=== PATIENT | female | born 1960 | race Caucasian/White ===

== ENCOUNTER → 2018-01-20 07:44 | Outpatient (CLI) | payer OTHER, SELFPAY ==
--- NOTE | 2018-01-20 07:46 | BI_ITS ---
MAMMOGRAPHY - BILATERAL SCREENING REASON FOR EXAM: Female, 57 years old. Routine annual screening examination. PERTINENT HISTORY: Non-contributory. TECHNIQUE: Digital bilateral breast susana (3D mammographic acquisition) in the CC and MLO projections. 2-D mediolateral oblique (MLO) and craniocaudad (CC) views of both breasts were obtained. CAD: Full Field Digital Mammography with Computer Added Detection was performed. COMPARISON: Comparison is made with prior study dated January 02, 2017 and November 10, 2015. FINDINGS: Breast Composition: There are scattered areas of fibroglandular density. There are no dominant masses or suspicious calcifications. No other significant abnormalities are identified. There has been no significant change since the prior study. BI/SCREENING MAMM (CAD), BILAT IMPRESSION: Stable bilateral screening mammogram. Yearly follow-up mammogram recommended. (A) ASSESSMENT CATEGORY: BIRADS Category 1: Negative. A letter regarding these results will be sent to the patient by the facility within 30 days. Approximately 10% of breast cancers are not detected by mammography. A normal mammogram should not delay biopsy of a clinically suspicious abnormality. [id number] Electronically Signed: Fermin Monroy MD at 9:17 EDT Tel [phone], Service support ,
== END ==
PROVIDERS: Visit Provider Obstetrics & Gynecology
DX: Z12.31 Encounter for screening mammogram for malignant neoplasm of breast (principal)
CPT/HCPCS: 77063; 77067

== ENCOUNTER → 2019-04-01 15:36 | Outpatient (CLI) | payer OTHER, SELFPAY ==
[2019-04-06 14:59] LABS: HPV Reflexed? NOT INDICATED
== END ==
PROVIDERS: Visit Provider Obstetrics & Gynecology
DX: Z12.4 Encounter for screening for malignant neoplasm of cervix (principal)
CPT/HCPCS: 87624; 88175; G0145

== ENCOUNTER → 2019-05-06 08:08 | Outpatient (CLI) | payer OTHER, SELFPAY ==
--- NOTE | 2019-05-06 08:11 | BI_ITS ---
MAMMOGRAPHY - BILATERAL SCREENING REASON FOR EXAM: Female, 58 years old. Routine annual screening examination. PERTINENT HISTORY: Non-contributory. TECHNIQUE: Digital bilateral breast duncan (3D mammographic acquisition) in the CC and MLO projections. 2-D mediolateral oblique (MLO) and craniocaudad (CC) views of both breasts were obtained. CAD: Full Field Digital Mammography with Computer Added Detection was performed. COMPARISON: Comparison is made with prior study dated January 20, 2018 and January 02, 2017. FINDINGS: Breast Composition: There are scattered areas of fibroglandular density. Focal area of architectural distortion is seen in the MLO view of the left breast superiorly. The patient will be recalled for additional views including a 90 degree lateral view and compression spot views. Stable appearance of the bilateral axillary lymph nodes. No other significant abnormalities are identified. BI/SCREEN MAMM (CAD) W/DUNCAN BILAT IMPRESSION: Focal area of architectural distortion seen on the tomographic views of the left breast on the MLO view as described. The patient will be recalled for additional views. Recall Side: Left Breast ASSESSMENT CATEGORY: BIRADS Category 0: Incomplete. Need additional imaging evaluation. A letter regarding these results will be sent to the patient by the facility within 30 days. Approximately 10% of breast cancers are not detected by mammography. A normal mammogram should not delay biopsy of a clinically suspicious abnormality. [id number] Electronically Signed: Fermin Monroy, at 9:44 EDT , Service support ,
== END ==
PROVIDERS: Family Provider Family Medicine; PCP Family Medicine; Referring Provider Obstetrics & Gynecology; Visit Provider Obstetrics & Gynecology
DX: Z12.31 Encounter for screening mammogram for malignant neoplasm of breast (principal)
CPT/HCPCS: 77063; 77067

== ENCOUNTER → 2019-05-07 09:13 | Outpatient (CLI) | payer OTHER, SELFPAY ==
--- NOTE | 2019-05-07 09:17 | BI_ITS ---
MAMMOGRAPHY - UNILATERAL DIAGNOSTIC: LEFT BREAST REASON FOR EXAM: Female, 58 years old. Abnormal screening mammogram. PERTINENT HISTORY: Non-contributory. TECHNIQUE: Compression spot view and 90 degree view of the left breast were obtained. CAD: Full Field Digital Mammography with Computer Added Detection was performed. COMPARISON: Comparison is made with prior examination dated May 06, 2019. FINDINGS: Breast Composition: There are scattered areas of fibroglandular density. There are no dominant masses or suspicious calcifications. The previously seen focal area of architectural distortion in the superior aspect of the left breast is not seen at this time. No other significant abnormalities are identified. BI/DIAG MAMM W/CAD, UNILAT IMPRESSION: Stable unilateral diagnostic mammogram. One year follow-up mammogram recommended. (A) ASSESSMENT CATEGORY: BIRADS Category 2: Benign. A letter regarding these results will be sent to the patient by the facility within 30 days. Approximately 10% of breast cancers are not detected by mammography. A normal mammogram should not delay biopsy of a clinically suspicious abnormality. Electronically Signed: Fermin Monroy, at 10:09 EDT , Service support ,
--- NOTE | 2019-05-07 09:17 | US_ITS ---
STUDY: ULTRASOUND BREAST - LEFT REASON FOR EXAM: Female, 58 years old. Abnormal screening mammogram. TECHNIQUE: Axial and longitudinal images of the LEFT breast were performed with a high resolution ultrasound transducer. COMPARISON: Comparison is made with prior mammogram dated May 06, 2019 and May 07, 2019. FINDINGS: LEFT Breast: The superior half of the left breast was examined by ultrasound. There is homogeneous fibroglandular tissue. No solid or cystic mass lesion is seen. US/Breast Limited Unilateral IMPRESSION: Unremarkable sonographic examination of the upper half of the left breast. ASSESSMENT CATEGORY: BIRADS Category 1: Negative. A letter regarding these results will be sent to the patient by the facility within 30 days. Electronically Signed: Fermin Monroy, at 13:50 EDT , Service support ,
== END ==
PROVIDERS: Family Provider Family Medicine; PCP Family Medicine; Referring Provider Obstetrics & Gynecology; Visit Provider Obstetrics & Gynecology
DX: R92.8 Other abnormal and inconclusive findings on diagnostic imaging of breast (principal)
CPT/HCPCS: 76641; 76642; 77065

== ENCOUNTER → 2019-11-15 10:38 | Outpatient (CLI) | payer OTHER, SELFPAY ==
--- NOTE | 2019-11-15 16:50 | LES_PTH ---
PATIENT: CHAD BRAND LOC: [facility] U#:[id number] AGE/SX: 64/F ROOM: RE11/15/[address]: Dr. Camden Salazar MD : 1960 BED: DIS: SPEC #: [id number] RECD: 11/16/19 09:57 STATUS: ULYSSES MARC #: [id number] YANELIS: 11/15/19 16:[address]: Camden Salazar DEPT: SURGICAL PATHOLOGY RECD BY: Raymond Sepulveda ENTERED: 11/16/19 11:42 SP TYPE: Lesion OTHR DR: Dr. Poonam Espinoza MD Tissues: Skin of eyelid, NOS Procedures: Surgery Specimen Level IV HEADER OPERATION: Left lower lid lesion excision PRE-OP DIAGNOSIS: Left lower lid lesion, possible inclusion cyst TISSUE SUBMITTED: Left lower eyelid lesion MICROSCOPIC DIAGNOSIS Left lower eyelid lesion, excision: Benign ductal cyst (cyst of Moll's gland). Dermal and follicular chronic inflammation. ANGELICA:jeannette 11/17/19 COMMENT Case has been reviewed in consultation with Dr. Crawford who concurs with the above diagnosis. IDC:AM MICROSCOPIC DESCRIPTION Slides are reviewed. GROSS DESCRIPTION Received in fixative is one container labeled with the patient's name and designated left lower lid. The specimen consists of an irregular fragment of light wang soft tissue measuring 0.5 x 0.2 x 0.1 cm. The specimen is totally submitted in one cassette. / AM:jeannette 11/16/19 TC:3 CPT: 33624
== END ==
PROVIDERS: PCP Family Medicine; Referring Provider Ophthalmology; Visit Provider Ophthalmology
DX: H02.9 Unspecified disorder of eyelid (principal)
CPT/HCPCS: 88305

== ENCOUNTER → 2020-05-27 07:00 | Outpatient (CLI) | payer OTHER, SELFPAY ==
--- NOTE | 2020-05-27 07:16 | BI_ITS ---
MAMMOGRAPHY - BILATERAL SCREENING REASON FOR EXAM: Female, 59 years old. Routine annual screening examination. PERTINENT HISTORY: Non-contributory. TECHNIQUE: Digital bilateral breast duncan (3D mammographic acquisition) in the CC and MLO projections. 2-D mediolateral oblique (MLO) and craniocaudad (CC) views of both breasts were obtained. CAD: Full Field Digital Mammography with Computer Added Detection was performed. COMPARISON: Comparison is made with prior study dated 05/06/2019 and 01/20/2018. FINDINGS: Breast Composition: There are scattered areas of fibroglandular density. There are no dominant masses or suspicious calcifications. Stable small benign appearing bilateral axillary lymph nodes. No other significant abnormalities are identified. There has been no significant change since the prior study. BI/SCREEN MAMM (CAD) W/DUNCAN BILAT IMPRESSION: Stable bilateral screening mammogram. Yearly follow-up mammogram recommended. (A) ASSESSMENT CATEGORY: BIRADS Category 2: Benign. A letter regarding these results will be sent to the patient by the facility within 30 days. Approximately 10% of breast cancers are not detected by mammography. A normal mammogram should not delay biopsy of a clinically suspicious abnormality. [id number] Electronically Signed: Fermin Monroy, at 8:31 EDT , Service support ,
== END ==
PROVIDERS: PCP Family Medicine; Referring Provider Obstetrics & Gynecology; Visit Provider Obstetrics & Gynecology
DX: Z12.31 Encounter for screening mammogram for malignant neoplasm of breast (principal)
CPT/HCPCS: 77063; 77067

== ENCOUNTER 2021-10-24 13:22 | Outpatient (CLI) | payer OTHER, SELFPAY ==
--- NOTE | 2021-10-24 11:15 | POL_PTH ---
PATIENT: CHAD BRAND LOC: [facility] U#:[id number] AGE/SX: 60/F ROOM: RE10/24/[address]: Dr. Gorge Joyce MD : 1960 BED: DIS: 10/24/2021 SPEC #: [id number] RECD: 10/24/21 14:32 STATUS: ULYSSES REColleen #: [id number] YANELIS: 10/24/21 11:[address]: Gorge Joyce DEPT: SURGICAL PATHOLOGY RECD BY: Micaela Erickson ENTERED: 10/25/21 07:28 SP TYPE: Polyp OTHR DR: Dr. Poonam Espinoza MD Tissues: Vagina, NOS Procedures: Surgery Specimen Level IV HEADER OPERATION: Vaginal polyp removal PRE-OP DIAGNOSIS: Vaginal polyp TISSUE SUBMITTED: Vaginal polyp MICROSCOPIC DIAGNOSIS Vaginal polyp, biopsy: Benign mucosal polyp. See comment. ANGELICA:jeannette 10/26/2021 COMMENT Polyp is lined by squamous epithelium. MICROSCOPIC DESCRIPTION Slides are reviewed. GROSS DESCRIPTION Received in fixative is one container labeled with the patient's name and designated vaginal polyp. The specimen consists of a piece of wang-pink polyp measuring 1.2 x 0.5 x 0.5 cm. The specimen is bisected and submitted entirely in one cassette. / SJ:rg 10/25/2021 TC:5 [facility]: [id number]
[2021-10-29 18:03] LABS: HPV Reflexed? NOT INDICATED
== END 2021-10-24 23:59 | disposition home or self-care (01) ==
LOC: LABSPEC 13:30
PROVIDERS: PCP Family Medicine; Visit Provider Obstetrics & Gynecology
DX: Z12.4 Encounter for screening for malignant neoplasm of cervix (principal)
CPT/HCPCS: 88175; 88305; G0145

== ENCOUNTER 2021-11-22 13:40 | Outpatient (CLI) | payer OTHER, SELFPAY ==
--- NOTE | 2021-11-22 13:43 | BI_ITS ---
MAMMOGRAPHY - BILATERAL SCREENING 3-D TOMOSYNTHESIS REASON FOR EXAM: Female, 60 years old. SCREENING PERTINENT HISTORY: No significant family history. TECHNIQUE: 2-D mammograms and 3-D Tomosynthesis of the breast (s) were performed. CAD was performed. COMPARISON: 05/27/2020 FINDINGS: The breast composition is heterogeneously dense that can obscure small breast masses. Scattered benign calcifications are seen. No dense spiculated masses or suspicious microcalcifications are identified. No architectural distortion is identified. There is no skin thickening or retraction. There has been no significant change since the prior study. BI/SCRN MAMM (CAD)W/DUNCAN BILAT IMPRESSION: No mammographic signs of malignancy. Routine yearly mammograms recommended. ASSESSMENT CATEGORY: BIRADS Category 1: Negative. A letter regarding these results will be sent to the patient by the facility within 30 days. FOLLOW UP RECOMMENDATION: Yearly follow up mammogram recommended. (A) Approximately 10% of breast cancers are not detected by mammography. A normal mammogram should not delay biopsy of a clinically suspicious abnormality. Electronically Signed: Donald Reagan MD at 17:17 EDT ,
== END 2021-11-22 23:59 | disposition home or self-care (01) ==
LOC: OPBI 13:41
PROVIDERS: PCP Family Medicine; Referring Provider Obstetrics & Gynecology; Visit Provider Obstetrics & Gynecology
DX: Z12.31 Encounter for screening mammogram for malignant neoplasm of breast (principal)
CPT/HCPCS: 77063; 77067

== ENCOUNTER 2021-12-07 09:34 | Outpatient (CLI) | payer OTHER, SELFPAY ==
[2021-12-07 10:11] LABS: Erythrocyte Sedimentation Rate 37 mm/hr (0-30)
[2021-12-07 10:14] LABS: Absolute Lymphocyte Count 2.14 X10^3/uL (0.83-4.51); Absolute Neutrophil Count 3.9 X10^3/uL (2.0-7.7); Basophil# 0.04 X10^3/uL; Basophil% 0.6 % (0-1); Eosinophil# 0.25 X10^3/uL; Eosinophils% 3.6 % (0-5); Hematocrit 39.9 % (37-47); Hemoglobin 13.4 g/dL (12.0-15.0); Lymphocyte # 2.14 X10^3/ul (0.83-4.51); Lymphocyte % 30.4 % (19-41); Mean Corp Hgb Conc 33.6 g/dL (32-36); Mean Corpuscular Volume 95.2 fL (81-99); Mean Platelet Vol. 10.4 fl (6.2-12.0); NRBC Flagged by Analyzer 0 % (0-5); Neutrophil # 3.89 X10^3/uL (2.7-7.7); Neutrophil % 55.3 % (47-70); Platelet Count 303 K/mm3 (150-450); RBC Distribution Width CV 12.4 % (11.6-14.6); RBC Distribution Width SD 42.7 fl (35.1-43.9); Red Blood Count 4.19 M/mm3 (4.2-5.4)
[2021-12-07 10:16] LABS: Prothrombin Time (Protime)PT. 12.7 SECONDS (11.7-14.9)
[2021-12-07 11:13] LABS: ALB/GLOB Ratio 0.8 RATIO (0.9-2.4); AST(SGOT) 52 U/L (15-37); Alanine Aminotransfer ALT/SGPT 79 U/L (13-56); Albumin, Serum 3.5 g/dL (3.2-5.0); Alkaline Phosphatase 77 U/L (45-117); Anion Gap 3 (5-15); BUN 12 mg/dL (7-18); BUN/Creat Ratio 17.7 RATIO (10-20); Bilirubin, Direct 0.13 mg/dL (0.00-0.30); CRP 8.82 mg/L (0.0-3.0); Calcium,Total 8.7 mg/dL (8.5-10.1); Chloride 109 mmol/L (98-107); Creatinine, Serum 0.68 mg/dL (0.55-1.02); EST Glomerular Filtration Rate 94 mL/min (>60); Est Glom Filt Rate - Afr Amer 114 mL/min (>60); Ferritin 392 ng/mL (8-252); Globulin 4.3 g/dL (2.2-4.2); Glucose 132 mg/dL (74-106); LDH 181 U/L (84-246); Potassium 4.1 mmol/L (3.5-5.1); Protein, Total 7.8 g/dL (6.4-8.2); Sodium Level 139 mmol/L (136-145)
[2021-12-07 11:14] LABS: Hemoglobin A1c 5.8 % (3.8-5.6)
[2021-12-08 16:09] LABS: Anti-Centromere B Ab <0.2 AI (0.0-0.9); Anti-Chromatin <0.2 AI (0.0-0.9); Anti-Jo <0.2 AI (0.0-0.9); Anti-Scleroderma-70 AB <0.2 AI (0.0-0.9); RNP Ab 0.2 AI (0.0-0.9); SJOGREN'S Anti-SS-A test < 0.2 AI (0.0-0.9); SJOGREN'S Anti-SS-B test < 0.2 AI (0.0-0.9); Smith Ab <0.2 AI (0.0-0.9)
[2021-12-08 22:22] LABS: Anti-Mitochondrial AB <20.0 Units (0.0-20.0); Anti-dsDNA Ab <1 IU/mL (0-9)
[2021-12-11 05:07] LABS: Angiotensin Convert Enzyme 26 U/L (14-82); Ceruloplasmin 25.6 mg/dL (19.0-39.0); Cytoplasmic Ab (C-ANCA) <1:20 titer (Neg:<1:20); HEPATITIS B SURFACE AG Negative (Negative); Hepatitis A IgM Antibody Negative (Negative); Hepatitis B Core AB IgM Negative (Negative)
[2021-12-11 11:36] LABS: AFP, Tumor Marker 3.2 ng/mL (0.0-9.2); Anti-Smooth Muscle ABS 12 Units (0-19); Copper, Serum or Plasma 131 ug/dL (80-158); Haptoglobin 194 mg/dL (33-346); Hep C Antibodies 0.2 s/co ratio (0.0-0.9); Perinuclear Ab (P-ANCA) <1:20 titer (Neg:<1:20)
== END 2021-12-07 23:59 | disposition home or self-care (01) ==
PROVIDERS: PCP Family Medicine; Referring Provider Nurse Practitioner Adult Health; Visit Provider Nurse Practitioner Adult Health
DX: R74.8 Abnormal levels of other serum enzymes (principal); K76.0 Fatty (change of) liver, not elsewhere classified; Z83.79 Family history of other diseases of the digestive system
CPT/HCPCS: 36415; 80053; 80074; 82105; 82140; 82164; 82248; 82390; 82525; 82728; 83010; 83036; 83516; 83615; 85025; 85610; 85652; 86140; 86225; 86235; 86256

== ENCOUNTER → 2021-12-25 | Outpatient (CLI) | payer OTHER, SELFPAY ==
--- NOTE | 2021-12-25 07:46 | US_ITS ---
STUDY: ABDOMINAL ULTRASOUND - ELASTOGRAPHY REASON FOR VISIT: Female, 61 years old. Fatty infiltration of the liver. TECHNIQUE: Liver stiffness measurements were obtained on a [employer] RS 85 ultrasound machine using a CA 1-7 probe following the SRU guidelines. 3 measurements were obtained using a 2-D-SWE method. The IQR/M was 13% suggesting a quality data set. TECHNICAL QUALITY: Adequate. COMPARISON: Comparison is made with prior study done earlier in the day. FINDINGS: Liver: There is evidence of fatty infiltration of the liver. Median liver stiffness measured 5.5 kPa. US/Elastography Parenchyma/Organ IMPRESSION: Liver stiffness measures 5. kPa compatible with F0-F1 (Normal to mild liver fibrosis) Metavir score. Electronically Signed: Fermin Monroy MD at 9:34 EDT ,
--- NOTE | 2021-12-25 07:46 | US_ITS ---
STUDY: ABDOMINAL ULTRASOUND - RIGHT UPPER QUADRANT REASON FOR VISIT: Female, 61 years old K76.0 - Fatty (change of) liver, not elsewhere classified TECHNIQUE: Ultrasound evaluation of the right upper quadrant was performed with real-time and static allen-scale imaging. TECHNICAL QUALITY: Adequate. COMPARISON: None. FINDINGS: Liver: The liver is mildly enlarged and measures 17.7 cm. There is increased echogenicity consistent with fatty infiltration. The bile ducts are within normal limits. There is hepatic color flow. The direction of portal flow is hepatopetal. There is a 6.5 cm x 7.2cm x 4.8 cm cyst in the medial aspect of the right lobe of the liver. Gallbladder: Normal distended gallbladder. The gallbladder wall measures 1.8 mm. There is a negative sonographic Carey''s sign. There is no pericholecystic fluid. There are no gallstones. Common Bile Duct (C.B.D.): The common bile duct measures 1.9 mm. Pancreas: Normal size of the head, body and tail of the pancreas. There is normal echogenicity of the pancreas. There is no demonstrated pancreatic mass or cyst. Right Kidney: Normal size of the right kidney. The right kidney measures 11.9 cm x 6.1 cm x 4.8 cm. Normal renal cortex. The right cortex measures 1.3 cm. There is a 2.3 cm x 2.2 cm x 1.4 cm right renal cyst. There is no right hydronephrosis. US/Abdomen Limited IMPRESSION: Fatty infiltration of the liver. Cyst is seen in the medial aspect of the right lobe of the liver. Right renal cyst. Electronically Signed: Fermin Monroy MD at 9:14 EDT ,
== END | disposition home or self-care (01) ==
LOC: US 07:45
PROVIDERS: PCP Family Medicine; Referring Provider Nurse Practitioner Adult Health; Visit Provider Nurse Practitioner Adult Health
DX: K76.0 Fatty (change of) liver, not elsewhere classified (principal)
CPT/HCPCS: 76705; 76981

== ENCOUNTER → 2022-11-28 | Outpatient (CLI) | payer OTHER, SELFPAY ==
--- NOTE | 2022-11-28 10:28 | BI_ITS ---
MAMMOGRAPHY - BILATERAL SCREENING REASON FOR EXAM: Female, 61 years old. Routine annual screening examination. PERTINENT HISTORY: Non-contributory. TECHNIQUE: Digital bilateral breast duncan (3D mammographic acquisition) in the CC and MLO projections. 2-D mediolateral oblique (MLO) and craniocaudad (CC) views of both breasts were obtained. CAD: Full Field Digital Mammography with Computer Added Detection was performed. COMPARISON: Comparison is made with prior examination dated November 22, 2021 and May 27, 2020. FINDINGS: Breast Composition: There are scattered areas of fibroglandular density. There are no dominant masses or suspicious calcifications. Stable benign-appearing bilateral axillary lymph nodes. No other significant abnormalities are identified. There has been no significant change since the prior study. BI/SCRN MAMM (CAD)W/DUNCAN BILAT IMPRESSION: Stable bilateral screening mammogram. Yearly follow-up mammogram recommended. (A) ASSESSMENT CATEGORY: BIRADS Category 2: Benign. A letter regarding these results will be sent to the patient by the facility within 30 days. Approximately 10% of breast cancers are not detected by mammography. A normal mammogram should not delay biopsy of a clinically suspicious abnormality. [id number] Electronically Signed: Fermin Monroy MD at 11:16 EDT ,
== END | disposition home or self-care (01) ==
LOC: OPBI 10:26
PROVIDERS: PCP Family Medicine; Referring Provider Obstetrics & Gynecology; Visit Provider Obstetrics & Gynecology
DX: Z12.31 Encounter for screening mammogram for malignant neoplasm of breast (principal)
CPT/HCPCS: 77063; 77067

== ENCOUNTER → 2023-01-21 | Outpatient (CLI) | payer OTHER, SELFPAY ==
[2023-01-21 11:26] LABS: Absolute Lymphocyte Count 2.61 X10^3/uL (0.83-4.51); Absolute Neutrophil Count 3.9 X10^3/uL (2.0-7.7); Basophil# 0.06 X10^3/uL; Basophil% 0.8 % (0-1); Eosinophil# 0.31 X10^3/uL; Eosinophils% 4.1 % (0-5); Hematocrit 42.5 % (37-47); Hemoglobin 13.6 g/dL (12.0-15.0); Lymphocyte # 2.61 X10^3/ul (0.83-4.51); Lymphocyte % 34.5 % (19-41); Mean Corpuscular Hgb 31.6 pg (27.0-32.0); Mean Corpuscular Volume 98.8 fL (81-99); Mean Platelet Vol. 10.7 fl (6.2-12.0); Monocyte# 0.64 X10^3/uL; Monocyte% 8.5 % (0-10); NRBC Flagged by Analyzer 0 % (0-5); Neutrophil # 3.92 X10^3/uL (2.7-7.7); Neutrophil % 51.7 % (47-70); Platelet Count 298 K/mm3 (150-450); RBC Distribution Width CV 12.5 % (11.6-14.6); RBC Distribution Width SD 45.1 fl (35.1-43.9); White Blood Count 7.6 K/mm3 (4.4-11.0)
[2023-01-21 11:37] LABS: Erythrocyte Sedimentation Rate 38 mm/hr (0-30)
[2023-01-21 11:40] LABS: Hemoglobin A1c 5.9 % (3.8-5.6)
[2023-01-21 12:03] LABS: BUN 14 mg/dL (7-18); EST Glomerular Filtration Rate 91 mL/min (>60); Glucose 103 mg/dL (74-106)
[2023-01-21 12:04] LABS: ALB/GLOB Ratio 0.8 RATIO (0.9-2.4); AST(SGOT) 50 U/L (15-37); Alanine Aminotransfer ALT/SGPT 76 U/L (13-56); Albumin, Serum 3.6 g/dL (3.2-5.0); Alkaline Phosphatase 80 U/L (45-117); Anion Gap 7 (5-15); BUN/Creat Ratio 20.1 RATIO (10-20); CRP 8.31 mg/L (0.0-3.0); Calcium,Total 9.3 mg/dL (8.5-10.1); Chloride 107 mmol/L (98-107); Est Glom Filt Rate - Afr Amer 110 mL/min (>60); Globulin 4.5 g/dL (2.2-4.2); Potassium 4.4 mmol/L (3.5-5.1); Protein, Total 8.1 g/dL (6.4-8.2); Sodium Level 141 mmol/L (136-145)
== END | disposition home or self-care (01) ==
PROVIDERS: PCP Family Medicine; Referring Provider Nurse Practitioner Adult Health; Visit Provider Nurse Practitioner Adult Health
DX: K76.0 Fatty (change of) liver, not elsewhere classified (principal)
CPT/HCPCS: 36415; 80053; 83036; 85025; 85652; 86140

== ENCOUNTER → 2023-02-18 | Outpatient (CLI) | payer OTHER, SELFPAY ==
--- NOTE | 2023-02-18 09:22 | US_ITS ---
STUDY: ABDOMINAL ULTRASOUND - RIGHT UPPER QUADRANT REASON FOR VISIT: Female, 62 years old fatty liver, elastography -- RUQ TECHNIQUE: Ultrasound evaluation of the right upper quadrant was performed with real-time and static allen-scale imaging. TECHNICAL QUALITY: Adequate. COMPARISON: Comparison is made with prior study dated December 25, 2021. FINDINGS: Liver: The liver measures 17.9 cm. There is increased echogenicity consistent with fatty infiltration. The bile ducts are within normal limits. There is hepatic color flow. The direction of portal flow is hepatopetal. Stable 6.5 cm x 7.2 cm cyst in the medial aspect of the right lobe of the liver. Gallbladder: Normal distended gallbladder. The gallbladder wall measures 2.0 mm. There is a negative sonographic Carey''s sign. There is no pericholecystic fluid. There are no gallstones. Common Bile Duct (C.B.D.): The common bile duct measures 4.0 mm. Pancreas: Normal size of the head, body and tail of the pancreas. There is normal echogenicity of the pancreas. There is no demonstrated pancreatic mass or cyst. Right Kidney: Normal size of the right kidney. The right kidney measures 11.6 cm x 5.9 cm x 5.1 cm. Normal renal cortex. The right cortex measures 1.2 cm. 1.8 cm x 1.8 cm x 1.2 cm cyst in the lower pole of the right kidney. There is no right hydronephrosis. IMPRESSION: Borderline hepatomegaly and fatty infiltration of the liver. Stable small cyst in the right lobe of the liver as well as in the inferior pole of the right kidney. Electronically Signed: Fermin Monroy MD at 9:17 EDT , STUDY: ABDOMINAL ULTRASOUND - ELASTOGRAPHY REASON FOR VISIT: Female, 62 years old. Fatty infiltration of the liver. TECHNIQUE: Liver stiffness measurements were obtained on a [employer] RS 85 ultrasound machine using a CA 1-7 probe following the SRU guidelines. 3 measurements were obtained using a 2-D-SWE method. TheIQR/M was 14% suggesting a quality data set. TECHNICAL QUALITY: Adequate. COMPARISON: Comparison is made with prior study dated December 25, 2021. FINDINGS: Liver: There is no demonstrated mass lesion. Median liver stiffness measured 6.4 kPa. Abdomen: There is no demonstrated mass lesion. US/ABD Limited w/ Elastography IMPRESSION: Liver stiffness measures 6.4 kPa compatible with F2-F3 (Mild to moderate liver fibrosis) Metavir score. Electronically Signed: Fermin Monroy MD at 9:19 EDT ,
== END | disposition home or self-care (01) ==
PROVIDERS: PCP Family Medicine; Referring Provider Nurse Practitioner Adult Health; Visit Provider Nurse Practitioner Adult Health
DX: K76.0 Fatty (change of) liver, not elsewhere classified (principal)
CPT/HCPCS: 76705; 76981

== ENCOUNTER → 2024-01-01 | Outpatient (CLI) | payer OTHER, SELFPAY ==
--- NOTE | 2024-01-01 10:28 | BI_ITS ---
MAMMOGRAPHY - BILATERAL SCREENING REASON FOR EXAM: Female, 63 years old. Routine annual screening examination. PERTINENT HISTORY: Non-contributory. TECHNIQUE: Digital bilateral breast duncan (3D mammographic acquisition) in the CC and MLO projections. 2-D mediolateral oblique (MLO) and craniocaudad (CC) views of both breasts were obtained. CAD: Full Field Digital Mammography with Computer Added Detection was performed. COMPARISON: Comparison is made with prior study dated November 28, 2022 and November 22, 2021. FINDINGS: Breast Composition: There are scattered areas of fibroglandular density. There are no dominant masses or suspicious calcifications. Stable benign-appearing right axillary lymph nodes. No other significant abnormalities are identified. There has been no significant change since the prior study. BI/SCRN MAMM (CAD)W/UDNCAN BILAT IMPRESSION: Stable bilateral screening mammogram. Yearly follow-up mammogram recommended. (A) ASSESSMENT CATEGORY: BIRADS Category 2: Benign. A letter regarding these results will be sent to the patient by the facility within 30 days. Approximately 10% of breast cancers are not detected by mammography. A normal mammogram should not delay biopsy of a clinically suspicious abnormality. [id number] Electronically Signed: Fermin Monroy MD at 12:26 EDT ,
== END | disposition home or self-care (01) ==
LOC: OPBI 10:26
PROVIDERS: PCP Family Medicine; Referring Provider Family Medicine; Visit Provider Family Medicine
DX: Z12.31 Encounter for screening mammogram for malignant neoplasm of breast (principal)
CPT/HCPCS: 77063; 77067

== ENCOUNTER → 2024-04-12 | Outpatient (CLI) | payer OTHER, SELFPAY ==
[2024-04-17 10:42] LABS: HPV APTIMA, High Risk Negative (Negative)
== END | disposition home or self-care (01) ==
PROVIDERS: PCP Family Medicine; Referring Provider Nurse Practitioner Women's Health; Visit Provider Nurse Practitioner Women's Health
DX: Z12.4 Encounter for screening for malignant neoplasm of cervix (principal)
CPT/HCPCS: 87624; 88175; G0145

== ENCOUNTER → 2025-01-06 | Outpatient (CLI) | payer OTHER, SELFPAY ==
--- NOTE | 2025-01-06 11:02 | BI_ITS ---
EXAM: SCRN MAMM (CAD)W/DUNCAN BILAT DATE: 01/06/2025 CLINICAL HISTORY: F, Age 64 y/o , SCREENING FOR BREAST CANCER BREAST CANCER RISK ASSESSMENT: Has not been calculated. TECHNIQUE: Bilateral screening digital breast tomosynthesis with 2D and 3D images. Computer aided detection. COMPARISON: Prior exam(s) dated 01/01/2024 and 11/28/2022. FINDINGS: TISSUE DENSITY: The breast tissue is composed of scattered area of fibroglandular density. Bilateral Breast Mammographic Findings: There are no suspicious masses, suspicious clustered microcalcifications, architectural distortion or secondary signs of malignancy identified in either breast. Benign round calcifications are seen in both breasts. A benign-appearing macrocalcification is seen in the right breast. A stable 6 mm nodular masslike density is seen in the superior outer, far anterior aspect of the left breast. A stable 6 mm nodular masslike density is seen in the superior outer, junction of the middle and posterior 3rd aspect of the right breast. BI/SCRN MAMM (CAD)W/DUNCAN BILAT IMPRESSION: OVERALL FINAL ASSESSMENT: BIRADS 2 BENIGN FINDING RECOMMENDATION: Routine annual follow-up in 1 Year A letter with findings and recommendations will be mailed to the patient. Reading Location: [id number]
== END | disposition home or self-care (01) ==
LOC: OPBI 11:00
PROVIDERS: PCP Family Medicine; Referring Provider Nurse Practitioner Women's Health; Visit Provider Nurse Practitioner Women's Health
DX: Z12.31 Encounter for screening mammogram for malignant neoplasm of breast (principal)
CPT/HCPCS: 77063; 77067

== ENCOUNTER → 2025-01-18 | Outpatient (CLI) | payer OTHER, SELFPAY ==
[2025-01-18 12:36] LABS: Absolute Lymphocyte Count 2.17 X10^3/uL (0.83-4.51); Absolute Neutrophil Count 4.6 X10^3/uL (2.0-7.7); Basophil# 0.07 X10^3/uL; Basophil% 0.9 % (0-1); Eosinophil# 0.19 X10^3/uL; Eosinophils% 2.4 % (0-5); Hematocrit 41.6 % (37-47); Hemoglobin 13.6 g/dL (12.0-15.0); Lymphocyte # 2.17 X10^3/ul (0.83-4.51); Lymphocyte % 27.7 % (19-41); Mean Corp Hgb Conc 32.7 g/dL (32-36); Mean Corpuscular Hgb 31.9 pg (27.0-32.0); Mean Corpuscular Volume 97.7 fL (81-99); Mean Platelet Vol. 10.3 fl (6.2-12.0); Monocyte# 0.77 X10^3/uL; Monocyte% 9.8 % (0-10); NRBC Flagged by Analyzer 0 % (0-5); Neutrophil # 4.59 X10^3/uL (2.7-7.7); Neutrophil % 58.8 % (47-70); Platelet Count 340 K/mm3 (150-450); RBC Distribution Width CV 12.6 % (11.6-14.6); RBC Distribution Width SD 44.6 fl (35.1-43.9); Red Blood Count 4.26 M/mm3 (4.2-5.4); White Blood Count 7.8 K/mm3 (4.4-11.0)
[2025-01-18 12:43] LABS: International Normalized Ratio 0.9; Prothrombin Time (Protime)PT. 12.6 SECONDS (11.7-14.9)
[2025-01-18 13:19] LABS: Hepatitis B Surface Antibody REAC
[2025-01-18 13:27] LABS: ALB/GLOB Ratio 1.2 RATIO (0.9-2.4); AST(SGOT) 43 U/L (<=31); Alanine Aminotransfer ALT/SGPT 47 U/L (<=34); Albumin, Serum 4.4 g/dL (3.4-4.8); Alkaline Phosphatase 66 U/L (35-104); Anion Gap 11 (5-15); BUN 16 mg/dL (4-19); BUN/Creat Ratio 23.1 RATIO (10-20); CRP 5.89 mg/L (0.0-3.0); Calcium,Total 9.6 mg/dL (7.6-11.0); Carbon Dioxide 22.4 mmol/L (21.0-32.0); Chloride 105 mmol/L (98-108); Creatinine, Serum 0.69 mg/dL (0.70-1.20); EST Glomerular Filtration Rate 97 (>60); Globulin 3.5 g/dL (2.2-4.2); Glucose 114 mg/dL (70-99); Potassium 3.9 mmol/L (3.3-5.1); Protein, Total 7.9 g/dL (5.9-8.4); Sodium Level 139 mmol/L (133-145); Total Bilirubin 0.47 mg/dL (0.00-1.30); Vitamin D,25 Hydroxy 24.2 ng/mL (30-100)
[2025-01-20 05:07] LABS: Hepatitis A AB, Total Negative (Negative)
== END | disposition home or self-care (01) ==
LOC: LAB 11:48
PROVIDERS: PCP Family Medicine; Referring Provider Nurse Practitioner Acute Care; Visit Provider Nurse Practitioner Acute Care
DX: K76.89 Other specified diseases of liver (principal); K76.0 Fatty (change of) liver, not elsewhere classified
CPT/HCPCS: 36415; 80053; 82306; 84443; 85025; 85610; 86140; 86706; 86708

== ENCOUNTER → 2025-01-27 | Outpatient (CLI) | payer OTHER, SELFPAY ==
--- NOTE | 2025-01-27 08:17 | US_ITS ---
PROCEDURE: ABD LIMITED W/ ELASTOGRAPHY REASON FOR EXAM: LIVER STEATOSIS, LIVER CYST COMPARISON: None. TECHNIQUE: Right upper quadrant abdominal ultrasound. Liya ElastQ Imaging shear wave elastography for non-invasive assessment of liver tissue stiffness. Liya EPIQ Elite. FINDINGS: LIVER: Size: Enlarged (hepatomegaly) Length: 19.7 cm Echotexture: Diffusely echogenic suggesting fatty infiltration Contour: Normal Lesions: 6.7 cm 6.3 cm 4.4 cm cyst in the right lobe of the liver. Elastography: EQI Med: 7.5 kPa EQI Med Ok: 1.6 m/s IQR/Med: 9.5 %* GALLBLADDER: Normal COMMON BILE DUCT: Normal 5.4 mm. PANCREAS: Visualized portions are unremarkable. The distal body and tail are obscured by bowel gas. Visualized portions of the right kidney are unremarkable. There is a 1.5 cm x 1.3 cm x 1.3 cm cyst in the lower pole of the kidney. No right upper quadrant ascites. US/ABD Limited w/ Elastography IMPRESSION: Onuf-[id number] hepatic fibrosis. Hepatomegaly. Cyst in the right lobe of the liver. Reference Values: SRU <1.37 m/s (5.7kPa): No to mild fibrosis 1.37 m/s - 2.2 m/s: Moderate to severe fibrosis >2.2 m/s (15kPa): Significant fibrosis / cirrhosis METAVIR Score F2 or higher: 1.34 m/s (5.7kPa) F3 or higher: 1.55 m/s (7.3kPa) F4: 1.80 m/s (10kPa) * If the IQR/Med is >30%, the variance in the measurements is a large and the a ccuracy of the measurement may be in question. Reading Location: [place] [id number]
== END | disposition home or self-care (01) ==
PROVIDERS: PCP Family Medicine; Referring Provider Nurse Practitioner Acute Care; Visit Provider Nurse Practitioner Acute Care
DX: K76.0 Fatty (change of) liver, not elsewhere classified (principal); K76.89 Other specified diseases of liver
CPT/HCPCS: 76705; 76981

== ENCOUNTER 2025-03-30 09:24 | Outpatient (RCR) | payer OTHER, SELFPAY | END 2025-04-07 23:59 | LOC: NS 09:24 | PROVIDERS: PCP Family Medicine; Referring Provider Nurse Practitioner Acute Care; Visit Provider Nurse Practitioner Acute Care | DX: Z71.3 Dietary counseling and surveillance (principal); K75.81 Nonalcoholic steatohepatitis (NASH); K76.0 Fatty (change of) liver, not elsewhere classified | CPT/HCPCS: 97802 ==

== ENCOUNTER 2025-05-03 10:27 | Outpatient (RCR) | payer OTHER, SELFPAY | END 2025-05-08 23:59 | LOC: NS 10:27 | PROVIDERS: PCP Family Medicine; Referring Provider Nurse Practitioner Acute Care; Visit Provider Nurse Practitioner Acute Care | DX: Z71.3 Dietary counseling and surveillance (principal); K75.81 Nonalcoholic steatohepatitis (NASH); K76.0 Fatty (change of) liver, not elsewhere classified | CPT/HCPCS: 97803 ==

== ENCOUNTER 2025-06-02 11:30 | Outpatient (RCR) | payer OTHER, SELFPAY | END 2025-06-07 23:59 | LOC: NS 11:30 | PROVIDERS: PCP Family Medicine; Referring Provider Nurse Practitioner Acute Care; Visit Provider Nurse Practitioner Acute Care | DX: Z71.3 Dietary counseling and surveillance (principal); K75.81 Nonalcoholic steatohepatitis (NASH); K76.0 Fatty (change of) liver, not elsewhere classified | CPT/HCPCS: 97803 ==

== ENCOUNTER 2025-07-13 10:54 | Outpatient (RCR) | payer OTHER, SELFPAY | END 2025-08-07 23:59 | LOC: NS 10:54 | PROVIDERS: PCP Family Medicine; Referring Provider Nurse Practitioner Acute Care; Visit Provider Nurse Practitioner Acute Care | DX: Z71.3 Dietary counseling and surveillance (principal); K75.81 Nonalcoholic steatohepatitis (NASH); K76.0 Fatty (change of) liver, not elsewhere classified | CPT/HCPCS: 97803 ==

== ENCOUNTER → 2025-08-13 | Outpatient (CLI) | payer OTHER, SELFPAY ==
--- OUTSIDE RECORDS SUMMARY | 2025-08-13 08:02 | XMS RPT_ITS | CCD ---
Author Organization [facility] Care Team Providers Care Director Of Retail Merchandising Name Role Phone Poonam Neal Primary Care Provider Poonam Neal Unavailable Poonam Neal MD Primary Care Provider Dr. Poonam Neal Primary Care Provider Dr. Poonam Neal Referring Provider Tom DREDGE OPERATOR SUPERVISOR, DREDGE OPERATOR SUPERVISOR-C Connie Ferrari Attending Provider Poonam Neal MD Primary Care Provider POONAM NEAL Primary Care Unavailable Lishnevski, Poonam Referring Unavailable LISHNEVSKI, POONAM Attending Unavailable WANDASKJames, POONAM Primary Care Unavailable Lishnevski, Poonam Referring Unavailable LISHNEVSKI, POONAM Attending Unavailable WANDASKJames, POONAM Attending Unavailable WANDASKJames, POONAM Primary Care Unavailable Olga, Poonam Referring Unavailable Dr. Poonam Neal Primary Care Provider Dr. Poonam Neal Referring Provider Tom DREDGE OPERATOR SUPERVISOR, DREDGE OPERATOR SUPERVISOR-C Connie Ferrari Attending Provider Poonam Neal MD Primary Care Provider Poonam Neal MD Primary Care Provider POONAM NEAL MD Primary Care Physician POONAM NEAL MD Attending Unavailable MYCHAL NEAL MDNA Primary Care Unavailable Olga CHAMBERLAIN, Poonam Primary Care Provider Olga CHAMBERLAIN, Poonam Primary Care Provider Olga CHAMBERLAIN, Dr. Levin Primary Care Provider [place] DREDGE OPERATOR SUPERVISOR-C, Bharati Attending Provider [place] DREDGE OPERATOR SUPERVISOR-C, Bharati Referring Provider Olga CHAMBERLAIN, Dr. Levin Referring Provider Arnaldo DREDGE OPERATOR SUPERVISOR-C, Telma Attending Provider Arnaldo DREDGE OPERATOR SUPERVISOR-C, Telma Referring Provider Rad CHAMBERLAIN, Dr. Dominguez Attending Provider Olga CHAMBERLAIN, Dr. Levin Primary Care Provider [place] DREDGE OPERATOR SUPERVISOR-C, Bharati Attending Provider LISHNEVSKI, POONAM Attending Unavailable LISHNEVSKI, POONAM Primary Care Unavailable LISHNEVSKI, POONAM Attending Unavailable LISHNEVSKI, POONAM Primary Care Unavailable LISHNEVSKI, POONAM Attending Unavailable LISHNEVSKI, POONAM Referring Unavailable LISHNEVSKI, POONAM Primary Care Unavailable LISHNEVSKI, POONAM Attending Unavailable LISHNEVSKI, POONAM Referring Unavailable LISHNEVSKI, POONAM Primary Care Unavailable LISHNEVSKI, POONAM Attending Unavailable LISHNEVSKI, POONAM Primary Care Unavailable LISHNEVSKI, POONAM Attending Unavailable LISHNEVSKI, POONAM Primary Care Unavailable Olga CHAMBERLAIN, Dr. Levin Primary Care Physician Olga CHAMBERLAIN, Dr. Levin Referring Provider Arnaldo DREDGE OPERATOR SUPERVISOR-C, Telma Attending Physician Rad CHAMBERLAIN, Dr. Dominguez Attending Physician Arnaldo DREDGE OPERATOR SUPERVISOR-C, Telma Referring Provider Jessica DREDGE OPERATOR SUPERVISOR-C, Bharati Attending Physician Lishnevski, Poonam Primary Care Unavailable Arnaldo, Telma Referring Unavailable Arnaldo, Telma Attending Unavailable Arnaldo, Telma Referring Unavailable Arnaldo, Telma Attending Unavailable Lishnevski, Poonam Primary Care Unavailable Arnaldo, Telma Referring Unavailable Arnaldo, Telma Attending Unavailable Lishnevski, Poonam Primary Care Unavailable Lishnevski, Poonam Primary Care Unavailable Arnaldo, Telma Referring Unavailable Arnaldo, Telma Attending Unavailable Arnaldo, Telma Referring Unavailable Arnaldo, Telma Attending Unavailable Lishnevski, Poonam Primary Care Unavailable Jessica DREDGE OPERATOR SUPERVISOR, Bharati Attending Unavailable Jessica DREDGE OPERATOR SUPERVISOR, Bharati Referring Unavailable Lishnevski, Poonam Primary Care Unavailable Arnaldo, Telma Attending Unavailable Arnaldo, Telma Referring Unavailable Lishnevski, Poonam Primary Care Unavailable Arnaldo, Telma Attending Unavailable Lishnevski, Poonam Primary Care Unavailable Lishnevski, Poonam Referring Unavailable Lishnevski, Poonam Primary Care Unavailable Arnaldo, Telma Attending Unavailable Lishnevski, Poonam Referring Unavailable Rad, Alberto Attending Unavailable Lishnevski, Poonam Referring Unavailable Lishnevski, Poonam Primary Care Unavailable [place] DREDGE OPERATOR SUPERVISOR, Bharati Attending Unavailable Lishnevski, Poonam Referring Unavailable Lishnevski, Poonam Primary Care Unavailable Allergies Allergy Classification Reported Allergen(s) Allergy Type Date of Onset Reaction(s) Facility Macrolides (antibiotic) (2 sources) Azithromycin Drug Allergy 2 [facility] Penicillins (antibiotic) (2 sources) Penicillins Drug Allergy 5 [facility] Sulfonamides (antibiotic) (2 sources) Sulfonamides (Antibiotic) Drug Allergy 5 [facility] (20 sources) Amoxicillin Drug Allergy 5 [facility] Work Phone: (5 sources) Sulfonamides (Antibiotic) Propensity to adverse reactions to drug 5 [facility] Work Phone: (1 source) Penicillins; Translations: [Penicillins] Allergy to drug (finding) [facility] Work Phone: (1 source) Sulfonamides (Antibiotic); Translations: [Sulfa Drugs] Allergy to drug (finding) [facility] Work Phone: (16 sources) Sulfonamides (Antibiotic); Translations: [Sulfa (Sulfonamide Antibiotics)] Allergy to substance [address] [facility] (18 sources) Azithromycin Drug Allergy 2 [facility] (17 sources) Penicillins Drug Intolerance 5 [facility], [facility] (17 sources) Sulfonamides (Antibiotic) Drug Intolerance 5 [facility], [facility] (1 source) Amoxicillin Drug Allergy [address] [facility] Repository Medications Current Medications Medication Drug Class(es) Dates Sig (Normalized) Sig (Original) cholecalciferol 1.25 mg oral tablet (20 sources) Vitamin D Start: 03-18-2025 take 1 tablet by mouth every week Start: 03-18-2025 take 1 tablet by laura th every week Cholecalciferol (Vitamin D3) 1,250 mcg (50,000 unit) tablet Active 1250 ug PO EVERY WEEK 4 2 March 18, 2025 12:00am Start: 03-14-2025 cholecalcifero l (Vitamin D-3) 1.25 MG (87498 UT) capsule 03/14/2025 Active Start: 11-29-2021 take 1 capsule by mo uth once daily Start: 07-07-2020 take 1 tablet by laura th once daily Vitamin D3 50 MCG (2000 UT) Oral Tablet Take 1 tablet daily Quantity: 0 Refills: 0 Ordered: 07-Jul-2020 DO Start : 07-Jul-2020 Active Cholecalciferol, Vitamin D3, 2,000 unit cap Take by mouth. Active Cholecalciferol (VITAMIN D) 2000 units CAPS capsule Take by mouth 0 Active lisinopril 5 mg oral tablet (20 sources) Angiotensin Converting Enzyme Inhibitor Start: 11-29-2021 End: 03-29-2025 take 1 tablet by mouth once daily Start: 10-27-2020 take 1 tablet by laura th once daily lisinopril (PRINIVIL;ZESTRIL) 5 MG tablet Indications: HTN (hypertension), benign , Screening for HIV (human immunodeficiency virus) , Encounter for hepatitis C screening test for low risk patient Take 1 tablet by mouth daily 90 tablet 1 10/27/2020 Active Start: 09-11-2018 End: 02-04-2025 take 1 tablet by mouth once daily Multiple Vitamin (MULTIVITAM IN ADULT PO) (19 sources) Multiple Vitamin (MULTIVITAMIN ADULT PO) Take by mouth. Active Multiple Vitamin (MULTIVITAMIN ADULT PO) Take by mouth. 0 Active Multiple Vitamins-Minerals (MULTIVITAMIN ADULTS PO) (5 sources) Multiple Vitamin s-Minerals (MULTIVITAMIN ADULTS PO) Take by mouth 0 Active Multivitamin (Daily Multi-Vitamin) tablet (14 sources) Start: 11-29-2021 take 1 tablet by mouth once daily Multivitamin (Daily Multi-Vitamin) tablet Active 1 TABLET PO DAILY November 29, 2021 10:11am Start: 11-29-2021 Start: 11-29-2021 Multivitamin ( Daily Multi-Vitamin) tablet Active 1 {tbl} PO DAILY November 29, 2021 12:00am Start: 11-29-2021 take 1 tablet by laura th once daily Multivitamin (Daily Multi-Vitamin) tablet Active 1 TABLET PO DAILY November 29, 2021 12:00am MULTIVITAMIN ORAL (1 source) MULTIVITAMIN ORA L Take by mouth. Active [place] 7-Ywo-Cvf-Fish Oil (Fi sh Oil) 60-90-500 mg capsule (3 sources) Start: 04-27-2025 Start: 04-27-2025 [place] 3-Dha-Ep a-Fish Oil (Fish Oil) 60-90-500 mg capsule Active 1 NMA PO daily April 27, 2025 12:00am omeprazole 10 mg delayed release oral capsule (6 sources) Proton Pump Inhibitor take 1 capsule by mouth once daily before breakfast omeprazole (PriLOSEC) [address] capsule Take 10 mg by mouth every morning (before breakfast). Do not crush or chew. 0 Active Opzelura 1.5 % cream (14 sources) Start: Opzelura 1.5 % cream 05/05/2023 Active Start: 05-05-2023 Opzelura 1.5 % cream OPZELURA 1.5 % cream (1 source) Start: 04-29-2024 OPZELURA 1.5 % cream Apply to affected area. 04/29/2024 Active Ruxolitinib (9 sources) Start: 04-12-2024 Start: 04-12-2024 Ruxolitinib (O pzelura) 1.5 % cream Active 1 NMA TOPICAL TWICE A DAY April 12, 2024 12:00am vitamin e 400 unt/ml oral so lution (20 sources) Start: 02-16-2025 Vitamin E 400 un its tablet Take by mouth. Active Completed/Discontinued Medications Medication Drug Class(es) Dates Sig (Normalized) Sig (Original) gabapentin 300 mg oral capsule (1 source) Anti-epileptic Agent Start: 04-12-2015 End: 08-12-2024 gabapentin (NEURONTIN) 300 mg capsule Take one(1) tablet daily at bedtime. 30 capsule 0 04/12/2015 08/12/2024 Discontinued halobetasol propionate 0.0005 mg/mg topical ointment (20 sources) Corticosteroid Start: 11-29-2021 End: 01-18-2025 Halobetasol Propionate 0.05 % ointment Discontinued 1 NMA TOPICAL DAILY November 29, 2021 12:00am January 18, 2025 10:56am Start: 05-01-2021 End: 05-28-2023 halobetasol (UltraVATE) 0.05 % ointment Apply topically 2 times daily. 0 05/01/2021 05/28/2023 Discontinued (Therapy completed) Start: 07-07-2020 Halobetasol Pr opionate 0.05 % External Cream APPLY SPARINGLY TO AFFECTED AREA(S) ONCE DAILY Quantity: 0 Refills: 0 Ordered: 07-Jul-2020 DO Start : 07-Jul-2020 Active Start: 06-26-2020 halobetasol (U LTRAVATE) 0.05 % ointment Indications: Eczema, unspecified type Apply topically 2 times daily. 1 Tube 3 06/26/2020 Active Start: 04-01-2019 halobetasol (U LTRAVATE) 0.05 % ointment Indications: Eczema, unspecified type Apply topically 2 times daily. 1 Tube 0 04/01/2019 Active Multi-Vitamin/Minerals Oral Tablet (1 source) Start: 07-07-2020 take 1 tablet by mouth once daily Multi-Vitamin/Minerals Oral Tablet TAKE 1 TABLET DAILY. Quantity: 0 Refills: 0 Ordered: 07-Jul-2020 DO Start : 07-Jul-2020 Active predniSONE 10 mg oral tablet (1 source) Start: 04-12-2015 End: 08-12-2024 predniSONE (DELTASONE) 10 mg tablet Take 4 tabs daily x 3 days, then 3 tabs x 3 days, 2 tabs x 3 days, then 1 tab x3 days with food. 30 tablet 0 04/12/2015 08/12/2024 Discontinued Problems Active Problems Problem Classification Problem Date Documented Date Episodic/Chronic Administrative/social admission (2 sources) Dietary counseling and surveillance; Translations: [Dietary counseling and surveillance] Onset: 06-08-2025 Episodic Allergic reactions (1 source) Eczema; Translations: [Contact dermatitis and other eczema, unspecified cause] Episodic Essential hypertension (20 sources) Benign essential hypertension; Translations: [Benign hypertension] Onset: 04-21-2015 04-21-2015 Chronic Hepatitis (18 sources) Nonalcoholic steatohepatitis; Translations: [Nonalcoholic steatohepatitis (THAO)] Onset: 02-16-2025 02-16-2025 Chronic Nutritional deficiencies (8 sources) Vitamin D deficiency; Translations: [Vitamin D deficiency, unspecified] 01-18-2025 Chronic Other and unspecified benign neoplasm (1 source) History of polyp of colon; Translations: [Personal history of colonic polyps] Episodic Other liver diseases (20 sources) Chronic nonalcoholic liver disease; Translations: [Other specified diseases of liver] Onset: 04-21-2015 04-21-2015 Chronic Other liver diseases (20 sources) Steatosis of liver; Translations: [Fatty (change of) liver, not elsewhere classified] Onset: 04-21-2015 04-21-2015 Chronic Other liver diseases (20 sources) Liver cyst; Translations: [Other specified disorders of liver] 01-18-2022 Chronic Other liver diseases (20 sources) Fatty (change of) liver, not elsewhere classified; Translations: [Other chronic nonalcoholic liver disease] Onset: 05-23-2022 Chronic Other liver diseases (2 sources) Other specified diseases of liver; Translations: [Other specified disorders of liver] Onset: 01-21-2025 01-21-2023 Chronic Other liver diseases (14 sources) Elevated liver enzymes level; Translations: [Abnormal levels of other serum enzymes] 12-07-2021 Episodic Other non-traumatic joint disorders (1 source) Acute ankle pain; Translations: [Pain in left ankle and joints of left foot] 08-12-2024 Episodic Residual codes; unclassified (13 sources) FH: Liver disease; Translations: [Family history of other diseases of the digestive system] 12-07-2021 Episodic Residual codes; unclassified (3 sources) Family history of other diseases of the digestive system; Translations: [Family history of other digestive disorders] Episodic Residual codes; unclassified (1 source) Family history of cirrhosis of liver; Translations: [Family history of other diseases of the digestive system] 01-21-2023 Episodic Unclassified (6 sources) K75.81 - Nonalcoholic steatohepatitis (THAO),K76.0 - Fatty (change of) liver, not elsewhere classified Unclassified (4 sources) Nonalcoholic steatohepatitis (THAO) Past or Other Problems Problem Classification Problem Date Documented Date Episodic/Chronic Genitourinary symptoms and ill-defined conditions (6 sources) Abnormal urine; Translations: [Unspecified abnormal findings in urine] Onset: 02-04-2025 02-26-2023 Episodic Immunizations and screening for infectious disease (6 sources) Patient encounter status; Translations: [Encounter for screening for human immunodeficiency virus [HIV]] Onset: 05-24-2016 Resolved: 06-04-2018 Episodic Other screening for suspected conditions (not mental disorders or infectious disease) (15 sources) Other specified abnormal findings of blood chemistry; Translations: [Other abnormal blood chemistry] Onset: 08-04-2021 Episodic Spondylosis; intervertebral disc disorders; other back problems (6 sources) Thoracic back pain; Translations: [Pain in thoracic spine] Onset: 11-03-2024 07-08-2024 Episodic Sprains and strains (5 sources) Sprain of left ankle; Translations: [Sprain of unspecified ligament of left ankle, initial encounter] Onset: 11-05-2024 08-12-2024 Episodic Unclassified (6 sources) Patient encounter status; Translations: [Screening for colon cancer] Onset: 05-24-2016 Resolved: 06-04-2018 06-03-2018 Results Test Name Value Interpretation Reference Range Facility CBC W Auto Differential pane l (Bld)on 05-26-2025 Basophils (Bld) [#/Vol] 0 10*3/uL 0.0 - 0.2 10*3/uL [facility] Basophils/100 WBC (Bld) 0.4 % 0.0 - 2.0 % [facility] Eosinophils (Bld) [#/Vol] 0.3 10*3/uL 0.0 - 0.5 10*3/uL [facility] Eosinophils/100 WBC (Bld) 4.5 % 0.0 - 6.0 % [facility] Erythrocyte distribution width (RBC) [Ratio] 12.4 % 11.5 - 15.0 % [facility] Hematocrit (Bld) [Volume fraction] 40.2 % 35.0 - 47.0 % [facility] Hemoglobin (Bld) [Mass/Vol] 13.3 g/dL 11.7 - 16.0 g/dL [facility] Immature granulocytes (Bld) [#/Vol] 0 10*3/uL NINF - 0.1 10*3/uL [facility] Immature granulocytes/100 WBC (Bld) 0.1 % 0.0 - 2.0 % [facility] Interpretation and review of laboratory results Normal [facility] Lymphocytes (Bld) [#/Vol] 2.4 10*3/uL 1.0 - 4.3 10*3/uL [facility] Lymphocytes/100 WBC (Bld) 34.6 % 15.0 - 45.0 % [facility] MCH (RBC) [Entitic mass] 31.9 pg 26.0 - 34.0 pg [facility] MCHC (RBC) [Mass/Vol] 33.1 % 30.5 - 36.0 % [facility] MCV (RBC) [Entitic vol] 96.4 fL 77.0 - 99.0 fL [facility] Monocytes (Bld) [#/Vol] 0.6 10*3/uL 0.0 - 0.9 10*3/uL [facility] Monocytes/100 WBC (Bld) 8.9 % 5.0 - 13.0 % [facility] Neutrophils (Bld) [#/Vol] 3.6 10*3/uL 1.8 - 7.5 10*3/uL [facility] Neutrophils/100 WBC (Bld) 51.5 % 38.0 - 82.0 % [facility] Nucleated RBC/100 WBC (Bld) [Ratio] 0 % [facility] Platelet mean volume (Bld) [Entitic vol] 10.5 fL 9.0 - 12.7 fL [facility] Comment on above: MPV is a calculated measurement using platelet volume ratio Platelets (Bld) [#/Vol] 259 10*3/uL 140 - 440 10*3/uL [facility] RBC (Bld) [#/Vol] 4.17 10*6/uL 3.80 - 5.20 10*6/uL [facility] WBC (Bld) [#/Vol] 6.9 10*3/uL 3.6 - 10.7 10*3/uL [facility] CBC WITH AUTO DIFFERENTIALon 05-26-2025 Basophils (Bld) [#/Vol] 0.0 10*3/uL Normal 0.0-0.2 [facility] Comment on above: Performed By: #### L [id number] ####Hat Lacer: FELECIA FRASER ([id number])[facility] [place] (SWRLAB)[address] [place] [address] [place] Basophils/100 WBC (Bld) 0.4 % Normal 0.0-2.0 [facility] Comment on above: Performed By: #### L [id number] ####Hat Lacer: FELECIA FRASER ([id number])[facility] [place]STO [place] (SWRLAB)[address] [place] [address] [place] Eosinophils (Bld) [#/Vol] 0.3 10*3/uL Normal 0.0-0.5 [facility] Comment on above: Performed By: #### L [id number] ####Hat Lacer: FELECIA FRASER ([id number])[facility] (SWRLAB)[address] [place] [address] [place] Eosinophils/100 WBC (Bld) 4.5 % Normal 0.0-6.0 [facility] Comment on above: Performed By: #### L [id number] ####Hat Lacer: FELECIA FRASER ([id number])[facility] (SWRLAB)[address] [place] [address] Erythrocyte distribution width (RBC) [Ratio] 12.4 % Normal 11.5-15.0 [facility] Comment on above: Performed By: #### L [id number] ####Hat Lacer: FELECIA FRASER ([id number])JUVENAL [place] (SWRLAB)[address] [place] [address] Hematocrit (Bld) [Volume fraction] 40.2 % Normal 35.0-47.0 [facility] Comment on above: Performed By: #### L [id number] ####Hat Lacer: FELECIA FRASER ([id number])[facility] [place] (SWRLAB)[address] [place] [address] Hemoglobin (Bld) [Mass/Vol] 13.3 g/dL Normal 11.7-16.0 [facility] Comment on above: Performed By: #### L [id number] ####Hat Lacer: FELECIA FRASER ([id number])[facility] [place] (SWRL[place])[address] [place] [address] IMMATURE GRANS % 0.1 % Normal 0.0-2.0 [facility] Comment on above: Performed By: #### L [id number] ####Hat Lacer: FELECIA FRASER ([id number])[facility] [place] (SWRLAB)[address] [place] [address] IMMATURE GRANS ABSOLUTE 0.0 10*3/uL Normal <0.1 [facility] Comment on above: Performed By: #### L [id number] ####Hat Lacer: FELECIA FRASER ([id number])[facility] [place] (SWRL[place])[address] [place] [address] [place] Lymphocytes (Bld) [#/Vol] 2.4 10*3/uL Normal 1.0-4.3 [facility] Comment on above: Performed By: #### L [id number] ####Hat Lacer: FELECIA FRASER ([id number])[facility] [place] (SWRL[place])[address] [place] [address] [place] Lymphocytes/100 WBC (Bld) 34.6 % Normal 15.0-45.0 [facility] Comment on above: Performed By: #### L [id number] ####Hat Lacer: FELECIA FRASER ([id number])JU[facility] [place] (SWRL[place])[address] [place] [address] MCH (RBC) [Entitic mass] 31.9 pg Normal 26.0-34.0 [facility] Comment on above: Performed By: #### L [id number] ####Hat Lacer: FELECIA FRASER ([id number])[facility] (SWRL[place])[address] [place] [address] MCHC 33.1 % Normal 30.5-36.0 [facility] Comment on above: Performed By: #### L [id number] ####Hat Lacer: FELECIA FRASER ([id number])[facility] [place] (SWRL[place])[address] [place] [address] MCV (RBC) [Entitic vol] 96.4 fL Normal 77.0-99.0 [facility] Comment on above: Performed By: #### L [id number] ####Hat Lacer: FELECIA FRASER ([id number])[facility] [place] (SWRL[place])[address] [place] [address] Monocytes (Bld) [#/Vol] 0.6 10*3/uL Normal 0.0-0.9 [facility] Comment on above: Performed By: #### L [id number] ####Hat Lacer: FELECIA FRASER ([id number])[facility] (SWRLAB)[address] [place] [address] [place] Monocytes/100 WBC (Bld) 8.9 % Normal 5.0-13.0 [facility] Comment on above: Performed By: #### L [id number] ####Hat Lacer: FELECIA FRASER ([id number])[facility] (SWRL[place])[address] NEUTROPHILS ABSOLUTE 3.6 10*3/uL Normal 1.8-7.5 [facility] Comment on above: Performed By: #### L [id number] ####Hat Lacer: FELECIA FRASER ([id number])[facility] (SWRLAB)[address] [place] [address] Neutrophils/100 WBC (Bld) 51.5 % Normal 38.0-82.0 [facility] Comment on above: Performed By: #### L [id number] ####Hat Lacer: FELECIA FRASER ([id number])[facility] [place] (SWRL[place])[address] [place] [address] NRBC 0.0 /100 WBCs Normal 0.0-2.0 [facility] Comment on above: Performed By: #### L [id number] ####Hat Lacer: FELECIA FRASER ([id number])[facility] [place] (SWRL[place])[address] [place] [address] Platelet mean volume (Bld) [Entitic vol] 10.5 fL Normal 9.0-12.7 [facility] Comment on above: Result Comment: MPV is a calculated measurement using platelet volume ratio Performed By: #### L [id number] ####Hat Lacer: FELECIA FRASER ([id number])[facility] [place] (SWRLAB)[address] [place] [address] [place] Platelets (Bld) [#/Vol] 259 10*3/uL Normal 140-440 [facility] Comment on above: Performed By: #### L [id number] ####Hat Lacer: FELECIA FRASER ([id number])[facility] [place] (SWRLAB)[address] [place] [address] RBC (Bld) [#/Vol] 4.17 10*6/uL Normal 3.80-5.20 [facility] Comment on above: Performed By: #### L [id number] ####Hat Lacer: FELECIA FRAESR ([id number])[facility] [place]AY[place] (SWRLAB)[address] WBC (Bld) [#/Vol] 6.9 10*3/uL Normal 3.6-10.7 [facility] Comment on above: Performed By: #### L [id number] ####Hat Lacer: FELECIA FRASER ([id number])[facility] [place] (SWRLAB)[address] COMPREHENSIVE METABOLIC PANE Juan Carlos 05-26-2025 Albumin [Mass/Vol] 3.6 g/dL Normal 3.4-4.8 [facility] Comment on above: Performed By: #### L [id number], [id number] ####Hat Lacer: FELECIA FRASER ([id number])[facility] [place] (SWRLAB)[address] ALP [Catalytic activity/Vol] 59 U/L Normal 40-150 [facility] Comment on above: Performed By: #### L [id number], [id number] ####Hat Lacer: FELECIA FRASER ([id number])[facility] [facility] [place] (SWRLAB)[address] [place] [address] ALT [Catalytic activity/Vol] 25 U/L Normal <30 [facility] Comment on above: Performed By: #### L AB18, LAB17 ####Hat Lacer: FELECIA FRASER ([phone])[facility] [place] (SWRL[place])[address] Anion gap [Moles/Vol] 6 mmol/L Normal 3-13 [facility] Comment on above: Performed By: #### L AB18, LAB17 ####Hat Lacer: FELECIA FRASER ([id number])[facility] [place] (SWRLAB)[address] [place] [address] AST [Catalytic activity/Vol] 22 U/L Normal <34 [facility] Comment on above: Performed By: #### L AB18, LAB17 ####Hat Lacer: FELECIA FRASER ([phone])[facility] [place] (SWRLAB)[address] [place] [address] [place] Bilirubin [Mass/Vol] 0.4 mg/dL Normal <1.2 [facility] Comment on above: Performed By: #### L AB18, LAB17 ####Hat Lacer: FELECIA FRASER ([phone])[facility] [place] (SWRLAB)[address] [place] [address] [place] Calcium [Mass/Vol] 9.2 mg/dL Normal 8.8-10.0 [facility] Comment on above: Performed By: #### L AB18, LAB17 ####Hat Lacer: FELECIA FRASER ([phone])[facility] [place] (SWRLAB)[address] [place] [address] [place] Chloride [Moles/Vol] 108 mmol/L High 98-107 [facility] Comment on above: Performed By: #### L AB18, LAB17 ####Hat Lacer: FELECIA FRASER ([phone])[facility] [place] (SWRL[place])[address] [place] [address] [place] CO2 [Moles/Vol] 26 mmol/L Normal 23-31 [facility] Comment on above: Performed By: #### L AB18, LAB17 ####Hat Lacer: FELECIA FRASER ([phone])[facility] [place] (SWRL[place])[address] [place] [address] [place] Creatinine [Mass/Vol] 0.70 mg/dL Normal 0.57-1.11 [facility] Comment on above: Performed By: #### L AB18, LAB17 ####Hat Lacer: FELECIA FRASER ([phone])[facility] [place] (SWRLAB)[address] [place] [address] GLOMERULAR FILTRATION RATE ML/MIN/1.73 SQ M.PREDICTED >90.0 Normal >60.0 [facility] Comment on above: Result Comment: Calc ulation based on the Chronic Kidney Disease Epidemiology Collaboration (CKD-EPI) equation refit without adjustment for race Performed By: #### L AB18, LAB17 ####Hat Lacer: FELECIA FRASER ([phone])[facility] [place] ([place])[address] Glucose [Mass/Vol] 97 mg/dL Normal 82-115 [facility] Comment on above: Performed By: #### L AB18, LAB17 ####Hat Lacer: FELECIA FRASER ([phone])[facility] [place] ([place])[address] [place] [address] [place] Potassium [Moles/Vol] 4.4 mmol/L Normal 3.5-5.1 [facility] Comment on above: Result Comment: [facility] potassium values may be up to 0.5 mmol/L lower than serum values. Performed By: #### L AB18, LAB17 ####Hat Lacer: FELECIA FRASER ([phone])[facility] [place] (SW[place])[address] [place] [address] [place] Protein [Mass/Vol] 7.2 g/dL Normal 6.4-8.3 [facility] Comment on above: Performed By: #### L AB18, LAB17 ####Hat Lacer: FELECIA FRASER ([phone])[facility] [place] (SW[place])[address] [place] [address] [place] Sodium [Moles/Vol] 140 mmol/L Normal 136-145 [facility] Comment on above: Performed By: #### L AB18, LAB17 ####Hat Lacer: FELECIA FRASER ([phone])[facility] ARREGUINCRISTO [place] (SWRLAB)[address] [place] [address] [place] Urea nitrogen [Mass/Vol] 16 mg/dL Normal 9-23 [facility] Comment on above: Performed By: #### L AB18, LAB17 ####Hat Lacer: FELECIA FRASER ([id number])[facility] (SWRLAB)[address] Comprehensive metabolic 1998 panelon 05-26-2025 Albumin [Mass/Vol] 3.6 g/dL 3.4 - 4.8 g/dL [facility] ALP [Catalytic activity/Vol] 59 U/L 40 - 150 U/L [facility] ALT [Catalytic activity/Vol] 25 U/L NINF - 30 U/L [facility] Anion gap [Moles/Vol] 6 mmol/L 3 - 13 mmol/L [facility] AST [Catalytic activity/Vol] 22 U/L NINF - 34 U/L [facility] Bilirubin [Mass/Vol] 0.4 mg/dL NINF - 1.2 mg/dL [facility] Calcium [Mass/Vol] 9.2 mg/dL 8.8 - 10. 0 mg/dL [facility] Chloride [Moles/Vol] 108 mmol/L High 98 - 10 7 mmol/L [facility] CO2 [Moles/Vol] 26 mmol/L 23 - 31 mmol/L [facility] Creatinine [Mass/Vol] 0.7 mg/dL 0.57 - 1.11 mg/dL [facility] GFR/1.73 sq M.predicted (S/P/Bld) [Vol rate/Area] - PINF [facility] Comment on above: Calculation based on the Chronic Kidney Disease Epidemiology Collaboration (CKD-EPI) equation refit without adjustment for race Glucose [Mass/Vol] 97 mg/dL 82 - 115 mg/dL [facility] Potassium [Moles/Vol] 4.4 mmol/L 3.5 - 5.1 mmol/L [facility] Comment on above: Plasma potassium nandini ues may be up to 0.5 mmol/L lower than serum values. Protein [Mass/Vol] 7.2 g/dL 6.4 - 8.3 g/dL [facility] Sodium [Moles/Vol] 140 mmol/L 136 - 145 mmol/L [facility] Urea nitrogen [Mass/Vol] 16 mg/dL 9 - 23 mg/dL [facility] LIPID PANELon 05-26-2025 Cholesterol [Mass/Vol] 174 mg/dL Normal <200 [facility] Comment on above: Performed By: #### L AB18, LAB17 ####Hat Lacer: FELECIA FRASER ([id number])JUVENAL [place] (SWRL[place])[address] [place] [address] [place] Cholesterol in HDL [Mass/Vol] 38 mg/dL Low >=60 [facility] Comment on above: Performed By: #### L AB18, LAB17 ####Hat Lacer: FELECIA FRASER ([id number])[facility] [place] ([place])[address] [place] [address] [place] Cholesterol.total/Chol esterol in HDL [Mass ratio] 5 {ratio} Normal [facility] Comment on above: Result Comment: Ref Range: < 3 Low Risk for CHD 3-6 Mod Risk for CHD > 6 High Risk for CHD Performed By: #### L AB18, LAB17 ####Hat Lacer: FELECIA FRASER ([id number])JU[facility]NAL [place] ([place])[address] [place] [address] [place] LOW DENSITY LIPOPROTEIN 117 mg/dL High 0-<100 [facility] Comment on above: Performed By: #### L AB18, LAB17 ####Hat Lacer: FELECIA FRASER ([id number])[facility] [place] ([place])[address] [place] [address] [place] NON-HDL CHOLESTEROL, CALCULATED 136 High <130 [facility] Comment on above: Performed By: #### L AB18, LAB17 ####Hat Lacer: FELECIA FRASER ([phone])JUVENAL [place] (SW[place])[address] [place] [address] [place] Triglyceride [Mass/Vol] 94 mg/dL Normal <150 [facility] Comment on above: Performed By: #### L AB18, LAB17 ####Hat Lacer: FELECIA FRASER ([id number])[facility] [place]REGUINCR[place]O [place] (SWRLAB)[address] [place] [address] [place] VERY LOW DENSITY LIPOPROTEIN, CALCULATED 19 mg/dL Normal <=30 [facility] Comment on above: Performed By: #### L AB18, LAB17 ####Hat Lacer: FELECIA FRASER ([phone])[facility] C[place]STO RAYMUNDOANITA (SWRLAB)[address] [place] [address] Lipid 1996 panelon 5 Cholesterol [Mass/Vol] 174 mg/dL NINF - 200 mg/dL [facility] Cholesterol in HDL [Mass/Vol] 38 mg/dL Low 60 - PINF mg/dL [facility] Cholesterol in LDL [Mass/Vol] 117 mg/dL High 0 - <100 [facility] Cholesterol.total/Chol esterol in HDL [Mass ratio] 5 {ratio} [facility] Comment on above: Ref Range: < 3 Low Risk for CHD 3-6 Mod Risk for CHD > 6 High Risk for CHD NON-HDL CHOLESTEROL, CALCULATED 136 High NINF - 130 [facility] Triglyceride [Mass/Vol] 94 mg/dL NINF - 150 mg/dL [facility] VERY LOW DENSITY LIPOPROTEIN, CALCULATED 19 mg/dL NINF - 30 mg/dL [facility] No Panel Informationon 05-26 Interpretation and review of laboratory results Abnormal [facility] Office Visiton 05-10-2025 Follow-up visit [id number] Chad Chavez 1960 F Date Provider Department Center 05/10/2025 [id number] GRIER [facility] Family History Problem Relation Age of Onset Liver disease Mother Heart disease Father Vision loss Father Asthma Daughter Family Status - Relation Status Age at Mother Father Daughter Level of Service:13033 CO OFFICE/OUTPATIENT ESTABLISHED MOD MDM 30 MIN Reason for Visit and Comments: Follow-up [371758] - 3 month, and discuss Mobile Application Development Lead Care Insurance Normal [facility] Progress Noteon 05-10-2025 Progress Note Is a chronic stable issue patient seeing gastroenterology and was started CMP has been ordered by them she is lost to have significant amount of weight encouraged continued low-fat diet and exercise Normal [facility] Progress Note [facility] - [address] [facility] [address] Dept: [phone] Dept Loc: [phone] Reason for Visit: Follow-up (3 month, and discuss Mobile Application Development Lead Care Insurance ) Assessment and Plan Assessment & Plan Essential hypertension Chronic stable issue actually patient's blood pressure is on the lower end. At this time we will hold the lisinopril 5 mg and she will continue the lisinopril 10 she will let me know what her blood pressure is. If she continues to have normal blood pressures we will eliminate the 5 mg lisinopril but at this time we put it on hold. I also gave her an order for CBC and lipid panel to be completed Fatty liver Is a chronic stable issue patient seeing gastroenterology and was started CMP has been ordered by them she is lost to have significant amount of weight encouraged continued low-fat diet and exercise current treatment plan is effective, no change in therapy, orders and follow up as documented in EMR, lab results reviewed with patient, repeat labs ordered prior to next appointment, reviewed compliance with lifestyle measures, reviewed diet, exercise and weight control, reviewed medications and side effects in detail Return visit in 3 months. Subjective HPI this is a 64-year-old female with a history of chronic liver fatty. She has been followed closely by gastroenterology she has an upcoming appointment with them she has not experienced any abdominal pain nausea vomiting her blood pressure has been stable. Is on the lower end today she has not had any acute dizziness but we discussed eliminating the 5 mg dose and discontinuing the 10 mg as she has lost a significant amount of weight with diet and exercise. Patient is also up-to-date on seeing healthcare facility administrator Review of Systems Constitutional: Negative. Negative for activity change, appetite change and fever. HENT: Negative. Negative for congestion. Eyes: Negative. Negative for discharge. Respiratory: Negative. Negative for chest tightness. Cardiovascular: Negative. Gastrointestinal: Negative. Endocrine: Negative. Negative for cold intolerance. Genitourinary: Negative for difficulty urinating. Musculoskeletal: Negative. Neurological: Negative. Negative for dizziness, facial asymmetry and headaches. Hematological: Negative. Allergies[1] Current Medications[2] Problem List[3] Medical History[4] Social History Tobacco Use Smoking status: Never Smokeless tobacco: Never Substance Use Topics Alcohol use: No Surgical History[5] Family History[6] Health Maintenance Topic Date Due MMR Vaccines (1 of 1 - Standard series) Never done Hepatitis A Vaccines (1 of 2 - Risk 2-dose series) Never done Pneumococcal Vaccine: 50+ Years (1 of 2 - PCV) Never done Zoster Vaccines (1 of 2) Never done RSV Immunization for Adults (1 - Risk 60-74 years 1-dose series) Never done Hepatitis B Vaccines (1 of 3 - Risk 3-dose series) Never done Cervical Cancer Screening 12/13/2024 COVID-19 Vaccine (6 - season) 2025 Influenza Vaccine (1) 05/09/2025 Mammogram 01/06/2026 Depression Screening 02/04/2026 Diabetes Screening 09/22/2026 Lipid Panel 11/03/2029 Colorectal Cancer Screening 08/07/2030 DTaP/Tdap/Td Vaccines (2 - Td or Tdap) 12/08/2032 HIV Screening Completed Hepatitis C Screening Completed RSV Immunization under 20 Months Aged Out HIB Vaccines Aged Out IPV Vaccines Aged Out Meningococcal Vaccine Aged Out Rotavirus Vaccines Aged Out HPV Vaccines Aged Out Meningococcal B Vaccine Aged Out Objective BP 106/73 Pulse 70 Temp 36.7 ?C (98.1 ?F) Ht 5' 7 (1.702 m) Wt 182 lb (82.6 kg) BMI 28.51 kg/m? Physical Exam Vitals and nursing note reviewed. Constitutional: Appearance: Normal appearance. HENT: Head: Normocephalic and atraumatic. Nose: No congestion or rhinorrhea. Mouth/Throat: Mouth: Mucous membranes are moist. Pharynx: Oropharynx is clear. No posterior oropharyngeal erythema. Eyes: Extraocular Movements: Extraocular movements intact. Conjunctiva/sclera: Conjunctivae normal. Pupils: Pupils are equal, round, and reactive to light. Cardiovascular: Pulses: Normal pulses. Heart sounds: Normal heart sounds. No murmur heard. Pulmonary: Effort: Pulmonary effort is normal. No respiratory distress. Breath sounds: Normal breath sounds. No wheezing. Abdominal: General: Abdomen is flat. Bowel sounds are normal. Palpations: Abdomen is soft. Tenderness: There is no abdominal tenderness. Musculoskeletal: General: No swelling. Cervical back: Normal range of motion. Skin: General: Skin is warm and dry. Neurological: General: No focal deficit present. Mental Status: She is alert and oriented to person, place, and time. Mental status is at baseline. Psychiatric: Mood and Affect: Mood normal. Data Reviewed and Summarized Labs: (more content not included)... Normal [facility] Scale Assembly Set Up Worker Office Visit Reporton 04-27-2025 Scale Assembly Set Up Worker Office Visit Report [facility]'s [address], [address] [place] [address] OFFICE VISIT Date of Service: 04/27/25 MR#: [id number] Acct: [id number] Name: CHAD CHAVEZ Rep #: [id number] : 1960 Provider: SINAN paniagua Age/Sex: 64/F Location: [facility] Status: Signed Intake Vital Signs 04/12/24 14:43 01/18/25 10:57 03/30/25 09:38 04/27/25 11:20 04/27/25 11:24 Height 5 ft 7 in 5 ft 7 in 5 ft 7 in 5 ft 7 in 5 ft 7 in Weight: 180 lb 7 oz BMI 28.2 BP 118/72 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 Instructions: Duplicate Order lisinopril 10 mg tablet 10 mg PO DAILY 11/29/21 04/27/25 H istory lisinopril 5 mg tablet 5 mg PO DAILY 11/29/21 04/27/25 Hi story multivitamin (Daily Multi-Vitamin 1 tab PO DAILY 11/29/21 04/27/25 History tablet) ruxolitinib 1.5 % topical cream 1 applic topical BID 04/12/2404/09 History (Opzelura) vitamin E 100 unit/0.25 mL oral unit PO 02/16/25 04/27/25 History drops cholecalciferol (vitamin D3) 1,250 1,250 mcg PO QWEEK 4 weeks #4 ta bs 03/18/25 04/27/25 Rx mcg (50,000 unit) tablet omega 6-lgi-rri-fish oil 60 mg-90 1 cap PO QDAY 04/27/25 04/27/25 H istory mg-500 mg capsule (Fish Oil) Is last menstrual period known: No Post menopausal: Yes Patient : No : No PFSH Medical History Liver cyst FH: hepatic cirrhosis Elevated liver enzymes Hypertension Fatty liver Surgical History Previous section Family History Mother Liver cirrhosis Social History household members: spouse current occupational status: retired current occupation: [employer] Smoking Status: Never smoker alcohol intake: never substance use type: does not use seatbelt use: always do you feel safe at home: Yes 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 Date Name GA/Weeks Outcome Route Bth Weight Gen Labor Lgth Anesthesia Del Locatn Provider FOB Unknown [facility] Encounter for routine gynecological examination Details: CHAD OSBORN is a 64 year old who presents for annual exam. Denies concerns Last PAP: 2023 History of abnormal PAP: no Last mammogram: 01/2025 History of abnormal mammogram: no Colon cancer screenin Other preventative health care screenings: Juven[facility] Female Reproductive History Questions: metrorrhagia: No, sexually active: Yes, dyspareunia: Yes and PCB: No ROS Const Constitutional: Denies fatigue, weight gain or weight loss Cardio Card: Denies chest pain Resp Resp: Denies cough or dyspnea on exertion GI GI: Denies abdominal pain, bloating, change in stool character, constipation or vomiting : Reports as per HPI; Denies difficulty voiding, pelvic pain, urinary frequency, urinary incontinence, urinary urgency, vaginal discharge or vaginal pruritus Exam Const General: cooperative, healthy appearing, no acute distress and well developed Orientation: alert, oriented to person and oriented to place HENMT Head: normal to inspection Neck Neck: normal visual inspection Thyroid: thyroid normal Lymphatic: no lymphadenopathy noted Chest Breast inspection: normal inspection of the breasts and normal inspection of the axillae Breast palpation: normal palpation of the breasts, normal palpation of the axillae and no axillary lymphadenopathy Resp Effort Inspection: normal respiratory effort GI Palpation: soft, no masses and nontender Rectal Exam: deferred External Female Exam: normal external appearance and normal appearance of the urethra Urethra: normal appearance of the urethra and normal palpation Speculum Exam - Vagina: normal appearance of the vagina and normal vaginal discharge Speculum Exam - Cervix: normal appearance of the cervix Bimanual Exam- Vagina Uterus: normal bimanual exam, uterine size normal, uterine shape normal a (more content not included)... Normal [facility] Gastroenterology Visit Repor ton 03-18-2025 Gastroenterology Visit Report [facility] Gastroenterology [address] [place] [address] OFFICE VISIT Date of Service: 03/18/25 MR#: [id number] Acct: [id number] Name: CHAD CHAVEZ MAURICE Rep #: [id number] : 1960 Provider: Dr. Alberto street MD Age/Sex: 64/F Location: [facility] Status: Signed Intake Vital Signs 02/16/25 10:49 03/18/25 10:35 Height 5 ft 7 in 5 ft 7 in Weight: 197 lb 4 oz 187 lb BMI 30.9 29.2 BP 113/72 124/89 H Blood Pressure Location Lt brachial Position Sitting Respiration 18 Pulse 78 75 Pulse Oximetry (%) 98 94 Oxygen Delivery Method room air room air Intake Visit Reasons: FU Allergies amoxicillin Allergy (Intermediate, Verified 03/18/25 10:34) Hives Sulfa (Sulfonamide Antibiotics) Allergy (Intermediate, Verified 03/18/25 10:34) Hives Medications ???Medication ???Instructions ???Recorded ???Confirmed ???Type cholecalciferol (vitamin D3) 50 50 mcg PO DAILY 11/29/21 03/18/25 History mcg (2,000 unit) capsule Held on 03/18/25. Instructions: Duplicate Order lisinopril 10 mg tablet 10 mg PO DAILY 11/29/21 03/18/25 H istory lisinopril 5 mg tablet 5 mg PO DAILY 11/29/21 03/18/25 Hi story multivitamin (Daily Multi-Vitamin 1 tab PO DAILY 11/29/21 03/18/25 History tablet) ruxolitinib 1.5 % topical cream 1 applic topical BID 04/12/2403/08 History (Opzelura) vitamin E 100 unit/0.25 mL oral unit PO 02/16/25 03/18/25 History drops cholecalciferol (vitamin D3) 1,250 1,250 mcg PO QWEEK 4 weeks #4 ta bs 03/18/25 03/18/25 Rx mcg (50,000 unit) tablet PFSH Medical History Liver cyst FH: hepatic cirrhosis Elevated liver enzymes Hypertension Fatty liver Surgical History Previous section Family History Mother Liver cirrhosis Social History household members: spouse current occupational status: retired current occupation: [employer] Smoking Status: Never smoker alcohol intake: never substance use type: does not use seatbelt use: always do you feel safe at home: Yes 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 ROS Const Constitutional: Positive for weight change; No fatigue or fever(s) ENT ENT: No difficulty swallowing Resp Respiratory: No shortness of breath or wheezing Cardio Cardiology: No chest pain at rest or dyspnea on exertion Gastro GI: Positive for change in bowel habits; No abdominal pain, belching, bloating, change in stool character, coffee ground emesis, constipation, cramping, diarrhea, heartburn, difficulty swallowing, feeling full early, excessive flatus, incontinent of stools, Vomiting blood/hematemesis, Blood in stool, loose stools, Black,tarry stools, nausea/dyspepsia, pain with swallowing, vomiting or other Genitourinary-Female: No difficulty urinating or burning urination Musc Musculoskeletal: Positive for back pain, numbness and tingling; No joint pain Skin Skin: No yellowing of the eye or itchy eyes Neuro Neurology: Positive for numbness and tingling Psych Psychiatric: No anxiety and No depression Endo Endocrine: Positive for weight change; No fatigue Aller/Imm Allergy/Immunologic: No itchy eyes or wheezing Bar/Lymp Hematologic/Lymphatic: No easy bleeding or easy bruising Exam Const General: cooperative, no acute distress and well developed Nutritional Appearance: overweight Orientation: alert, awake and oriented x3 Other: BMI 29.2 kg/m???. 187 pounds, 84 kg [facility] Head: normocephalic and atraumatic Nose: external nose normal Face and sinus: normal facial exam Mouth: moist mucous membranes Eyes Pupils: PERRL EOM: EOM intact bilaterally Neck Neck: normal visual inspection, no meningeal signs and trachea midline Carotids: no bruits Chest Chest palpation inspection: normal inspection of the chest Resp Effort Inspection: normal respiratory effort and symmetric chest movement Auscultation: Bilateral: Clear to Auscultation Cardio Palpation: normal PMI Rate: regular rate Rhythm: regular rhythm Heart Sounds: S1 normal and S2 normal GI Auscultation: normal bowel sounds Percussion: normal to percussion Palpation: soft, no hepatosplenomegaly and no guarding General: bimanual renal exam normal bilaterally, bladder normal to inspection and bladder normal to palpation Bimanual Exam- Vagina Uterus: bladder normal to palpation [facility] Musculoskeletal: No joint tenderness, joint redness, joint warmth o (more content not included)... Normal [facility] Gastroenterology Visit Repor ton 02-16-2025 Gastroenterology Visit Report [facility] Gastroenterology [address] [place] [address] OFFICE VISIT Date of Service: 02/16/25 MR#: [id number] Acct: [id number] Name: LB OSBORNCHAD Rep #: [id number] : 1960 Provider: SINAN lozada Age/Sex: 64/F Location: [facility] [place] Status: Signed Intake Vital Signs 01/18/25 10:57 02/16/25 10:49 Height 5 ft 7 in 5 ft 7 in Weight: 198 lb 6 oz 197 lb 4 oz BMI 31.0 30.9 BP 129/82 H 113/72 Respiration 16 18 Pulse 87 78 Pulse Oximetry (%) 97 98 Oxygen Delivery Method room air room air Intake Visit Reasons: 1 M FU Chief Complaint: Annual Allergies amoxicillin Allergy (Intermediate, Verified 01/18/25 10:56) Hives Sulfa (Sulfonamide Antibiotics) Allergy (Intermediate, Verified 01/18/25 10:56) Hives Medications ???Medication ???Instructions ???Recorded ???Confirmed ???Type cholecalciferol (vitamin D3) 50 50 mcg PO DAILY 11/29/21 02/16/25 History mcg (2,000 unit) capsule lisinopril 10 mg tablet 10 mg PO DAILY 11/29/21 02/16/25 H istory lisinopril 5 mg tablet 5 mg PO DAILY 11/29/21 02/16/25 Hi story multivitamin (Daily Multi-Vitamin 1 tab PO DAILY 11/29/21 02/16/25 History tablet) ruxolitinib 1.5 % topical cream 1 applic topical BID 04/12/2402/06 History (Opzelura) vitamin E 100 unit/0.25 mL oral unit PO 02/16/25 02/16/25 History drops PFSH Medical History Liver cyst FH: hepatic cirrhosis Elevated liver enzymes Hypertension Fatty liver Surgical History Previous section Family History Mother Liver cirrhosis Social History household members: spouse current occupational status: retired current occupation: [employer] Smoking Status: Never smoker alcohol intake: never substance use type: does not use seatbelt use: always do you feel safe at home: Yes 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 She was last seen January 2023 at which time labs revealed AST 50, ALT 76, CRP 8.31, albumin 3.6 with unremarkable CBC. Prior autoimmune workup (CODY, KANE, ceruloplasmin, AMA, ASMA) was unremarkable. Partial hepatitis panel was also unremarkable. Abdominal ultrasound was last performed February 2023 and revealed borderline hepatomegaly, liver steatosis, and stable liver cyst. I have ordered routine labs and imaging. She will follow-up in 1 month to review results and recommendations. Note: [employer] speech recognition paper bag machine operator software was used to create portions of this document. Sound-alike and misspelled words, as well as other paper bag machine operator errors may be contained in the documentation. Patient Instructions: Complete labs today Complete abdominal ultrasound and elastography Follow-up in 1 month to review results and recommendations Abdominal ultrasound/Elastography performed 01/27/2025 revealed mild to moderate hepatic fibrosis with a kPa of 7.5 (F3), enlarged liver and a cyst in the right lobe of the liver (6.7 cm 6.3 cm 4.4 cm cyst ). This is an increase in liver fibrosis (scaring) from previously (kPa 5 in 2021) and liver cyst is stable. These findings combined with elevated ELF 01/18/2025 of 10.21. We will discuss further at your follow-up visit. ELF> 9.8 = high probability of advanced fibrosis/cirrhosis 01/18/2025 CBC: HGB 13.6, PLT 340 INR normal CMP: Creat 0.69, AST 43, ALT 47, ALP 66, Albumin 4.4, T Bili 0.47 CRP: 5.89 Vitamin D: 24.2 TSH: 2.120 HAV: 01/18/2025 negative HBVsAb: REACTIVE - seen in office today with her - never ever had alcohol - Mom with FLD / Cirrhosis - Naproxen on occasion - denies Coffee consumption - has reduced diet coke intake - she is not consistent with exercising - reports her cholesterol is borderline - not on any medication ROS Const Constitutional: No fatigue, fever(s) or weight change ENT ENT: No difficulty swallowing Gastro GI: No abdominal pain, belching, bloating, change in bowel habits, change in stool character, coffee ground emesis, constipation, cramping, diarrhea, heartburn, difficulty swallowing, feeling full early, excessive flatus, incontinent of stools, Vomiting blood/hematemesis, Blood in stool, loose stools, Black,tarry stools, nausea/dyspepsia, pain with swallowing, vomiting or other Musc Musculoskeletal: No joint pain Skin Skin: No yellowing of the eye or itchy eyes Psych Psychiatric: No anxiety (more content not included)... Normal [facility] POC URINALYSIS DIP STICK AUTO W/O MICROon 02-04-2025 Bilirubin, UA Negative [facility] Blood, UA Negative [facility] Glucose, UA Negative [facility] Ketones, UA (mg/dL) Negative Negative mg/dL [facility] Leukocytes, UA Small [facility] Nitrite, UA Negative [facility] pH, UA 6.0 [facility] Protein, UA Negative [facility] Spec Grav, UA 1.015 [facility] Urobilinogen, UA 0.2 [facility] Office Visiton 02-04-2025 Follow-up visit [id number] Chad Chavez 1960 F Date Provider Department Center 02/04/2025 [id number] GRIER [facility] Family History Problem Relation Age of Onset Liver disease Mother Heart disease Father Vision loss Father Asthma Daughter Family Status - Relation Status Age at Mother Father Daughter Level of Service:68701 CO OFFICE/OUTPATIENT ESTABLISHED MOD MDM 30 MIN Reason for Visit and Comments: Follow-up [702708] - Dark urine no other symptoms/ patient says she did home test on urine and had high leuk but nothing else Normal [facility] Progress Noteon 02-04-2025 Progress Note [facility] - [address] [facility] [address] Dept: [phone] Dept Loc: [phone] Reason for Visit: Follow-up (Dark urine no other symptoms/ patient says she did home test on urine and had high leuk but nothing else ) Assessment and Plan 1. Dark urine - Urine culture (clean catch) - AMB POC URINALYSIS DIP STICK AUTO W/O MICRO dip showed leukocytes as discussed with the patient drink more fluids urine culture to make sure absolutely there is no infection. 2. Essential hypertension chronic stable continue lisinopril 15 mg continue low-salt diet gastroenterology is following patient 3. Elevated LFTs as her trying to lose weight diet and exercise stay away from alcohol stay away from Tylenol. She is going to see her healthcare facility administrator as well for her well woman exam current treatment plan is effective, no change in therapy, orders and follow up as documented in EMR, lab results reviewed with patient, repeat labs ordered prior to next appointment, reviewed compliance with lifestyle measures, reviewed diet, exercise and weight control, reviewed medications and side effects in detail Return visit in 3 months. Subjective 64-year-old female patient who has a history of fatty liver and elevated liver enzyme. Currently she is seeing gastroenterology [facility] in [place]. She has an upcoming appointment with them they recently did an ultrasound and they have done a FibroScan. She is complaining of some dark urine no dysuria no CVA tenderness no fevers or chills. She took an at home test which showed some leukocytes otherwise normal normal and she feels once she drink more fluids that improved she has a history of high blood pressure is well-controlled on her lisinopril she also sees gynecology in [place]. Bharati Lopez she is up-to-date on her mammograms as well as her Paps. Review of Systems Constitutional: Negative. Negative for activity change, appetite change and fever. HENT: Negative. Negative for congestion. Eyes: Negative. Negative for discharge. Respiratory: Negative. Negative for chest tightness. Cardiovascular: Negative. Gastrointestinal: Negative. Endocrine: Negative. Negative for cold intolerance. Genitourinary: Negative for difficulty urinating. Musculoskeletal: Negative. Neurological: Negative. Negative for dizziness, facial asymmetry and headaches. Hematological: Negative. Allergies[1] Current Medications[2] Problem List[3] Medical History[4] Social History Tobacco Use Smoking status: Never Smokeless tobacco: Never Substance Use Topics Alcohol use: No Surgical History[5] Family History[6] Health Maintenance Topic Date Due MMR Vaccines (1 of 1 - Standard series) Never done Hepatitis A Vaccines (1 of 2 - Risk 2-dose series) Never done Pneumococcal Vaccine: 50+ Years (1 of 2 - PCV) Never done Zoster Vaccines (1 of 2) Never done RSV Immunization for Adults (1 - Risk 60-74 years 1-dose series) Never done Hepatitis B Vaccines (1 of 3 - Risk 3-dose series) Never done COVID-19 Vaccine (6 - 2024-25 season) 2024 Cervical Cancer Screening 12/13/2024 Depression Screening 11/02/2025 Mammogram 01/06/2026 Diabetes Screening 09/22/2026 Lipid Panel 11/03/2029 Colorectal Cancer Screening 08/07/2030 DTaP/Tdap/Td Vaccines (2 - Td or Tdap) 12/08/2032 Influenza Vaccine Completed HIV Screening Completed Hepatitis C Screening Completed RSV Immunization under 20 Months Aged Out HIB Vaccines Aged Out IPV Vaccines Aged Out Meningococcal Vaccine Aged Out Rotavirus Vaccines Aged Out HPV Vaccines Aged Out Meningococcal B Vaccine Aged Out Objective BP 128/78 Pulse 89 Temp 36.8 ?C (98.3 ?F) (Temporal) Ht 5' 7 (1.702 m) Wt 197 lb 9.6 oz (89.6 kg) SpO2 98% BMI 30.95 kg/m? Physical Exam Vitals and nursing note reviewed. Constitutional: Appearance: Normal appearance. HENT: Head: Normocephalic and atraumatic. Nose: No congestion or rhinorrhea. Mouth/Throat: Mouth: Mucous membranes are moist. Pharynx: Oropharynx is clear. No posterior oropharyngeal erythema. Eyes: Extraocular Movements: Extraocular movements intact. Conjunctiva/sclera: Conjunctivae normal. Pupils: Pupils are equal, round, and reactive to light. Cardiovascular: Pulses: Normal pulses. Heart sounds: Normal heart sounds. No murmur heard. Pulmonary: Effort: Pulmonary effort is normal. No respiratory distress. Breath sounds: Normal breath sounds. No wheezing. Abdominal: General: Abdomen is flat. Bowel sounds are normal. Palpations: Abdomen is soft. Tenderness: There is no abdominal tenderness. Musculoskeletal: General: No swelling. Cervical back: Normal range of motion. Skin: General: Skin is warm and dry. Neurological: General: No focal deficit present. Mental Status: She is alert and oriented to person, place, and t (more content not included)... Normal [facility] ABD Limited w/ Elastographyo n 01-27-2025 ABD Limited w/ Elastography [facility] Services [address] [place], [place] [address] ABD Limited w/ Elastography MR#: [id number] Acct: [id number] Name: ASHER CHAD OSBORN MAURICE Rep #: [id number] : 1960 F 64 From: Fermin manjarrez MD PCP: Dr. 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 TECHNIQUE: Right upper quadrant abdominal ultrasound. Liya ElastQ Imaging shear wave elastography for non- invasive assessment of liver tissue stiffness. [employer] EPIQ Elite. FINDINGS: LIVER: Size: Enlarged (hepatomegaly) Length: 19.7 cm Echotexture: Diffusely echogenic suggesting fatty infiltration Contour: Normal Lesions: 6.7 cm 6.3 cm 4.4 cm cyst in the right lobe of the liver. Elastography: EQI Med: 7.5 kPa EQI Med Ok: 1.6 m/s IQR/Med: 9.5 %* GALLBLADDER: Normal COMMON BILE DUCT: Normal 5.4 mm. PANCREAS: Visualized portions are unremarkable. The distal body and tail are obscured by bowel gas. Visualized portions of the right kidney are unremarkable. There is a 1.5 cm x 1.3 cm x 1.3 cm cyst in the lower pole of the kidney. No right upper quadrant ascites. US/ABD Limited w/ Elastography IMPRESSION: [id number] hepatic fibrosis. Hepatomegaly. Cyst in the right lobe of the liver. Reference Values: SRU <1.37 m/s (5.7kPa): No to mild fibrosis 1.37 m/s - 2.2 m/s: Moderate to severe fibrosis >2.2 m/s (15kPa): Significant fibrosis / cirrhosis METAVIR Score F2 or higher: 1.34 m/s (5.7kPa) F3 or higher: 1.55 m/s (7.3kPa) F4: 1.80 m/s (10kPa) * If the IQR/Med is >30%, the variance in the measurements is a large and the accuracy of the measurement may be in question. Reading Location: [place] [address] CC: SINAN Mcintosh; Dr. Poonam Neal MD Manager Java: Signed Normal [facility] [id number] 01-24-2025 [facility]. COMMENT Normal . [facility] Comment on above: Order Comment: [id number] [id number] SERUM RF Result Comment: Test Ordered: [id number] Enhanced Liver Fibrosis (ELF) ELF(TM) Score 10.21 [H ] Reference Range: <9.80 ELF(TM) Score Interpretation: Risk cut-offs to assess the likelihood of progression to cirrhosis and liver-related clinical events within 3.9 years following baseline ELF score (IQR: 14.0-22.4 months)*: Lower risk < 9.80 Mid risk 9.80 - 11.29 Higher risk >11.29 Note: The ELF(TM) Score is a unitless numerical value. *Isreal SA, Ivan VW, Cristy T, et al. Selonsertib for patients with bridging fibrosis or compensated cirrhosis due to THAO: Results from randomized phase III STELLAR trials. J Hepatol. 2020 Mar;73(1):26-39. Performed at: [facility] [address] [id number] Retail Sales Clerk: Koko No MD, Phone: [phone] Performed at: [facility] [address] [id number] Retail Sales Clerk: Robert Dumont PhD, Phone: [phone] Performed By: #### L 501.9520, L506.1001, L3100.0300, L501.6710, L500.4050, L300.3900, L3410.9992, L100.0100, L3890.6202 ####[facility] [id number] [place], [place], [id number] Hepatitis A AB, Totalon 05- HEPATITIS A,TOT Negative Normal Negative [facility] Comment on above: Result Comment: Comm ent: The HAV total antibody assay detects both IgG and IgM but does not differentiate between them. A negative result suggests susceptibility to infection. A positive result could be due to vaccination, previously resolved infection or active infection. Testing for HAV IgM should be performed if active HAV infection is suspected. [facility] offers profiles that will automatically reflex positive HAV total antibody results to IgM (e.g., panel #[id number] HAV Antibody w/ Rfx). Performed at: [address] [id number] Retail Sales Clerk: Robert Dumont PhD, Phone: [phone] Performed By: #### L 501.9520, L506.1001, L3100.0300, L501.6710, L500.4050, L300.3900, L3410.9992, L100.0100, L3890.6202 ####[facility] [id number] [place], [place], [id number] Absolute lymphocyte countOrd ered By: Telma Mcintosh on 01-18-2025 Lymphocytes Auto (Unsp spec) [#/Vol] 2.17 10*3/uL 0.83-4.[address] [facility] Absolute neutrophil countOrd ered By: Telma Mcintosh on 01-18-2025 Neutrophils (Bld) [#/Vol] 4.6 10*3/uL 2.0-7.[address] [facility] Anion gap in Serum or Plasma Ordered By: Telma Mcintosh on 01-18-2025 Anion gap [Moles/Vol] 11 mmol/L 5-15 [facility] Automated lymphocyte count a s percentage of total leukocytesOrdered By: Telma Mcintosh on 01-18-2025 Lymphocytes/100 WBC Auto (Unsp spec) 27.7 % -[address] [facility] BUN/creatinine ratioOrdered By: Telma Mcintosh on 01-18-2025 Urea nitrogen/Creatinine [Mass ratio] 23.1 mg/mg High 10-[address] [facility] Basophil percentageOrdered B y: Telma Mcintosh on 01-18-2025 Basophils/100 WBC (Bld) 0.9 % 0-[address] [facility] Bilirubin, totalOrdered By: Tlema Mcintosh on 01-18-2025 Bilirubin [Mass/Vol] 0.47 mg/dL 0.00-1.30 [facility] CBC W/Diff, Automatedon 01-06 3-2024 Absolute Lymph 2.17 X10 3/uL Normal 0.83-4.[address] [facility] Comment on above: Performed By: #### L 501.9520, L506.1001, L3100.0300, L501.6710, L500.4050, L300.3900, L3410.9992, L100.0100, L3890.6202 #### [facility] Laboratory [address] [place], [address] Absolute Neut 4.6 X10 3/uL Normal 2.0-7.[address] [facility] Comment on above: Performed By: #### L 501.9520, L506.1001, L3100.0300, L501.6710, L500.4050, L300.3900, L3410.9992, L100.0100, L3890.6202 #### [facility] [address] [place], [address] Basophils/100 WBC (Bld) 0.9 % Normal 0-[address] [facility] Comment on above: Performed By: #### L 501.9520, L506.1001, L3100.0300, L501.6710, L500.4050, L300.3900, L3410.9992, L100.0100, L3890.6202 #### [facility] [address] [place], [address] Eosinophils/100 WBC (Bld) 2.4 % Normal 0-[address] [facility] Comment on above: Performed By: #### L 501.9520, L506.1001, L3100.0300, L501.6710, L500.4050, L300.3900, L3410.9992, L100.0100, L3890.6202 #### [facility] [address] [place], [address] Erythrocyte distribution width (RBC) [Ratio] 12.6 % Normal 11.6-14.[address] [facility] Comment on above: Performed By: #### L 501.9520, L506.1001, L3100.0300, L501.6710, L500.4050, L300.3900, L3410.9992, L100.0100, L3890.6202 #### [facility] [address] [place], [address] Hematocrit (Bld) [Volume fraction] 41.6 % Normal 37-[address] [facility] Comment on above: Performed By: #### L 501.9520, L506.1001, L3100.0300, L501.6710, L500.4050, L300.3900, L3410.9992, L100.0100, L3890.6202 #### [facility] [address] [place], [address] Hemoglobin (Bld) [Mass/Vol] 13.6 g/dL Normal 12.0-15.[address] [facility] Comment on above: Performed By: #### L 501.9520, L506.1001, L3100.0300, L501.6710, L500.4050, L300.3900, L3410.9992, L100.0100, L3890.6202 #### [facility] [address] [place], [address] IG% 0.400 Normal 0.0-0.[address] [facility] Comment on above: Result Comment: IG% - Immature Granulocytes (promyelocytes, myelocytes and metamyelocytes) > 1% indicates that a LEFT SHIFT is Present. Performed By: #### L 501.9520, L506.1001, L3100.0300, L501.6710, L500.4050, L300.3900, L3410.9992, L100.0100, L3890.6202 #### [facility] [address] [place], [address] Lymphocytes/100 WBC (Bld) 27.7 % Normal 19-[address] [facility] Comment on above: Performed By: #### L 501.9520, L506.1001, L3100.0300, L501.6710, L500.4050, L300.3900, L3410.9992, L100.0100, L3890.6202 #### [facility] [address] [place], [address] MCH (RBC) [Entitic mass] 31.9 pg Normal 27.0-32.[address] [facility] Comment on above: Performed By: #### L 501.9520, L506.1001, L3100.0300, L501.6710, L500.4050, L300.3900, L3410.9992, L100.0100, L3890.6202 #### [facility] [address] [place], [address] MCHC (RBC) [Mass/Vol] 32.7 g/dL Normal 32-36 [facility] Comment on above: Performed By: #### L 501.9520, L506.1001, L3100.0300, L501.6710, L500.4050, L300.3900, L3410.9992, L100.0100, L3890.6202 #### [facility] [address] [place], [address] MCV (RBC) [Entitic vol] 97.7 fL Normal 81-[address] [facility] Comment on above: Performed By: #### L 501.9520, L506.1001, L3100.0300, L501.6710, L500.4050, L300.3900, L3410.9992, L100.0100, L3890.6202 #### [facility] [address] [place], [address] Monocytes/100 WBC (Bld) 9.8 % Normal 0-[address] [facility] Comment on above: Performed By: #### L 501.9520, L506.1001, L3100.0300, L501.6710, L500.4050, L300.3900, L3410.9992, L100.0100, L3890.6202 #### [facility] [address] [facility] [place], [address] Neutrophils/100 WBC (Bld) 58.8 % Normal 47-[address] [facility] Comment on above: Performed By: #### L 501.9520, L506.1001, L3100.0300, L501.6710, L500.4050, L300.3900, L3410.9992, L100.0100, L3890.6202 #### [facility] [address] [facility] [place], [address] Nucleated RBC (Bld) [#/Vol] 0 10*3/uL Normal 0-[address] [facility] Comment on above: Performed By: #### L 501.9520, L506.1001, L3100.0300, L501.6710, L500.4050, L300.3900, L3410.9992, L100.0100, L3890.6202 #### [facility] [address] [facility] [place], [address] Platelet mean volume (Bld) [Entitic vol] 10.3 fL Normal 6.2-12.[address] [facility] Comment on above: Performed By: #### L 501.9520, L506.1001, L3100.0300, L501.6710, L500.4050, L300.3900, L3410.9992, L100.0100, L3890.6202 #### [facility] [address] [place] [place], [address] Platelets (Bld) [#/Vol] 340 10*3/uL Normal 150-[address] [facility] Comment on above: Performed By: #### L 501.9520, L506.1001, L3100.0300, L501.6710, L500.4050, L300.3900, L3410.9992, L100.0100, L3890.6202 #### [facility] [address] [place], [address] RBC (Bld) [#/Vol] 4.26 10*6/uL Normal 4.2-5.4 [facility] Comment on above: Performed By: #### L 501.9520, L506.1001, L3100.0300, L501.6710, L500.4050, L300.3900, L3410.9992, L100.0100, L3890.6202 #### [facility] [address] [place], [address] ( RDW SD 44.6 fl High 35.1-43.[address] [facility] Comment on above: Performed By: #### L 501.9520, L506.1001, L3100.0300, L501.6710, L500.4050, L300.3900, L3410.9992, L100.0100, L3890.6202 #### [facility] [address] [place], [address] WBC (Bld) [#/Vol] 7.8 10*3/uL Normal 4.4-11.0 [facility] Comment on above: Performed By: #### L 501.9520, L506.1001, L3100.0300, L501.6710, L500.4050, L300.3900, L3410.9992, L100.0100, L3890.6202 #### [facility] [address] [place], [address] CRPon 01-18-2025 C-REACTIVE PROT 5.89 mg/L High 0.0-3.[address] [facility] Comment on above: Performed By: #### L 501.9520, L506.1001, L3100.0300, L501.6710, L500.4050, L300.3900, L3410.9992, L100.0100, L3890.6202 #### [facility] [address] [place], [address] Carbon dioxide, total [Moles /volume] in Central venous bloodOrdered By: Telma Mcintosh on 01-18-2025 CO2 [Moles/Vol] 22.4 mmol/L 21.0-32.[address] [facility] Chloride assayOrdered By: Cristian Mcintosh on 01-18-2025 Chloride [Moles/Vol] 105 mmol/L 98-108 [facility] Comprehensive Metabolic Prof ilon 01-18-2025 Albumin [Mass/Vol] 4.4 g/dL Normal 3.4-4.8 [facility] Comment on above: Performed By: #### L 501.9520, L506.1001, L3100.0300, L501.6710, L500.4050, L300.3900, L3410.9992, L100.0100, L3890.6202 #### [facility] [address] [place], [address] Albumin/Globulin [Mass ratio] 1.2 {ratio} Normal 0.9-2.[address] [facility] Comment on above: Performed By: #### L 501.9520, L506.1001, L3100.0300, L501.6710, L500.4050, L300.3900, L3410.9992, L100.0100, L3890.6202 #### [facility] [address] [place], [address] ALK PHOS 66 U/L Normal 35-[address] [facility] Comment on above: Performed By: #### L 501.9520, L506.1001, L3100.0300, L501.6710, L500.4050, L300.3900, L3410.9992, L100.0100, L3890.6202 #### [facility] [address] [place], [address] ALT [Catalytic activity/Vol] 47 U/L High <=[address] [facility] Comment on above: Performed By: #### L 501.9520, L506.1001, L3100.0300, L501.6710, L500.4050, L300.3900, L3410.9992, L100.0100, L3890.6202 #### [facility] [address] [place], [address] AST [Catalytic activity/Vol] 43 U/L High <=[address] [facility] Comment on above: Performed By: #### L 501.9520, L506.1001, L3100.0300, L501.6710, L500.4050, L300.3900, L3410.9992, L100.0100, L3890.6202 #### [facility] [address] [place], [address] Bilirubin [Mass/Vol] 0.47 mg/dL Normal 0.00-1.30 [facility] Comment on above: Performed By: #### L 501.9520, L506.1001, L3100.0300, L501.6710, L500.4050, L300.3900, L3410.9992, L100.0100, L3890.6202 #### [facility] [address] [place], [address] BUN/CRE 23.1 RATIO High 10-[address] [facility] Comment on above: Performed By: #### L 501.9520, L506.1001, L3100.0300, L501.6710, L500.4050, L300.3900, L3410.9992, L100.0100, L3890.6202 #### [facility] [address] [place], [address] Calcium [Mass/Vol] 9.6 mg/dL Normal 7.6-11.0 [facility] Comment on above: Performed By: #### L 501.9520, L506.1001, L3100.0300, L501.6710, L500.4050, L300.3900, L3410.9992, L100.0100, L3890.6202 #### [facility] [address] [place], [address] Chloride [Moles/Vol] 105 mmol/L Normal 98-108 [facility] Comment on above: Performed By: #### L 501.9520, L506.1001, L3100.0300, L501.6710, L500.4050, L300.3900, L3410.9992, L100.0100, L3890.6202 #### [facility] [address] [place], [place], [phone] (111) CO2 [Moles/Vol] 22.4 mmol/L Normal 21.0-32.[address] [facility] Comment on above: Performed By: #### L 501.9520, L506.1001, L3100.0300, L501.6710, L500.4050, L300.3900, L3410.9992, L100.0100, L3890.6202 #### [facility] [address] [place], [place], [phone] (370) Creatinine [Mass/Vol] 0.69 mg/dL Low 0.70-1.20 [facility] Comment on above: Performed By: #### L 501.9520, L506.1001, L3100.0300, L501.6710, L500.4050, L300.3900, L3410.9992, L100.0100, L3890.6202 #### [facility] [address] [place], [address] GAP 11 Normal 5-[address] [facility] Comment on above: Performed By: #### L 501.9520, L506.1001, L3100.0300, L501.6710, L500.4050, L300.3900, L3410.9992, L100.0100, L3890.6202 #### [facility] [address] [place], [address] GFR/1.73 sq M.predicted among non-blacks MDRD (S/P/Bld) [Vol rate/Area] 97 mL/min/{1.73_m2} Normal >[address] [facility] Comment on above: Result Comment: mL/m in/1.73m2 CKD-EPI Creatinine Equation (2020) Performed By: #### L 501.9520, L506.1001, L3100.0300, L501.6710, L500.4050, L300.3900, L3410.9992, L100.0100, L3890.6202 #### [facility] [address] [place], [address] Globulin (S) [Mass/Vol] 3.5 g/dL Normal 2.2-4.[address] [facility] Comment on above: Performed By: #### L 501.9520, L506.1001, L3100.0300, L501.6710, L500.4050, L300.3900, L3410.9992, L100.0100, L3890.6202 #### [facility] [address] [place], [address] Glucose [Mass/Vol] 114 mg/dL High 70-99 [facility] Comment on above: Performed By: #### L 501.9520, L506.1001, L3100.0300, L501.6710, L500.4050, L300.3900, L3410.9992, L100.0100, L3890.6202 #### [facility] [address] [place], [place], [phone] (564) Potassium [Moles/Vol] 3.9 mmol/L Normal 3.3-5.1 [facility] Comment on above: Performed By: #### L 501.9520, L506.1001, L3100.0300, L501.6710, L500.4050, L300.3900, L3410.9992, L100.0100, L3890.6202 #### [facility] [address] [place], [place], [id number] (466) Sodium [Moles/Vol] 139 mmol/L Normal 133-145 [facility] Comment on above: Performed By: #### L 501.9520, L506.1001, L3100.0300, L501.6710, L500.4050, L300.3900, L3410.9992, L100.0100, L3890.6202 #### [facility] [address] [place], [place], [phone] T PROT 7.9 g/dL Normal 5.9-8.[address] [facility] Comment on above: Performed By: #### L 501.9520, L506.1001, L3100.0300, L501.6710, L500.4050, L300.3900, L3410.9992, L100.0100, L3890.6202 #### [facility] [address] [place], [place], [phone] Urea nitrogen [Mass/Vol] 16 mg/dL Normal 4-[address] [facility] Comment on above: Performed By: #### L 501.9520, L506.1001, L3100.0300, L501.6710, L500.4050, L300.3900, L3410.9992, L100.0100, L3890.6202 #### [facility] [address] [place], [place], [phone] ([phone]) Eosinophil percentageOrdered By: Telma Mcintosh on 01-18-2025 Eosinophils/100 WBC (Bld) 2.4 % 0-[address] [facility] Erythrocyte distribution wid th ratioOrdered By: Telmarod Mcintosh on 01-18-2025 Erythrocyte distribution width (RBC) [Ratio] 12.6 % 11.6-14.[address] [facility] Erythrocyte distribution wid th standard deviationOrdered By: Telma Mcintosh on 01-18-2025 Erythrocyte distribution width (RBC) [Ratio] 44.6 fl High 35.1-43.[address] [facility] Gastroenterology Visit Repor ton 01-18-2025 Gastroenterology Visit Report [facility]astroenterology [address] [place] [address] OFFICE VISIT Date of Service: 01/18/25 MR#: [id number] Acct: [id number] Name: CHAD CHAVEZ MAURICE Rep #: [id number] : 1960 Provider: SINAN lozada Age/Sex: 64/F Location: [facility] Status: Signed Intake Vital Signs 04/12/24 14:43 01/18/25 10:57 Height 5 ft 7 in 5 ft 7 in Weight: 198 lb 6 oz BMI 31.0 BP 129/82 H Respiration 16 Pulse 87 Pulse Oximetry (%) 97 Oxygen Delivery Method room air Intake Visit Reasons: FU LIVER ENZYMES Chief Complaint: Annual Product Steward Required: No Accompanied by: Self Is patient in pain?: No Allergies amoxicillin Allergy (Intermediate, Verified 01/18/25 10:56) Hives Sulfa (Sulfonamide Antibiotics) Allergy (Intermediate, Verified 01/18/25 10:56) Hives Medications ???Medication ???Instructions ???Recorded ???Confirmed ???Type cholecalciferol (vitamin D3) 50 50 mcg PO DAILY 11/29/21 01/18/25 History mcg (2,000 unit) capsule lisinopril 10 mg tablet 10 mg PO DAILY 11/29/21 01/18/25 H istory lisinopril 5 mg tablet 5 mg PO DAILY 11/29/21 01/18/25 Hi story multivitamin (Daily Multi-Vitamin 1 tab PO DAILY 11/29/21 01/18/25 History tablet) ruxolitinib 1.5 % topical cream 1 applic topical BID 04/12/2401/06 History (Johnson) Nurse's Note: Occasionally has blood in her stool but that is only when she strains and is related to a hemorrhoid. 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 Goal is to prevent progression to liver fibrosis; to that end she needs to lose weight, reverse the rising hgb A1C. No hx elevated lipids. 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 Is walking in pool one day a week. Hasn't lost weight, but hasn't gained. She established with our office on 12/07/21 for elevated liver enzymes, fatty liver, liver cyst. We did biochemical w/u which revealed Hgb A1C 5.8, ferritin 392, AST 52, ALT 79, CRP 8.8, sed rate 37. No significant fibrosis on liver elastography. No significant change in the size of her hepatic cyst. Fatty liver--Liver elastography 12/25/21 F0-F1, 5 kPa. US: liver 17.7 cm, fatty infiltration; 6.5 cm x 7.2cm x 4.8 cm cyst in the medial aspect of the right lobe of the liver. Liver cyst--US 12/25/21: 6.5 cm x 7.2cm x 4.8 cm cyst in the medial aspect of the right lobe of the liver. Mother of cirrhosis, likely HTAO-related. Possible that maternal grandmother also had cirrhosis. Colonoscopy in 08/2021 at , normal except hemorrhoid per pt EtOH: denies NSAIDS: very occasional Naproxen DM: denies HTN: lisinopril HLD: borderline Weight: loss of 10lbs, intentional with reducing sugar - denies any family h/o colon CA - rare BRBPR with BM when straining - denies any rectal pain or change in bowel habits - denies any ABD pain - c/o right flank pain, intermittent, ongoing for a few years, this is a mild pain - denies any burning with urination or hematuria - reports her urine is cloudy - has appt with PCP end of the month - denies any HB - denies any N/V - denies any dysphagia ROS Const Constitutional: No fatigue, fever(s) or weight change ENT ENT: No difficulty swallowing Gastro GI: Positive for Blood in stool; No abdominal pain, belching, bloating, change in bowel habits, change in stool character, coffee ground emesis, constipation, cramping, diarrhea, heartburn, difficulty swallowing, feeling full early, excessive flatus, incontinent of stools, Vomiting blood/hematemesis, loose stools, Black,tarry stools, nausea/dyspepsia, pain with swallowing, vomiting or other Musc Musculoskeletal: Positive for back pain; No joint pain Ski (more content not included)... Normal [facility] Glomerular filtration rate ( GFR) estimation/1.73 sq m using serum, plasma, or whole bOrdered By: Telma Mcintosh on 01-18-2025 GFR/1.73 sq M.predicted among non-blacks MDRD (S/P/Bld) [Vol rate/Area] 97 mL/min/{1.73_m2} >[address] [facility] Comment on above: mL/min/1.73m2 CKD-EP I Creatinine Equation (2020) Hematocrit Auto (Bld) [Volum e fraction]Ordered By: Telma Mcintosh on 01-18-2025 Hematocrit (Bld) [Volume fraction] 41.6 % 37-[address] [facility] Hemoglobin measurementOrdere d By: Telma Mcintosh on 01-18-2025 Hemoglobin (Bld) [Mass/Vol] 13.6 g/dL 12.0-15.[address] [facility] Hepatitis B Surface Antibody on 01-18-2025 HEP B Surf Ab REAC Normal [facility] Comment on above: Result Comment: <8.5 mIU/mL: Non-Reactive 8.5<= x <11.5 mIU/mL: Indeterminate >=11.5 mIU/mL: Reactive Non Reactive: Inconsistent with immunity less than <10 mIU/mL Reactive: Consistent with immunity greater than or equal to 10 mIU/mL Performed By: #### L 501.9520, L506.1001, L3100.0300, L501.6710, L500.4050, L300.3900, L3410.9992, L100.0100, L3890.6202 #### [facility] [address] [place], [address] Immature granulocytes/100 WB C Auto (Bld)Ordered By: Telma Mcintosh on 01-18-2025 Immature granulocytes/100 WBC (Bld) 0.400 % 0.0-0.[address] [facility] Comment on above: IG% - Immature Granu locytes (promyelocytes, myelocytes and metamyelocytes) > 1% indicates that a LEFT SHIFT is Present. International normalized rat io (INR) calculationOrdered By: Telma Mcintosh on 01-18-2025 INR Coag (Bld) [Relative time] 0.9 {INR} [facility] - Chemistry and C hemistry - challengeOrdered By: Telma Mcintosh on 01-18-2025 AST [Catalytic activity/Vol] 43 U/L High <[address] [facility] MCV (mean corpuscular volume ) determinationOrdered By: Telma Mcintosh on 01-18-2025 MCV (RBC) [Entitic vol] 97.7 fL 81-[address] [facility] Mean corpuscular hemoglobin (MCH) determinationOrdered By: Telma Mcintosh on 01-18-2025 MCH (RBC) [Entitic mass] 31.9 pg 27.0-32.[address] [facility] Mean corpuscular hemoglobin concentration (MCHC) determinationOrdered By: Telma Mcintosh on 01-18-2025 MCHC (RBC) [Mass/Vol] 32.7 g/dL 32-36 [facility] Mean platelet volume determi nationOrdered By: Telma Mcintosh on 01-18-2025 Platelet mean volume (Bld) [Entitic vol] 10.3 fL 6.2-12.[address] [facility] Monocyte percentageOrdered B y: Telma Mcintosh on 01-18-2025 Monocytes/100 WBC (Bld) 9.8 % 0-[address] [facility] Neutrophil percentageOrdered By: Telma Mcintosh on 01-18-2025 Neutrophils/100 WBC (Bld) 58.8 % 47-[address] [facility] Nucleated red blood cell per centageOrdered By: Telma Mcintosh on 01-18-2025 Nucleated RBC/100 WBC (Bld) [Ratio] 0 % 0-[address] [facility] Platelet countOrdered By: Cristian Mcintosh on 01-18-2025 Platelets (Bld) [#/Vol] 340 10*3/uL 150-[address] [facility] Potassium measurement (mass/ volume)Ordered By: Telma Mcintosh on 01-18-2025 Potassium (Unsp spec) [Mass/Vol] 3.9 mmol/L 3.3-5.[address] [facility] Prothrombin Time w/INRon INR Coag (PPP) [Relative time] 0.9 {INR} Normal [facility] Comment on above: Performed By: #### L 501.9520, L506.1001, L3100.0300, L501.6710, L500.4050, L300.3900, L3410.9992, L100.0100, L3890.6202 #### [facility] [address] [place], [place] [address]all [facility] [place], [address] PT Coag (PPP) [Time] 12.6 s Normal 11.7-14.9 [facility] Comment on above: Performed By: #### L 501.9520, L506.1001, L3100.0300, L501.6710, L500.4050, L300.3900, L3410.9992, L100.0100, L3890.6202 #### [facility] [place], [address] Prothrombin timeOrdered By: Telma Mcintosh on 01-18-2025 PT Coag (PPP) [Time] 12.6 s 11.7-14.9 [facility] RBC Auto (Bld) [#/Vol]Ordere d By: Telma Mcintosh on 01-18-2025 RBC (Bld) [#/Vol] 4.26 10*6/uL 4.2-5.4 [facility] Serum creatinine measurement (mass/volume)Ordered By: Telma Mcintosh on 01-18-2025 Creatinine [Mass/Vol] 0.69 mg/dL Low 0.70-1.20 [facility] Serum globulin measurementOr dered By: Telma Mcintosh on 01-18-2025 Globulin (S) [Mass/Vol] 3.5 g/dL 2.2-4.[address] [facility] Serum glucose measurement (m ass/volume)Ordered By: Telma Mcintosh on 01-18-2025 Glucose [Mass/Vol] 114 mg/dL High 70-99 [facility] Serum hepatitis B virus surf kane antibody detectionOrdered By: Telma Mcintosh on 01-18-2025 HBV surface Ab Ql (S) REAC [facility] Comment on above: <8.5 mIU/mL: Non-[place] ctive8.5<= x <11.5 mIU/mL: Indeterminate>=11.5 mIU/mL: Reactive Non Reactive: Inconsistent with immunity less than <10 mIU/mL Reactive: Consistent with immunity greater than or equal to 10 mIU/mL Serum or plasma C reactive p rotein measurement (mass/volume)Ordered By: Telma Mcintosh on 01-18-2025 CRP [Mass/Vol] 5.89 mg/L High 0.0-3.[address] [facility] Serum or plasma alanine zambrano otransferase (ALT) measurementOrdered By: Telma Mcintosh on 01-18-2025 ALT [Catalytic activity/Vol] 47 U/L High <[address] [facility] Serum or plasma albumin quita urement (mass/volume)Ordered By: Telma Mcintosh on 01-18-2025 Albumin [Mass/Vol] 4.4 g/dL 3.4-4.8 [facility] Serum or plasma albumin/glob ulin mass ratioOrdered By: Telma Mcintosh on 01-18-2025 Albumin/Globulin [Mass ratio] 1.2 {ratio} 0.9-2.[address] [facility] Serum or plasma alkaline vanessa sphatase measurementOrdered By: Telma Mcintosh on 01-18-2025 ALP [Catalytic activity/Vol] 66 U/L 35-[address] [facility] Serum or plasma calcium quita urement (mass/volume)Ordered By: Telma Mcintosh on 01-18-2025 Calcium [Mass/Vol] 9.6 mg/dL 7.6-11.0 [facility] Serum or plasma urea nitroge n measurement (mass/volume)Ordered By: Telma Mcintosh on 01-18-2025 Urea nitrogen [Mass/Vol] 16 mg/dL 4-[address] [facility] Sodium levelOrdered By: Amber Mcintosh on 01-18-2025 Sodium [Moles/Vol] 139 mmol/L 133-145 [facility] TSH DL <= 0.005 mIU/L QnOrde red By: Telma Mcintosh on 01-18-2025 TSH Qn 2.120 uIU/mL 0.300-4.[address] [facility] Thyroid Stim Hormone (TSH)on 01-18-2025 TSH 2.120 uIU/mL Normal 0.300-4.[address] [facility] Comment on above: Performed By: #### L 501.9520, L506.1001, L3100.0300, L501.6710, L500.4050, L300.3900, L3410.9992, L100.0100, L3890.6202 ####[facility] [id number] [place], [address] Total proteinOrdered By: Radha Mcintosh on 01-18-2025 Protein [Mass/Vol] 7.9 g/dL 5.9-8.4 [facility] Vitamin D,25 Hydroxyon 01-18 Vitamin D 25-OH 24.2 ng/mL Low 30-[address] [facility] Comment on above: Result Comment: Jami min D Status Deficiency: <20 ng/mL (50nmol/L) Insufficiency: 20-30 ng/mL (50-75 nmol/L) Sufficiency: 30-100 ng/mL (75-250 nmol/L) Toxicity: >100 ng/mL (>250 nmol/L) Performed By: #### L 501.9520, L506.1001, L3100.0300, L501.6710, L500.4050, L300.3900, L3410.9992, L100.0100, L3890.6202 ####[facility] [id number] [place], [place], [id number] White blood cell (WBC) count Ordered By: Telma Mcintosh on 01-18-2025 WBC (Bld) [#/Vol] 7.8 10*3/uL 4.4-11.0 [facility] SCRN MAMM (CAD)W/DUNCAN BILATo n 01-06-2025 SCRN MAMM (CAD)W/DUNCAN BILAT [facility] Imaging Services [address] [place] [address] SCRN MAMM (CAD)W/DUNCAN BILAT MR#: [id number] Acct: [id number] Name: CHAD CHAVEZ MAURICE Rep #: [id number] : 1960 F 64 From: Mady Mckeon PCP: Dr. 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 TECHNIQUE: Bilateral screening digital breast tomosynthesis with 2D and 3D images. Computer aided detection. COMPARISON: Prior exam(s) dated 01/01/2024 and 11/28/2022. FINDINGS: TISSUE DENSITY: The breast tissue is composed of scattered area of fibroglandular density. Bilateral Breast Mammographic Findings: There are no suspicious masses, suspicious clustered microcalcifications, architectural distortion or secondary signs of malignancy identified in either breast. Benign round calcifications are seen in both breasts. A benign-appearing macrocalcification is seen in the right breast. A stable 6 mm nodular masslike density is seen in the superior outer, far anterior aspect of the left breast. A stable 6 mm nodular masslike density is seen in the superior outer, junction of the middle and posterior 3rd aspect of the right breast. BI/SCRN MAMM (CAD)W/DUNCAN BILAT IMPRESSION: OVERALL FINAL ASSESSMENT: BIRADS 2 BENIGN FINDING RECOMMENDATION: Routine annual follow-up in 1 Year A letter with findings and recommendations will be mailed to the patient. Reading Location: [id number] CC: SINAN Lopez; Dr. Poonam Neal MD Manager Java: Signed Normal [facility] 29on 11-05-2024 29 Addended by: DIDI BREEN on: 05/26/2025 09:37 AM Modules accepted: Orders Normal [facility] Office Visiton 11-05-2024 Follow-up visit [id number] Chad Chavez 1960 F Date Provider Department Center 11/05/2024 [id number] NEAL [facility] Family History Problem Relation Age of Onset Liver disease Mother Heart disease Father Vision loss Father Asthma Daughter Family Status - Relation Status Age at Mother Father Daughter Level of Service:43983 CO OFFICE/OUTPATIENT ESTABLISHED LOW MDM 20 MIN Reason for Visit and Comments: Follow-up [692733] Ankle Injury [358646] - LEFT ankle, Back in August, but still bothering her Normal [facility] Progress Noteon 11-05-2024 Progress Note [facility] [place] [address] [facility] [address] Dept: [phone] Dept Loc: [phone] Reason for Visit: Follow-up and Ankle Injury (LEFT ankle, Back in August, but still bothering her ) Assessment and Plan 1. Essential hypertension stable continue lisinopril 5 mg - Comprehensive metabolic panel - Lipid panel - CBC auto differential 2. Mild sprain of left ankle, sequela rest ice compression elevation - Comprehensive metabolic panel - Lipid panel - CBC auto differential 3. Elevated LFTs stay away from fatty foods follow-up with Dr. Yeung continue to monitor liver enzymes current treatment plan is effective, no change in therapy, orders and follow up as documented in EMR, lab results reviewed with patient, repeat labs ordered prior to next appointment, reviewed compliance with lifestyle measures, reviewed diet, exercise and weight control, reviewed medications and side effects in detail Return visit in 3 months. Subjective Ankle Injury is a 63-year-old female patient who had an injury couple weeks ago with sprain of her left ankle she is feeling a lot better. She is not having a lot of problems ambulating. Is less swollen history of high blood pressure well-controlled on medication history of elevated liver enzymes. With fatty liver. Review of Systems Constitutional: Negative. Negative for activity change, appetite change and fever. HENT: Negative. Negative for congestion. Eyes: Negative. Negative for discharge. Respiratory: Negative. Negative for chest tightness. Cardiovascular: Negative. Gastrointestinal: Negative. Endocrine: Negative. Negative for cold intolerance. Genitourinary: Negative for difficulty urinating. Musculoskeletal: Negative. Neurological: Negative. Negative for dizziness, facial asymmetry and headaches. Hematological: Negative. Allergies Allergen Reactions Azithromycin Rash Penicillins Hives and Rash Sulfa Antibiotics Hives and Rash Current Outpatient Medications Medication Sig Dispense Refill cholecalciferol (Vitamin D-3) 50 MCG (1999 UT) capsule Take by mouth. lisinopril 10 MG tablet Take 1 tablet (10 mg) by mouth daily. Patient takes with 5 mg tablet also to equal 15 mg 90 tablet 1 lisinopril 5 MG tablet Take 1 tablet (5 mg) by mouth daily. 90 tablet 1 Multiple Vitamin (MULTIVITAMIN ADULT PO) Take by mouth. Opzelura 1.5 % cream Vitamin E 400 units tablet Take by mouth. lisinopril 5 MG tablet Take 1 tablet (5 mg) by mouth daily. 90 tablet 1 No current facility-administered medications for this visit. Patient Active Problem List Diagnosis Essential hypertension, benign Fatty liver Other chronic nonalcoholic liver disease Past Medical History: Diagnosis Date Allergic grass tress dust mites Fatty liver Hypertension Social History Tobacco Use Smoking status: Never Smokeless tobacco: Never Substance Use Topics Alcohol use: No Past Surgical History: Procedure Laterality Date SECTION (HISTORICAL) SECTION, LOW TRANSVERSE 04/30/2002 Family History Problem Relation Name Age of Onset Liver disease Mother Janene Asher Heart disease Father Luis Asher Vision loss Father Luis Asher Asthma Daughter rey Health Maintenance Topic Date Due MMR Vaccines (1 of 1 - Standard series) Never done Hepatitis A Vaccines (1 of 2 - Risk 2-dose series) Never done Pneumococcal Vaccine: 50+ Years (1 of 2 - PCV) Never done Zoster Vaccines (1 of 2) Never done RSV Immunization for Adults (1 - Risk 60-74 years 1-dose series) Never done Hepatitis B Vaccines (1 of 3 - Risk 3-dose series) Never done COVID-19 Vaccine () 05/09/2024 Cervical Cancer Screening 12/13/2024 Mammogram 12/31/2024 Depression Screening 11/02/2025 Diabetes Screening 09/22/2026 Lipid Panel 11/03/2029 Colorectal Cancer Screening 08/07/2030 DTaP/Tdap/Td Vaccines (2 - Td or Tdap) 12/08/2032 Influenza Vaccine Completed HIV Screening Completed Hepatitis C Screening Completed RSV Immunization under 20 Months Aged Out HIB Vaccines Aged Out IPV Vaccines Aged Out Meningococcal Vaccine Aged Out Rotavirus Vaccines Aged Out HPV Vaccines Aged Out Objective BP 126/82 Pulse 85 Temp 36.7 ?C (98.1 ?F) Ht 5' 7 (1.702 m) Wt 196 lb (88.9 kg) SpO2 96% BMI 30.70 kg/m? Physical Exam Data Reviewed and Summarized Labs: Lab Results Component Value Date WBC 6.9 11/03/2024 HGB 13.6 11/03/2024 HCT 40.8 11/03/2024 PLT 305 11/03/2024 Lab Results Component Value Date NA 140 11/03/2024 K 4.4 11/03/2024 CL 109 (H) 11/03/2024 CO2 24 11/03/2024 BUN 15 11/03/2024 CREATININE 0.80 11/03/2024 GLUCOSE 96 11/03/2024 CALCIUM 9.5 11/03/2024 PROT 7.6 11/03/2024 BILITOT 0.5 11/03/2024 ALKPHOS 61 11/03/2024 AST 34 (H) 11/03/2024 ALT 52 (H) 11/03/2024 @GLUCOSELAB@ L (more content not included)... Normal [facility] CBC W Auto Differential pane l (Bld)on 11-03-2024 Basophils (Bld) [#/Vol] 0 10*3/uL 0.0 - 0.2 10*3/uL [facility] Basophils/100 WBC (Bld) 0.6 % 0.0 - 2.0 % [facility] Eosinophils (Bld) [#/Vol] 0.2 10*3/uL 0.0 - 0.5 10*3/uL [facility] Eosinophils/100 WBC (Bld) 3.4 % 0.0 - 6.0 % [facility] Erythrocyte distribution width (RBC) [Ratio] 12.6 % 11.5 - 15.0 % [facility] Hematocrit (Bld) [Volume fraction] 40.8 % 35.0 - 47.0 % [facility] Hemoglobin (Bld) [Mass/Vol] 13.6 g/dL 11.7 - 16.0 g/dL [facility] Immature granulocytes (Bld) [#/Vol] 0 10*3/uL NINF - 0.1 10*3/uL [facility] Immature granulocytes/100 WBC (Bld) 0.1 % 0.0 - 2.0 % [facility] Interpretation and review of laboratory results Normal [facility] Lymphocytes (Bld) [#/Vol] 2.5 10*3/uL 1.0 - 4.3 10*3/uL [facility] Lymphocytes/100 WBC (Bld) 36.6 % 15.0 - 45.0 % [facility] MCH (RBC) [Entitic mass] 31.6 pg 26.0 - 34.0 pg [facility] MCHC (RBC) [Mass/Vol] 33.3 % 30.5 - 36.0 % [facility] MCV (RBC) [Entitic vol] 94.9 fL 77.0 - 99.0 fL [facility] Monocytes (Bld) [#/Vol] 0.6 10*3/uL 0.0 - 0.9 10*3/uL [facility] Monocytes/100 WBC (Bld) 9 % 5.0 - 13.0 % [facility] Neutrophils (Bld) [#/Vol] 3.5 10*3/uL 1.8 - 7.5 10*3/uL [facility] Neutrophils/100 WBC (Bld) 50.3 % 38.0 - 82.0 % [facility] Nucleated RBC/100 WBC (Bld) [Ratio] 0 % [facility] Platelet mean volume (Bld) [Entitic vol] 10.2 fL 9.0 - 12.7 fL [facility] Comment on above: MPV is a calculated measurement using platelet volume ratio Platelets (Bld) [#/Vol] 305 10*3/uL 140 - 440 10*3/uL [facility] RBC (Bld) [#/Vol] 4.3 10*6/uL 3.80 - 5.20 10*6/uL [facility] WBC (Bld) [#/Vol] 6.9 10*3/uL 3.6 - 10.7 10*3/uL [facility] CBC WITH AUTO DIFFERENTIALon 11-03-2024 Basophils (Bld) [#/Vol] 0.0 10*3/uL Normal 0.0-0.2 [facility] Comment on above: Performed By: #### L [id number] ####Hat Lacer: FELECIA FRASER ([phone])[facility] [employer] (RLAB)[address] [place] [address] Basophils/100 WBC (Bld) 0.6 % Normal 0.0-2.0 [facility] Comment on above: Performed By: #### L [id number] ####Hat Lacer: FELECIA FRASER ([phone])[facility] [employer] (RLAB)[address] [place] [address] Eosinophils (Bld) [#/Vol] 0.2 10*3/uL Normal 0.0-0.5 [facility] Comment on above: Performed By: #### L [id number] ####Hat Lacer: FELECIA FRASER ([phone])[facility] [employer] (SWRLAB)[address] [place] [address] [place] Eosinophils/100 WBC (Bld) 3.4 % Normal 0.0-6.0 [facility] Comment on above: Performed By: #### L [id number] ####Hat Lacer: FELECIA FRASER ([phone])[facility] [employer] (SWRLAB)[address] [place] [address] Erythrocyte distribution width (RBC) [Ratio] 12.6 % Normal 11.5-15.0 [facility] Comment on above: Performed By: #### L [id number] ####Hat Lacer: FELECIA FRASER ([phone])[facility] [employer] (SWRLAB)[address] [place] [address] Hematocrit (Bld) [Volume fraction] 40.8 % Normal 35.0-47.0 [facility] Comment on above: Performed By: #### L [id number] ####Hat Lacer: FELECIA FRASER ([phone])[facility] [place] [employer] (SWRLAB)[address] [place] [address] Hemoglobin (Bld) [Mass/Vol] 13.6 g/dL Normal 11.7-16.0 [facility] Comment on above: Performed By: #### L [id number] ####Hat Lacer: FELECIA FRASER ([phone])[facility] [place] [employer] (SWRLAB)[address] [place] [address] IMMATURE GRANS % 0.1 % Normal 0.0-2.0 [facility] Comment on above: Performed By: #### L [id number] ####Hat Lacer: FELECIA FRASER ([phone])[facility] [place] [employer] (SWRLAB)[address] [place] [address] IMMATURE GRANS ABSOLUTE 0.0 10*3/uL Normal <0.1 [facility] Comment on above: Performed By: #### L [id number] ####Hat Lacer: FELECIA FRASER ([phone])[facility] [place] [employer] (SWRLAB)[address] [place] [address] Lymphocytes (Bld) [#/Vol] 2.5 10*3/uL Normal 1.0-4.3 [facility] Comment on above: Performed By: #### L [id number] ####Hat Lacer: FELECIA FRASER ([phone])[facility] [place] [employer] (SWRLAB)[address] [place] [address] Lymphocytes/100 WBC (Bld) 36.6 % Normal 15.0-45.0 [facility] Comment on above: Performed By: #### L [id number] ####Hat Lacer: FELECIA FRASER ([phone])[facility] [place] [employer] (SWRLAB)[address] [place] [address] MCH (RBC) [Entitic mass] 31.6 pg Normal 26.0-34.0 [facility] Comment on above: Performed By: #### L [id number] ####Hat Lacer: FELECIA FRASER ([phone])[facility] [place] [employer] (SWRLAB)[address] [place] [address] MCHC 33.3 % Normal 30.5-36.0 [facility] Comment on above: Performed By: #### L [id number] ####Hat Lacer: FELECIA FRASER ([phone])[facility] [place] [employer] (SWRLAB)[address] [place] [address] MCV (RBC) [Entitic vol] 94.9 fL Normal 77.0-99.0 [facility] Comment on above: Performed By: #### L [id number] ####Hat Lacer: FELECIA FRASER ([phone])[facility] [place] [employer] (SWRLAB)[address] [place] [address] Monocytes (Bld) [#/Vol] 0.6 10*3/uL Normal 0.0-0.9 [facility] Comment on above: Performed By: #### L [id number] ####Hat Lacer: FELECIA FRASER ([phone])[facility] [place] [employer] (SWRLAB)[address] [place] [address] [place] Monocytes/100 WBC (Bld) 9.0 % Normal 5.0-13.0 [facility] Comment on above: Performed By: #### L [id number] ####Hat Lacer: FELECIA FRASER ([phone])[facility] [place] [employer] (SWRLAB)[address] [place] [address] [place] NEUTROPHILS ABSOLUTE 3.5 10*3/uL Normal 1.8-7.5 [facility] Comment on above: Performed By: #### L [id number] ####Hat Lacer: FELECIA FRASER ([phone])[facility] [place] [employer] (SWRLAB)[address] [place] [address] [place] Neutrophils/100 WBC (Bld) 50.3 % Normal 38.0-82.0 [facility] Comment on above: Performed By: #### L [id number] ####Hat Lacer: FELECIA FRASER ([phone])[facility] [employer] [employer] (SWRLAB)[address] [place] [address] NRBC 0.0 /100 WBCs Normal 0.0-2.0 [facility] Comment on above: Performed By: #### L [id number] ####Hat Lacer: FELECIA FRASER ([phone])[facility] [place] [employer] (SWRLAB)[address] [place] [address] Platelet mean volume (Bld) [Entitic vol] 10.2 fL Normal 9.0-12.7 [facility] Comment on above: Result Comment: MPV is a calculated measurement using platelet volume ratio Performed By: #### L [id number] ####Hat Lacer: FELECIA FRASER ([phone])[facility] [place] [employer] (SWRLAB)[address] [place] [address] Platelets (Bld) [#/Vol] 305 10*3/uL Normal 140-440 [facility] Comment on above: Performed By: #### L [id number] ####Hat Lacer: FELECIA FRASER ([id number])[facility] [place] [employer] (SWRLAB)[address] RBC (Bld) [#/Vol] 4.30 10*6/uL Normal 3.80-5.20 [facility] Comment on above: Performed By: #### L [id number] ####Hat Lacer: FELECIA FRASER ([phone])[facility] [place] [employer] (SWRLAB)[address] WBC (Bld) [#/Vol] 6.9 10*3/uL Normal 3.6-10.7 [facility] Comment on above: Performed By: #### Renate [id number] ####Hat Lacer: FELECIA FRASER ([phone])[facility] [place] [employer] (SWRLAB)[address] [place] [address] [address]PREHENSIVE METABOLIC PANE Juan Carlos 11-03-2024 Albumin [Mass/Vol] 3.9 g/dL Normal 3.4-4.8 [facility] Comment on above: Performed By: #### L AB18, LAB17 ####Hat Lacer: FELECIA FRASER ([phone])[facility] [place] [employer] (SWRLAB)[address] ALP [Catalytic activity/Vol] 61 U/L Normal 40-150 [facility] Comment on above: Performed By: #### L AB18, LAB17 ####Hat Lacer: FELECIA FRASER ([phone])[facility] [place] [employer] (SWRLAB)[address] ALT [Catalytic activity/Vol] 52 U/L High <30 [facility] Comment on above: Performed By: #### L AB18, LAB17 ####Hat Lacer: FELECIA FRASER ([phone])[facility] [place] [employer] (SWRLAB)[address] [place] [address] [place] Anion gap [Moles/Vol] 7 mmol/L Normal 3-13 [facility] Comment on above: Performed By: #### L AB18, LAB17 ####Hat Lacer: FELECIA FRASER ([phone])[facility]UINCRISTO R[employer]AN (SWRLAB)[address] [place] [address] [place] AST [Catalytic activity/Vol] 34 U/L High <34 [facility] Comment on above: Performed By: #### L AB18, LAB17 ####Hat Lacer: FELECIA FRASER ([phone])[facility] [place] [employer] (SWRLAB)[address] [place] [address] [place] Bilirubin [Mass/Vol] 0.5 mg/dL Normal <1.2 [facility] Comment on above: Performed By: #### L AB18, LAB17 ####Hat Lacer: FELECIA FRASER ([phone])[facility] [place] [employer] (SWRLAB)[address] [place] [address] [place] Calcium [Mass/Vol] 9.5 mg/dL Normal 8.8-10.0 [facility] Comment on above: Performed By: #### L AB18, LAB17 ####Hat Lacer: FELECIA FRASER ([phone])[facility]U[place]CR[place] R[employer]AN (SWRLAB)[address] [place] [address] [place] Chloride [Moles/Vol] 109 mmol/L High 98-107 [facility] Comment on above: Performed By: #### L AB18, LAB17 ####Hat Lacer: FELECIA FRASER ([phone])[facility] [place] [employer]AN (SWRLAB)[address] [place] [address] [place] CO2 [Moles/Vol] 24 mmol/L Normal 23-31 [facility] Comment on above: Performed By: #### L AB18, LAB17 ####Hat Lacer: FELECIA FRASRE ([phone])[facility] [place] RITTMAN (SWRLAB)[address] [place] [address] [place] Creatinine [Mass/Vol] 0.80 mg/dL Normal 0.57-1.11 [facility] Comment on above: Performed By: #### L AB18, LAB17 ####Hat Lacer: FELECIA FRASER ([phone])[facility] [place] [employer] (SWRLAB)[address] [place] [address] [place] GLOMERULAR FILTRATION RATE ML/MIN/1.73 SQ M.PREDICTED 83.4 mL/min/1.73m*2 Normal >60.0 [facility] Comment on above: Result Comment: Calc ulation based on the Chronic Kidney Disease Epidemiology Collaboration (CKD-EPI) equation refit without adjustment for race Performed By: #### L AB18, LAB17 ####Hat Lacer: FELECIA FRASER ([phone])[facility] [place] [employer] (SWRLAB)[address] [place] [address] [place] Glucose [Mass/Vol] 96 mg/dL Normal 82-115 [facility] Comment on above: Performed By: #### L AB18, LAB17 ####Hat Lacer: FELECIA FRASER ([phone])[facility]CR[facility] R[employer] (SWRLAB)[address] [place] [address] [place] Potassium [Moles/Vol] 4.4 mmol/L Normal 3.5-5.1 [facility] Comment on above: Result Comment: [facility] potassium values may be up to 0.5 mmol/L lower than serum values. Performed By: #### L AB18, LAB17 ####Hat Lacer: FELECIA FRASER ([phone])[facility]U[place]CR[place]O R[employer]AN (SWRLAB)[address] [place] [address] [place] Protein [Mass/Vol] 7.6 g/dL Normal 6.4-8.3 [facility] Comment on above: Performed By: #### L AB18, LAB17 ####Hat Lacer: FELECIA FRASER ([phone])[facility] [place] [employer] (SWRLAB)[address] Sodium [Moles/Vol] 140 mmol/L Normal 136-145 [facility] Comment on above: Performed By: #### L AB18, LAB17 ####Hat Lacer: FELECIA FRASER ([phone])[facility] RAYMUNDOTMAN (SWRLAB)[address] Urea nitrogen [Mass/Vol] 15 mg/dL Normal 9-23 [facility] Comment on above: Performed By: #### L AB18, LAB17 ####Hat Lacer: FELECIA FRASER ([phone])[facility] RAYMUNDOTMAN (SWRLAB)[address] Comprehensive metabolic 1998 panelon 11-03-2024 Albumin [Mass/Vol] 3.9 g/dL 3.4 - 4.8 g/dL [facility] ALP [Catalytic activity/Vol] 61 U/L 40 - 150 U/L [facility] ALT [Catalytic activity/Vol] 52 U/[facility]L [facility] Anion gap [Moles/Vol] 7 mmol/L 3 - 13 mmol/L [facility] AST [Catalytic activity/Vol] 34 U/L High [facility] - 34 U/L [facility] Bilirubin [Mass/Vol] 0.5 mg/dL [facility] mg/dL [facility] Calcium [Mass/Vol] 9.5 mg/dL 8.8 - 10. 0 mg/dL [facility] Chloride [Moles/Vol] 109 mmol/L High 98 - 10 7 mmol/L [facility] CO2 [Moles/Vol] 24 mmol/L 23 - 31 mmol/L [facility] Creatinine [Mass/Vol] 0.8 mg/dL 0.57 - 1.11 mg/dL [facility] GFR/1.73 sq M.predicted (S/P/Bld) [Vol rate/Area] 83.4 mL/min - PINF [facility] Comment on above: Calculation based on the Chronic Kidney Disease Epidemiology Collaboration (CKD-EPI) equation refit without adjustment for race Glucose [Mass/Vol] 96 mg/dL 82 - 115 mg/dL [facility] Potassium [Moles/Vol] 4.4 mmol/L 3.5 - 5.1 mmol/L [facility] Comment on above: Plasma potassium nandini ues may be up to 0.5 mmol/L lower than serum values. Protein [Mass/Vol] 7.6 g/dL 6.4 - 8.3 g/dL [facility] Sodium [Moles/Vol] 140 mmol/L 136 - 145 mmol/L [facility] Urea nitrogen [Mass/Vol] 15 mg/dL 9 - 23 mg/dL [facility] LIPID PANELon 11-03-2024 Cholesterol [Mass/Vol] 193 mg/dL Normal <200 [facility] Comment on above: Performed By: #### L AB18, LAB17 ####Hat Lacer: FELECIA FRASER ([phone])[facility] [place] [employer] (SWRLAB)[address] [place] [address] [place] Cholesterol in HDL [Mass/Vol] 47 mg/dL Low >=60 [facility] Comment on above: Performed By: #### L AB18, LAB17 ####Hat Lacer: FELECIA FRASER ([phone])[facility] [place] [employer] (SWRLAB)[address] [place] [address] [place] Cholesterol.total/Chol esterol in HDL [Mass ratio] 4 {ratio} Normal [facility] Comment on above: Result Comment: Ref Range: < 3 Low Risk for CHD 3-6 Mod Risk for CHD > 6 High Risk for CHD Performed By: #### L AB18, LAB17 ####Hat Lacer: FELECIA FRASER ([phone])[facility] [place] [employer] (SWRLAB)[address] [place] [address] [place] LOW DENSITY LIPOPROTEIN 128 mg/dL High 0-<100 [facility] Comment on above: Performed By: #### L AB18, LAB17 ####Hat Lacer: FELECIA FRASER ([phone])[facility] [place] [employer] (SWRLAB)[address] [place] [address] [place] NON-HDL CHOLESTEROL, CALCULATED 146 High <130 [facility] Comment on above: Performed By: #### L AB18, LAB17 ####Hat Lacer: FELECIA FRASER ([phone])[facility] [place] [employer] (SWRLAB)[address] Triglyceride [Mass/Vol] 88 mg/dL Normal <150 [facility] Comment on above: Performed By: #### L AB18, LAB17 ####Hat Lacer: FELECIA FRASER ([phone])[facility] [place] [employer] (SWRLAB)[address] VERY LOW DENSITY LIPOPROTEIN, CALCULATED 18 mg/dL Normal <=30 [facility] Comment on above: Performed By: #### L AB18, LAB17 ####Hat Lacer: FELECIA FRASER ([phone])[facility] [place] R[employer] (SWRLAB)[address] [place] [address] Lipid 1996 panelon 5 Cholesterol [Mass/Vol] 193 mg/dL NINF - 200 mg/dL [facility] Cholesterol in HDL [Mass/Vol] 47 mg/dL Low 60 - PINF mg/dL [facility] Cholesterol in LDL [Mass/Vol] 128 mg/dL High 0 - <100 [facility] Cholesterol.total/Chol esterol in HDL [Mass ratio] 4 {ratio} [facility] Comment on above: Ref Range: < 3 Low Risk for CHD 3-6 Mod Risk for CHD > 6 High Risk for CHD NON-HDL CHOLESTEROL, CALCULATED 146 High NINF - 130 [facility] Triglyceride [Mass/Vol] 88 mg/dL NINF - 150 mg/dL [facility] VERY LOW DENSITY LIPOPROTEIN, CALCULATED 18 mg/dL [facility] mg/dL [facility] No Panel Informationon 11-03 Interpretation and review of laboratory results Abnormal [facility]on 09-30-2024 36 Recent Visits Date Type Provider Dept 07/08/24 Office Visit Poonam Neal MD [facility] 02/12/24 Office Visit Poonam Neal MD [facility] Showing recent visits within past 365 days and meeting all other requirements Future Appointments Date Type Provider Dept 11/05/24 Appointment Poonam Neal MD [facility] Showing future appointments within next 90 days and meeting all other requirements Requested Prescriptions Pending Prescriptions Disp Refills lisinopril 10 MG tablet [Pharmacy Med Name: LISINOPRIL TAB 10MG] 90 tablet 1 Sig: Take 1 tablet (10 mg) by mouth daily. Patient takes with 5 mg tablet also to equal 15 mg lisinopril 5 MG tablet 90 tablet 1 Sig: Take 1 tablet (5 mg) by mouth daily. Provider: Poonam Neal MD Verified pharmacy: yes Verified day(s) supplied: yes Verified refill(s) needed (previous prescription showing no refills in chart): Yes Have you received any controlled medications from any other provider? N/A Overdue for visit: No If yes - patient scheduled? Yes Most recent labs completed in chart? Yes Hypertension: Lab Results Component Value Date NA 139 09/22/2023 K 4.1 09/22/2023 EGFR >90.0 09/22/2023 BUN 16 09/22/2023 CREATININE 0.65 09/22/2023 Normal [facility] XR Ankle - left AP and Later al and obliqueon 08-12-2024 IMPRESSION: Bimalleo lar soft tissue swelling. No definite acute fracture seen. Manager Java[facility] Transcribe Date/Time: Aug 12 2024 1:07P Dictated by : LASHAY SANCHEZ MD This examination was interpreted and the report reviewed and electronically signed by: LASHAY SANCHEZ MD on Aug 12 2024 1:09PM [facility] DIVISION OF RADIOLOGY * * *Final Report* * * DATE OF EXAM: Aug 12 2024 12:48PM WOX [id number] - XR ANKLE 3V AP/LAT/OBL LT / PROCEDURE REASON: Acute left ankle pain * * * * Physician Interpretation * * * * EXAM TITLE: XR ANKLE 3V AP/LAT/OBL LT EXAM DATE/TIME: 08/12/2024 12:48 PM COMPARISON: None. CLINICAL INDICATION/HISTORY: Fall TECHNIQUE: AP, mortise and lateral views of the left ankle are presented. FINDINGS: No definite acute fractures or subluxations are noted. The mortise joint spaces are well preserved. Calcaneal enthesophyte is present. There is no ankle joint effusion. The mineralization of the bones is normal. There is bimalleolar soft tissue swelling. Soft tissue calcifications also noted along the bilateral malleoli. DIVISION OF RADIOLOGY Provider, Clarissa Tawanda [facility] - 08/12/2024 * * *Final Report* * * DATE OF EXAM: Aug 12 2024 12:48PM WOX [id number] - XR ANKLE 3V AP/LAT/OBL LT / PROCEDURE REASON: Acute left ankle pain * * * * Physician Interpretation * * * * EXAM TITLE: XR ANKLE 3V AP/LAT/OBL LT EXAM DATE/TIME: 08/12/2024 12:48 PM COMPARISON: None. CLINICAL INDICATION/HISTORY: Fall TECHNIQUE: AP, mortise and lateral views of the left ankle are presented. FINDINGS: No definite acute fractures or subluxations are noted. The mortise joint spaces are well preserved. Calcaneal enthesophyte is present. There is no ankle joint effusion. The mineralization of the bones is normal. There is bimalleolar soft tissue swelling. Soft tissue calcifications also noted along the bilateral malleoli. IMPRESSION IMPRESSION: Bimalleolar soft tissue swelling. No definite acute fracture seen. Manager Java: [email or web address] Transcribe Date/Time: Aug 12 2024 1:07P Dictated by : LASHAY SANCHEZ MD This examination was interpreted and the report reviewed and electronically signed by: LASHAY SANCHEZ MD on Aug 12 2024 1:09PM EST [facility] Radiology Study observation (narrative) [facility] XR Ankle - left AP and Later al and obliqueOrdered By: Cc Provider on 08-12-2024 [facility] 29on 07-08-2024 29 Addended by: DIDI BREEN on: 11/03/2024 10:21 AM Modules accepted: Orders Normal [facility] Office Visiton 07-08-2024 Follow-up visit [id number] Chad Chavez 1960 F Date Provider Department Center 07/08/2024 [id number] GRIER [facility] Family History Problem Relation Age of Onset Liver disease Mother Heart disease Father Vision loss Father Asthma Daughter Family Status - Relation Status Age at Mother Father Daughter Level of Service:21135 CO OFFICE/OUTPATIENT ESTABLISHED MOD MDM 30 MIN Reason for Visit and Comments: Follow-up [251869] - 3-4 month, pt declined flu vaccine today. Back Pain [12] - To right back side, high up Normal [facility] [facility] Progress Noteon 07-08-2024 Progress Note [facility] - [address] [facility] [address] Dept: [phone] Dept Loc: [phone] Reason for Visit: Follow-up (3-4 month, pt declined flu vaccine today. ) and Back Pain (To right back side, high up ) Assessment and Plan 1. Thoracic back pain, unspecified back pain laterality, unspecified chronicity - External referral to Physical Therapy - Comprehensive metabolic panel - Lipid panel - CBC auto differential 2. Essential hypertension - Comprehensive metabolic panel - Lipid panel - CBC auto differential 3. Elevated LFTs - Comprehensive metabolic panel - Lipid panel - CBC auto differential current treatment plan is effective, no change in therapy, orders and follow up as documented in EMR, lab results reviewed with patient, repeat labs ordered prior to next appointment, reviewed compliance with lifestyle measures, reviewed diet, exercise and weight control, reviewed medications and side effects in detail Return visit in 3 months. Subjective Back Pain Pertinent negatives include no fever or headaches. XT 3-year-old female patient who has a history of high blood pressure but it is well-controlled on her lisinopril she also has noticed some mid back pain. Extending up to her rib area. She had no recent trauma no numbness or tingling no blood in her urine I will loss of bladder bowel control. We have also been following her liver enzymes which have been stable. She GI has also been following these. Review of Systems Constitutional: Negative. Negative for activity change, appetite change and fever. HENT: Negative. Negative for congestion. Eyes: Negative. Negative for discharge. Respiratory: Negative. Negative for chest tightness. Cardiovascular: Negative. Gastrointestinal: Negative. Endocrine: Negative. Negative for cold intolerance. Genitourinary: Negative for difficulty urinating. Musculoskeletal: Positive for back pain. Neurological: Negative. Negative for dizziness, facial asymmetry and headaches. Hematological: Negative. Allergies Allergen Reactions Azithromycin Rash Penicillins Hives and Rash Sulfa Antibiotics Hives and Rash Outpatient Medications Prior to Visit Medication Sig Dispense Refill cholecalciferol (Vitamin D-3) 50 MCG (1999 UT) capsule Take by mouth. lisinopril 10 MG tablet Take 1 tablet (10 mg) by mouth daily. Patient takes with 5 mg tablet also to equal 15 mg 90 tablet 1 lisinopril 5 MG tablet Take 1 tablet (5 mg) by mouth daily. 90 tablet 1 Multiple Vitamin (MULTIVITAMIN ADULT PO) Take by mouth. Opzelura 1.5 % cream Vitamin E 400 units tablet Take by mouth. No facility-administered medications prior to visit. Patient Active Problem List Diagnosis Essential hypertension, benign Fatty liver Other chronic nonalcoholic liver disease Past Medical History: Diagnosis Date Allergic grass tress dust mites Fatty liver Hypertension Social History Tobacco Use Smoking status: Never Smokeless tobacco: Never Substance Use Topics Alcohol use: No Past Surgical History: Procedure Laterality Date SECTION (HISTORICAL) SECTION, LOW TRANSVERSE 04/30/2002 Family History Problem Relation Name Age of Onset Liver disease Mother Janene Asher Heart disease Father Luis Asher Vision loss Father Luis Asher Asthma Daughter bieber Health Maintenance Topic Date Due MMR Vaccines (1 of 1 - Standard series) Never done Hepatitis A Vaccines (1 of 2 - Risk 2-dose series) Never done Zoster Vaccines (1 of 2) Never done RSV Immunization for Adults (1 - Risk 60-74 years 1-dose series) Never done Hepatitis B Vaccines (1 of 3 - Risk 3-dose series) Never done Influenza Vaccine (1) 05/09/2024 COVID-19 Vaccine (2023- season) 2024 Cervical Cancer Screening 12/13/2024 Mammogram 12/31/2024 Depression Screening 07/07/2025 Diabetes Screening 09/22/2026 Lipid Panel 09/22/2028 Colorectal Cancer Screening 08/07/2030 DTaP/Tdap/Td Vaccines (2 - Td or Tdap) 12/08/2032 HIV Screening Completed Hepatitis C Screening Completed RSV Immunization under 20 Months Aged Out HIB Vaccines Aged Out IPV Vaccines Aged Out Meningococcal Vaccine Aged Out Rotavirus Vaccines Aged Out HPV Vaccines Aged Out Pneumococcal Vaccine: Pediatrics (0 to 5 Years) and At-Risk Patients (6 to 64 Years) Aged Out Objective BP 118/78 Pulse 62 Temp 36.9 ?C (98.4 ?F) Ht 5' 7 (1.702 m) Wt 190 lb (86.2 kg) SpO2 95% BMI 29.76 kg/m? Physical Exam Pulmonary: Effort: Pulmonary effort is normal. Abdominal: General: Abdomen is flat. Musculoskeletal: General: No swelling. Thoracic back: Tenderness and bony tenderness present. Lumbar back: No tenderness or bony tenderness. Negative right straight leg raise test and negative left straight leg raise test. Skin: General: Skin is warm and (more content not included)... Normal [facility] 36on 06-24-2024 36 It does look like th ere are results in pt's media. Normal [facility] .Auto Diffon 04-16-2024 Basophil, Absolute 0.1 10 3/mcL Normal 0.0-0.2 [facility] ([place]) Comment on above: Performed By: #### A JUDE, LIPID, GFR, ADIFF, CBC, CMP #### [address] [address] Basophils/100 WBC (Bld) 0.6 % Normal 0.0-2.5 [facility] ([place]) Comment on above: Performed By: #### A JUDE, LIPID, GFR, ADIFF, CBC, CMP #### [address] [address] Eosinophil, Absolute 0.5 10 3/mcL High 0.0-0.4 [facility] ([place]) Comment on above: Performed By: #### A JUDE, LIPID, GFR, ADIFF, CBC, CMP #### [address] [address] Eosinophils/100 WBC (Bld) 5.9 % Normal 0.0-7.0 [facility] ([place]) Comment on above: Performed By: #### A JUDE, LIPID, GFR, ADIFF, CBC, CMP #### [address] [address] Lymphocyte, Absolute 2.8 10 3/mcL Normal 0.8-3.9 [facility] ([place]) Comment on above: Performed By: #### A JUDE, LIPID, GFR, ADIFF, CBC, CMP #### [address] [address] Lymphocytes/100 WBC (Bld) 34.9 % Normal 10.0-50.0 [facility] ([place]) Comment on above: Performed By: #### A JUDE, LIPID, GFR, ADIFF, CBC, CMP #### [address] [address] Monocyte, Absolute 0.7 10 3/mcL Normal 0.2-1.0 [facility] ([place]) Comment on above: Performed By: #### A JUDE, LIPID, GFR, ADIFF, CBC, CMP #### [address] [address] Monocytes/100 WBC (Bld) 8.3 % Normal 1.7-13.0 [facility] ([place]) Comment on above: Performed By: #### A JUDE, LIPID, GFR, ADIFF, CBC, CMP #### [address] [address] Neutrophils/100 WBC (Bld) 50.3 % Normal 37.0-80.0 [facility] ([place]) Comment on above: Performed By: #### A JUDE, LIPID, GFR, ADIFF, CBC, CMP #### [address] [address] .GFRon 04-16-2024 GFR 95 ml/min/1.73sqm Normal [facility] ([place]) Comment on above: Result Comment: GFR Population mean for , Non- Americans Ages 20-29 = 116 mL/min/1.73 sq.m. Ages 30-39 = 107 mL/min/1.73 sq.m. Ages 40-49 = 99 mL/min/1.73 sq.m. Ages 50-59 = 93 mL/min/1.73 sq.m. Ages 60-69 = 85 mL/min/1.73 sq.m. Ages 70+ = 75 mL/min/1.73 sq.m. Chronic Kidney Disease: Less than 60 mL/min/1.73 square meters End Stage Renal Disease: Less than 15 mL/min/1.73 square meters Performed By: #### A JUDE, LIPID, GFR, ADIFF, CBC, CMP #### [address] [address] GFR Non- 78 ml/min/1.73sqm Normal [facility] ([place]) Comment on above: Result Comment: GFR Population mean for , Non- Americans Ages 20-29 = 116 mL/min/1.73 sq.m. Ages 30-39 = 107 mL/min/1.73 sq.m. Ages 40-49 = 99 mL/min/1.73 sq.m. Ages 50-59 = 93 mL/min/1.73 sq.m. Ages 60-69 = 85 mL/min/1.73 sq.m. Ages 70+ = 75 mL/min/1.73 sq.m. Chronic Kidney Disease: Less than 60 mL/min/1.73 square meters End Stage Renal Disease: Less than 15 mL/min/1.73 square meters Performed By: #### A JUDE, LIPID, GFR, ADIFF, CBC, CMP #### [address] [address] .NEUABSon 04-16-2024 Neutrophil, Absolute 4.0 10 3/mcL Normal 2.9-6.2 [facility] ([place]) Comment on above: Performed By: #### A JUDE, LIPID, GFR, ADIFF, CBC, CMP #### [place] [address] CBCon 04-16-2024 Erythrocyte distribution width (RBC) [Ratio] 13.2 % Normal 11.5-14.5 [facility] ([place]) Comment on above: Performed By: #### A JUDE, LIPID, GFR, ADIFF, CBC, CMP #### [place] [address] Hematocrit (Bld) [Volume fraction] 40.3 % Normal 37.0-47.0 [facility] ([place]) Comment on above: Performed By: #### A JUDE, LIPID, GFR, ADIFF, CBC, CMP #### [place] [id number] Hgb 13.5 G/dL Normal 12.0-16.0 [facility] ([place]) Comment on above: Performed By: #### A JUDE, LIPID, GFR, ADIFF, CBC, CMP #### [address] [address] MCH (RBC) [Entitic mass] 32.1 pg High 27.0-31.2 [facility] ([place]) Comment on above: Performed By: #### A JUDE, LIPID, GFR, ADIFF, CBC, CMP #### [address] [address] MCHC 33.4 G/dL Normal 33.0-37.0 [facility] ([place]) Comment on above: Performed By: #### A JUDE, LIPID, GFR, ADIFF, CBC, CMP #### [address] [address] MCV (RBC) [Entitic vol] 96.1 fL High 80.0-94.0 [facility] ([place]) Comment on above: Performed By: #### A JUDE, LIPID, GFR, ADIFF, CBC, CMP #### [address] [address] Platelet 278 10 3/mcL Normal 130-400 [facility] ([place]) Comment on above: Performed By: #### A JUDE, LIPID, GFR, ADIFF, CBC, CMP #### [address] [address] Platelet mean volume (Bld) [Entitic vol] 8.6 fL Normal 7.4-10.4 [facility] ([place]) Comment on above: Performed By: #### A JUDE, LIPID, GFR, ADIFF, CBC, CMP #### [address] [address] RBC 4.19 10 6/mcL Low 4.20-5.40 [facility] ([place]) Comment on above: Performed By: #### A JUDE, LIPID, GFR, ADIFF, CBC, CMP #### [address] [address] WBC 7.9 10 3/mcL Normal 4.6-10.8 [facility] ([place]) Comment on above: Performed By: #### A JUED, LIPID, GFR, ADIFF, CBC, CMP #### [address] [address] CMPon 04-16-2024 Albumin Level 3.8 G/dL Normal 3.4-4.8 [facility] ([place]) Comment on above: Performed By: #### A JUDE, LIPID, GFR, ADIFF, CBC, CMP #### [address] [address] Albumin/Globulin [Mass ratio] 1.1 {ratio} Normal 1.1-2.5 [facility] ([place]) Comment on above: Performed By: #### A JUDE, LIPID, GFR, ADIFF, CBC, CMP #### [address] [address] ALP [Catalytic activity/Vol] 74 U/L Normal 40-135 [facility] ([place]) Comment on above: Performed By: #### A JUDE, LIPID, GFR, ADIFF, CBC, CMP #### [address] [address] ALT [Catalytic activity/Vol] 36 U/L Normal 14-59 [facility] ([place]) Comment on above: Performed By: #### A JUDE, LIPID, GFR, ADIFF, CBC, CMP #### [address] [address] AST [Catalytic activity/Vol] 21 U/L Normal 10-40 [facility] ([place]) Comment on above: Performed By: #### A JUDE, LIPID, GFR, ADIFF, CBC, CMP #### [address] [address] Bili Total 0.6 mg/dL Normal 0.2-1.0 [facility] ([place]) Comment on above: Result Comment: Use of this assay is not recommended for patients undergoing treatment with eltrombopag due to the potential for falsely elevated results. Performed By: #### A JUDE, LIPID, GFR, ADIFF, CBC, CMP #### [address] [address] BUN/Creatinine Ratio 17 ratio Normal 7-27 [facility] ([place]) Comment on above: Performed By: #### A JUDE, LIPID, GFR, ADIFF, CBC, CMP #### [address] [address] Calcium [Mass/Vol] 9.4 mg/dL Normal 8.4-10.2 [facility] ([place]) Comment on above: Performed By: #### A JUDE, LIPID, GFR, ADIFF, CBC, CMP #### [place] [address] Chloride [Moles/Vol] 104 mmol/L Normal 98-107 [facility] ([place]) Comment on above: Performed By: #### A JUDE, LIPID, GFR, ADIFF, CBC, CMP #### [place] [address] CO2 [Moles/Vol] 30 mmol/L Normal 23-31 [facility] ([place]) Comment on above: Performed By: #### A JUDE, LIPID, GFR, ADIFF, CBC, CMP #### [place] [address] Creatinine [Mass/Vol] 0.75 mg/dL Normal 0.55-1.02 [facility] ([place]) Comment on above: Performed By: #### A JUDE, LIPID, GFR, ADIFF, CBC, CMP #### [address] [address] Electrolyte Balance 8.0 mEq/L Normal 4.0-15.0 [facility] ([place]) Comment on above: Performed By: #### A JUDE, LIPID, GFR, ADIFF, CBC, CMP #### [address] [address] Globulin 3.5 G/dL Normal [facility] ([place]) Comment on above: Performed By: #### A JUDE, LIPID, GFR, ADIFF, CBC, CMP #### [place] [address] Glucose [Mass/Vol] 94 mg/dL Normal 80-115 [facility] ([place]) Comment on above: Performed By: #### A JUDE, LIPID, GFR, ADIFF, CBC, CMP #### [address] [address] Potassium [Moles/Vol] 4.4 mmol/L Normal 3.5-5.1 [facility] ([place]) Comment on above: Performed By: #### A JUDE, LIPID, GFR, ADIFF, CBC, CMP #### [place] [address] [place], [place] [address] Sodium [Moles/Vol] 142 mmol/L Normal 136-145 [facility] ([place]) Comment on above: Performed By: #### A JUDE, LIPID, GFR, ADIFF, CBC, CMP #### [place] [id number] [place], [place] [address] Total Protein 7.3 G/dL Normal 6.4-8.2 [facility] ([place]) Comment on above: Performed By: #### A JUDE, LIPID, GFR, ADIFF, CBC, CMP #### [address] [address] Urea nitrogen [Mass/Vol] 13 mg/dL Normal 7-18 [facility] ([place]) Comment on above: Performed By: #### A JUDE, LIPID, GFR, ADIFF, CBC, CMP #### [address] [address] LABORATORYOrdered By: SYSTEM SYSTEM on 04-16-2024 Albumin BCP dye [Mass/Vol] 3.8 G/dL Normal 3.4 - 4.8 G/dL AO ADM SS Albumin/Globulin [Mass ratio] 1.1 {ratio} Normal 1.1 - 2.5 ratio AO ADM SS ALP [Catalytic activity/Vol] 74 U/L Normal 40 - 135 U/L AO ADM SS ALT With P-5'-P [Catalytic activity/Vol] 36 U/L Normal 14 - 59 U/L AO ADM SS AST With P-5'-P [Catalytic activity/Vol] 21 U/L Normal 10 - 40 U/L AO ADM SS Basophil, Absolute 0.1 103/mcL Normal 0.0 - 0.2 10^3/mcL AO Workflow SS Basophils/100 WBC (Bld) 0.6 % Normal 0.0 - 2.5 % AO Workflow SS Bilirubin [Mass/Vol] 0.6 mg/dL Normal 0.2 - 1 .0 mg/dL AO ADM SS Comment on above: Interpretive Data: U se of this assay is not recommended for patients undergoing treatment with eltrombopag due to the potential for falsely elevated results. Calcium [Mass/Vol] 9.4 mg/dL Normal 8.4 - 10. 2 mg/dL AO ADM SS Chloride [Moles/Vol] 104 mmol/L Normal 98 - 10 7 mmol/L AO ADM SS CO2 [Moles/Vol] 30 mmol/L Normal 23 - 31 mmol/L AO ADM SS Creatinine [Mass/Vol] 0.75 mg/dL Normal 0.55 - 1.02 mg/dL AO ADM SS Electrolyte Balance 8.0 mEq/L Normal 4.0 - 15 .0 mEq/L AO ADM SS Eosinophil, Absolute 0.5 103/mcL High 0.0 - 0 .4 10^3/mcL AO Workflow SS Eosinophils/100 WBC (Bld) 5.9 % Normal 0.0 - 7.0 % AO Workflow SS Erythrocyte distribution width (RBC) [Ratio] 13.2 % Normal 11.5 - 14.5 % AO Workflow SS GFR/1.73 sq M.predicted among blacks MDRD (S/P/Bld) [Vol rate/Area] 95 ml/min/1.73sqm Invalid Interpretation Code AO Chemistry S Comment on above: Interpretive Data: GFR Population mean for , Non- Americans Ages 20-29 = 116 mL/min/1.73 sq.m. Ages 30-39 = 107 mL/min/1.73 sq.m. Ages 40-49 = 99 mL/min/1.73 sq.m. Ages 50-59 = 93 mL/min/1.73 sq.m. Ages 60-69 = 85 mL/min/1.73 sq.m. Ages 70+ = 75 mL/min/1.73 sq.m. Chronic Kidney Disease: Less than 60 mL/min/1.73 square meters End Stage Renal Disease: Less than 15 mL/min/1.73 square meters GFR/1.73 sq M.predicted among non-blacks MDRD (S/P/Bld) [Vol rate/Area] 78 ml/min/1.73sqm Invalid Interpretation Code AO Chemistry S Comment on above: Interpretive Data: GFR Population mean for , Non- Americans Ages 20-29 = 116 mL/min/1.73 sq.m. Ages 30-39 = 107 mL/min/1.73 sq.m. Ages 40-49 = 99 mL/min/1.73 sq.m. Ages 50-59 = 93 mL/min/1.73 sq.m. Ages 60-69 = 85 mL/min/1.73 sq.m. Ages 70+ = 75 mL/min/1.73 sq.m. Chronic Kidney Disease: Less than 60 mL/min/1.73 square meters End Stage Renal Disease: Less than 15 mL/min/1.73 square meters Globulin 3.5 G/dL Invalid Interpretation Code AO ADM SS Glucose [Mass/Vol] 94 mg/dL Normal 80 - 115 mg/dL AO ADM SS Hematocrit (Bld) [Volume fraction] 40.3 % Normal 37.0 - 47.0 % AO Workflow SS Hemoglobin (Bld) [Mass/Vol] 13.5 G/dL Normal 12.0 - 16.0 G/dL AO Workflow SS Lymphocyte, Absolute 2.8 103/mcL Normal 0.8 - 3 .9 10^3/mcL AO Workflow SS Lymphocytes/100 WBC (Bld) 34.9 % Normal 10.0 - 50.0 % AO Workflow SS MCH (RBC) [Entitic mass] 32.1 pg High 27.0 - 31.2 pg AO Workflow SS MCHC 33.4 G/dL Normal 33.0 - 37.0 G/dL AO Workflow SS MCV (RBC) [Entitic vol] 96.1 fL High 80.0 - 94.0 fL AO Workflow SS Monocyte, Absolute 0.7 103/mcL Normal 0.2 - 1.0 10^3/mcL AO Workflow SS Monocytes/100 WBC (Bld) 8.3 % Normal 1.7 - 13.0 % AO Workflow SS Neutrophil, Absolute 4.0 103/mcL Normal 2.9 - 6 .2 10^3/mcL AO Workflow SS Neutrophils/100 WBC (Bld) 50.3 % Normal 37.0 - 80.0 % AO Workflow SS Platelet mean volume (Bld) [Entitic vol] 8.6 fL Normal 7.4 - 10.4 fL AO Workflow SS Platelets (Bld) [#/Vol] 278 103/mcL Normal 130 - 400 10^3/mcL AO Workflow SS Potassium [Moles/Vol] 4.4 mmol/L Normal 3.5 - 5.1 mmol/L AO ADM SS Protein [Mass/Vol] 7.3 G/dL Normal 6.4 - 8.2 G/dL AO ADM SS RBC (Bld) [#/Vol] 4.19 106/mcL Low 4.20 - 5.40 10^6/mcL AO Workflow SS Sodium [Moles/Vol] 142 mmol/L Normal 136 - 145 mmol/L AO ADM SS Urea nitrogen [Mass/Vol] 13 mg/dL Normal 7 - 18 mg/dL AO ADM SS Urea nitrogen/Creatinine [Mass ratio] 17 ratio Normal 7 - 27 ratio AO ADM SS WBC (Bld) [#/Vol] 7.9 103/mcL Normal 4.6 - 10.8 10^3/mcL AO Workflow SS LABORATORYOrdered By: Miguel Cleaning on 04-16-2024 Cholesterol [Mass/Vol] 192 mg/dL Normal 0 - 2 00 mg/dL AO ADM SS Comment on above: Interpretive Data: C holesterol Reference Interval: Less than 200 Desirable 200-239 Borderline high risk 240 and above High risk Cholesterol in HDL [Mass/Vol] 53 mg/dL Normal 40 - 60 mg/dL AO ADM SS Cholesterol in LDL [Mass/Vol] 118 mg/dL Normal 0 - 130 mg/dL AO ADM SS Triglyceride [Mass/Vol] 103 mg/dL Normal 0 - 150 mg/dL AO ADM SS Comment on above: Interpretive Data: T riglyceride Reference Interval: Less than 150 Normal 150-199 Borderline high risk 200-499 High risk 500 or higher Very high risk LIPIDon 04-16-2024 Cholesterol [Mass/Vol] 192 mg/dL Normal 0-200 [facility] ([place]) Comment on above: Result Comment: Chol esterol Reference Interval: Less than 200 Desirable 200-239 Borderline high risk 240 and above High risk Performed By: #### A JUDE, LIPID, GFR, ADIFF, CBC, CMP #### [place] [address] [place], [place] [address] Cholesterol in HDL [Mass/Vol] 53 mg/dL Normal 40-60 [facility] ([place]) Comment on above: Performed By: #### A JUDE, LIPID, GFR, ADIFF, CBC, CMP #### [address] [address] Cholesterol in LDL [Mass/Vol] 118 mg/dL Normal 0-130 [facility] ([place]) Comment on above: Performed By: #### A JUDE, LIPID, GFR, ADIFF, CBC, CMP #### [place] [address] [place], [place] [address] Triglyceride [Mass/Vol] 103 mg/dL Normal 0-150 [facility] ([place]) Comment on above: Result Comment: Trig lyceride Reference Interval: Less than 150 Normal 150-199 Borderline high risk 200-499 High risk 500 or higher Very high risk Performed By: #### A JUDE, LIPID, GFR, ADIFF, CBC, CMP #### [place] [address] [place], [place] [address] CBC W Auto Differential pane l (Bld)Ordered By: Bhavana Salamanca on 09-22-2023 Basophils (Bld) [#/Vol] 0.1 10*3/uL 0.0 - 0.2 10*3/uL [facility] Basophils/100 WBC (Bld) 0.6 % 0.0 - 2.0 % [facility] Eosinophils (Bld) [#/Vol] 0.4 10*3/uL 0.0 - 0.5 10*3/uL [facility] Eosinophils/100 WBC (Bld) 4.8 % 1.0 - 6.0 % [facility] Erythrocyte distribution width (RBC) [Ratio] 12.3 % 11.5 - 14.5 % [facility] Hematocrit (Bld) [Volume fraction] 40.3 % 35.0 - 47.0 % [facility] Hemoglobin (Bld) [Mass/Vol] 13.3 g/dL 11.7 - 16.0 g/dL [facility] Immature granulocytes (Bld) [#/Vol] 0.0 10*3/uL NINF - 0.0 10*3/uL [facility] Immature granulocytes/100 WBC (Bld) 0.2 % High NINF - 0.0 % [facility] Interpretation and review of laboratory results Abnormal [facility] Lymphocytes (Bld) [#/Vol] 2.8 10*3/uL 1.0 - 4.3 10*3/uL [facility] Lymphocytes/100 WBC (Bld) 32.5 % 20.0 - 40.0 % [facility] MCH (RBC) [Entitic mass] 31.7 pg 26.0 - 34.0 pg [facility] MCHC (RBC) [Mass/Vol] 33.0 % 32.0 - 36.0 % [facility] MCV (RBC) [Entitic vol] 96.0 fL 80.0 - 98.0 fL [facility] Monocytes (Bld) [#/Vol] 0.8 10*3/uL 0.0 - 0.8 10*3/uL [facility] Monocytes/100 WBC (Bld) 9.1 % 2.0 - 10.0 % [facility] Neutrophils (Bld) [#/Vol] 4.6 10*3/uL 1.8 - 7.0 10*3/uL [facility] Neutrophils/100 WBC (Bld) 52.8 % 40.0 - 80.0 % [facility] Platelet mean volume (Bld) [Entitic vol] 10.2 fL 7.4 - 12.4 fL [facility] Comment on above: MPV is a calculated measurement using platelet volume ratio Platelets (Bld) [#/Vol] 298 10*3/uL 140 - 440 10*3/uL [facility] RBC (Bld) [#/Vol] 4.20 10*6/uL 3.8 - 5.20 10*6/uL [facility] WBC (Bld) [#/Vol] 8.7 10*3/uL 3.6 - 10.7 10*3/uL [facility] Comprehensive metabolic 1998 panelon 09-22-2023 Albumin [Mass/Vol] 4.3 g/dL 3.5 - 5.0 g/dL [facility] ALP [Catalytic activity/Vol] 59 U/L 38 - 126 U/L [facility] ALT [Catalytic activity/Vol] 23 U/L 0 - 34 U/L [facility] Anion gap [Moles/Vol] 7 mmol/L 3 - 13 mmol/L [facility] AST [Catalytic activity/Vol] 26 U/L 15 - 46 U/L [facility] Bilirubin [Mass/Vol] 0.7 mg/dL 0.2 - 1 .3 mg/dL [facility] Calcium [Mass/Vol] 9.2 mg/dL 8.4 - 10. 4 mg/dL [facility] Chloride [Moles/Vol] 105 mmol/L 98 - 10 7 mmol/L [facility] CO2 [Moles/Vol] 27 mmol/L 22 - 30 mmol/L [facility] Creatinine [Mass/Vol] 0.65 mg/dL 0.52 - 1.04 mg/dL [facility] GFR/1.73 sq M.predicted MDRD (S/P/Bld) [Vol rate/Area] - PINF [facility] Comment on above: Calculation based on the Chronic Kidney Disease Epidemiology Collaboration (CKD-EPI) equation refit without adjustment for race Glucose [Mass/Vol] 101 mg/dL High 70 - 100 mg/dL [facility] Potassium [Moles/Vol] 4.1 mmol/L 3.5 - 5.1 mmol/L [facility] Protein [Mass/Vol] 8.0 g/dL 6.3 - 8.2 g/dL [facility] Sodium [Moles/Vol] 139 mmol/L 135 - 145 mmol/L [facility] Urea nitrogen [Mass/Vol] 16 mg/dL 7 - 17 mg/dL [facility] Hemoglobin A1con 09-22-2023 Average glucose Estimated from glycated hemoglobin (Bld) [Mass/Vol] 108 mg/dL [facility] HbA1c (Bld) [Mass fraction] 5.4 % NINF - 5.7 % [facility] Comment on above: Normal less than 5.7 % Prediabetes 5.7% to 6.4% Diabetes 6.5% or higher --HgbA1C levels may not be accurate in patients who have renal disease, received recent blood transfusions, are anemic, or who have dyshemoglobinemia. [facility] Lipid 1996 panelon 4 Cholesterol [Mass/Vol] 200 mg/dL High NINF - 200 mg/dL [facility] Cholesterol in HDL [Mass/Vol] 44 mg/dL 40 - 60 mg/dL [facility] Cholesterol in LDL [Mass/Vol] 136 mg/dL High 0 - <100 [facility] Cholesterol.total/Chol esterol in HDL [Mass ratio] 5 {ratio} [facility] Comment on above: Ref Range: < 3 Low Risk for CHD 3-6 Mod Risk for CHD > 6 High Risk for CHD Triglyceride [Mass/Vol] 98 mg/dL NINF - 150 mg/dL [facility] No Panel Informationon 09-22 Interpretation and review of laboratory results Abnormal [facility] Bacteria identified Cx Nom ( U)Ordered By: Quinton Morales on 02-27-2023 Interpretation and review of laboratory results Normal [facility] Urine cultureOrdered By: Huseyin Morales on 02-27-2023 Bacteria identified Cx Nom (U) No growth (<1,000 CFU/mL) [facility] Basic metabolic 1998 panelon 02-26-2023 Anion gap [Moles/Vol] 7 mmol/L 3 - 13 mmol/L [facility] Calcium [Mass/Vol] 9.1 mg/dL 8.4 - 10. 4 mg/dL [facility] Chloride [Moles/Vol] 105 mmol/L 98 - 10 7 mmol/L [facility] CO2 [Moles/Vol] 29 mmol/L 22 - 30 mmol/L [facility] Creatinine [Mass/Vol] 0.70 mg/dL 0.52 - 1.04 mg/dL [facility] GFR/1.73 sq M.predicted MDRD (S/P/Bld) [Vol rate/Area] - PINF [facility] Comment on above: Calculation based on the Chronic Kidney Disease Epidemiology Collaboration (CKD-EPI) equation refit without adjustment for race Glucose [Mass/Vol] 99 mg/dL 70 - 100 mg/dL [facility] Interpretation and review of laboratory results Normal [facility] Potassium [Moles/Vol] 4.0 mmol/L 3.5 - 5.1 mmol/L [facility] Sodium [Moles/Vol] 140 mmol/L 135 - 145 mmol/L [facility] Urea nitrogen [Mass/Vol] 14 mg/dL 7 - 17 mg/dL [facility] Urinalysis complete panel (U )on 02-26-2023 Bilirubin Ql (U) Negative Negative mg/dL [facility] Clarity (U) Clear Clear [facility] Color (U) Light Yellow Lt. Yellow [facility] Glucose Ql (U) Normal Normal (<70) mg/dL [facility] Hemoglobin Ql (U) Negative Negative mg/dL [facility] Interpretation and review of laboratory results Normal [facility] Ketones (U) [Mass/Vol] Negative Negat eladio mg/dL [facility] Leukocyte esterase Test strip Ql (U) Negative Negative Dianna/uL [facility] Nitrite Ql (U) Negative Negative [facility] pH (U) 5.5 [pH] 5.0 - 8.0 pH [facility] Protein (U) [Mass/Vol] Negative Negat eladio mg/dL [facility] Specific gravity (U) [Rel density] 1.016 1.005 - 1.030 [facility] Urobilinogen (U) [Mass/Vol] Normal Normal (0-1) mg/dL [facility] Absolute lymphocyte countOrd ered By: Connie Santos on 01-21-2023 Lymphocytes Auto (Unsp spec) [#/Vol] 2.61 10*3/uL 0.83-4.[address] [facility] Basophil percentageOrdered B y: Connie Santos on 01-21-2023 Basophils/100 WBC (Bld) 0.8 % 0-[address] [facility] Bilirubin [Mass/Vol] 0.50 mg/dL 0.20-1.00 [facility] Comment on above: For patients on eltr ombopag therapy, use of Dimension [place] TBIL is not recommended. Chloride [Moles/Vol] 107 mmol/L 98-107 [facility] Eosinophils/100 WBC (Bld) 4.1 % 0-[address] [facility] Glucose [Mass/Vol] 103 mg/dL 74-106 [facility] Comment on above: Fasting Glucose resu lt from 100 to 125 mg/dL suggests IMPAIRED HOMEOSTASIS per A.D.A. criteria. Neutrophils (Bld) [#/Vol] 3.9 10*3/uL 2.0-7.[address] [facility] Neutrophils/100 WBC (Bld) 51.7 % 47-[address] [facility] Potassium [Moles/Vol] 4.4 mmol/L 3.5-5.1 [facility] Protein [Mass/Vol] 8.1 g/dL 6.4-8.2 [facility] Sodium [Moles/Vol] 141 mmol/L 136-145 [facility] WBC (Bld) [#/Vol] 7.6 10*3/uL 4.4-11.0 [facility] Blood erythrocytes count (nu mber/volume)Ordered By: Connie Santos on 01-21-2023 RBC (Bld) [#/Vol] 4.30 10*6/uL 4.2-5.4 [facility] Blood hemoglobin measurement (mass/volume)Ordered By: Connie Santos on 01-21-2023 Hemoglobin (Bld) [Mass/Vol] 13.6 g/dL 12.0-15.[address] [facility] Blood lymphocytes/100 leukoc ytesOrdered By: Connie Santos on 01-21-2023 Lymphocytes/100 WBC (Bld) 34.5 % 19-[address] [facility] Blood monocytes/100 leukocyt esOrdered By: Connie Santos on 01-21-2023 Monocytes/100 WBC (Bld) 8.5 % 0-[address] [facility] Blood platelet mean volumeOr dered By: Connie Santos on 01-21-2023 Platelet mean volume (Bld) [Entitic vol] 10.7 fL 6.2-12.[address] [facility] Determination of erythrocyte mean corpuscular volume (MCV)Ordered By: Connie Santos on 01-21-2023 MCV (RBC) [Entitic vol] 98.8 fL 81-[address] [facility] Erythrocyte sedimentation ra teOrdered By: Connie Santos on 01-21-2023 ESR (Bld) [Velocity] 38 mm/h 0-30 [facility] Hematocrit Auto (Bld) [Volum e fraction]Ordered By: Connie Santos on 01-21-2023 Hematocrit (Bld) [Volume fraction] 42.5 % 37-[address] [facility] Laboratory - Chemistry and C hemistry - challengeOrdered By: Connie Santos on 01-21-2023 ALP [Catalytic activity/Vol] 80 U/L 45-[address] [facility] ALT [Catalytic activity/Vol] 76 U/L 13-[address] [facility] CO2 [Moles/Vol] 27.0 mmol/L 21.0-32.[address] [facility] Globulin (S) [Mass/Vol] 4.5 g/dL 2.2-4.[address] [facility] Urea nitrogen/Creatinine [Mass ratio] 20.1 mg/mg 10-[address] [facility] Laboratory - Hematology and Cell countsOrdered By: Connie Santos on 01-21-2023 Erythrocyte distribution width (RBC) [Entitic vol] 45.1 fL 35.1-43.[address] [facility] Erythrocyte distribution width (RBC) [Ratio] 12.5 % 11.6-14.[address] [facility] Immature granulocytes/100 WBC (Bld) 0.400 % 0.0-0.[address] [facility] Comment on above: IG% - Immature Granu locytes (promyelocytes, myelocytes and metamyelocytes) > 1% indicates that a LEFT SHIFT is Present. MCH (RBC) [Entitic mass] 31.6 pg 27.0-32.[address] [facility] Nucleated RBC/100 WBC (Bld) [Ratio] 0 % 0-[address] [facility] MCHC Auto (RBC) [Mass/Vol]Or dered By: Connie Santos on 01-21-2023 MCHC (RBC) [Mass/Vol] 32.0 g/dL 32-36 [facility] No Panel InformationOrdered By: Connie Santos on 01-21-2023 Estimated GFR (MDRD) Amer 110 mL/min >[address] [facility] Comment on above: GFR Calc Estimated GFR (MDRD) Non-Af Amer 91 mL/min >[address] [facility] Comment on above: Non- GFR Calc Platelets bldOrdered By: Nohemi Santos on 01-21-2023 Platelets (Bld) [#/Vol] 298 10*3/uL 150-[address] [facility] Serum or plasma C reactive p rotein measurement (mass/volume)Ordered By: Connie Santos on 01-21-2023 CRP [Mass/Vol] 8.31 mg/L 0.0-3.[address] [facility] Comment on above: C-Reactive Protein ( CRP) provides useful information for thediagnosis, therapy and monitoring of inflammatory processesand associated diseases. For the evaluation of Relative Riskfor Cardiovascular Disease, a High Sensitivity CRP (HSCRP)should be ordered. Serum or plasma albumin quita urement (mass/volume)Ordered By: Connie Santos on 01-21-2023 Albumin [Mass/Vol] 3.6 g/dL 3.2-5.0 [facility] Serum or plasma albumin/glob ulin mass ratioOrdered By: Connie Santos on 01-21-2023 Albumin/Globulin [Mass ratio] 0.8 {ratio} 0.9-2.[address] [facility] Serum or plasma calcium quita urement (mass/volume)Ordered By: Connie Santos on 01-21-2023 Calcium [Mass/Vol] 9.3 mg/dL 8.5-10.1 [facility] Serum or plasma creatinine m easurement (mass/volume)Ordered By: Connie Santos on 01-21-2023 Creatinine [Mass/Vol] 0.70 mg/dL 0.55-1.02 [facility] Comment on above: The validity of the calculated GFR & GFRAA in patients over 70 years has not been determined. Clinical correlation is essential. Serum or plasma urea nitroge n measurement (mass/volume)Ordered By: Connie Santos on 01-21-2023 Urea nitrogen [Mass/Vol] 14 mg/dL 03-[address] [facility] Thin prep Papanicolaou smear with manual screeningOrdered By: Connie Santos on 01-21-2023 Thin prep Papanicolaou smear with manual screening 50 U/L [facility] Thin prep Papanicolaou smear with manual screening 7 01-[address] [facility] Whole blood hemoglobin A1c/t otal hemoglobin ratio (mass fraction)Ordered By: Connie Santos on 01-21-2023 HbA1c (Bld) [Mass fraction] 5.9 % 3.8-5.[address] [facility] Comment on above: Normal < 5.7 % Predi abetic 5.7 - 6.4 % Diabetic >or= 6.5 % Please note range changes. CBC with Auto Differentialon 05-23-2022 Absolute Baso # 0.0 10*3/uL 0 - 0.2 10*3/uL [facility] Absolute Neut # 3.1 10*3/uL 1.8 - 7 10*3/uL [facility] Basophils/100 WBC (Bld) 0.8 % 0 - 2 % [facility] Eosinophils (Bld) [#/Vol] 0.3 10*3/uL 0 - 0.5 10*3/uL [facility] Eosinophils/100 WBC (Bld) 5.0 % 1 - 6 % [facility] Granulocytes/100 WBC (Bld) 49.2 % 40 - 80 % [facility] Hematocrit (Bld) [Volume fraction] 44.0 % 35 - 47 % [facility] Hemoglobin (Bld) [Mass/Vol] 14.3 g/dL 11.7 - 16 g/dL [facility] Interpretation and review of laboratory results Abnormal [facility] Lymphocytes (Bld) [#/Vol] 2.0 10*3/uL 1 - 4.3 10*3/uL [facility] Lymphocytes/100 WBC (Bld) 31.8 % 20 - 40 % [facility] MCH (RBC) [Entitic mass] 31.6 pg 26 - 34 pg [facility] MCHC (RBC) [Mass/Vol] 32.5 % 32 - 36 % [facility] MCV (RBC) [Entitic vol] 97.3 fL 79 - 98 fL [facility] Monocytes (Bld) [#/Vol] 0.8 10*3/uL 0 - 0.8 10*3/uL [facility] Monocytes/100 WBC (Bld) 13.0 % High 2 - 10 % [facility] Platelet distribution width (Bld) [Ratio] 12.8 % 11.5 - 14.5 % [facility] Platelet mean volume (Bld) [Entitic vol] 10.5 fL 7.4 - 12.4 fL [facility] Comment on above: MPV is a calculated measurement using platelet volume ratio. Platelets (Bld) [#/Vol] 282 10*3/uL 140 - 440 10*3/uL [facility] RBC (Bld) [#/Vol] 4.52 10*6/uL 3.8 - 5.2 10*6/uL [facility] WBC (Bld) [#/Vol] 6.2 10*3/uL 3.6 - 10.7 10*3/uL [facility] Test Performed by [facility], [address] , [address] LAB [facility] Comp Metabolic Panelon 05-23 ALP [Catalytic activity/Vol] 76 U/L Normal 38-126 [facility] Comment on above: Performed By: #### L IPD2, HEMDF, CMP3 #### [facility] [address] [place] [address] ALT [Catalytic activity/Vol] 57 U/L High 0-34 [facility] Comment on above: Result Comment: The ALT test is performed by an updated assay method. Please note that the reference intervals have been changed and are now sex specific. Performed By: #### L IPD2, HEMDF, CMP3 #### [facility] [address] [place] [address] Anion gap [Moles/Vol] 5 mmol/L Normal 3-13 [facility] Comment on above: Performed By: #### L IPD2, HEMDF, CMP3 #### [facility] [address] [place] [address] AST [Catalytic activity/Vol] 48 U/L High 15-46 [facility] Comment on above: Performed By: #### L IPD2, HEMDF, CMP3 #### [facility] [address] [place] [address] Bilirubin [Mass/Vol] 0.5 mg/dL Normal 0.2-1.3 [facility] Comment on above: Performed By: #### L IPD2, HEMDF, CMP3 #### [facility] [address] [place] [address] Calcium [Mass/Vol] 8.8 mg/dL Normal 8.4-10.4 [facility] Comment on above: Performed By: #### L IPD2, HEMDF, CMP3 #### [facility] [address] [place] [address] CO2 [Moles/Vol] 27 mmol/L Normal 22-30 [facility] Comment on above: Performed By: #### L IPD2, HEMDF, CMP3 #### [facility] [address] [place] [address] Creatinine [Mass/Vol] 0.68 mg/dL Normal 0.52-1.25 [facility] Comment on above: Performed By: #### L IPD2, HEMDF, CMP3 #### [facility] [address] [place] [address] eGFR OTHER > 90.0 Normal >60 [facility] Comment on above: Result Comment: KDIG O guidelines provide the following GFR categories: Stage GFR(ml/min/1.73 m2) Terms G1 >=90 Normal or high G2 60-89 Mildly decreased* G3a 45-59 Mildly to moderately decreased G3b 30-44 Moderately to severely decreased G4 15-29 Severely decreased G5 <15 Kidney failure *Relative to young adult level. In the absence of evidence of kidney damage, neither GFR category G1 nor G2 fulfill the criteria for CKD. The CKD-EPI equation is validated in individuals 18 years of age and older. Currently the best equation for estimating glomerular filtration rate (GFR) from serum creatinine in children is the Bedside Bain equation. It is less accurate in patients with extremes of muscle mass, restriction of dietary protein, ingestion of creatine, extra-renal metabolism of creatinine, or treatment with medications that affect renal tubular creatinine secretion. Performed By: #### L IPD2, HEMDF, CMP3 #### [facility] [address] [place] [address] GFR/1.73 sq M.predicted among blacks MDRD (S/P/Bld) [Vol rate/Area] mL/min/{1.73_m2} Normal >60 [facility] Comment on above: Performed By: #### L IPD2, HEMDF, CMP3 #### [facility] [address] [place] [address] Glucose [Mass/Vol] 89 mg/dL Normal 70-100 [facility] Comment on above: Performed By: #### L IPD2, HEMDF, CMP3 #### [facility] [address] [place] [address] Protein [Mass/Vol] 7.9 g/dL Normal 6.3-8.2 [facility] Comment on above: Performed By: #### L IPD2, HEMDF, CMP3 #### [facility] [address] [place] [address] Urea nitrogen [Mass/Vol] 15 mg/dL Normal 9-20 [facility] Comment on above: Performed By: #### L IPD2, HEMDF, CMP3 #### [facility] [address] [place] [address] Potassium [Moles/Vol] 4.9 mmol/L Normal 3.5-5.1 [facility] Comment on above: Performed By: #### L IPD2, HEMDF, CMP3 #### [facility] [address] [place] [address] Albumin [Mass/Vol] 4.3 g/dL Normal 3.5-5.0 [facility] Comment on above: Performed By: #### L IPD2, HEMDF, CMP3 #### [facility] [address] [place] [address] Chloride [Moles/Vol] 107 mmol/L Normal 98-107 [facility] Comment on above: Performed By: #### L IPD2, HEMDF, CMP3 #### [facility] [address] [place] [address] Sodium [Moles/Vol] 139 mmol/L Normal 135-145 [facility] Comment on above: Performed By: #### L IPD2, HEMDF, CMP3 #### [facility] [address] [place] [address] Comprehensive Metabolic Pane juan carlos 05-23-2022 Albumin [Mass/Vol] 4.3 g/dL 3.5 - 5 g/dL [facility] ALP (Bld) [Catalytic activity/Vol] 76 U/L 38 - 126 U/L [facility] ALT [Catalytic activity/Vol] 57 U/L High 0 - 34 U/L [facility] Comment on above: The ALT test is perf ormed by an updated assay method. Please note that the reference intervals have been changed and are now sex specific. Anion gap [Moles/Vol] 5 mmol/L 3 - 13 mmol/L [facility] AST [Catalytic activity/Vol] 48 U/L High 15 - 46 U/L [facility] Bilirubin [Mass/Vol] 0.5 mg/dL 0.2 - 1 .3 mg/dL [facility] Calcium [Mass/Vol] 8.8 mg/dL 8.4 - 10. 4 mg/dL [facility] Chloride [Moles/Vol] 107 mmol/L 98 - 10 7 mmol/L [facility] CO2 [Moles/Vol] 27 mmol/L 22 - 30 mmol/L [facility] Creatinine [Mass/Vol] 0.68 mg/dL 0.52 - 1.25 mg/dL [facility] eGFR mL/min 60 - P INF mL/min [facility] EGFR IF NonAfrican [place]ian mL/min 60 - PINF mL/min [facility] Comment on above: KDIGO guidelines pro vide the following GFR categories: Stage GFR(ml/min/1.73 m2) Terms G1 >=90 Normal or high G2 60-89 Mildly decreased* G3a 45-59 Mildly to moderately decreased G3b 30-44 Moderately to severely decreased G4 15-29 Severely decreased G5 <15 Kidney failure *Relative to young adult level. In the absence of evidence of kidney damage, neither GFR category G1 nor G2 fulfill the criteria for CKD. The CKD-EPI equation is validated in individuals 18 years of age and older. Currently the best equation for estimating glomerular filtration rate (GFR) from serum creatinine in children is the Bedside Bain equation. It is less accurate in patients with extremes of muscle mass, restriction of dietary protein, ingestion of creatine, extra-renal metabolism of creatinine, or treatment with medications that affect renal tubular creatinine secretion. Free PSA/Total PSA [Mass fraction] 7.9 g/dL 6.3 - 8.2 g/dL [facility] Glucose [Mass/Vol] 89 mg/dL 70 - 100 mg/dL [facility] Potassium [Moles/Vol] 4.9 mmol/L 3.5 - 5.1 mmol/L [facility] Sodium [Moles/Vol] 139 mmol/L 135 - 145 mmol/L [facility] Urea nitrogen (BldV) [Mass/Vol] 15 mg/dL 9 - 20 mg/dL [facility] Hemogram w/ Autodiffon 05-23 Abs Baso Cnt 0.0 10*3/uL Normal 0.0-0.2 [facility] Comment on above: Performed By: #### L IPD2, HEMDF, CMP3 #### [facility] [address] [place] [address] Abs Neutrophile Cnt 3.1 10*3/uL Normal 1.8-7.0 [facility] Comment on above: Performed By: #### L IPD2, HEMDF, CMP3 #### [facility] [address] [place] [address] Basophils/100 WBC (Bld) 0.8 % Normal 0.0-2.0 [facility] Comment on above: Performed By: #### L IPD2, HEMDF, CMP3 #### [facility] [address] [place] [address] Eosinophils (Bld) [#/Vol] 0.3 10*3/uL Normal 0.0-0.5 [facility] Comment on above: Performed By: #### L IPD2, HEMDF, CMP3 #### [facility] [address] [place] [address] Eosinophils/100 WBC (Bld) 5.0 % Normal 1.0-6.0 [facility] Comment on above: Performed By: #### L IPD2, HEMDF, CMP3 #### [facility] [address] [place] [address] Erythrocyte distribution width (RBC) [Ratio] 12.8 % Normal 11.5-14.5 [facility] Comment on above: Performed By: #### L IPD2, HEMDF, CMP3 #### [facility] [address] [place] [address] Granulocytes/100 WBC (Bld) 49.2 % Normal 40.0-80.0 [facility] Comment on above: Performed By: #### L IPD2, HEMDF, CMP3 #### [facility] [address] [place] [address] Hematocrit (Bld) [Volume fraction] 44.0 % Normal 35.0-47.0 [facility] Comment on above: Performed By: #### L IPD2, HEMDF, CMP3 #### [facility] [address] [place] [address] Hemoglobin (Bld) [Mass/Vol] 14.3 g/dL Normal 11.7-16.0 [facility] Comment on above: Performed By: #### L IPD2, HEMDF, CMP3 #### [facility] [address] [place] [address] Lymphocytes (Bld) [#/Vol] 2.0 10*3/uL Normal 1.0-4.3 [facility] Comment on above: Performed By: #### L IPD2, HEMDF, CMP3 #### [facility] [address] [place] [address] Lymphocytes/100 WBC (Bld) 31.8 % Normal 20.0-40.0 [facility] Comment on above: Performed By: #### L IPD2, HEMDF, CMP3 #### [facility] [address] [place] [address] MCH (RBC) [Entitic mass] 31.6 pg Normal 26.0-34.0 [facility] Comment on above: Performed By: #### L IPD2, HEMDF, CMP3 #### [facility] [address] [place] [address] MCHC 32.5 % Normal 32.0-36.0 [facility] Comment on above: Performed By: #### L IPD2, HEMDF, CMP3 #### [facility] [address] [place] [address] MCV (RBC) [Entitic vol] 97.3 fL Normal 79.0-98.0 [facility] Comment on above: Performed By: #### L IPD2, HEMDF, CMP3 #### [facility] [address] [place] [address] Monocytes (Bld) [#/Vol] 0.8 10*3/uL Normal 0.0-0.8 [facility] Comment on above: Performed By: #### L IPD2, HEMDF, CMP3 #### [facility] [address] [place] [address] Monocytes/100 WBC (Bld) 13.0 % High 2.0-10.0 [facility] Comment on above: Performed By: #### L IPD2, HEMDF, CMP3 #### [facility] [address] [place] [address] Platelet mean volume (Bld) [Entitic vol] 10.5 fL Normal 7.4-12.4 [facility] Comment on above: Result Comment: MPV is a calculated measurement using platelet volume ratio. Performed By: #### L IPD2, HEMDF, CMP3 #### [facility] [address] [place] [address] Platelets (Bld) [#/Vol] 282 10*3/uL Normal 140-440 [facility] Comment on above: Performed By: #### L IPD2, HEMDF, CMP3 #### [facility] [address] [place] [address] RBC (Bld) [#/Vol] 4.52 10*6/uL Normal 3.80-5.20 [facility] Comment on above: Performed By: #### L IPD2, HEMDF, CMP3 #### [facility] [address] [place] [address] WBC (Bld) [#/Vol] 6.2 10*3/uL Normal 3.6-10.7 [facility] Comment on above: Performed By: #### L IPD2, HEMDF, CMP3 #### [facility] [address] [place] [address] Lipid Panelon 05-23-2022 Chol/HDL 4 Normal [facility] Comment on above: Result Comment: Ref Range: < 3 Low Risk for CHD 3-6 Mod Risk for CHD > 6 High Risk for CHD Performed By: #### L IPD2, HEMDF, CMP3 #### [facility] [address] [place] [address] Cholesterol in HDL [Mass/Vol] 46 mg/dL Normal 40-60 [facility] Comment on above: Performed By: #### L IPD2, HEMDF, CMP3 #### [facility] [address] [place] [address] Low Density Lipoprotein 136 mg/dL Abnormal <100 [facility] Comment on above: Performed By: #### L IPD2, HEMDF, CMP3 #### [facility] [address] [place] [address] Cholesterol [Mass/Vol] 199 mg/dL Normal < 200 [facility] Comment on above: Performed By: #### L IPD2, HEMDF, CMP3 #### [facility] [address] [place] [address] Triglyceride [Mass/Vol] 86 mg/dL Normal <150 [facility] Comment on above: Performed By: #### L IPD2, HEMDF, CMP3 #### [facility] [address] [place] [address] Cholesterol [Mass/Vol] 199 mg/dL NINF - 200 mg/dL [facility] Cholesterol in HDL [Mass/Vol] 46 mg/dL 40 - 60 mg/dL [facility] Cholesterol in LDL [Mass/Vol] 136 mg/dL Abnormal NINF - 100 mg/dL [facility] Cholesterol.total/Chol esterol in HDL [Mass ratio] 4 {ratio} [facility] Comment on above: Ref Range: < 3 Low Risk for CHD 3-6 Mod Risk for CHD > 6 High Risk for CHD Triglyceride [Mass/Vol] 86 mg/dL NINF - 150 mg/dL [facility] No Panel Informationon 05-23 Interpretation and review of laboratory results Abnormal [facility] Test Performed by [facility], [address] , [place], [place] [id number] [place] [address] LAB [facility] Absolute lymphocyte counton 12-07-2021 Lymphocytes Auto (Unsp spec) [#/Vol] 2.14 10*3/uL 0.83-4.[address] [facility] Work Phone: Atypical perinuclear antineu trophil cytoplasmic antibodies measurementon 12-07-2021 Neutrophil cytoplasmic Ab.perinuclear.atypica l IF (S) [Titer] <1:20 titer Neg:<1:[address] [facility] Work Phone: Comment on above: The atypical pANCA p attern has been observed in asignificant percentage of patients with ulcerative colitis,primary sclerosing cholangitis and autoimmune hepatitis. Basophil percentageon 2021 Ammonia (P) [Moles/Vol] 33.0 umol/L 11-[address] [facility] Work Phone: Basophil percentage < 0.2 [facility] Work Phone: Basophils/100 WBC (Bld) 0.6 % 0-1 [facility] [facility] Work Phone: [phone] Bilirubin [Mass/Vol] 0.40 mg/dL 0.20-1.00 [facility] Work Phone: Comment on above: For patients on eltr ombopag therapy, use of Dimension [place] TBIL is not recommended. Chloride [Moles/Vol] 109 mmol/L 98-107 [facility] Work Phone: Eosinophils/100 WBC (Bld) 3.6 % 0-[address] [facility] Work Phone: Glucose [Mass/Vol] 132 mg/dL 74-106 [facility] Work Phone: Comment on above: Fasting Glucose resu lt greater than or equal to 126 mg/dL suggests DIABETES MELLITUS per A.D.A. criteria. Neutrophils (Bld) [#/Vol] 3.9 10*3/uL 2.0-7.[address] [facility] Work Phone: [phone] Neutrophils/100 WBC (Bld) 55.3 % 47-[address] [facility] Work Phone: Potassium [Moles/Vol] 4.1 mmol/L 3.5-5.1 [facility] Work Phone: Protein [Mass/Vol] 7.8 g/dL 6.4-8.2 [facility] Work Phone: Sodium [Moles/Vol] 139 mmol/L 136-145 [facility] Work Phone: WBC (Bld) [#/Vol] 7.0 10*3/uL 4.4-11.0 [facility] Work Phone: Blood erythrocytes count (nu mber/volume)on 12-07-2021 RBC (Bld) [#/Vol] 4.19 10*6/uL 4.2-5.4 [facility] Work Phone: Blood hemoglobin measurement (mass/volume)on 12-07-2021 Hemoglobin (Bld) [Mass/Vol] 13.4 g/dL 12.0-15.[address] [facility] Work Phone: Blood lymphocytes/100 leukoc yteson 12-07-2021 Lymphocytes/100 WBC (Bld) 30.4 % 19-[address] [facility] Work Phone: [phone] Blood monocytes/100 leukocyt eson 12-07-2021 Monocytes/100 WBC (Bld) 10.0 % 0-[address] [facility] Work Phone: Blood platelet mean volumeon 12-07-2021 Platelet mean volume (Bld) [Entitic vol] 10.4 fL 6.2-12.[address] [facility] Work Phone: Determination of erythrocyte mean corpuscular volume (MCV)on 12-07-2021 MCV (RBC) [Entitic vol] 95.2 fL 81-[address] [facility] Work Phone: Direct bilirubinon 2 Bilirubin.direct [Mass/Vol] 0.13 mg/dL 0.00-0.[address] [facility] Work Phone: Erythrocyte sedimentation ra ashley 12-07-2021 ESR (Bld) [Velocity] 37 mm/h 0-30 [facility] Work Phone: Hematocrit Auto (Bld) [Volum e fraction]on 12-07-2021 Hematocrit (Bld) [Volume fraction] 39.9 % 37-[address] [facility] Work Phone: INR in Blood by Coagulation assayon 12-07-2021 INR Coag (Bld) [Relative time] 1.0 {INR} [facility] Work Phone: Laboratory - Chemistry and C hemistry - challengeon 12-07-2021 ALP [Catalytic activity/Vol] 77 U/L 45-[address] [facility] Work Phone: ALT [Catalytic activity/Vol] 79 U/L 13-[address] [facility] Work Phone: CO2 [Moles/Vol] 27.0 mmol/L 21.0-32.[address] [facility] Work Phone: Globulin (S) [Mass/Vol] 4.3 g/dL 2.2-4.[address] [facility] Work Phone: Urea nitrogen/Creatinine [Mass ratio] 17.7 mg/mg 10-[address] [facility] Work Phone: Laboratory - Coagulationon 0 12-07-2021 PT Coag (PPP) [Time] 12.7 s 11.7-14.9 [facility] Work Phone: Laboratory - Hematology and Cell countson 12-07-2021 Erythrocyte distribution width (RBC) [Entitic vol] 42.7 fL 35.1-43.[address] [facility] Work Phone: Erythrocyte distribution width (RBC) [Ratio] 12.4 % 11.6-14.[address] [facility] Work Phone: Immature granulocytes/100 WBC (Bld) 0.100 % 0.0-0.[address] [facility] Work Phone: Comment on above: IG% - Immature Granu locytes (promyelocytes, myelocytes and metamyelocytes) > 1% indicates that a LEFT SHIFT is Present. MCH (RBC) [Entitic mass] 32.0 pg 27.0-32.[address] [facility] Work Phone: Nucleated RBC/100 WBC (Bld) [Ratio] 0 % 0-[address] [facility] Work Phone: MCHC Auto (RBC) [Mass/Vol]on 12-07-2021 MCHC (RBC) [Mass/Vol] 33.6 g/dL 32-36 [facility] Work Phone: No Panel Informationon 12-07 Centromere B Antibody <0.2 AI [facility] Work Phone: Ceruloplasmin 25.6 mg/dL [facility] Work Phone: Estimated GFR (MDRD) Amer 114 mL/min >[address] [facility] Work Phone: Comment on above: GFR Calc Estimated GFR (MDRD) Non-Af Amer 94 mL/min >[address] [facility] Work Phone: Comment on above: Non- GFR Calc Haptoglobin 194 mg/dL [facility] Work Phone: Comment on above: Performed at: [address] [id number] Director: Robert Dumont PhD, Phone: [phone] at: [facility] [address] [id number] Director: Koko No MD, Phone: [phone] Hepatitis A IgM Antibody Negative Negative [facility] Work Phone: Hepatitis B Core IgM Antibody Negative Negative [facility] Work Phone: Hepatitis C Antibody (EIA) 0.2 s/co ratio [facility] Work Phone: Comment on above: Negative: < 0.8 Inde terminate: 0.8 - 0.9 Positive: > 0.9 The CDC recommends that a positive HCV antibody result be followed up with a HCV Nucleic Acid Amplification test (590773).Effective January 07, 2022 Hepatitis Panel (4) will be made non-orderable. [facility] offers order code [id number] Acute Hepatitis. PRACTICE ADVISOR Antibody 0.[address] [facility] Work Phone: Platelets bldon 12-07-2021 Platelets (Bld) [#/Vol] 303 10*3/uL 150-[address] [facility] Work Phone: Serum DNA double strand anti body assay (units/volume)on 12-07-2021 DNA double strand Ab Qn (S) [IU]/mL [facility] Work Phone: Comment on above: Negative <5 Equivoca l 5 - 9 Positive >9 Serum Jordyn-1 antibody assay (u nits/volume)on 12-07-2021 Jordyn-1 extractable nuclear Ab Qn (S) <0.[address] [facility] Work Phone: Serum Scl-70 extractable nuc lear antibody assay (units/volume)on 12-07-2021 SCL-70 extractable nuclear Ab Qn (S) <0.2 [facility] Work Phone: Serum Tan extractable nucl ear antibody detectionon 12-07-2021 Tan extractable nuclear Ab Ql (S) <0.2 [facility] Work Phone: Serum classic neutrophil cyt oplasmic antibody assay (units/volume)on 12-07-2021 Neutrophil cytoplasmic Ab.classic Qn (S) <1:20 titer Neg:<1:[address] [facility] Work Phone: Serum mitochondria antibody detectionon 12-07-2021 Mitochondria Ab Ql (S) <20.0 Units [facility] Work Phone: Comment on above: Negative 0.0 - 20.0 Equivocal 20.1 - 24.9 Positive >24.9Mitochondrial (M2) Antibodies are found in 90-96% ofpatients with primary biliary cirrhosis.Performed at: [address] [id number] Director: Robert Dumont PhD, Phone: [phone] Serum or plasma C reactive p rotein measurement (mass/volume)on 12-07-2021 CRP [Mass/Vol] 8.82 mg/L 0.0-3.[address] [facility] Work Phone: Comment on above: C-Reactive Protein ( CRP) provides useful information for thediagnosis, therapy and monitoring of inflammatory processesand associated diseases. For the evaluation of Relative Riskfor Cardiovascular Disease, a High Sensitivity CRP (HSCRP)should be ordered. Serum or plasma actin IgG an tibody assay (units/volume)on 12-07-2021 Actin IgG Qn [address] [facility] Work Phone: Comment on above: Negative 0 - 19 Weak positive 20 - 30 Moderate to strong positive >30 Actin Antibodies are found in 52-85% of patients with autoimmune hepatitis or chronic active hepatitis and in 22% of patients with primary biliary cirrhosis. Serum or plasma albumin quita urement (mass/volume)on 12-07-2021 Albumin [Mass/Vol] 3.5 g/dL 3.2-5.0 [facility] Work Phone: Serum or plasma albumin/glob ulin mass ratioon 12-07-2021 Albumin/Globulin [Mass ratio] 0.8 {ratio} 0.9-2.[address] [facility] Work Phone: Serum or plasma [id number] protein tumor marker measurement (units/volume)on 12-07-2021 AFP.tumor marker Qn 3.2 ng/mL [facility] Work Phone: Comment on above: [email or web address] El ectrochemiluminescence Immunoassay(ECLIA) Please note reference intervalchangeValues obtained with different assay methods or kits cannotbe used interchangeably. Results cannot be interpreted asabsolute evidence of the presence or absence of malignantdisease.This test is not interpretable in females. Serum or plasma angiotensin converting enzyme measurement (enzymatic activity/volume)on 12-07-2021 Angiotensin converting enzyme [Catalytic activity/Vol] 26 U/L [facility] Work Phone: Serum or plasma calcium quita urement (mass/volume)on 12-07-2021 Calcium [Mass/Vol] 8.7 mg/dL 8.5-10.1 [facility] Work Phone: Serum or plasma creatinine m easurement (mass/volume)on 12-07-2021 Creatinine [Mass/Vol] 0.68 mg/dL 0.55-1.02 [facility] Work Phone: Comment on above: The validity of the calculated GFR & GFRAA in patients over 70 years has not been determined. Clinical correlation is essential. Serum or plasma ferritin paramjit surement (mass/volume)on 12-07-2021 Ferritin [Mass/Vol] 392 ng/mL 8-252 [facility] Work Phone: Serum or plasma hepatitis B virus surface antigen detection by immunoassayon 12-07-2021 HBV surface Ag IA Ql Negative Negative [facility] Work Phone: Serum or plasma urea nitroge n measurement (mass/volume)on 12-07-2021 Urea nitrogen [Mass/Vol] 12 mg/dL 7-[address] [facility] Work Phone: Serum perinuclear neutrophil cytoplasmic antibody titer by immunofluorescenceon 12-07-2021 Neutrophil cytoplasmic Ab.perinuclear IF (S) [Titer] <1:20 titer Neg:<1:[address] [facility] Work Phone: Comment on above: The presence of posi tive fluorescence exhibiting P-ANCA orC-ANCA patterns alone is not specific for the diagnosis ofWegener's Granulomatosis (WG) or microscopic polyangiitis.Decisions about treatment should not be based solely onANCA IFA results. The [employer] ANCA [employer] Consensusrecommends follow up testing of positive sera with both CO-3 and MPO-ANCA enzyme immunoassays. As many as 5% serumsamples are positive only by EIA. Ref. AM J Clin [id number];111:507-513. Thin prep Papanicolaou smear with manual screeningon 12-07-2021 Thin prep Papanicolaou smear with manual screening 52 U/L 15-[address] [facility] Work Phone: Thin prep Papanicolaou smear with manual screening 3 5-[address] [facility] Work Phone: Thin prep Papanicolaou smear with manual screening 181 U/L 84-[address] [facility] Work Phone: Thin prep Papanicolaou smear with manual screening 131 ug/dL [facility] Work Phone: Comment on above: Detection Limit = 5 Whole blood hemoglobin A1c/t otal hemoglobin ratio (mass fraction)on 12-07-2021 HbA1c (Bld) [Mass fraction] 5.8 % 3.8-5.[address] [facility] Work Phone: Comment on above: Normal < 5.7 % Predi abetic 5.7 - 6.4 % Diabetic >or= 6.5 % Please note range changes. Cervical or vagninal specime n microscopic examination by cytology stain (reported ason 10-24-2021 Cytology report Cyto stain Doc (Cvx/Vag) Comment [facility] Work Phone: Comment on above: The Pap smear is a s creening test designed to aid in thedetection of premalignant and malignant conditions of theuterine cervix. It is not a diagnostic procedure andshould not be used as the sole means of detecting cervicalcancer. Both false-positive and false-negative reports dooccur. Laboratory - Cytologyon 10-09 Senior Counsel Commercial Cyto stain Nom (Cvx/Vag) [ID] Comment [facility] Work Phone: Comment on above: Bindu mccabe, Helicopter Officer (ASCP) Laboratory - Miscellaneous t estson 10-24-2021 Service comment (Unsp spec) [Interp] Comment [facility] Work Phone: Comment on above: This liquid based Th inPrep(R) pap test was screened withthe use of an image guided system. Service comment (Unsp spec) [Interp] . [facility] Work Phone: No Panel Informationon 10-24 Human Papillomavirus Screen Comment [facility] Work Phone: Comment on above: The HPV DNA reflex c ambareria were not met with this specimenresult therefore, no HPV testing was performed.Performed at: - [address] [place], [place] [id number] Director: Gaviota Martinez MD, Phone: [phone] Pathology report final diagnosis Narrative Comment [facility] Work Phone: Comment on above: NEGATIVE FOR INTRAEP ITHELIAL LESION OR MALIGNANCY. MRI Liver w/wo Contraston MR Liver WO and W contrast IV Normal -[facility]- [facility] Work Phone: Comp Metabolic Panelon 08-04 Calcium [Mass/Vol] 9.4 mg/dL Normal 8.4-10.4 [facility] Comment on above: Performed By: #### H A1C2, CMP3 #### [facility] [address] [place] [address] Glucose [Mass/Vol] 111 mg/dL High 70-100 [facility] Comment on above: Performed By: #### H A1C2, CMP3 #### [facility] [address] [place] [address] ALP [Catalytic activity/Vol] 72 U/L Normal 38-126 [facility] Comment on above: Performed By: #### H A1C2, CMP3 #### [facility] [address] [place] [address] ALT [Catalytic activity/Vol] 76 U/L High 0-34 [facility] Comment on above: Result Comment: The ALT test is performed by an updated assay method. Please note that the reference intervals have been changed and are now sex specific. Performed By: #### H A1C2, CMP3 #### [facility] [address] [place] [address] Anion gap [Moles/Vol] 4 mmol/L Normal 3-13 [facility] Comment on above: Performed By: #### H A1C2, CMP3 #### [facility] [address] [place] [address] AST [Catalytic activity/Vol] 52 U/L High 15-46 [facility] Comment on above: Performed By: #### H A1C2, CMP3 #### [facility] [address] [place] [address] Bilirubin [Mass/Vol] 0.5 mg/dL Normal 0.2-1.3 [facility] Comment on above: Performed By: #### H A1C2, CMP3 #### [facility] [address] [place] [address] CO2 [Moles/Vol] 27 mmol/L Normal 22-30 [facility] Comment on above: Performed By: #### H A1C2, CMP3 #### [facility] [address] [place] [address] Creatinine [Mass/Vol] 0.70 mg/dL Normal 0.52-1.25 [facility] Comment on above: Performed By: #### H A1C2, CMP3 #### [facility] [address] [place] [address] eGFR OTHER > 90.0 Normal >60 [facility] Comment on above: Result Comment: KDIG O guidelines provide the following GFR categories: Stage GFR(ml/min/1.73 m2) Terms G1 >=90 Normal or high G2 60-89 Mildly decreased* G3a 45-59 Mildly to moderately decreased G3b 30-44 Moderately to severely decreased G4 15-29 Severely decreased G5 <15 Kidney failure *Relative to young adult level. In the absence of evidence of kidney damage, neither GFR category G1 nor G2 fulfill the criteria for CKD. The CKD-EPI equation is validated in individuals 18 years of age and older. Currently the best equation for estimating glomerular filtration rate (GFR) from serum creatinine in children is the Bedside Bain equation. It is less accurate in patients with extremes of muscle mass, restriction of dietary protein, ingestion of creatine, extra-renal metabolism of creatinine, or treatment with medications that affect renal tubular creatinine secretion. Performed By: #### H A1C2, CMP3 #### [facility] [address] [place] [address] GFR/1.73 sq M.predicted among blacks MDRD (S/P/Bld) [Vol rate/Area] mL/min/{1.73_m2} Normal >60 [facility] Comment on above: Performed By: #### H A1C2, CMP3 #### [facility] [address] [place] [address] Protein [Mass/Vol] 7.8 g/dL Normal 6.3-8.2 [facility] Comment on above: Performed By: #### H A1C2, CMP3 #### [facility] [address] [place] [address] Urea nitrogen [Mass/Vol] 12 mg/dL Normal 9-20 [facility] Comment on above: Performed By: #### H A1C2, CMP3 #### [facility] [address] [place] [address] Potassium [Moles/Vol] 4.5 mmol/L Normal 3.5-5.1 [facility] Comment on above: Performed By: #### H A1C2, CMP3 #### [facility] [address] [place] [address] Albumin [Mass/Vol] 4.1 g/dL Normal 3.5-5.0 [facility] Comment on above: Performed By: #### H A1C2, CMP3 #### [facility] [address] [place] [address] Chloride [Moles/Vol] 110 mmol/L High 98-107 [facility] Comment on above: Performed By: #### H A1C2, CMP3 #### [facility] [address] [place] [address] Sodium [Moles/Vol] 141 mmol/L Normal 135-145 [facility] Comment on above: Performed By: #### H A1C2, CMP3 #### [facility] [address] [place] [address] Hemoglobin A1Con 08-04-2021 Glucose [Mass/Vol] 114 mg/dL Normal [facility] Comment on above: Performed By: #### H A1C2, CMP3 #### [facility] [address] [place] [address] HbA1c (Bld) [Mass fraction] 5.6 % Normal [facility] Comment on above: Result Comment: Norm al less than 5.7% Prediabetes 5.7% to 6.4% Diabetes 6.5% or higher --HgbA1C levels may not be accurate in patients who have renal disease, received recent blood transfusions, are anemic, or who have dyshemoglobinemia. Performed By: #### H A1C2, CMP3 #### [facility] [address] [place] [address] CBC Auto DifferentialOrdered By: Poonam Neal on 04-28-2021 Absolute Baso # 0.1 10*3/uL 0.0 - 0.2 10*3/uL [employer] Work Phone: ) [phone] Absolute Neut # 2.8 10*3/uL 1.8 - 7.0 10*3/uL [employer] Work Phone: [phone] Basophils/100 WBC (Bld) 1.0 % 0.0 - 2.0 % [employer] Work Phone: ) 222 Eosinophils (Bld) [#/Vol] 0.3 10*3/uL 0.0 - 0.5 10*3/uL [employer] Work Phone: [phone] Eosinophils/100 WBC (Bld) 4.1 % 1.0 - 6.0 % [employer] Work Phone: ) 222 Granulocytes/100 WBC (Bld) 43.3 % 40.0 - 80.0 % [employer] Work Phone: [phone] Hematocrit (Bld) [Volume fraction] 41.1 % 35.0 - 47.0 % [employer] Work Phone: [phone] Hemoglobin.gastrointes tinal spec 1 Ql (Stl) 14.0 g/dL 11.7 - 16.0 g/dL [employer] Work Phone: [phone] Interpretation and review of laboratory results Abnormal [employer] Work Phone: [phone] Lymphocytes (Bld) [#/Vol] 2.7 10*3/uL 1.0 - 4.3 10*3/uL [facility] Work Phone: [phone] 222 Lymphocytes/100 WBC (Bld) 41.4 % High 20.0 - 40.0 % [facility] Work Phone: [phone] 222 MCH (RBC) [Entitic mass] 32.3 pg 26.0 - 34.0 pg [facility] Work Phone: [phone] MCHC (RBC) [Mass/Vol] 34.1 % 32.0 - 36.0 % [facility] Work Phone: [phone] 222 MCV (RBC) [Entitic vol] 94.8 fL 79.0 - 98.0 fL [facility] Work Phone: 222 Monocytes (Bld) [#/Vol] 0.7 10*3/uL 0.0 - 0.8 10*3/uL [facility] Work Phone: ) 222 Monocytes/100 WBC (Bld) 10.2 % High 2.0 - 10.0 % [facility] Work Phone: [phone]) 222 Platelet distribution width (Bld) [Ratio] 12.8 % 11.5 - 14.5 % [facility] Work Phone: 222 Platelet mean volume (Bld) [Entitic vol] 7.9 fL 7.4 - 10.4 fL [facility] Work Phone: ) 222 Platelets (Bld) [#/Vol] 283 10*3/uL 140 - 440 10*3/uL [facility] Work Phone: [phone] 222 RBC (Bld) [#/Vol] 4.33 10*6/uL 3.80 - 5.20 10*6/uL [facility] Work Phone: 1() 222 WBC (Bld) [#/Vol] 6.5 10*3/uL 3.6 - 10.7 10*3/uL [facility] Work Phone: [phone] 222 Test Performed by [facility], [facility] [address] , [place], [place] [address] [facility] Work Phone: ) [phone] [facility] Work Phone: [phone] Comprehensive Metabolic Pane lOrdered By: Poonam Neal on 04-28-2021 Albumin [Mass/Vol] 4.6 g/dL 3.5 - 5.0 g/dL [facility] Work Phone: [phone] ALP (Bld) [Catalytic activity/Vol] 72 U/L 38 - 126 U/L [facility] Work Phone: [phone] ALT [Catalytic activity/Vol] 126 U/L High 0 - 34 U/L [facility] Work Phone: [phone] Comment on above: The ALT test is perf ormed by an updated assay method. Please note that the reference intervals have been changed and are now sex specific. Anion gap [Moles/Vol] 9 mmol/L 3 - 13 mmol/L [facility] Work Phone: [phone] AST [Catalytic activity/Vol] 95 U/L High 15 - 46 U/L [facility] Work Phone: [phone] Bilirubin [Mass/Vol] 0.6 mg/dL 0.2 - 1 .3 mg/dL [facility] Work Phone: [phone] Calcium [Mass/Vol] 9.6 mg/dL 8.4 - 10. 4 mg/dL [facility] Work Phone: Chloride [Moles/Vol] 107 mmol/L 98 - 10 7 mmol/L [facility] Work Phone: [phone] CO2 [Moles/Vol] 25 mmol/L 22 - 30 mmol/L [facility] Work Phone: [phone] Creatinine [Mass/Vol] 0.68 mg/dL 0.52 - 1.25 mg/dL [facility] Work Phone: EGFR IF NonAfrican Zambian >90.0 >60 mL/min [facility] Work Phone: Comment on above: KDIGO guidelines pro vide the following GFR categories: Stage GFR(ml/min/1.73 m2) Terms G1 >=90 Normal or high G2 60-89 Mildly decreased* G3a 45-59 Mildly to moderately decreased G3b 30-44 Moderately to severely decreased G4 15-29 Severely decreased G5 <15 Kidney failure *Relative to young adult level. In the absence of evidence of kidney damage, neither GFR category G1 nor G2 fulfill the criteria for CKD. The CKD-EPI equation is validated in individuals 18 years of age and older. Currently the best equation for estimating glomerular filtration rate (GFR) from serum creatinine in children is the Bedside Bain equation. It is less accurate in patients with extremes of muscle mass, restriction of dietary protein, ingestion of creatine, extra-renal metabolism of creatinine, or treatment with medications that affect renal tubular creatinine secretion. Free PSA/Total PSA [Mass fraction] 8.1 g/dL 6.3 - 8.2 g/dL [facility] Work Phone: GFR/1.73 sq M.predicted among blacks MDRD (S/P/Bld) [Vol rate/Area] mL/min/{1.73_m2} >60 mL/min [facility] Work Phone: Glucose [Mass/Vol] 102 mg/dL High 70 - 100 mg/dL [facility] Work Phone: Interpretation and review of laboratory results Abnormal [facility] Work Phone: Potassium [Moles/Vol] 4.4 mmol/L 3.5 - 5.1 mmol/L [facility] Work Phone: Sodium [Moles/Vol] 141 mmol/L 135 - 145 mmol/L [facility] Work Phone: Urea nitrogen (BldV) [Mass/Vol] 15 mg/dL 7 - 20 mg/dL [facility] Work Phone: Test Performed by [facility], [address] [place], [place] [address] Work Phone: [facility] Work Phone: Initial Visit (General Surge ry)on 07-12-2020 Initial Visit (General Surgery) Diagnoses/Problems Hepatic cyst (573.8) (K76.89) Patient Discussion/Summary 59-year-old woman with a liver cyst which has enlarged over the past 3 years. The appearance on imaging both ultrasound and CT is that of a simple liver cyst without any concerning features. She is not symptomatic. I would not recommend any invasive interventions at this time. I will order liver MRI in 1 year for additional follow-up. Dictation software was used in the creation of this note and not corrected for typographical or grammatical errors Chief Complaint Enlarging liver cyst History of Present [id number] woman referred to me for an enlarging liver cyst. She has had a known cyst for at least 3 years. Ultrasound more recently shows enlargement of the cyst from approximately 4.1cm to 6.[address] scan was performed which I have personally reviewed. This is a simple cyst without any internal complexity or masses associated. She is having no pain or discomfort Review of Systems Constitutional: no fever, no chills, no recent weight gain and no recent weight loss. Eyes: no loss of vision, no discharge from the eyes and no itching of the eyes. ENT: no hearing loss, no neck pain and no hoarseness. Cardiovascular: no chest pain, no palpitations and no lower extremity edema. Respiratory: no dyspnea, no dyspnea during exertion and no cough. Breast: no nipple discharge, no breast mass and no pain in breast. Gastrointestinal: no abdominal pain, no constipation, no heartburn, no vomiting, no blood in stools, bowel movement frequency normal. Genitourinary: no dysuria, no hematuria and no vaginal discharge. Musculoskeletal: no arthralgias, no myalgias and no hernia. Integumentary: no rashes and no skin lesions. Neurological: no headache, no dizziness, no numbness, no tingling and no limb weakness. Psychiatric: no anxiety, no depression and no emotional problems. Endocrine: no heat or cold intolerance and no increased thirst. Hematologic/Lymphatic: no swollen glands, no tendency for easy bleeding and no tendency for easy bruising. All other systems have been reviewed and are negative for complaint. Active Problems Benign essential hypertension (401.1) (I10) Eczema (692.9) (L30.9) Hepatic cyst (573.8) (K76.89) Past Medical History History of colonic polyps (V12.72) (Z86.010) History of Liver cyst (573.8) (K76.89) Surgical History History of section Family History Family history of Family history of Social History No alcohol use Non-smoker (V49.89) (Z78.9) Occupation [employer] Allergies Penicillins Recorded By: Betina Cai; 07/07/2020 3:46:58 PM Sulfa Drugs Recorded By: Betina Cai; 07/07/2020 3:46:58 PM Current Meds Medication NameInstruction Halobetasol Propionate 0.05 % External CreamAPPLY SPARINGLY TO AFFECTED AREA(S) ONCE DAILY Lisinopril 10 MG Oral TabletTAKE 1 TABLET DAILY DIRECTED. Multi-Vitamin/Minerals Oral TabletTAKE 1 TABLET DAILY. Vitamin D3 50 MCG (1999) Oral TabletTake 1 tablet daily Vitals Vital Signs Recorded: 12Jul2020 02:07PM Oidknjuhpbe61.9 C Heart Rate93 Dkkrdylf371 Hqpltnljp93 Jnbjcc29.25 in Logcmp443 lb 8 oz BMI Ufdhvpwspk66.67 BSA Calculated1.97 O2 Igsgppgkap26 Pain Scale0 Physical Exam General: Appears well and in no acute distress Psychiatric: Normal mood and affect, alert and oriented Head and neck: No scleral icterus Lungs: Normal work of breathing without respiratory distress Abdomen: Benign Back: No costovertebral angle tenderness Extremities: Warm and well-perfused, no edema Neurologic: No focal neurologic deficits Skin: Warm and dry without obvious rashes Signatures Electronically signed by : Gorge Hampton MD; Jul 12 2020 2:39PM EST (Author) Normal [facility] CT ABD/PEL W IVCONon 10-26-[address] ABD/PEL W IVCON Final Report DATE OF EXAM: Jul 03 2020 3:57PM [facility] 0530 - CT ABD/PEL W IVCON / PROCEDURE REASON: R93.5 Abnormal GI findings exam/xray hepatic cyst enlarging K62.5 Rectal bleedin Physician Interpretation EXAMINATION: CT ABDOMEN AND PELVIS WITH IV CONTRAST CLINICAL HISTORY: f/u ultrasound, cyst on liver grown in sieze; - surgery, cancer TECHNIQUE: CT of the abdomen and pelvis was performed using standard technique, scanning from just above the dome of the diaphragm to the symphysis pubis. MQ: CTAP_3 Contrast: IV: 150 ml of Omnipaque 300 Oral: 900 ml of READI-CAT 2 CT Radiation dose: Integrated Dose-length product (DLP) for this visit = [address] Dose Reduction Employed: Automated exposure control(AEC) and iterative recon COMPARISON: No priors at this institution. RESULT: Liver: 6.0 cm low-density fluid containing mass within the right lobe of the liver segments 5 and 6 most consistent with benign appearing simple cyst. Remainder of the liver is remarkable for several smaller hypodensities noted the largest of which measures 8 mm noted in the dome of segment 4 on 2:17. Biliary: No bile duct dilation. Question of stones in the neck of the gallbladder. Spleen: No mass. No splenomegaly. Pancreas: No mass or duct dilation. Adrenals: No mass. Kidneys: 3.3 cm fluid density possible cyst lower pole right kidney. GI tract: No dilation or wall thickening. The appendix is visualized and is normal. Lymph nodes: Slight prominence of lymph nodes noted posterior to the pancreas measuring up to 11 mm short axis diameter on 2:40. Mesentery/Peritoneum: No ascites or mass. Retroperitoneum: No significant additional findings. Vasculature: The celiac axis and SMA are patent. The portal vein and branches, splenic vein, SMV, and hepatic veins are patent. Pelvis: Retroflexed uterus. No pelvic mass or fluid collection. 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 Lower thorax: No significant additional findings. Risk Control Representative (topogram) images: No significant additional findings. IMPRESSION: Lesion in the liver is most consistent with benign appearing cyst. Smaller lesions in the liver most likely represent cysts but are too small to further characterize. Slight prominence of lymph nodes posterior to the head of the pancreas. Typically such lymph nodes are reactive in nature. Correlate clinically. Follow-up with repeat CT scan in 3-6 months may be helpful to ensure stability. This Manager Java: JOLLY Transcribe Date/Time: Jul 03 2020 4:00P Dictated by : HOWIE GOODE MD This examination was interpreted and the report reviewed and electronically signed by: HOWIE GOODE MD on Jul 03 2020 4:17PM EST Normal [facility] Comp Metab 2000 Pnl SerPlon 07-03-2020 Albumin [Mass/Vol] 3.9 g/dL Normal 3.4-5.0 [facility] Comment on above: Order Comment: Speci men Type: BLOOD SPECIMEN Performed By: #### 2 4323-8 #### [facility] CLIA [id number] [address] [place] [address] [place] ALP [Catalytic activity/Vol] 73 U/L Normal 46-116 [facility] Comment on above: Order Comment: Speci men Type: BLOOD SPECIMEN Performed By: #### 2 4323-8 #### [facility] CLIA [id number] [address] [place] ALT With P-5'-P [Catalytic activity/Vol] 40 U/L Normal 12-78 [facility] Comment on above: Order Comment: Speci men Type: BLOOD SPECIMEN Performed By: #### 2 4323-8 #### [facility] CLIA [id number] [address] Anion gap [Moles/Vol] 7 mmol/L Low 8-16 [facility] Comment on above: Order Comment: Speci men Type: BLOOD SPECIMEN Performed By: #### 2 4323-8 #### [facility] CLIA [id number] [address] [place] [address] OF [facility] AST With P-5'-P [Catalytic activity/Vol] 27 U/L Normal 15-46 [facility] Comment on above: Order Comment: Speci men Type: BLOOD SPECIMEN Performed By: #### 2 4323-8 #### [facility] CLIA [id number] [address] [place] [address] [place] Bilirubin [Mass/Vol] 0.4 mg/dL Normal 0.2-1.0 [facility] Comment on above: Order Comment: Speci men Type: BLOOD SPECIMEN Performed By: #### 2 4323-8 #### [facility] CLIA [id number] [address] [place] [address] OF [facility] Calcium [Mass/Vol] 9.4 mg/dL Normal 8.5-10.1 [facility] Comment on above: Order Comment: Speci men Type: BLOOD SPECIMEN Performed By: #### 2 4323-8 #### [facility] CLIA [id number] [address] [place] [address] [place] Chloride [Moles/Vol] 104 mmol/L Normal 98-107 [facility] Comment on above: Order Comment: Speci men Type: BLOOD SPECIMEN Performed By: #### 2 4323-8 #### [facility] CLIA [id number] [address] [place] [address] CO2 [Moles/Vol] 29 mmol/L Normal 21-32 [facility] Comment on above: Order Comment: Speci men Type: BLOOD SPECIMEN Performed By: #### 2 4323-8 #### [facility] CLIA [id number] [address] [place] [address] Creatinine [Mass/Vol] 0.66 mg/dL Normal 0.51-0.95 [facility] Comment on above: Order Comment: Speci men Type: BLOOD SPECIMEN Performed By: #### 2 4323-8 #### [facility] CLIA [id number] [address] [place] [address] GFR/1.73 sq M predicted among blacks MDRD (S/P/Bld) [Vol rate/Area] mL/min/{1.73_m2} [facility] Comment on above: Order Comment: Speci men Type: BLOOD SPECIMEN Performed By: #### 2 4323-8 #### [facility] CLIA [id number] [address] [place] [address] GFR/1.73 sq M predicted among non-blacks MDRD (S/P/Bld) [Vol rate/Area] mL/min/{1.73_m2} [facility] Comment on above: Order Comment: Speci men Type: BLOOD SPECIMEN Result Comment: eGFR (Estimated GFR) Units of measure: mL/min/1.73 meters squared eGFR is derived from the reexpressed MDRD Study equation using the following parameters: serum creatinine, age, gender and race. The creatinine assay has been calibrated to be traceable to IDMS. An eGFR <60 mL/min/1.73m2 for >3 months is consistent with chronic kidney disease. Refer to KDOQI guidelines for clinical interpretation. In patients with unstable renal function, e.g. those with acute kidney injury, the eGFR may not accurately reflect actual GFR. Performed By: #### 2 4323-8 #### [facility] CLIA [id number] [address] [place] [address] [place] Glucose [Mass/Vol] 96 mg/dL Normal 70-99 [facility] Comment on above: Order Comment: Speci men Type: BLOOD SPECIMEN Result Comment: The [place] Diabetes Association (ADA) provides guidance for cutoff values for fasting glucose and random glucose. The ADA defines fasting as no caloric intake for at least 8 hours. Fasting plasma glucose results between 100 to 125 mg/dL indicate increased risk for diabetes (prediabetes). Fasting plasma glucose results greater than or equal to 126 mg/dL meet the criteria for diagnosis of diabetes. In the absence of unequivocal hyperglycemia, results should be confirmed by repeat testing. In a patient with classic symptoms of hyperglycemia or hyperglycemic crisis, random plasma glucose results greater than or equal to 200 mg/dL meet the criteria for diagnosis of diabetes. Reference: Standards of Medical Care in Diabetes 2016, [place] [employer] Association. Diabetes Care. 2016.39(Suppl 1). Performed By: #### 2 4323-8 #### [facility] CLIA [id number] [address] [place] [address] [place] Potassium [Moles/Vol] 4.2 mmol/L Normal 3.5-5.1 [facility] Comment on above: Order Comment: Speci men Type: BLOOD SPECIMEN Performed By: #### 2 4323-8 #### [facility] CLIA [id number] [address] [place] [address] [place] Protein [Mass/Vol] 8.1 g/dL Normal 6.4-8.2 [facility] Comment on above: Order Comment: Speci men Type: BLOOD SPECIMEN Performed By: #### 2 4323-8 #### [facility] CLIA [id number] [address] [place] [address] [place] Sodium [Moles/Vol] 140 mmol/L Normal 136-145 [facility] Comment on above: Order Comment: Speci men Type: BLOOD SPECIMEN Performed By: #### 2 4323-8 #### [facility] CLIA [id number] [address] [place] [address] [facility] Urea nitrogen [Mass/Vol] 13 mg/dL Normal 7-18 [facility] Comment on above: Order Comment: Speci men Type: BLOOD SPECIMEN Performed By: #### 2 4323-8 #### [facility] CLIA [id number] [address] [place] [address] [place] CBC Auto Differentialon 05-10 Absolute Baso # 0.1 10*3/uL 0 - 0.2 10*3/uL [place], [place] Absolute Neut # 4.7 10*3/uL 1.8 - 7 10*3/uL [place] Basophils/100 WBC (Bld) 0.9 % 0 - 2 % [place] Eosinophils (Bld) [#/Vol] 0.3 10*3/uL 0 - 0.5 10*3/uL [place] Eosinophils/100 WBC (Bld) 3.2 % 1 - 6 % [place] Erythrocyte distribution width (RBC) [Ratio] 12.8 % 11.5 - 14.5 % [place] Granulocytes/100 WBC (Bld) 57.3 % 40 - 80 % [place] Hematocrit (Bld) [Volume fraction] 41.3 % 35 - 47 % [place] Hemoglobin (Bld) [Mass/Vol] 14.1 g/dL 11.7 - 16 g/dL [place] Lymphocytes (Bld) [#/Vol] 2.6 10*3/uL 1 - 4.3 10*3/uL [place] Lymphocytes/100 WBC (Bld) 31.8 % 20 - 40 % [place] MCH (RBC) [Entitic mass] 32.3 pg 26 - 34 pg [place] MCHC (RBC) [Mass/Vol] 34.0 % 32 - 36 % [place] MCV (RBC) [Entitic vol] 95.0 fL 79 - 98 fL [place] Monocytes (Bld) [#/Vol] 0.6 10*3/uL 0 - 0.8 10*3/uL [place] Monocytes/100 WBC (Bld) 6.8 % 2 - 10 % [place] Platelet mean volume (Bld) [Entitic vol] 8.2 fL 7.4 - 10.4 fL [place] Platelets (Bld) [#/Vol] 312 10*3/uL 140 - 440 10*3/uL [place] RBC (Bld) [#/Vol] 4.35 10*6/uL 3.8 - 5.2 10*6/uL [place] WBC (Bld) [#/Vol] 8.3 10*3/uL 3.6 - 10.7 10*3/uL [place] Test Performed by [facility], [address] , [address] Comprehensive Metabolic Pane juan carlos 06-06-2020 Albumin [Mass/Vol] 4.3 g/dL 3.5 - 5 g/dL [place] ALP [Catalytic activity/Vol] 77 U/L 38 - 126 U/L [place] ALT [Catalytic activity/Vol] 42 U/L High 0 - 34 U/L [place] Comment on above: The ALT test is perf ormed by an updated assay method. Please note that the reference intervals have been changed and are now sex specific. Anion gap [Moles/Vol] 7 mmol/L [place], [place] AST [Catalytic activity/Vol] 41 U/L 15 - 46 U/L [place] Bilirubin Ql (U) 0.5 mg/dL 0.2 - 1.3 mg/dL [place] Calcium [Mass/Vol] 9.6 mg/dL 8.4 - 10. 4 mg/dL [place] Chloride [Moles/Vol] 106 mmol/L 98 - 10 7 mmol/L [place] CO2 [Moles/Vol] 29 mmol/L 22 - 30 mmol/L [place] Creatinine [Mass/Vol] 0.71 mg/dL 0.52 - 1.25 mg/dL [place] EGFR IF NonAfrican [place] >90.0 >60 mL/min [place] Comment on above: KDIGO guidelines pro vide the following GFR categories: Stage GFR(ml/min/1.73 m2) Terms G1 >=90 Normal or high G2 60-89 Mildly decreased* G3a 45-59 Mildly to moderately decreased G3b 30-44 Moderately to severely decreased G4 15-29 Severely decreased G5 <15 Kidney failure *Relative to young adult level. In the absence of evidence of kidney damage, neither GFR category G1 nor G2 fulfill the criteria for CKD. The CKD-EPI equation is validated in individuals 18 years of age and older. Currently the best equation for estimating glomerular filtration rate (GFR) from serum creatinine in children is the Bedside Bain equation. It is less accurate in patients with extremes of muscle mass, restriction of dietary protein, ingestion of creatine, extra-renal metabolism of creatinine, or treatment with medications that affect renal tubular creatinine secretion. GFR/1.73 sq M predicted among blacks MDRD (S/P/Bld) [Vol rate/Area] mL/min/{1.73_m2} >60 mL/min [place] Glucose [Mass/Vol] 106 mg/dL High 70 - 100 mg/dL [place] Potassium [Moles/Vol] 4.6 mmol/L 3.5 - 5.1 mmol/L [place] Protein [Mass/Vol] 7.8 g/dL 6.3 - 8.2 g/dL [place] Sodium [Moles/Vol] 142 mmol/L 135 - 145 mmol/L [place] Urea nitrogen [Mass/Vol] 15 mg/dL 7 - 20 mg/dL [place] Lipid Panelon 06-06-2020 Cholesterol [Mass/Vol] 203 mg/dL Abnormal <200 [place] Cholesterol in HDL [Mass/Vol] 48 mg/dL 40 - 60 mg/dL [place] Cholesterol in LDL [Mass/Vol] 135 mg/dL Abnormal <100 [place] Cholesterol.total/Chol esterol in HDL [Mass ratio] 4 {ratio} [place] Comment on above: Ref Range: < 3 Low Risk for CHD 3-6 Mod Risk for CHD > 6 High Risk for CHD Triglyceride [Mass/Vol] 102 mg/dL <150 [facility] Interpretation and review of laboratory results Abnormal [place], [place] Test Performed by [facility], [address] , [place], [place] [address] [facility] Patient Name: CHAD PEARSON ---Ultrasound--- Exam Date/Time 06/06/2020 09:29:33 EDT Exam US Abdomen Complete Ordering Physician MD ALVARADO REYNALDO C. Accession Number [id number] CPT4 Codes 43064 () Reason For Exam liver cyst Report Indication: Hepatic cyst. Ultrasound of the abdomen was performed. Comparison was made to the study dated 09/24/2016. The liver is dense consistent with fatty infiltration and/or hepatocellular disease. There is a 6.6 x 6.1 x 4.4 cm simple cyst in the right hepatic lobe. Previously, this measured 4.1 x 3.3 x 4.1 cm. The gallbladder is visualized and is without evidence of cholelithiasis. There is no intra or extrahepatic biliary ductal dilatation. The common bile duct measures 3 mm. The visualized portions of the pancreas are unremarkable. Cursory evaluation of the kidneys shows no evidence of hydronephrosis. There is a 2.2 x 2.1 x 1.5 cm cyst with low-level internal echoes in the lower pole of the right kidney. Previously, this measured 1.7 x 1.5 x 1.6 cm. The spleen is not enlarged. The proximal portions of the aorta and IVC are within normal limits. Impression: 1. Hepatic and right renal cysts which have mildly increased in size when compared to the previous study. 2. Dense liver consistent with fatty infiltration and/or hepatocellular disease. No evidence of cholelithiasis or biliary ductal dilatation. Report Dictated on --- Final --- Dictating Physician: DO NEUMANN ANTHONY Signed Date and Time: 06/06/2020 9:52 am Signed by: DO NEUMANN ANTHONY Transcribed Date and Time: 06/06/2020 9:53 [place], [place], [facility] Incoming Radiology Results From [facility] - 06/06/2020 9:53 AM EDT Patient Name: CHAD CHAVEZ ---Ultrasound--- Exam Date/Time 06/06/2020 09:29:33 EDT Exam US Abdomen Complete Ordering Physician MD DIANA, CHRISTOPHE Medina Accession Number [id number] CPT4 Codes 65088 () Reason For Exam liver cyst Report Indication: Hepatic cyst. Ultrasound of the abdomen was performed. Comparison was made to the study dated 09/24/2016. The liver is dense consistent with fatty infiltration and/or hepatocellular disease. There is a 6.6 x 6.1 x 4.4 cm simple cyst in the right hepatic lobe. Previously, this measured 4.1 x 3.3 x 4.1 cm. The gallbladder is visualized and is without evidence of cholelithiasis. There is no intra or extrahepatic biliary ductal dilatation. The common bile duct measures 3 mm. The visualized portions of the pancreas are unremarkable. Cursory evaluation of the kidneys shows no evidence of hydronephrosis. There is a 2.2 x 2.1 x 1.5 cm cyst with low-level internal echoes in the lower pole of the right kidney. Previously, this measured 1.7 x 1.5 x 1.6 cm. The spleen is not enlarged. The proximal portions of the aorta and IVC are within normal limits. Impression: 1. Hepatic and right renal cysts which have mildly increased in size when compared to the previous study. 2. Dense liver consistent with fatty infiltration and/or hepatocellular disease. No evidence of cholelithiasis or biliary ductal dilatation. Report Dictated on --- Final --- Dictating Physician: DO NEUMANN ANTHONY Signed Date and Time: 06/06/2020 9:52 am Signed by: DO NEUMANN ANTHONY Transcribed Date and Time: 06/06/2020 9:53 [facility], [place] CBC Auto DifferentialOrdered By: Poonam Neal on 10-09-2019 Absolute Baso # 0.0 10*3/uL 0 - 0.2 10*3/uL [facility] Work Phone: Absolute Neut # 4.8 10*3/uL 1.8 - 7 10*3/uL [facility] Work Phone: [phone] Basophils/100 WBC (Bld) 0.6 % 0 - 2 % [facility] Work Phone: [phone] Eosinophils (Bld) [#/Vol] 0.2 10*3/uL 0 - 0.5 10*3/uL [facility] Work Phone: [phone] Eosinophils/100 WBC (Bld) 2.4 % 1 - 6 % [facility] Work Phone: [phone] Erythrocyte distribution width (RBC) [Ratio] 13.4 % 11.5 - 14.5 % [facility] Work Phone: [phone] Granulocytes/100 WBC (Bld) 57.0 % 40 - 80 % [facility] Work Phone: [phone] Hematocrit (Bld) [Volume fraction] 41.0 % 35 - 47 % [facility] Work Phone: [phone] Hemoglobin (Bld) [Mass/Vol] 13.7 g/dL 11.7 - 16 g/dL [facility] Work Phone: [phone] Lymphocytes (Bld) [#/Vol] 2.7 10*3/uL 1 - 4.3 10*3/uL [facility] Work Phone: [phone] Lymphocytes/100 WBC (Bld) 32.2 % 20 - 40 % [facility] Work Phone: [phone] MCH (RBC) [Entitic mass] 32.4 pg 26 - 34 pg [facility] Work Phone: [phone] MCHC 33.3 % 32 - 36 % [facility] Work Phone: [phone] MCV (RBC) [Entitic vol] 97.3 fL 79 - 98 fL [facility] Work Phone: [phone] Monocytes (Bld) [#/Vol] 0.6 10*3/uL 0 - 0.8 10*3/uL [facility] Work Phone: [phone] Monocytes/100 WBC (Bld) 7.8 % 2 - 10 % [facility] Work Phone: [phone] Platelet mean volume (Bld) [Entitic vol] 8.4 fL 7.4 - 10.4 fL [facility] Work Phone: [phone] Platelets (Bld) [#/Vol] 301 10*3/uL 140 - 440 10*3/uL [facility] Work Phone: 222 RBC (Bld) [#/Vol] 4.22 10*6/uL 3.8 - 5.2 10*6/uL [facility] Work Phone: [phone] WBC (Bld) [#/Vol] 8.3 10*3/uL 3.6 - 10.7 10*3/uL [facility] Work Phone: [phone] Test Performed by [facility], [address] [place] [address] , [place], [place] [address] [facility] Work Phone: Comprehensive Metabolic Pane lOrdered By: Poonam Neal on 10-09-2019 Albumin [Mass/Vol] 4.4 g/dL 3.5 - 5 g/dL [facility] Work Phone: [phone] ALP [Catalytic activity/Vol] 72 U/L 38 - 126 U/L [facility] Work Phone: [phone] ALT [Catalytic activity/Vol] 95 U/L High 13 - 69 U/L [facility] Work Phone: [phone] Anion gap [Moles/Vol] 9 mmol/L [facility] Work Phone: [phone] AST [Catalytic activity/Vol] 69 U/L High 15 - 46 U/L [facility] Work Phone: [phone] Bilirubin [Mass/Vol] 0.5 mg/dL 0.2 - 1 .3 mg/dL [facility] Work Phone: [phone] Calcium [Mass/Vol] 9.7 mg/dL 8.4 - 10. 4 mg/dL [facility] Work Phone: [phone] Chloride [Moles/Vol] 105 mmol/L 98 - 10 7 mmol/L [facility] Work Phone: 222 CO2 [Moles/Vol] 27 mmol/L 22 - 30 mmol/L [facility] Work Phone: 222 Creatinine [Mass/Vol] 0.62 mg/dL 0.52 - 1.25 mg/dL [facility] Work Phone: [phone] EGFR IF NonAfrican [place]ian >60.0 >60 mL/min [facility] Work Phone: [phone] Comment on above: Source- MDRD equatio n with creatinine calibration to IDMS(NKDEP) eGFR not recommended for drug dose adjustment GFR/1.73 sq M.predicted among blacks MDRD (S/P/Bld) [Vol rate/Area] mL/min/{1.73_m2} >60 mL/min [facility] Work Phone: [phone] Glucose [Mass/Vol] 101 mg/dL High 70 - 100 mg/dL [facility] Work Phone: [phone] Potassium [Moles/Vol] 4.5 mmol/L 3.5 - 5.1 mmol/L [facility] Work Phone: [phone] Protein [Mass/Vol] 7.7 g/dL 6.3 - 8.2 g/dL [facility] Work Phone: [phone] Sodium [Moles/Vol] 141 mmol/L 135 - 145 mmol/L [facility] Work Phone: [phone] Urea nitrogen [Mass/Vol] 12 mg/dL 7 - 20 mg/dL [facility] Work Phone: [phone] Lipid PanelOrdered By: Poonam Neal on 10-09-2019 Cholesterol [Mass/Vol] 185 mg/dL <200 [facility] Work Phone: [phone] Cholesterol in HDL [Mass/Vol] 46 mg/dL 40 - 60 mg/dL [facility] Work Phone: [phone] Cholesterol in LDL [Mass/Vol] 124 mg/dL Abnormal <100 [facility] Work Phone: [phone] Cholesterol.total/Chol esterol in HDL [Mass ratio] 4 {ratio} [facility] Work Phone: [phone] Comment on above: Ref Range: < 3 Low Risk for CHD 3-6 Mod Risk for CHD > 6 High Risk for CHD Triglyceride [Mass/Vol] 77 mg/dL <150 [facility] Work Phone: [phone] No Panel InformationOrdered By: Poonam Neal on 10-09-2019 Interpretation and review of laboratory results Abnormal [facility] Work Phone: Test Performed by [facility], [address] , [place], [place] [address] [facility] Work Phone: Vital Signs Date Time Vital Sign Value Performing Clinician Facility 06-02-2025 10:39-0400 Body height 170.[address] Poonam Neal MD Work Phone: [facility] 06-02-2025 10:39-0400 Body weight 81.[address] Poonam Neal MD Work Phone: [facility] 05-10-2025 10:45-0400 Body height 170.2 cm Poonam Neal MD Work Phone: [facility] 05-10-2025 10:45-0400 Body mass index (BMI) [Ratio] 28.51 kg/m2 Poonam Neal MD Work Phone: [facility] 05-10-2025 10:45-0400 Body temperature 98.1 [degF] Poonam Neal MD Work Phone: [facility] 05-10-2025 10:45-0400 Body weight 82.56 kg Poonam Neal MD Work Phone: [facility] 05-10-2025 10:45-0400 Diastolic blood pressure 73 mm[Hg] Poonam Neal MD Work Phone: [facility] 05-10-2025 10:45-0400 Heart rate 70 /min Poonam Neal MD Work Phone: [facility] 05-10-2025 10:45-0400 Systolic blood pressure 106 mm[Hg] Poonam Neal MD Work Phone: [facility] 05-03-2025 10:33-0400 Body height 170.[address] Poonam Neal MD Work Phone: [facility] 05-03-2025 10:33-0400 Body weight 82.[address] Poonam Neal MD Work Phone: [facility] 04-27-2025 11:24-0400 Body height 170.[address] Poonam Neal MD Work Phone: 0(449)275-540979 [place] [address] 04-27-2025 11:20-0400 Body mass index (BMI) [Ratio] 28.2 kg/m2 Dr. Poonam Neal MD Work Phone: 2(741)886-346079 [place] [address] 04-27-2025 11:20-0400 Body weight 81.[address] Poonam Neal MD Work Phone: 9(998)625-529216 [address] 04-27-2025 11:20-0400 Diastolic blood pressure 72 mm[Hg] Dr. Poonam Neal MD Work Phone: 7(820)010-501316 [address] 04-27-2025 11:20-0400 Systolic blood pressure 118 mm[Hg] Dr. Poonam Neal MD Work Phone: 7(672)906-827616 [address] 03-30-2025 09:38-0400 Body height 170.[address] Poonam Neal MD Work Phone: 1(369)577-939479 [place] [address] 03-30-2025 09:38-0400 Body weight 83.[address] Poonam Neal MD Work Phone: 4(506)391-594579 [place] [address] 03-18-2025 10:35-0400 Body height 170.[address] Poonam Neal MD Work Phone: 5(954)954-411616 [address] 03-18-2025 10:35-0400 Body mass index (BMI) [Ratio] 29.2 kg/m2 Dr. Poonam Neal MD Work Phone: 8(593)987-028479 [place] [address] 03-18-2025 10:35-0400 Body weight 84.[address] Poonam Neal MD Work Phone: 1(156)151-662548 [place] [address] 03-18-2025 10:35-0400 Diastolic blood pressure 89 mm[Hg] Dr. Poonam Neal MD Work Phone: [facility] 03-18-2025 10:35-0400 Heart rate 75 /min Dr. Poonam Neal MD Work Phone: [facility] 03-18-2025 10:35-0400 SaO2% (BldA) [Mass fraction] 94 % Dr. Poonam Neal MD Work Phone: [facility] 03-18-2025 10:35-0400 Systolic blood pressure 124 mm[Hg] Dr. Poonam Neal MD Work Phone: [facility] 02-16-2025 10:49-0400 Body height 170.[address] Poonam Neal MD Work Phone: [facility] 02-16-2025 10:49-0400 Body mass index (BMI) [Ratio] 30.9 kg/m2 Dr. Poonam Neal MD Work Phone: 6(600)689-313779 [place] [address] 02-16-2025 10:49-0400 Body weight 89.[address] Poonam Neal MD Work Phone: [facility] 02-16-2025 10:49-0400 Diastolic blood pressure 72 mm[Hg] Dr. Poonam Neal MD Work Phone: [facility] 02-16-2025 10:49-0400 Heart rate 78 /min Dr. Poonam Neal MD Work Phone: [facility] 02-16-2025 10:49-0400 Respiratory rate 18 /min Dr. Poonam Neal MD Work Phone: [facility] 02-16-2025 10:49-0400 SaO2% (BldA) [Mass fraction] 98 % Dr. Poonam Neal MD Work Phone: [facility] 02-16-2025 10:49-0400 Systolic blood pressure 113 mm[Hg] Dr. Poonam Neal MD Work Phone: [facility] 02-04-2025 11:03-0400 Body height 170.2 cm Poonam Neal MD Work Phone: [facility] 02-04-2025 11:03-0400 Body mass index (BMI) [Ratio] 30.95 kg/m2 Poonam Neal MD Work Phone: [facility] 02-04-2025 11:03-0400 Body temperature 98.29 [degF] Poonam Neal MD Work Phone: [facility] 02-04-2025 11:03-0400 Body weight 89.63 kg Poonam Neal MD Work Phone: [facility] 02-04-2025 11:03-0400 Diastolic blood pressure 78 mm[Hg] Poonam Neal MD Work Phone: [facility] 02-04-2025 11:03-0400 Heart rate 89 /min Poonam Neal MD Work Phone: [facility] 02-04-2025 11:03-0400 SaO2% (BldA) [Mass fraction] 98 % Poonam Neal MD Work Phone: [facility] 02-04-2025 11:03-0400 Systolic blood pressure 128 mm[Hg] Poonam Neal MD Work Phone: [facility] 01-18-2025 10:57-0400 Body height 170.[address] Poonam Neal MD Work Phone: [facility] 01-18-2025 10:57-0400 Body mass index (BMI) [Ratio] 31 kg/m2 Dr. Poonam Neal MD Work Phone: [facility] 01-18-2025 10:57-0400 Body weight 89.[address] Poonam Neal MD Work Phone: [facility] 05-13-2025 10:57-0400 Diastolic blood pressure 82 mm[Hg] Dr. Poonam Neal MD Work Phone: [facility] 01-18-2025 10:57-0400 Heart rate 87 /min Dr. Poonam Neal MD Work Phone: [facility] 01-18-2025 10:57-0400 Respiratory rate 16 /min Dr. Poonam Neal MD Work Phone: [facility] 01-18-2025 10:57-0400 SaO2% (BldA) [Mass fraction] 97 % Dr. Poonam Neal MD Work Phone: [facility] 01-18-2025 10:57-0400 Systolic blood pressure 129 mm[Hg] Dr. Poonam Neal MD Work Phone: [facility] 11-05-2024 10:42-0500 Body height 170.2 cm Poonam Neal MD Work Phone: [facility] 11-05-2024 10:42-0500 Body mass index (BMI) [Ratio] 30.7 kg/m2 Poonam Neal MD Work Phone: [facility] 11-05-2024 10:42-0500 Body temperature 98.1 [degF] Poonam Neal MD Work Phone: [facility] 11-05-2024 10:42-0500 Body weight 88.91 kg Poonam Neal MD Work Phone: [facility] 11-05-2024 10:42-0500 Diastolic blood pressure 82 mm[Hg] Poonam Neal MD Work Phone: [facility] 11-05-2024 10:42-0500 Heart rate 85 /min Poonam Neal MD Work Phone: [facility] 11-05-2024 10:42-0500 SaO2% (BldA) [Mass fraction] 96 % Poonam Neal MD Work Phone: [facility] 11-05-2024 10:42-0500 Systolic blood pressure 126 mm[Hg] Poonam Neal MD Work Phone: [facility] 08-12-2024 12:29-0500 Body temperature 97.2 [degF] Derrek Hernandez MD Work Phone: [facility] 08-12-2024 12:29-0500 Body weight 87.09 kg Derrek Hernandez MD Work Phone: [facility] 08-12-2024 12:29-0500 Diastolic blood pressure 77 mm[Hg] Derrek Hernandez MD Work Phone: [facility] 08-12-2024 12:29-0500 Heart rate 76 /min Derrek Hernandez MD Work Phone: [facility] 08-12-2024 12:29-0500 Respiratory rate 16 /min Derrek Hernandez MD Work Phone: [facility] 08-12-2024 12:29-0500 Systolic blood pressure 135 mm[Hg] Derrek Hernandez MD Work Phone: [facility] 07-08-2024 14:42-0400 Body height 170.2 cm Poonam Neal MD Work Phone: [facility] 07-08-2024 14:42-0400 Body mass index (BMI) [Ratio] 29.76 kg/m2 Poonam Neal MD Work Phone: [facility] 07-08-2024 14:42-0400 Body temperature 98.4 [degF] Poonam Neal MD Work Phone: [facility] 07-08-2024 14:42-0400 Body weight 86.18 kg Poonam Neal MD Work Phone: [facility] 07-08-2024 14:42-0400 Diastolic blood pressure 78 mm[Hg] Poonam Neal MD Work Phone: [facility] 07-08-2024 14:42-0400 Heart rate 62 /min Poonam Neal MD Work Phone: [facility] 07-08-2024 14:42-0400 SaO2% (BldA) [Mass fraction] 95 % Poonam Neal MD Work Phone: [facility] 07-08-2024 14:42-0400 Systolic blood pressure 118 mm[Hg] Poonam Neal MD Work Phone: [facility] 02-12-2024 10:55-0400 Body height 170.2 cm Poonam Neal MD Work Phone: [facility] 02-12-2024 10:55-0400 Body mass index (BMI) [Ratio] 30.23 kg/m2 Poonam Neal MD Work Phone: [facility] 02-12-2024 10:55-0400 Body temperature 97.9 [degF] Poonam Neal MD Work Phone: [facility] 02-12-2024 10:55-0400 Body weight 87.54 kg Poonam Neal MD Work Phone: [facility] 02-12-2024 10:55-0400 Diastolic blood pressure 82 mm[Hg] Poonam Neal MD Work Phone: [facility] 02-12-2024 10:55-0400 Heart rate 83 /min Poonam Neal MD Work Phone: [facility] 02-12-2024 10:55-0400 SaO2% (BldA) [Mass fraction] 97 % Poonam Neal MD Work Phone: [facility] 02-12-2024 10:55-0400 Systolic blood pressure 116 mm[Hg] Poonam Neal MD Work Phone: [facility] 05-28-2023 10:44-0400 Body height 170.2 cm Poonam Neal MD Work Phone: [facility] 05-28-2023 10:44-0400 Body mass index (BMI) [Ratio] 30.85 kg/m2 Poonam Neal MD Work Phone: [facility] 05-28-2023 10:44-0400 Body weight 89.36 kg Poonam Neal MD Work Phone: [facility] 05-28-2023 10:44-0400 Diastolic blood pressure 82 mm[Hg] Poonam Neal MD Work Phone: [facility] 05-28-2023 10:44-0400 Heart rate 68 /min Poonam Neal MD Work Phone: [facility] 05-28-2023 10:44-0400 Systolic blood pressure 123 mm[Hg] Poonam Neal MD Work Phone: [facility] 02-26-2023 11:17-0400 Body height 170.2 cm Poonam Neal MD Work Phone: [facility] 02-26-2023 11:17-0400 Body mass index (BMI) [Ratio] 31.48 kg/m2 Poonam Neal MD Work Phone: [facility] 02-26-2023 11:17-0400 Body temperature 98.01 [degF] Poonam Neal MD Work Phone: [facility] 02-26-2023 11:17-0400 Body weight 91.17 kg Poonam Neal MD Work Phone: [facility] 02-26-2023 11:17-0400 Diastolic blood pressure 74 mm[Hg] Poonam Neal MD Work Phone: [facility] 02-26-2023 11:17-0400 Heart rate 71 /min Poonam Neal MD Work Phone: [facility] 02-26-2023 11:17-0400 SaO2% (BldA) [Mass fraction] 97 % Poonam Neal MD Work Phone: [facility] 02-26-2023 11:17-0400 Systolic blood pressure 116 mm[Hg] Poonam Neal MD Work Phone: [facility] 01-21-2023 09:56-0400 Body height 170.[address] Poonam Neal Work Phone: [facility] 01-21-2023 09:56-0400 Body mass index (BMI) [Ratio] 32.4 kg/m2 Dr. Poonam Neal Work Phone: [facility] 01-21-2023 09:56-0400 Body weight 93.[address] Poonam Neal Work Phone: [facility] 01-21-2023 09:56-0400 Diastolic blood pressure 84 mm[Hg] Dr. Poonam Neal Work Phone: [facility] 01-21-2023 09:56-0400 Heart rate 73 /min Dr. Poonam Neal Work Phone: [facility] 01-21-2023 09:56-0400 SaO2% (BldA) [Mass fraction] 95 % Dr. Poonam Neal Work Phone: [facility] 01-21-2023 09:56-0400 Systolic blood pressure 144 mm[Hg] Dr. Poonam Neal Work Phone: [facility] 10-23-2022 11:14-0500 Body height 170.2 cm Poonam Neal MD Work Phone: [facility] 10-23-2022 11:14-0500 Body mass index (BMI) [Ratio] 32.73 kg/m2 Poonam Neal MD Work Phone: [facility] 10-23-2022 11:14-0500 Body temperature 98.4 [degF] Poonam Neal MD Work Phone: [facility] 10-23-2022 11:14-0500 Body weight 94.8 kg Poonam Neal MD Work Phone: [facility] 10-23-2022 11:14-0500 Diastolic blood pressure 72 mm[Hg] Poonam Neal MD Work Phone: [facility] 10-23-2022 11:14-0500 Heart rate 87 /min Poonam Neal MD Work Phone: [facility] 10-23-2022 11:14-0500 SaO2% (BldA) [Mass fraction] 96 % Poonam Neal MD Work Phone: [facility] 10-23-2022 11:14-0500 Systolic blood pressure 116 mm[Hg] Poonam Neal MD Work Phone: [facility] 12-07-2021 08:47-0400 Body height 170.[address] Poonam Neal Work Phone: [facility] Work Phone: 12-07-2021 08:47-0400 Body mass index (BMI) [Ratio] 32.1 kg/m2 Dr. Poonam Neal Work Phone: [facility] Work Phone: 12-07-2021 08:47-0400 Body weight 92.[address] Poonam Neal Work Phone: [facility] Work Phone: 12-07-2021 08:47-0400 Diastolic blood pressure 85 mm[Hg] Dr. Poonam Neal Work Phone: [facility] Work Phone: 12-07-2021 08:47-0400 Heart rate 84 /min Dr. Poonam Neal Work Phone: [facility] Work Phone: 12-07-2021 08:47-0400 SaO2% (BldA) [Mass fraction] 97 % Dr. Poonam Neal Work Phone: [facility] Work Phone: 12-07-2021 08:47-0400 Systolic blood pressure 134 mm[Hg] Dr. Poonam Neal Work Phone: [facility] Work Phone: Encounters Encounter Date Encounter Type Care Provider Facility Start: 07-13-2025 ambulatory Telma Posadas ty:[facility] Start: 06-02-2025 End: 06-07-2025 Discharged Recurring Telma MENON -Nutritional Services Work Phone: Start: 06-02-2025 End: 06-07-[address] Poonam Neal MD Work Phone: -[facility] Services Start: 05-26-2025 End: 05-26-2025 [facility] Start: 05-10-2025 End: 05-10-2025 Office outpatient visit 25 minutes Poonam Neal MD Work Phone: [facility] [place] Comment on above: Essential hypertensi on (Primary Dx); Fatty liver Start: 05-10-2025 End: 05-10-2025 ambulatory [facility] Start: 05-03-2025 End: 05-08-2025 Discharged Recurring Telma MENON -Nutritional Services Work Phone: Start: 05-03-2025 End: 05-08-[address] Poonam Neal MD Work Phone: -Nutritional Services Start: 04-27-2025 End: 04-27-2025 Patient encounter procedure Bharati MENON -[facility] Work Phone: Start: 04-27-2025 End: 04-27-2025 Patient encounter status Bharati BRICEC [facility] Start: 04-27-2025 End: 04-27-[address] Poonam Neal MD Work Phone: -[facility] Start: 03-30-2025 End: 04-07-2025 Discharged Recurring Telma MENON -Nutritional Services Work Phone: Start: 03-30-2025 End: 04-07-[address] Poonam Neal MD Work Phone: -Nutritional Services Start: 03-18-2025 End: 03-18-[address] Alberto Leroy MD -[facility] Work Phone: Start: 03-18-2025 End: 03-18-[address] Poonam Neal MD Work Phone: -[facility] Start: 02-16-2025 End: 02-16-2025 Patient encounter procedure Telma MENON -[facility] Work Phone: Start: 02-16-2025 End: 02-16-[address] Poonam Neal MD Work Phone: [facility] Work Phone: Start: 02-07-2025 End: 04-09-2025 Follow-up encounter Poonam Neal MD Work Phone: [facility] Comment on above: AMB POC URINALYSIS D IP STICK AUTO W/O MICRO, Urine culture (clean catch) Start: 02-04-2025 End: 02-04-2025 Office outpatient visit 25 minutes Poonam Neal MD Work Phone: [facility] Comment on above: Dark urine (Primary Dx); Essential hypertension; Elevated LFTs Start: 02-04-2025 End: 02-04-2025 ambulatory POONAM NEAL [facility] Start: 01-27-2025 End: 01-27-[address] Poonam Neal MD Work Phone: [facility] Work Phone: Start: 01-27-2025 End: 01-27-2025 Patient encounter procedure Telma Mcintosh NP-C -Ultrasound [facility] Work Phone: Start: 01-27-2025 End: 01-27-2025 ambulatory Poonam Neal Facility:[facility] Start: 01-18-2025 End: 01-18-[address] Poonam Neal MD Work Phone: [facility] Work Phone: Start: 01-18-2025 End: 01-18-2025 Patient encounter procedure Telma MENON -Laboratory Work Phone: Start: 01-18-2025 End: 01-18-2025 Patient encounter procedure Telma MENON -[facility] Work Phone: Start: 01-18-2025 End: 01-18-[address] Poonam Neal MD Work Phone: [facility] Work Phone: Start: 01-18-2025 End: 01-18-2025 ambulatory Telma Mcintosh Facility:[facility] Start: 01-06-2025 End: 01-06-2025 Patient encounter procedure Bharati MENON -Outpatient Breast Imaging Work Phone: Start: 01-06-2025 End: 01-06-2025 ambulatory Bharati Lopez NP Facility:[facility] Start: 11-05-2024 End: 11-05-2024 Office outpatient visit 15 minutes Poonam Neal MD Work Phone: [facility] [place] Comment on above: Essential hypertensi on (Primary Dx); Mild sprain of left ankle, sequela; Elevated LFTs Start: 11-05-2024 End: 11-05-2024 ambulatory POONAM NEAL [facility] Start: 11-03-2024 End: 11-03-2024 ambulatory POONAM NEAL [facility] Start: 09-30-2024 End: 09-30-2024 Refill Poonam Neal MD Work Phone: [facility] Start: 08-12-2024 End: 08-12-2024 Office outpatient new 30 minutes Derrek Hernandez MD Work Phone: [facility] Comment on above: Sprain of left ankle , unspecified ligament, initial encounter (Primary Dx); Acute left ankle pain Start: 07-08-2024 End: 07-08-2024 Office outpatient visit 25 minutes Poonam Neal MD Work Phone: [facility] Comment on above: Thoracic back pain, unspecified back pain laterality, unspecified chronicity (Primary Dx); Essential hypertension; Elevated LFTs Start: 07-08-2024 End: 07-08-2024 ambulatory POONAM NEAL [facility] Start: 04-16-2024 End: 04-16-2024 ambulatory POONAM NEAL MD Facility:[facility] Start: 04-16-2024 End: 04-16-2024 Patient encounter procedure POONAM NEAL MD [facility] Start: 03-17-2024 End: 03-18-2024 Refill Poonam Neal MD Work Phone: [facility] Start: 02-12-2024 Refill Poonam zavala MD Work Phone: [facility] Start: 02-12-2024 End: 02-12-2024 Office outpatient visit 25 minutes Poonam Neal MD Work Phone: [facility] Comment on above: Essential hypertensi on (Primary Dx); Elevated LFTs Start: 01-27-2024 Refill Poonam zavala MD Work Phone: [facility] Start: 01-01-2024 End: 01-01-[address] [facility] Work Phone: Start: 01-01-2024 End: 01-01-2024 Patient encounter procedure [facility]-Outpatient Breast Imaging Work Phone: Start: 09-22-2023 Transcribe Orders Poonam lynn MD Work Phone: [facility] Comment on above: Essential (primary) hypertension (Primary Dx) Start: 05-28-2023 End: 05-28-2023 Office outpatient visit 25 minutes Poonam Neal MD Work Phone: [facility] Comment on above: Essential hypertensi on (Primary Dx) Start: 02-26-2023 Transcribe Orders Poonam lynn MD Work Phone: [facility] Laboratory Comment on above: Unspecified abnormal findings in urine (Primary Dx) Start: 02-26-2023 End: 02-26-2023 Office outpatient visit 15 minutes Poonam Neal MD Work Phone: [facility] Comment on above: Abnormal urine (Prim iman Dx); Essential hypertension; Elevated LFTs Start: 02-26-2023 End: 02-26-2023 Office outpatient visit 25 minutes Poonam Neal MD Work Phone: [facility] Comment on above: Abnormal urine (Prim iman Dx); Essential hypertension; Elevated LFTs Start: 02-18-2023 End: 02-18-[address] Poonam Neal Work Phone: [facility] Work Phone: Start: 02-18-2023 End: 02-18-[address] Poonam Neal Work Phone: [facility]-Ultrasound, [facility] Start: 01-21-2023 End: 01-21-[address] Poonam Neal Work Phone: [facility] Start: 11-28-2022 End: 11-28-[address] [facility] Work Phone: Start: 11-28-2022 End: 11-28-2022 Patient encounter procedure [facility]-Outpatient Breast Imaging Start: 10-23-2022 End: 10-23-2022 Office outpatient visit 15 minutes Poonam Neal MD Work Phone: [facility] Comment on above: Essential hypertensi on (Primary Dx); Elevated LFTs Start: 05-23-2022 [facility] Start: 05-23-2022 End: 05-23-2022 Subsequent hospital visit by physician Poonam Neal MD Work Phone: [facility] Comment on above: HTN (hypertension), benign; Fatty liver Start: 12-25-2021 End: 12-25-[address] Poonam Neal Work Phone: [facility]-Ultrasound, [facility] Start: 12-07-2021 End: 12-07-[address] Poonam Neal Work Phone: [facility]-Laboratory Start: 11-22-2021 End: 11-22-[address] Poonam Neal Work Phone: [facility]-Outpatient Breast Imaging Start: 10-24-2021 End: 10-24-[address] Poonam Neal Work Phone: [facility]-Laboratory, Specimen Start: 08-23-2021 Chart Update Poonam zavala Work Phone[facility] Work Phone: Start: 08-04-2021 [facility] Start: 08-03-2021 [facility] Start: 04-28-2021 End: 04-28-2021 Subsequent hospital visit by physician Poonam Neal MD Work Phone: [facility] Laboratory Comment on above: HTN (hypertension), benign; Screening for HIV (human immunodeficiency virus); Encounter for hepatitis C screening test for low risk patient Start: 06-06-2020 End: 06-06-2020 Subsequent hospital visit by physician Christophe Alvarado Work Phone: [facility] [place] Comment on above: Arrived HTN (hypertension), benign Start: 10-09-2019 End: 10-09-2019 Subsequent hospital visit by physician Poonam Neal MD Work Phone: [facility] Laboratory Procedures Date Procedure Procedure Detail Performing Clinician Start: 05-26-2025 Comprehensive metabolic panel Poonam Neal MD Work Phone: Start: 05-26-2025 Lipid panel Poonam crawford MD Work Phone: Start: 05-26-2025 Lipid 1996 panel - S titi or Plasma Poonam Neal MD Work Phone: Start: 05-10-2025 Follow-up visit Follow-up POONAM AGUSTIN Start: 02-04-2025 Urnls dip stick/tabl et rgnt auto w/o microscopy Poonam Neal MD Work Phone: Start: 02-04-2025 Adult depression scr eening assessment Poonam Neal MD Work Phone: Start: 01-27-20[address] Ultrasound elastogra phy of liver Dr. Poonam Neal MD Work Phone: Start: 01-18-2025 Hepatitis A virus an tibody, total measurement Dr. Poonam Neal MD Work Phone: Comment on above: Comment: The HAV tot al antibody assay detects both IgG andIgM but does not differentiate between them. A negativeresult suggests susceptibility to infection. A positiveresult could be due to vaccination, previously resolvedinfection or active infection. Testing for HAV IgM shouldbe performed if active HAV infection is suspected. [facility] profiles that will automatically reflex positive HAVtotal antibody results to IgM (e.g., panel #[id number] HAVAntibody w/ Rfx).Performed at: [address] [id number] Director: Robert Dumont PhD, Phone: [phone] Start: 01-18-2025 Vitamin D, 25-hydrox y measurement Dr. Poonam Neal MD Work Phone: Comment on above: Vitamin D StatusDefi ciency: <20 ng/mL (50nmol/L)Insufficiency: 20-30 ng/mL (50-75 nmol/L)Sufficiency: 30-100 ng/mL (75-250 nmol/L)Toxicity: >100 ng/mL (>250 nmol/L) Start: 01-18-[address] Poonam Neal MD Work Phone: Comment on above: Test Ordered: [id number] Enhanced Liver Fibrosis (ELF)ELF(TM) Score 10.21 [H ] Reference Range: <9.80ELF(TM) Score Interpretation:Risk cut-offs to assess the likelihood of progressionto cirrhosis and liver-related clinical events within3.9 years following baseline ELF score (IQR: 14.0-22.4months)*: Lower risk < 9.80 Mid risk 9.80 - 11.29 Higher risk >11.29Note: The ELF(TM) Score is a unitless numerical value.*Isreal SA, Ivan VW, Cristy T, et al. Selonsertibfor patients with bridging fibrosis or compensatedcirrhosis due to THAO: Results from randomized phaseIII STELLAR trials. J Hepatol. 2020 Mar;73(1):26-39.Performed at: [address] [id number] Director: Koko No MD, Phone: [phone] at: [address] [id number] Director: Robert Dumont PhD, Phone: [phone] Start: 01-06-2025 End: 01-06-[address] Poonam zavala MD Work Phone: Start: 11-03-2024 Lipid 1996 panel - S titi or Plasma Poonam Neal MD Work Phone: Start: 11-02-2024 Adult depression scr eening assessment Poonam Neal MD Work Phone: Start: 07-07-2024 Adult depression scr eening assessment Poonam Neal MD Work Phone: Start: 01-01-2024 End: 01-01-2024 Screening mammography Start: 09-22-2023 Lipid 1996 panel - S titi or Plasma Poonam Neal MD Work Phone: Start: 02-26-2023 Culture bacterial qu anttative colony count urine Poonam Neal MD Work Phone: Start: 02-26-2023 Urnls dip stick/tabl et rgnt auto w/o microscopy Poonam Neal MD Work Phone: Start: 02-26-2023 Basic metabolic pane l calcium total Poonam Neal MD Work Phone: Start: 02-18-2023 Ultrasound elastogra phy of liver Dr. Poonam Neal Work Phone: Start: 11-28-2022 End: 11-28-2022 Screening mammography Start: 05-23-2022 Comprehensive metabolic panel Poonam Neal MD Work Phone: Start: 05-23-2022 Lipid panel Poonam crawford MD Work Phone: Start: 05-23-2022 Lipid 1996 panel - S titi or Plasma Poonam Neal MD Work Phone: Start: 12-13-2021 Microscopic observat ion [Identifier] in Cervix by Cyto stain Poonam Neal MD Work Phone: Start: 11-22-2021 End: 11-22-[address] Poonam zavala Work Phone: Start: 10-29-2021 Microscopic observat ion [Identifier] in Cervix by Cyto stain Poonam Neal MD Work Phone: Start: 04-28-2021 Comprehensive metabolic panel Poonam Neal MD Work Phone: Start: 08-07-2020 Colonoscopy Poonam crawford MD Work Phone: Start: 06-13-2020 Colonoscopy Derrek garcia MD Work Phone: Start: 06-06-2020 Blood count complete auto&auto difrntl wbc Poonam Neal Work Phone: Start: 06-06-2020 Comprehensive metabolic panel Poonam Neal Work Phone: Start: 06-06-2020 Lipid panel Poonam crawford Work Phone: Start: 06-06-2020 Us abdominal real ti me w/image documentation Christophe Alvarado Work Phone: Start: 10-09-2019 Comprehensive metabolic panel Poonam Neal MD Work Phone: Start: 10-09-2019 Lipid panel Poonam crawford MD Work Phone: section Poonam kincaid Work Phone: Plan of Treatment Date Care Activity Detail Author Start: 2036 RSV Vaccine (1 - 1-dose 75+ series) RSV Vaccine (1 - 1-dose 75+ series) [facility] Start: 12-08-2032 DTaP/Tdap/Td Vaccines (2 - Td or Tdap) DTaP/Tdap/Td Vaccines (2 - Td or Tdap) [facility] Start: 12-08-2032 Urine microalbumin profile DTaP,Tdap,Td Vaccine (2 - Td or Tdap) [facility] Start: 08-07-2030 Screening for malignant neoplasm of colon [facility] Start: 05-26-2030 Lipid panel Lipid Panel [facility] Start: 11-03-2029 Lipid panel Lipid Panel [facility] Start: 09-22-2028 Lipid panel [facility] Start: 05-23-2027 Lipid panel [facility] Start: 09-22-2026 Diabetes mellitus screening Diabetes Screening [facility] Start: 09-22-2026 Diabetes Screening Diabetes Screening [facility] Start: 02-04-2026 Depression Screening Depression Screening [facility] Start: 01-06-2026 Screening for malignant neoplasm of breast Mammogram [facility] Start: 11-02-2025 Depression Screening Depression Screening [facility] Start: 08-10-2025 End: 08-10-2025 Patient encounter procedure 08/10/2025 10:40 AM EST Office Visit [facility] [address] [place] [address] Poonam Neal MD [address] [place], [place] [address] [facility] [place] Start: 07-07-2025 Depression Screening Depression Screening [facility] Start: 06-06-2025 Lipid panel Lipid screen [facility] Work Phone: Start: 05-10-2025 End: 05-10-2025 Patient encounter procedure 05/10/2025 10:40 AM EDT Office Visit [facility] [address] [place] [id number] Poonam Neal MD [address] [place], [place] [address] [facility] Start: 05-09-2025 COVID-19 Vaccine ( season) COVID-19 Vaccine ( season) [facility] Start: 05-09-2025 Influenza vaccination Influenza Vaccine (#1) [facility] Start: 02-16-2025 Patient referral [facility] Work Phone: Start: 02-04-2025 End: 02-04-2026 Bacteria identified in Urine by Culture Urine culture (clean catch) Microbiology Routine Dark urine Expected: 02/04/2025 (Approximate), Expires: 02/04/2026 [facility] Work Phone: Comment on above: Expected: 02/04/2025 (Approximate), Expi res: 02/04/2026 Start: 02-04-2025 End: 02-04-2025 Patient encounter procedure 02/04/2025 11:00 AM EDT Office Visit [facility] [address] [place] [phone] Poonam Neal MD [address] [place] [address] [facility] Start: 01-18-[address] [facility] Start: 12-31-2024 Screening for malignant neoplasm of breast Mammogram [facility] Start: 12-13-2024 Screening for malignant neoplasm of cervix [facility] Start: 11-05-2024 End: 11-05-2025 CBC W Auto Differential panel - Blood CBC auto differential Lab Routine Essential hypertension Mild sprain of left ankle, sequela Expected: 11/05/2024 (Approximate), Expires: 11/05/2025 [facility] Comment on above: Expected: 11/05/2024 (Approximate), Expi res: 11/05/2025 Start: 11-05-2024 End: 11-05-2025 Comprehensive metabolic 1998 panel - Serum or Plasma Comprehensive metabolic panel Lab Routine Essential hypertension Mild sprain of left ankle, sequela Expected: 11/05/2024 (Approximate), Expires: 11/05/2025 [facility] Work Phone: Comment on above: Expected: 11/05/2024 (Approximate), Expi res: 11/05/2025 Start: 11-05-2024 End: 11-05-2025 Lipid 1996 panel - Serum or Plasma Lipid panel Lab Routine Essential hypertension Mild sprain of left ankle, sequela Expected: 11/05/2024 (Approximate), Expires: 11/05/2025 [facility] Comment on above: Expected: 11/05/2024 (Approximate), Expi res: 11/05/2025 Start: 11-05-2024 End: 11-05-2024 Patient encounter procedure 11/05/2024 10:40 AM EST [facility] [address] [place] [phone] Poonam Neal MD [address] [place], [place] [address] [facility] Start: 10-29-2024 Screening for malignant neoplasm of cervix [facility] Start: 10-09-2024 Lipid panel Lipid screen [facility] [place] Start: 08-04-2024 Diabetes mellitus screening Diabetes Screening [facility] Start: 07-08-2024 End: 07-08-2024 Patient encounter procedure 07/08/2024 2:40 PM EDT Office Visit [facility] [address] [place] [address] Poonam Neal MD [address] [place], [place] [address] [facility] Start: 07-08-2024 End: 07-08-2025 CBC W Auto Differential panel - Blood CBC auto differential Lab Routine Thoracic back pain, unspecified back pain laterality, unspecified chronicity Essential hypertension Elevated LFTs Expected: 07/08/2024 (Approximate), Expires: 07/08/2025 [facility] Comment on above: Expected: 07/08/2024 (Approximate), Expi res: 07/08/2025 Start: 07-08-2024 End: 07-08-2025 Comprehensive metabolic 1998 panel - Serum or Plasma Comprehensive metabolic panel Lab Routine Thoracic back pain, unspecified back pain laterality, unspecified chronicity Essential hypertension Elevated LFTs Expected: 07/08/2024 (Approximate), Expires: 07/08/2025 [facility] Work Phone: Comment on above: Expected: 07/08/2024 (Approximate), Expi res: 07/08/2025 Start: 07-08-2024 End: 07-08-2025 Lipid 1996 panel - Serum or Plasma Lipid panel Lab Routine Thoracic back pain, unspecified back pain laterality, unspecified chronicity Essential hypertension Elevated LFTs Expected: 07/08/2024 (Approximate), Expires: 07/08/2025 [facility] Comment on above: Expected: 07/08/2024 (Approximate), Expi res: 07/08/2025 Start: 05-27-2024 End: 05-27-2024 Patient encounter procedure 05/27/2024 9:40 AM EDT Office Visit [facility] [address] [place] [address] Poonam Neal MD [address] [place] [address] [facility] Start: 05-09-2024 COVID-19 Vaccine ( season) COVID-19 Vaccine ( season) [facility] Start: 05-09-2024 Covid-19 Vaccine ( season) Covid-19 Vaccine ( season) [facility] Start: 05-09-2024 Influenza vaccination Influenza Vaccine (#1) [facility] Start: 04-01-2024 Lipid screen Lipid screen [facility] Work Phone: Start: 03-23-2024 End: 03-23-2024 Patient encounter procedure 03/23/2024 10:40 AM EDT Office Visit [facility] [address] [place] [address] Poonam Neal MD [address] [place] [address] [facility] Start: 02-12-2024 End: 02-11-2025 CBC W Auto Differential panel - Blood CBC auto differential Lab Routine Essential hypertension Elevated LFTs Expected: 02/12/2024 (Approximate), Expires: 02/11/2025 [facility] Comment on above: Expected: 02/12/2024 (Approximate), Expi res: 02/11/2025 Start: 02-12-2024 End: 02-11-2025 Comprehensive metabolic 1998 panel - Serum or Plasma Comprehensive metabolic panel Lab Routine Essential hypertension Elevated LFTs Expected: 02/12/2024 (Approximate), Expires: 02/11/2025 [facility] Comment on above: Expected: 02/12/2024 (Approximate), Expi res: 02/11/2025 Start: 02-12-2024 End: 02-11-2025 Lipid 1996 panel - Serum or Plasma Lipid panel Lab Routine Essential hypertension Elevated LFTs Expected: 02/12/2024 (Approximate), Expires: 02/11/2025 [facility] Work Phone: Comment on above: Expected: 02/12/2024 (Approximate), Expi res: 02/11/2025 Start: 01-13-2024 End: 01-13-2024 Patient encounter procedure 01/13/2024 10:00 AM EDT Office Visit [facility] [address] [place] [address] Poonam Neal MD [address] [place] [address] [facility] Start: 11-29-2023 Screening for malignant neoplasm of breast Mammogram [facility] Start: 09-25-2023 End: 09-25-2023 Patient encounter procedure [facility] Start: 08-30-2023 Colon cancer screen colonoscopy Colon cancer screen colonoscopy [facility] Work Phone: Start: 08-30-2023 Screening for malignant neoplasm of colon Colon cancer screen colonoscopy [facility] [place] Start: 05-28-2023 End: 05-28-2024 CBC W Auto Differential panel - Blood CBC auto differential Lab Routine Essential hypertension Expected: 05/28/2023 (Approximate), Expires: 05/28/2024 [facility] Work Phone: Comment on above: Expected: 05/28/2023 (Approximate), Expi res: 05/28/2024 Start: 05-28-2023 End: 05-28-2023 Patient encounter procedure [facility] Start: 05-09-2023 COVID-19 Vaccine () COVID-19 Vaccine () [facility] Start: 05-09-2023 Influenza vaccination Influenza Vaccine (#1) [facility] Start: 04-19-2023 Depression Screen Depression Screen [facility] Start: 02-26-2023 End: 02-27-2024 Bacteria identified in Urine by Culture Urine culture (clean catch) Microbiology Routine Abnormal urine Expected: 02/26/2023 (Approximate), Expires: 02/27/2024 [facility] Comment on above: Expected: 02/26/2023 (Approximate), Expi res: 02/27/2024 Start: 02-26-2023 End: 02-27-2024 Basic metabolic 1998 panel - Serum or Plasma Basic metabolic panel Lab Routine Abnormal urine Expected: 02/26/2023 (Approximate), Expires: 02/27/2024 [facility] Work Phone: Comment on above: Expected: 02/26/2023 (Approximate), Expi res: 02/27/2024 Start: 02-26-2023 End: 02-27-2024 Urinalysis complete panel - Urine Urinalysis with reflex microscopic (clean catch) Lab Routine Abnormal urine Expected: 02/26/2023 (Approximate), Expires: 02/27/2024 [facility] Comment on above: Expected: 02/26/2023 (Approximate), Expi res: 02/27/2024 Start: 01-23-2023 End: 01-23-2023 Patient encounter procedure 01/23/2023 Office Visit Family Medicine Poonam Neal MD [address] [place] [address] [facility] Start: 11-22-2022 Screening for malignant neoplasm of breast Mammogram [facility] Start: 10-23-2022 End: 10-23-2023 Comprehensive metabolic 1998 panel - Serum or Plasma Comprehensive metabolic panel Lab Routine Essential hypertension Elevated LFTs Expected: 10/23/2022 (Approximate), Expires: 10/23/2023 [facility] Comment on above: Expected: 10/23/2022 (Approximate), Expi res: 10/23/2023 Start: 10-23-2022 End: 10-23-2023 Hemoglobin A1c/Hemoglobin.total in Blood Hemoglobin A1c Lab Routine Essential hypertension Elevated LFTs Expected: 10/23/2022 (Approximate), Expires: 10/23/2023 [facility] Comment on above: Expected: 10/23/2022 (Approximate), Expi res: 10/23/2023 Start: 10-23-2022 End: 10-23-2023 Lipid 1996 panel - Serum or Plasma Lipid panel Lab Routine Essential hypertension Elevated LFTs Expected: 10/23/2022 (Approximate), Expires: 10/23/2023 [facility] Work Phone: Comment on above: Expected: 10/23/2022 (Approximate), Expi res: 10/23/2023 Start: 07-23-2022 End: 07-23-2022 Patient encounter procedure 07/23/2022 Office Visit Family Medicine Poonam Neal MD [address] [place] [address] [facility] Start: 05-27-2022 Screening for malignant neoplasm of breast Breast cancer screen [facility] Start: 05-09-2022 Influenza vaccination Flu vaccine (#1) [facility] Start: 04-06-2022 Cervical cancer screen Cervical cancer screen [facility] Work Phone: Start: 04-06-2022 Screening for malignant neoplasm of cervix Cervical cancer screen [facility] [place] Start: 12-25-2021 Ultrasound elastography Elastography Parenchyma/Organ [facility] Work Phone: Start: 12-25-2021 Ultrasonography of abdomen Abdomen Limited [facility] Work Phone: Start: 2021 Hepatitis B Vaccines (1 of 3 - Risk 3-dose series) Hepatitis B Vaccines (1 of 3 - Risk 3-dose series) [facility] Start: 2021 RSV Immunization aged 60 or older (1 - 1-dose 60+ series) RSV Immunization aged 60 or older (1 - 1-dose 60+ series) [facility] Start: 2021 RSV Immunization for Adults (1 - Risk 60-74 years 1-dose series) RSV Immunization for Adults (1 - Risk 60-74 years 1-dose series) [facility] Start: 11-05-2021 COVID-19 Vaccine (4 - Booster for Moderna series) COVID-19 Vaccine (4 - Booster for Moderna series) [facility] Start: 06-13-2021 Screening for malignant neoplasm of colon [facility] Start: 06-06-2021 Creatinine measurement Creatinine monitoring [facility] Work Phone: Start: 06-06-2021 Potassium monitoring Potassium monitoring [facility] Work Phone: Start: 05-09-2021 Influenza vaccination Flu vaccine (#1) [facility] Work Phone: Start: 05-06-2021 Breast cancer screen Breast cancer screen [facility] Work Phone: Start: 05-01-2021 End: 05-01-2021 Patient encounter procedure 05/01/2021 Office Visit Family Medicine Poonam Neal MD [address] [place] [address] [facility] Start: 10-09-2020 Creatinine measurement Creatinine monitoring [place], [place] Start: 10-09-2020 Potassium monitoring Potassium monitoring [place], [place] Start: 06-26-2020 End: 06-26-2020 Office Visit 06/26/2020 Office Visit Family Medicine Poonam Neal MD [address] [place] [address] [facility] Start: 05-09-2020 Influenza vaccination Flu vaccine (#1) [place], [place] Start: 04-01-2020 Creatinine monitoring Creatinine monitoring [facility] Work Phone: Start: 04-01-2020 Potassium monitoring Potassium monitoring [facility] Work Phone: Start: 02-03-2020 End: 02-03-2020 Patient encounter procedure 02/03/2020 Office Visit Family Medicine Poonam Neal MD [address] [place], [place] [address] [facility] Start: 12-12-2011 Shingles Vaccine (1 of 2) Shingles Vaccine (1 of 2) [facility] Start: 12-12-2011 Shingrix Vaccine (1 of 2) Shingrix Vaccine (1 of 2) [facility] Start: 12-12-2011 Zoster Vaccines (1 of 2) Zoster Vaccines (1 of 2) [facility] Start: 2006 Screening for malignant neoplasm of colon [facility] Start: 2001 Diabetes screen Diabetes screen [place], [place] Start: 2001 Screening for malignant neoplasm of breast Mammogram Screening [facility] Start: 12-12-1991 Screening for malignant neoplasm of cervix [facility] Start: 1982 Screening for malignant neoplasm of cervix Cervical Cancer Screening [facility] Start: 1980 DTaP/Tdap/Td vaccine (1 - Tdap) DTaP/Tdap/Td vaccine (1 - Tdap) [facility] Start: 1980 DTaP/Tdap/Td Vaccines (1 - Tdap) DTaP/Tdap/Td Vaccines (1 - Tdap) [facility] Start: 1980 Hepatitis A Vaccines (1 of 2 - Risk 2-dose series) Hepatitis A Vaccines (1 of 2 - Risk 2-dose series) [facility] Start: 1980 Hepatitis B vaccine (1 of 3 - Risk 3-dose series) Hepatitis B vaccine (1 of 3 - Risk 3-dose series) [facility] Start: 1980 Pneumococcal Vaccine: 50+ Years (1 of 2 - PCV) Pneumococcal Vaccine: 50+ Years (1 of 2 - PCV) [facility] Start: 12-12-1979 Annual PCP Team Chronic Disease Visit Annual PCP Team Chronic Disease Visit [facility] Start: 12-12-1979 Anxiety Screening Anxiety Screening [facility] Start: 12-12-1979 BP Controlled (<130/80) BP Controlled (<130/80) [facility] Start: 12-12-1979 Depression Screening Depression Screening [facility] Start: 12-12-1979 HIV screening HIV Screening [facility] Start: 1976 HIV screen HIV screen [facility] Work Phone: Start: 1976 HIV screening HIV screen [place], [place] Start: 1973 COVID-19 Vaccine (1) COVID-19 Vaccine (1) [facility] Work Phone: Start: 1973 Depression Screening Depression Screening [facility] Start: 1972 DTaP/Tdap/Td vaccine (1 - Tdap) DTaP/Tdap/Td vaccine (1 - Tdap) [facility] Work Phone: Start: 12-12-1967 Pneumococcal 0-64 years Vaccine (1 - PCV) Pneumococcal 0-64 years Vaccine (1 - PCV) [facility] Start: 12-12-1967 Pneumococcal 0-64 years Vaccine (1 of 1 - PPSV23) Pneumococcal 0-64 years Vaccine (1 of 1 - PPSV23) [facility] Work Phone: Start: 12-12-1967 Pneumococcal 0-64 years Vaccine (1 of 2 - PPSV23) Pneumococcal 0-64 years Vaccine (1 of 2 - PPSV23) [facility] Work Phone: Start: 1962 Hepatitis A vaccine (1 of 2 - Risk 2-dose series) Hepatitis A vaccine (1 of 2 - Risk 2-dose series) [facility] Start: 1962 Hepatitis A Vaccines (1 of 2 - Risk 2-dose series) Hepatitis A Vaccines (1 of 2 - Risk 2-dose series) [facility] Start: 1962 MMR Vaccines (1 of 1 - Standard series) MMR Vaccines (1 of 1 - Standard series) [facility] Start: 1961 Screening for malignant neoplasm of colon [facility] C reactive protein [Mass/volume] in Serum or Plasma [facility] C reactive protein [Mass/volume] in Serum or Plasma [facility] CBC W Auto Different ial panel - Blood [facility] CBC W Auto Different ial panel - Blood [facility] metabo lic 1999 panel - Serum or Plasma [facility] metabo lic 1999 panel - Serum or Plasma [facility] Cytoplasmic ANCA Screen [facility] Ferritin [Mass/volum e] in Serum or Plasma [facility] Hemoglobin A1c/Hemoglobin.total in Blood [facility] Hepatitis A virus Ab [Presence] in Serum [facility] Hepatitis B virus surface Ab [Presence] in Serum [facility] End: 04-28-2021 Hepatitis C Antibody Hepatitis C Antibody Lab Routine HTN (hypertension), benign Screening for HIV (human immunodeficiency virus) Encounter for hepatitis C screening test for low risk patient 1 Occurrences starting 04/28/2021 until 04/28/2021 [employer] Work Phone: Comment on above: 1 Occurrences starting 04/28/2021 until 04/28/2021 Hepatitis C Antibody Hepatitis C Antibody Lab Routine HTN (hypertension), benign Screening for HIV (human immunodeficiency virus) Encounter for hepatitis C screening test for low risk patient 04/28/2021 10:21 AM EDT [facility] Work Phone: End: 04-28-2021 HIV Screen HIV Screen Lab Routine HTN (hypertension), benign Screening for HIV (human immunodeficiency virus) Encounter for hepatitis C screening test for low risk patient 1 Occurrences starting 04/28/2021 until 04/28/2021 [employer] Work Phone: Comment on above: 1 Occurrences starting 04/28/2021 until 04/28/2021 HIV Screen HIV Screen Lab R outine HTN (hypertension), benign Screening for HIV (human immunodeficiency virus) Encounter for hepatitis C screening test for low risk patient 04/28/2021 10:21 AM EDT [facility] Work Phone: [employer] capacity panel - Serum or Plasma [facility] Lipid 1996 panel - S titi or Plasma [facility] OUTSIDE PROCEDURE SCAN OUTSIDE P ROCEDURE SCAN Procedures Ordered: 02/26/2023 [facility] Comment on above: Ordered: 02/26/2023 Patient referral [facility] Work Phone: Procedure [facility] Prothrombin time [facility] Serum immunofixation [facility] Thyroid stimulating hormone measurement [facility] Ultrasound elastography [facility] Ultrasound elastography [facility] US Abdomen limited [facility] Vitamin D, 25-hydrox y [facility] Immunizations Immunization Date Immunization Notes Care Provider Jayleen rust 07-09-2024 influenza, seasonal, injectable, preservative free Derrek Hernandez MD Work Phone: [facility] 07-09-2024 influenza virus vaccine, unspecified formulation Poonam Neal MD Work Phone: [facility] 06-26-2023 influenza, injectabl e, quadrivalent, preservative free Derrek Hernandez MD Work Phone: [facility] 06-26-2023 influenza virus vaccine, unspecified formulation Poonam Neal MD Work Phone: [facility] 12-08-2022 tetanus toxoid, reduced diphtheria toxoid, and acellular pertussis vaccine, adsorbed Poonam Neal MD Work Phone: [facility] 07-05-2022 Covid-19, Pfizer Bivalent Booster, (Age 12y+), Im, 30 Mcg/0e Poonam Neal MD Work Phone: [facility] 06-21-2022 Influenza, injectabl e, Madin Lagro Canine Kidney, preservative free, quadrivalent Poonam Neal MD Work Phone: [facility] 06-21-2022 influenza virus vaccine, unspecified formulation Poonam Neal MD Work Phone: [facility] 04-05-2022 Moderna SARS-CoV-2 Vaccination Poonam Neal MD Work Phone: [facility] 07-07-2021 COVID-19, MODERNA BL UE border, Primary or Immunocompromised, (age 12y+), IM, 100 mcg/0.5mL Poonam Neal MD Work Phone: [facility] 12-01-2020 COVID-19, MODERNA BL UE border, Primary or Immunocompromised, (age 12y+), IM, 100 mcg/0.5mL; Translations: [Moderna COVID-19 Vaccine] Poonam Neal MD Work Phone: [facility] Work Phone: 11-03-2020 COVID-19, MODERNA BL UE border, Primary or Immunocompromised, (age 12y+), IM, 100 mcg/0.5mL; Translations: [Moderna COVID-19 Vaccine] Poonam Neal MD Work Phone: [facility] Work Phone: 05-31-2020 Influenza, injectabl e, Madin Lagro Canine Kidney, preservative free, quadrivalent Poonam Neal MD Work Phone: [facility] 06-25-2019 influenza, injectabl e, quadrivalent, preservative free Poonam Neal MD Work Phone: [facility] 06-25-2019 influenza, seasonal, injectable Poonam Neal MD Work Phone: [facility] 07-13-2018 Influenza Vaccine, unspecified formulation Poonam Neal MD Work Phone: [facility] 07-13-2018 Influenza, injectabl e, Madin Eli Canine Kidney, preservative free, quadrivalent Poonam Neal MD Work Phone: [facility] 07-13-2018 influenza, seasonal, injectable Poonam Neal MD Work Phone: [facility] 09-30-2017 influenza, seasonal, injectable, preservative free Poonam Neal MD Work Phone: [facility] 08-23-2016 influenza, injectabl e, quadrivalent, contains preservative Poonam Neal MD Work Phone: [facility] Work Phone: 08-25-2015 influenza virus vaccine, unspecified formulation Poonam Neal MD Work Phone: [facility] 08-25-2015 influenza virus vaccine, whole virus Poonam Neal MD Work Phone: [facility] 07-06-2014 influenza, seasonal, injectable, preservative free Poonam Neal MD Work Phone: [facility] Payers Date Payer Category Payer Self-pay [id number] [phone] [id number] 2021 Commercial Managed C are - HMO MMO SUPERMED [id number] 2021 Unknown 2015 Unknown [employer] [address] xxxxxxxxxxxx 2015-Present [phone] [address] [place] [address] xxxxxxxxxxxx [id number] 2012 Unknown [id number] 2012 Unknown [employer] [place] [id number] 2012 Unknown [id number] 1960 Unknown [id number] 1960 Unknown [id number] .668 1960 Unknown [id number] .668 1960 Unknown [id number] .627 Unknown [id number] 2.16.840.1.018675.3.579.2 .462 Unknown [id number] 2.16.840.1.046278.3.579.2 .462 Unknown [id number] 2.16.840.1.580433.3.579.2 .462 Unknown [id number] 2.16.840.1.196465.3.579.2 .462 Unknown [id number] 2.16.840.1.560795.3.579.2 .462 Unknown [id number] 2.16.840.1.664073.3.579.2 .462 Unknown [id number] 2.16.840.1.955706.3.579.2 .462 Unknown [id number] 2.16.840.1.611574.3.579.2 .462 Unknown [id number] 2.16.840.1.206426.3.579.2 .462 Unknown [id number] [id number] .462 Unknown [id number] .462 Social History Date Type Detail Facility Start: 02-03-2020 End: 02-16-2025 Tobacco smoking status DCIS Never smoker [employer] Work Phone: Start: 02-03-2020 End: 08-12-2024 Tobacco use and exposure [facility] [place] Start: 02-03-2020 End: 11-05-2024 Alcohol intake Current non-drinker of alcohol (finding) [employer] Work Phone: Start: 1960 Sex Assigned At Not on file [facility] Work Phone: Start: 02-26-2023 End: 07-07-2024 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 Start: 1960 Sex Assigned At Female [facility] Start: 02-26-2023 End: 07-07-2024 Tobacco use panel [facility] Start: 10-13-2022 End: 05-28-2023 Exposure to SARS-CoV-2 (event) Not sure [facility] How often do you nee d to have someone help you when you read instructions, pamphlets, or other written material from your doctor or pharmacy [SILS] Never [facility] Has the [employer] oil, or water [employer] threatened to shut off services in your home in past 12Mo No [facility] Do you belong to any clubs or organizations such as tenriism groups, unions, fraternal or athletic groups, or school groups? Yes [facility] Are you now , , , , never or living with a partner? [facility] How often to you hav e a drink containing alcohol? Never [facility] How hard is it for y ou to pay for the very basics like food, housing, medical care, and heating Not very hard [facility] Do you feel stress - tense, restless, nervous, or anxious, or unable to sleep at night because your mind is troubled all the time - these days [OSQ] Not at all [facility] (I/We) worried wheth er (my/our) food would run out before (I/we) got money to buy more. Never true [facility] Start: 04-08-2022 Sex Female (finding) [facility] Start: 08-12-2024 Alcoholic beverage intake Not Asked [facility] Functional Status Date Assessment Result Facility 02-04-2025 Patient Health Questionnaire 2 item (PHQ- 2) [Reported] [facility] Clinical Notes 10-24-2021 to 05-10-2025 Assessment & Plan Note - Poonam Neal MD - 05/10/2025 10:40 AM Abby Neal MD - 05/10/2025 10:40 AM EDTAssessment & Plan Note - Poonam Neal MD - 05/10/2025 10:40 AM EDT Note Date & Type Note Facility 05-10-2025 Evaluation + Plan note Associ ated Problem(s): Fatty liver Is a chronic stable issue patient seeing gastroenterology and was started CMP has been ordered by them she is lost to have significant amount of weight encouraged continued low-fat diet and exercise [facility] 05-10-2025 History of Presen t illness Narrative Images from the original note were not included. [facility] - [address] [facility] [address] Dept: [phone] Dept Loc: [phone] Reason for Visit: Follow-up (3 month, and discuss [employer] Care Insurance ) Assessment and Plan Assessment & Plan Essential hypertension Chronic stable issue actually patient's blood pressure is on the lower end. At this time we will hold the lisinopril 5 mg and she will continue the lisinopril 10 she will let me know what her blood pressure is. If she continues to have normal blood pressures we will eliminate the 5 mg lisinopril but at this time we put it on hold. I also gave her an order for CBC and lipid panel to be completed Fatty liver Is a chronic stable issue patient seeing gastroenterology and was started CMP has been ordered by them she is lost to have significant amount of weight encouraged continued low-fat diet and exercise current treatment plan is effective, no change in therapy, orders and follow up as documented in EMR, lab results reviewed with patient, repeat labs ordered prior to next appointment, reviewed compliance with lifestyle measures, reviewed diet, exercise and weight control, reviewed medications and side effects in detail Return visit in 3 months. Subjective HPI this is a 64-year-old female with a history of chronic liver fatty. She has been followed closely by gastroenterology she has an upcoming appointment with them she has not experienced any abdominal pain nausea vomiting her blood pressure has been stable. Is on the lower end today she has not had any acute dizziness but we discussed eliminating the 5 mg dose and discontinuing the 10 mg as she has lost a significant amount of weight with diet and exercise. Patient is also up-to-date on seeing healthcare facility administrator Review of Systems Constitutional: Negative. Negative for activity change, appetite change and fever. HENT: Negative. Negative for congestion. Eyes: Negative. Negative for discharge. Respiratory: Negative. Negative for chest tightness. Cardiovascular: Negative. Gastrointestinal: Negative. Endocrine: Negative. Negative for cold intolerance. Genitourinary: Negative for difficulty urinating. Musculoskeletal: Negative. Neurological: Negative. Negative for dizziness, facial asymmetry and headaches. Hematological: Negative. Allergies[1] Current Medications[2] Problem List[3] Medical History[4] Social History Tobacco Use Smoking status: Never Smokeless tobacco: Never Substance Use Topics Alcohol use: No Surgical History[5] Family History[6] Health Maintenance Topic Date Due MMR Vaccines (1 of 1 - Standard series) Never done Hepatitis A Vaccines (1 of 2 - Risk 2-dose series) Never done Pneumococcal Vaccine: 50+ Years (1 of 2 - PCV) Never done Zoster Vaccines (1 of 2) Never done RSV Immunization for Adults (1 - Risk 60-74 years 1-dose series) Never done Hepatitis B Vaccines (1 of 3 - Risk 3-dose series) Never done Cervical Cancer Screening 12/13/2024 COVID-19 Vaccine ( season) 2025 Influenza Vaccine (1) 05/09/2025 Mammogram 01/06/2026 Depression Screening 02/04/2026 Diabetes Screening 09/22/2026 Lipid Panel 11/03/2029 Colorectal Cancer Screening 08/07/2030 DTaP/Tdap/Td Vaccines (2 - Td or Tdap) 12/08/2032 HIV Screening Completed Hepatitis C Screening Completed RSV Immunization under 20 Months Aged Out HIB Vaccines Aged Out IPV Vaccines Aged Out Meningococcal Vaccine Aged Out Rotavirus Vaccines Aged Out HPV Vaccines Aged Out Meningococcal B Vaccine Aged Out Objective BP 106/73 Pulse 70 Temp 36.7 C (98.1 F) Ht 5' 7 (1.702 m) Wt 182 lb (82.6 kg) BMI 28.51 kg/m Physical Exam Vitals and nursing note reviewed. Constitutional: Appearance: Normal appearance. HENT: Head: Normocephalic and atraumatic. Nose: No congestion or rhinorrhea. Mouth/Throat: Mouth: Mucous membranes are moist. Pharynx: Oropharynx is clear. No posterior oropharyngeal erythema. Eyes: Extraocular Movements: Extraocular movements intact. Conjunctiva/sclera: Conjunctivae normal. Pupils: Pupils are equal, round, and reactive to light. Cardiovascular: Pulses: Normal pulses. Heart sounds: Normal heart sounds. No murmur heard. Pulmonary: Effort: Pulmonary effort is normal. No respiratory distress. Breath sounds: Normal breath sounds. No wheezing. Abdominal: General: Abdomen is flat. Bowel sounds are normal. Palpations: Abdomen is soft. Tenderness: There is no abdominal tenderness. Musculoskeletal: General: No swelling. Cervical back: Normal range of motion. Skin: General: Skin is warm and dry. Neurological: General: No focal deficit present. Mental Status: She is alert and oriented to person, place, and time. Mental status is at baseline. Psychiatric: Mood and Affect: Mood normal. Data Reviewed and Summarized Labs: Lab Results Component Value Date WBC 6.9 11/03/2024 HGB 13.6 11/03/2024 HCT 40.8 11/03/2024 PLT 305 11/03/2024 Lab Results Component Value Date NA 140 11/03/2024 K 4.4 11/03/2024 CL 109 (H) 11/03/2024 CO2 24 11/03/2024 BUN 15 11/03/2024 CREATININE 0.80 11/03/2024 GLUCOSE 96 11/03/2024 CALCIUM 9.5 11/03/2024 PROT 7.6 11/03/2024 BILITOT 0.5 11/03/2024 ALKPHOS 61 11/03/2024 AST 34 (H) 11/03/2024 ALT 52 (H) 11/03/2024 @GLUCOSELAB@ Lab Results Component Value Date CHOL 193 11/03/2024 CHOL 200 (H) 09/22/2023 CHOL 199 05/23/2022 Lab Results Component Value Date TRIG 88 11/03/2024 TRIG 98 09/22/2023 TRIG 86 05/23/2022 Lab Results Component Value Date HDL 47 (L) 11/03/2024 HDL 44 09/22/2023 HDL 46 05/23/2022 Lab Results Component Value Date LDLCALC 128 (H) 11/03/2024 LDLCALC 136 (H) 09/22/2023 No results found for: VLDL Lab Results Component Value Date CHOLHDLRATIO 4 11/03/2024 CHOLHDLRATIO 5 09/22/2023 CHOLHDLRATIO 4 05/23/2022 Imaging/Testing: COLONOSCOPY Ordered by an unspecified provider. Poonam Neal MD [1] Allergies Allergen Reactions Azithromycin Rash Penicillins Hives and Rash Sulfa Antibiotics Hives and Rash [2] Current Outpatient Medications Medication Sig Dispense Refill cholecalciferol (Vitamin D-3) 1.25 MG (44407 UT) capsule lisinopril 10 MG tablet Take 1 tablet (10 mg) by mouth daily. Patient takes with 5 mg tablet also to equal 15 mg 90 tablet 1 lisinopril 5 MG tablet Take 1 tablet (5 mg) by mouth daily. 90 tablet 1 Multiple Vitamin (MULTIVITAMIN ADULT PO) Take by mouth. Opzelura 1.5 % cream Vitamin E 400 units tablet Take by mouth. cholecalciferol (Vitamin D-3) 50 MCG (2000 UT) capsule Take by mouth. No current facility-administered medications for this visit. [3] Patient Active Problem List Diagnosis Essential hypertension, benign Fatty liver Other chronic nonalcoholic liver disease [4] Past Medical History: Diagnosis Date Allergic grass tress dust mites Fatty liver Hypertension [5] Past Surgical History: Procedure Laterality Date SECTION (HISTORICAL) SECTION, LOW TRANSVERSE 04/30/2002 [6] Family History Problem Relation Name Age of Onset Liver disease Mother Janene Asher Heart disease Father Luis Asher Vision loss Father Luis Asher Asthma Daughter rey documented in this encounter [facility] 05-10-2025 Miscellaneous Notes Associate d Problem(s): Fatty liver Is a chronic stable issue patient seeing gastroenterology and was started CMP has been ordered by them she is lost to have significant amount of weight encouraged continued low-fat diet and exercise documented in this encounter [facility] 02-16-2025 Evaluation note Diagnosis Onset Date Resolution Fatty liver chronic February 16 10:24am THAO (nonalcoholic steatohepatitis) deleted February 16, 2025 10:24am Metabolic dysfunction-associated steatohepatitis (MASH) acute March 10:24am Liver cyst chronic March 18 10:24am Metabolic dysfunction-associated steatotic liver disease (MASLD) chronic March 18, 2025 10:24am Encounter for routine gynecological examination noneactive April 27, 2025 11:16am [facility] Work Phone: 1(121) 187-656605-30-2025 History of Present illness Narrative* Poonam Neal MD - 02/04/2025 11:00 AM EDT Images from the original note were not included. [facility] - [address] [facility] [address] Dept: [phone] Dept Loc: [phone] Reason for Visit: Follow-up (Dark urine no other symptoms/ patient says she did home test on urine and had high leuk but nothing else ) Assessment and Plan 1. Dark urine - Urine culture (clean catch) - AMB POC URINALYSIS DIP STICK AUTO W/O MICRO dip showed leukocytes as discussed with the patient drink more fluids urine culture to make sure absolutely there is no infection. 2. Essential hypertension chronic stable continue lisinopril 15 mg continue low- salt diet gastroenterology is following patient 3. Elevated LFTs as her trying to lose weight diet and exercise stay away from alcohol stay away from Tylenol. She is going to see her healthcare facility administrator as well for her well woman exam current treatment plan is effective, no change in therapy, orders and follow up as documented in EMR, lab results reviewed with patient, repeat labs ordered prior to next appointment, reviewed compliance with lifestyle measures, reviewed diet, exercise and weight control, reviewed medications and side effects in detail Return visit in 3 months. Subjective 64-year-old female patient who has a history of fatty liver and elevated liver enzyme. Currently she is seeing gastroenterology [facility] in [place]. She has an upcoming appointment with them they recently did an ultrasound and they have done a FibroScan. She is complaining of some dark urine no dysuria no CVA tenderness no fevers or chills. She took an at home test which showed some leukocytes otherwise normal normal and she feels once she drink more fluids that improved she has a historyof high blood pressure is well-controlled on her lisinopril she also sees gynecology in [place]. Bharati Rodneytings she is up-to-date on her mammograms as well as her Paps. Review of Systems Constitutional: Negative. Negative for activity change, appetite change and fever. HENT: Negative. Negative for congestion. Eyes: Negative. Negative for discharge. Respiratory: Negative. Negative for chest tightness. Cardiovascular: Negative. Gastrointestinal: Negative. Endocrine: Negative. Negative for cold intolerance. Genitourinary: Negative for difficulty urinating. Musculoskeletal: Negative. Neurological: Negative. Negative for dizziness, facial asymmetry and headaches. Hematological: Negative. Allergies[1] Current Medications[2] Problem List[3] Medical History[4] Social History Tobacco Use Smoking status: Never Smokeless tobacco: Never Substance Use Topics Alcohol use: No Surgical History[5] Family History[6] Health Maintenance Topic Date Due MMR Vaccines (1 of 1 - Standard series) Never done Hepatitis A Vaccines (1 of 2 - Risk 2-dose series) Never done Pneumococcal Vaccine: 50+ Years (1 of 2 - PCV) Never done Zoster Vaccines (1 of 2) Never done RSV Immunization for Adults (1 - Risk 60-74 years 1-dose series) Never done Hepatitis B Vaccines (1 of 3 - Risk 3-dose series) Never done COVID-19 Vaccine ( season) 2024 Cervical Cancer Screening 12/13/2024 Depression Screening 11/02/2025 Mammogram 01/06/2026 Diabetes Screening 09/22/2026 Lipid Panel 11/03/2029 Colorectal Cancer Screening 08/07/2030 DTaP/Tdap/Td Vaccines (2 - Td or Tdap) 12/08/2032 Influenza Vaccine Completed HIV Screening Completed Hepatitis C Screening Completed RSV Immunization under 20 Months Aged Out HIB Vaccines Aged Out IPV Vaccines Aged Out Meningococcal Vaccine Aged Out Rotavirus Vaccines Aged Out HPV Vaccines Aged Out Meningococcal B Vaccine Aged Out Objective BP 128/78 Pulse 89 Temp 36.8 C (98.3 F) (Temporal) Ht 5' 7 (1.702 m) Wt 197 lb 9.6 oz (89.6 kg) SpO2 98% BMI 30.95 kg/m Physical Exam Vitals and nursing note reviewed. Constitutional: Appearance: Normal appearance. HENT: Head: Normocephalic and atraumatic. Nose: No congestion or rhinorrhea. Mouth/Throat: Mouth: Mucous membranes are moist. Pharynx: Oropharynx is clear. No posterior oropharyngeal erythema. Eyes: Extraocular Movements: Extraocular movements intact. Conjunctiva/sclera: Conjunctivae normal. Pupils: Pupils are equal, round, and reactive to light. Cardiovascular: Pulses: Normal pulses. Heart sounds: Normal heart sounds. No murmur heard. Pulmonary: Effort: Pulmonary effort is normal. No respiratory distress. Breath sounds: Normal breath sounds. No wheezing. Abdominal: General: Abdomen is flat. Bowel sounds are normal. Palpations: Abdomen is soft. Tenderness: There is no abdominal tenderness. Musculoskeletal: General: No swelling. Cervical back: Normal range of motion. Skin: General: Skin is warm and dry. Neurological: General: No focal deficit present. Mental Status: She is alert and oriented to person, place, and time. Mental status is at baseline. Psychiatric: Mood and Affect: Mood normal. Data Reviewed and Summarized Labs: Lab Results Component Value Date WBC 6.9 11/03/2024 HGB 13.6 11/03/2024 HCT 40.8 11/03/2024 PLT 305 11/03/2024 Lab Results Component Value Date NA 140 11/03/2024 K 4.4 11/03/2024 CL 109 (H) 11/03/2024 CO2 24 11/03/2024 BUN 15 11/03/2024 CREATININE 0.80 11/03/2024 GLUCOSE 96 11/03/2024 CALCIUM 9.5 11/03/2024 PROT 7.6 11/03/2024 BILITOT 0.5 11/03/2024 ALKPHOS 61 11/03/2024 AST 34 (H) 11/03/2024 ALT 52 (H) 11/03/2024 @GLUCOSELAB@ Lab Results Component Value Date CHOL 193 11/03/2024 CHOL 200 (H) 09/22/2023 CHOL 199 05/23/2022 Lab Results Component Value Date TRIG 88 11/03/2024 TRIG 98 09/22/2023 TRIG 86 05/23/2022 Lab Results Component Value Date HDL 47 (L) 11/03/2024 HDL 44 09/22/2023 HDL 46 05/23/2022 Lab Results Component Value Date LDLCALC 128 (H) 11/03/2024 LDLCALC 136 (H) 09/22/2023 No results found for: VLDL Lab Results Component Value Date CHOLHDLRATIO 4 11/03/2024 CHOLHDLRATIO 5 09/22/2023 CHOLHDLRATIO 4 05/23/2022 Imaging/Testing: HM COLONOSCOPY Ordered by an unspecified provider. Poonam Neal MD [1] Allergies Allergen Reactions Azithromycin Rash Penicillins Hives and Rash Sulfa Antibiotics Hives and Rash [2] Current Outpatient Medications Medication Sig Dispense Refill cholecalciferol (Vitamin D-3) 50 MCG (1999) capsule Take by mouth. Multiple Vitamin (MULTIVITAMIN ADULT PO) Take by mouth. Opzelura 1.5 % cream Vitamin E 400 units tablet Take by mouth. lisinopril 10 MG tablet Take 1 tablet (10 mg) by mouth daily. Patient takes with 5 mg tablet also to equal 15 mg 90 tablet 1 lisinopril 5 MG tablet Take 1 tablet (5 mg) by mouth daily. 90 tablet 1 No current facility-administered medications for this visit. [3] Patient Active Problem List Diagnosis Essential hypertension, benign Fatty liver Other chronic nonalcoholic liver disease [4] Past Medical History: Diagnosis Date Allergic grass tress dust mites Fatty liver Hypertension [5] Past Surgical History: Procedure Laterality Date SECTION (HISTORICAL) SECTION, LOW TRANSVERSE 04/30/2002 [6] Family History Problem Relation Name Age of Onset Liver disease Mother Janene Asher Heart disease Father Luis Asher Vision loss Father Luis Asher Asthma Daughter rey documented in this [facility]05-22-2025 Radiology Diagnostic study note [facility] Imaging Services [address] [place], [place] [id number] ABD Limited w/ Elastography MR#: [id number] Acct: [id number] Name: CHAD CHAVEZ [facility] Rep #: [id number] : 1960 F 64 From: Williams Monroy MD PCP: Dr. 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 TECHNIQUE: Right upper quadrant abdominal ultrasound. [employer] ElastQ Imaging shear wave elastography for non-invasive assessment of liver tissue stiffness. [employer] EPIQ Elite. FINDINGS: LIVER: Size: Enlarged (hepatomegaly) Length: 19.7 cm Echotexture: Diffusely echogenic suggesting fatty infiltration Contour: Normal Lesions: 6.7 cm 6.3 cm 4.4 cm cyst in the right lobe of the liver. Elastography: EQI Med: 7.5 kPa EQI Med Ok: 1.6 m/s IQR/Med: 9.5 %* GALLBLADDER: Normal COMMON BILE DUCT: Normal 5.4 mm. PANCREAS: Visualized portions are unremarkable. The distal body and tail are obscured by bowel gas. Visualized portions of the right kidney are unremarkable. There is a 1.5 cm x 1.3 cm x 1.3 cm cyst in the lower pole of the kidney. No right upper quadrant ascites. US/ABD Limited w/ Elastography IMPRESSION: [id number] hepatic fibrosis. Hepatomegaly. Cyst in the right lobe of the liver. Reference Values: SRU <1.37 m/s (5.7kPa): No to mild fibrosis 1.37 m/s - 2.2 m/s: Moderate to severe fibrosis >2.2 m/s (15kPa): Significant fibrosis / cirrhosis METAVIR Score F2 or higher: 1.34 m/s (5.7kPa) F3 or higher: 1.55 m/s (7.3kPa) F4: 1.80 m/s (10kPa) * If the IQR/Med is >30%, the variance in the measurements is a large and the accuracy of the measurement may be in question. Reading Location: [facility] CC: SINAN Mcintosh; Dr. Poonam Neal MD ~ Manager Java: Signed [facility]05-13-2025 Evaluation note* Diagnosis Onset Date Resolution Status Admit Date Metabolic dysfunction-associ ated steatotic liver disease (MASLD) acute January 18, 2025 10:46am Liver cyst chronic January 18, 2025 10:46am [facility] Work Phone: 1(368) 904-260905-13-2025 Evaluation note* Diagnosis Onset Date Resolution Status Admit Date Metabolic dysfunction-associated steatotic liver disease (MASLD) acute January 18, 2025 10:46am Liver cyst chronic January 18, 2025 10:46am THAO (nonalcoholic steatohepatitis) acute February 16, 2025 10:24am Fatty liver chronic February 16 10:24am [facility] [place] Work Phone: 1(460) 155-158305-13-2025 Evaluation note* Diagnosis Onset Date Resolution Status Admit Date Liver cyst chronic January 18, 2025 10:46am Metabolic dysfunction-associ ated steatotic liver disease (MASLD) chronic January 18, 2025 10:46am Fatty liver chronic February 16 10:24am THAO (nonalcoholic steatohepatitis) deleted February 16, 2025 10:24am Metabolic dysfunction-associ ated steatohepatitis (MASH) acute March 10:24am Liver cyst chronic March 18 10:24am Metabolic dysfunction-associ ated steatotic liver disease (MASLD) chronic March 18, 2025 10:24am [facility] Work Phone: 1(751) 589-687305-13-2025 Evaluation note* Diagnosis Onset Date Resolution Status Admit Date Liver cyst chronic January 18, 2025 10:46am Metabolic dysfunction-associated steatotic liver disease (MASLD) chronic January 18, 2025 10:46am Fatty liver chronic February 16 10:24am THAO (nonalcoholic steatohepatitis) deleted February 16, 2025 10:24am Metabolic dysfunction-associated steatohepatitis (MASH) acute March 10:24am Liver cyst chronic March 18 10:24am Metabolic dysfunction-associated steatotic liver disease (MASLD) chronic March 18, 2025 10:24am Encounter for routine gynecological examination noneactive April 27, 2025 11:16am [facility] Work Phone: 1(875) 927-860202-28-2025 History of Present illness Narrative* Poonam Neal MD - 11/05/2024 10:40 AM EST Images from the original note were not included. [facility] - [address] [facility] [address] Dept: [phone] Dept Loc: [phone] Reason for Visit: Follow-up and Ankle Injury (LEFT ankle, Back in August, but still bothering her) Assessment and Plan 1. Essential hypertension stable continue lisinopril 5 mg - Comprehensive metabolic panel - Lipid panel - CBC auto differential 2. Mild sprain of left ankle, sequela rest ice compression elevation - Comprehensive metabolic panel - Lipid panel - CBC auto differential 3. Elevated LFTs stay away from fatty foods follow-up with Dr. Yeung continue to monitor liver enzymes current treatment plan is effective, no change in therapy, orders and follow up as documented in EMR, lab results reviewed with patient, repeat labs ordered prior to next appointment, reviewed compliance with lifestyle measures, reviewed diet, exercise and weight control, reviewed medications and side effects in detail Return visit in 3 months. Subjective Ankle Injury is a 63-year-old female patient who had an injury couple weeks ago with sprain of her left ankle she is feeling a lot better. She is not having a lot of problems ambulating. Is less swollen history of high blood pressure well- controlled on medication history of elevated liver enzymes. With fatty liver. Review of Systems Constitutional: Negative. Negative for activity change, appetite change and fever. HENT: Negative. Negative for congestion. Eyes: Negative. Negative for discharge. Respiratory: Negative. Negative for chest tightness. Cardiovascular: Negative. Gastrointestinal: Negative. Endocrine: Negative. Negative for cold intolerance. Genitourinary: Negative for difficulty urinating. Musculoskeletal: Negative. Neurological: Negative. Negative for dizziness, facial asymmetry and headaches. Hematological: Negative. Allergies Allergen Reactions Azithromycin Rash Penicillins Hives and Rash Sulfa Antibiotics Hives and Rash Current Outpatient Medications Medication Sig Dispense Refill cholecalciferol (Vitamin D-3) 50 MCG (1999 UT) capsule Take by mouth. lisinopril 10 MG tablet Take 1 tablet (10 mg) by mouth daily. Patient takes with 5 mg tablet also to equal 15 mg 90 tablet 1 lisinopril 5 MG tablet Take 1 tablet (5 mg) by mouth daily. 90 tablet 1 Multiple Vitamin (MULTIVITAMIN ADULT PO) Take by mouth. Opzelura 1.5 % cream Vitamin E 400 units tablet Take by mouth. lisinopril 5 MG tablet Take 1 tablet (5 mg) by mouth daily. 90 tablet 1 No current facility-administered medications for this visit. Patient Active Problem List Diagnosis Essential hypertension, benign Fatty liver Other chronic nonalcoholic liver disease Past Medical History: Diagnosis Date Allergic grass tress dust mites Fatty liver Hypertension Social History Tobacco Use Smoking status: Never Smokeless tobacco: Never Substance Use Topics Alcohol use: No Past Surgical History: Procedure Laterality Date SECTION (HISTORICAL) SECTION, LOW TRANSVERSE 04/30/2002 Family History Problem Relation Name Age of Onset Liver disease Mother Janene Asher Heart disease Father Luis Asher Vision loss Father Luis Asher Asthma Daughter Critical access hospital Maintenance Topic Date Due MMR Vaccines (1 of 1 - Standard series) Never done Hepatitis A Vaccines (1 of 2 - Risk 2-dose series) Never done Pneumococcal Vaccine: 50+ Years (1 of 2 - PCV) Never done Zoster Vaccines (1 of 2) Never done RSV Immunization for Adults (1 - Risk 60-74 years 1-dose series) Never done Hepatitis B Vaccines (1 of 3 - Risk 3-dose series) Never done COVID-19 Vaccine ( season) 2024 Cervical Cancer Screening 12/13/2024 Mammogram 12/31/2024 Depression Screening 11/02/2025 Diabetes Screening 09/22/2026 Lipid Panel 11/03/2029 Colorectal Cancer Screening 08/07/2030 DTaP/Tdap/Td Vaccines (2 - Td or Tdap) 12/08/2032 Influenza Vaccine Completed HIV Screening Completed Hepatitis C Screening Completed RSV Immunization under 20 Months Aged Out HIB Vaccines Aged Out IPV Vaccines Aged Out Meningococcal Vaccine Aged Out Rotavirus Vaccines Aged Out HPV Vaccines Aged Out Objective BP 126/82 Pulse 85 Temp 36.7 C (98.1 F) Ht 5' 7 (1.702 m) Wt 196 lb (88.9 kg) SpO2 96% BMI 30.70 kg/m Physical Exam Data Reviewed and Summarized Labs: Lab Results Component Value Date WBC 6.9 11/03/2024 HGB 13.6 11/03/2024 HCT 40.8 11/03/2024 PLT 305 11/03/2024 Lab Results Component Value Date NA 140 11/03/2024 K 4.4 11/03/2024 CL 109 (H) 11/03/2024 CO2 24 11/03/2024 BUN 15 11/03/2024 CREATININE 0.80 11/03/2024 GLUCOSE 96 11/03/2024 CALCIUM 9.5 11/03/2024 PROT 7.6 11/03/2024 BILITOT 0.5 11/03/2024 ALKPHOS 61 11/03/2024 AST 34 (H) 11/03/2024 ALT 52 (H) 11/03/2024 @GLUCOSELAB@ Lab Results Component Value Date CHOL 193 11/03/2024 CHOL 200 (H) 09/22/2023 CHOL 199 05/23/2022 Lab Results Component Value Date TRIG 88 11/03/2024 TRIG 98 09/22/2023 TRIG 86 05/23/2022 Lab Results Component Value Date HDL 47 (L) 11/03/2024 HDL 44 09/22/2023 HDL 46 05/23/2022 Lab Results Component Value Date LDLCALC 128 (H) 11/03/2024 LDLCALC 136 (H) 09/22/2023 No results found for: VLDL Lab Results Component Value Date CHOLHDLRATIO 4 11/03/2024 CHOLHDLRATIO 5 09/22/2023 CHOLHDLRATIO 4 05/23/2022 Imaging/Testing: HM COLONOSCOPY Ordered by an unspecified provider. Poonam Neal MD documented in this [facility]02-28-2025 History of Present illness Narrative* Poonam Neal MD - 11/05/2024 10:40 AM EST Images from the original note were not included. [facility] [place] [address] [facility] [address] Dept: [phone] Dept Loc: [phone] Reason for Visit: Follow-up and Ankle Injury (LEFT ankle, Back in August, but still bothering her) Assessment and Plan 1. Essential hypertension stable continue lisinopril 5 mg - Comprehensive metabolic panel - Lipid panel - CBC auto differential 2. Mild sprain of left ankle, sequela rest ice compression elevation - Comprehensive metabolic panel - Lipid panel - CBC auto differential 3. Elevated LFTs stay away from fatty foods follow-up with Dr. Yeung continue to monitor liver enzymes current treatment plan is effective, no change in therapy, orders and follow up as documented in EMR, lab results reviewed with patient, repeat labs ordered prior to next appointment, reviewed compliance with lifestyle measures, reviewed diet, exercise and weight control, reviewed medications and side effects in detail Return visit in 3 months. Subjective Ankle Injury is a 63-year-old female patient who had an injury couple weeks ago with sprain of her left ankle she is feeling a lot better. She is not having a lot of problems ambulating. Is less swollen history of high blood pressure well- controlled on medication history of elevated liver enzymes. With fatty liver. Review of Systems Constitutional: Negative. Negative for activity change, appetite change and fever. HENT: Negative. Negative for congestion. Eyes: Negative. Negative for discharge. Respiratory: Negative. Negative for chest tightness. Cardiovascular: Negative. Gastrointestinal: Negative. Endocrine: Negative. Negative for cold intolerance. Genitourinary: Negative for difficulty urinating. Musculoskeletal: Negative. Neurological: Negative. Negative for dizziness, facial asymmetry and headaches. Hematological: Negative. Allergies Allergen Reactions Azithromycin Rash Penicillins Hives and Rash Sulfa Antibiotics Hives and Rash Current Outpatient Medications Medication Sig Dispense Refill cholecalciferol (Vitamin D-3) 50 MCG (1999 UT) capsule Take by mouth. lisinopril 10 MG tablet Take 1 tablet (10 mg) by mouth daily. Patient takes with 5 mg tablet also to equal 15 mg 90 tablet 1 lisinopril 5 MG tablet Take 1 tablet (5 mg) by mouth daily. 90 tablet 1 Multiple Vitamin (MULTIVITAMIN ADULT PO) Take by mouth. Opzelura 1.5 % cream Vitamin E 400 units tablet Take by mouth. lisinopril 5 MG tablet Take 1 tablet (5 mg) by mouth daily. 90 tablet 1 No current facility-administered medications for this visit. Patient Active Problem List Diagnosis Essential hypertension, benign Fatty liver Other chronic nonalcoholic liver disease Past Medical History: Diagnosis Date Allergic grass tress dust mites Fatty liver Hypertension Social History Tobacco Use Smoking status: Never Smokeless tobacco: Never Substance Use Topics Alcohol use: No Past Surgical History: Procedure Laterality Date SECTION (HISTORICAL) SECTION, LOW TRANSVERSE 04/30/2002 Family History Problem Relation Name Age of Onset Liver disease Mother Janene Asher Heart disease Father Luis Asher Vision loss Father Luis Asher Asthma Daughter rey Health Maintenance Topic Date Due MMR Vaccines (1 of 1 - Standard series) Never done Hepatitis A Vaccines (1 of 2 - Risk 2-dose series) Never done Pneumococcal Vaccine: 50+ Years (1 of 2 - PCV) Never done Zoster Vaccines (1 of 2) Never done RSV Immunization for Adults (1 - Risk 60-74 years 1-dose series) Never done Hepatitis B Vaccines (1 of 3 - Risk 3-dose series) Never done COVID-19 Vaccine ( season) 2024 Cervical Cancer Screening 12/13/2024 Mammogram 12/31/2024 Depression Screening 11/02/2025 Diabetes Screening 09/22/2026 Lipid Panel 11/03/2029 Colorectal Cancer Screening 08/07/2030 DTaP/Tdap/Td Vaccines (2 - Td or Tdap) 12/08/2032 Influenza Vaccine Completed HIV Screening Completed Hepatitis C Screening Completed RSV Immunization under 20 Months Aged Out HIB Vaccines Aged Out IPV Vaccines Aged Out Meningococcal Vaccine Aged Out Rotavirus Vaccines Aged Out HPV Vaccines Aged Out Objective BP 126/82 Pulse 85 Temp 36.7 C (98.1 F) Ht 5' 7 (1.702 m) Wt 196 lb (88.9 kg) SpO2 96% BMI 30.70 kg/m Physical Exam Data Reviewed and Summarized Labs: Lab Results Component Value Date WBC 6.9 11/03/2024 HGB 13.6 11/03/2024 HCT 40.8 11/03/2024 PLT 305 11/03/2024 Lab Results Component Value Date NA 140 11/03/2024 K 4.4 11/03/2024 CL 109 (H) 11/03/2024 CO2 24 11/03/2024 BUN 15 11/03/2024 CREATININE 0.80 11/03/2024 GLUCOSE 96 11/03/2024 CALCIUM 9.5 11/03/2024 PROT 7.6 11/03/2024 BILITOT 0.5 11/03/2024 ALKPHOS 61 11/03/2024 AST 34 (H) 11/03/2024 ALT 52 (H) 11/03/2024 @GLUCOSELAB@ Lab Results Component Value Date CHOL 193 11/03/2024 CHOL 200 (H) 09/22/2023 CHOL 199 05/23/2022 Lab Results Component Value Date TRIG 88 11/03/2024 TRIG 98 09/22/2023 TRIG 86 05/23/2022 Lab Results Component Value Date HDL 47 (L) 11/03/2024 HDL 44 09/22/2023 HDL 46 05/23/2022 Lab Results Component Value Date LDLCALC 128 (H) 11/03/2024 LDLCALC 136 (H) 09/22/2023 No results found for: VLDL Lab Results Component Value Date CHOLHDLRATIO 4 11/03/2024 CHOLHDLRATIO 5 09/22/2023 CHOLHDLRATIO 4 05/23/2022 Imaging/Testing: HM COLONOSCOPY Ordered by an unspecified provider. Poonam Neal MD documented in this [facility]02-28-2025 Miscellaneous Notes* Addendum Note - Didi Breen - 11/05/2024 10:40 AM ESTAddended by: DIDI BREEN on: 05/26/2025 09:37 AM Modules accepted: Orders documented in this [facility]02-28-2025 Note* Addendum Note - Didi Breen - 11/05/2024 10:40 AM ESTAddended by: DIDI BREEN on: 05/26/2025 09:37 AM Modules accepted: Orders [facility] [id number] Telephone encounter Note* Telephone Encounter - Telma Schultz MA - 09/30/2024 8:19 AM EST Recent Visits Date Type Provider Dept 07/08/24 Office Visit Poonam Neal MD [facility] 02/12/24 Office Visit Poonam Neal MD [facility] Showing recent visits within past 365 days and meeting all other requirements Future Appointments Date Type Provider Dept 11/05/24 Appointment Poonam Neal MD [facility] Showing future appointments within next 90 days and meeting all other requirements Requested Prescriptions Pending Prescriptions Disp Refills lisinopril 10 MG tablet [Pharmacy Med Name: LISINOPRIL TAB 10MG] 90 tablet 1 Sig: Take 1 tablet (10 mg) by mouth daily. Patient takes with 5 mg tablet also to equal 15 mg lisinopril 5 MG tablet 90 tablet 1 Sig: Take 1 tablet (5 mg) by mouth daily. Provider: Poonam Neal MD Verified pharmacy: yes Verified day(s) supplied: yes Verified refill(s) needed (previous prescription showing no refills in chart): Yes Have you received any controlled medications from any other provider? N/A Overdue for visit: No If yes - patient scheduled? Yes Most recent labs completed in chart? Yes Hypertension: Lab Results Component Value Date NA 139 09/22/2023 K 4.1 09/22/2023 EGFR >90.0 09/22/2023 BUN 16 09/22/2023 CREATININE 0.65 09/22/2023 [facility] [id number] Miscellaneous Notes* Telephone Encounter - Telma Schultz MA - 09/30/2024 8:19 AM EST Recent Visits Date Type Provider Dept 07/08/24 Office Visit Poonam Neal MD [facility] 02/12/24 Office Visit Poonam Neal MD [facility] Showing recent visits within past 365 days and meeting all other requirements Future Appointments Date Type Provider Dept 11/05/24 Appointment Poonam Neal MD [facility] Showing future appointments within next 90 days and meeting all other requirements Requested Prescriptions Pending Prescriptions Disp Refills lisinopril 10 MG tablet [Pharmacy Med Name: LISINOPRIL TAB 10MG] 90 tablet 1 Sig: Take 1 tablet (10 mg) by mouth daily. Patient takes with 5 mg tablet also to equal 15 mg lisinopril 5 MG tablet 90 tablet 1 Sig: Take 1 tablet (5 mg) by mouth daily. Provider: Poonam Neal MD Verified pharmacy: yes Verified day(s) supplied: yes Verified refill(s) needed (previous prescription showing no refills in chart): Yes Have you received any controlled medications from any other provider? N/A Overdue for visit: No If yes - patient scheduled? Yes Most recent labs completed in chart? Yes Hypertension: Lab Results Component Value Date NA 139 09/22/2023 K 4.1 09/22/2023 EGFR >90.0 09/22/2023 BUN 16 09/22/2023 CREATININE 0.65 09/22/2023 documented in this [facility]12-05-2024 History of Present illness Narrative* Derrek Hernandez MD - 08/12/2024 12:35 PM EST Patient presents with: Ankle Injury: LEFT ankle x 2 HR HPI: Left ankle pain: Duration: fell on stairs this afternoon Location: medial and lateral ankle Character: aching and sharp Radiation: middle toes feel different Aggravating: standing and walking Relieving: Pain relievers: none Associated: swelling Pertinent negatives: Denies numbness MEDICATIONS: OPZELURA 1.5 % cream Apply to affected area. lisinopril (ZESTRIL, PRINIVIL) 10 mg tablet Take 10 mg by mouth. Cholecalciferol, Vitamin D3, 2,000 unit cap Take by mouth. MULTIVITAMIN ORAL Take by mouth. ALLERGIES: ALLERGIES Allergen Reactions Amoxicillin Hives Sulfa (Sulfonamide * Hives Azithromycin Rash VITALS: BP 135/77 Pulse 76 Temp 36.2 C (97.2 F) (Left Tympanic) Resp 16 Wt 87.1 kg (192 lb) LMP 03/15/2015 PHYSICAL EXAM: GEN: pleasant, alert, no acute distress ANKLE: left. Swelling present over the lateral malleolus. No deformity. Range of motion: inversion - painful, eversion - painful, anterior drawer- non- painful. painful to bear weight. limping gait. Palpation: Medial malleolus painful, lateral malleolus painful, Dorsal proximal midfoot - non-painful, proximal 5th metatarsal non-painful, posterior calcaneus non-painful, toes non-painful ASSESSMENT/PLAN: 1. Sprain of left ankle, unspecified ligament, initial encounter - ICD9: 845.00, ICD10: S93.402A (primary diagnosis) 2. Acute left ankle pain - ICD9: 719.47, ICD10: M25.572 - XR ANKLE GENERAL 3V AP/LAT/OBL LEFT - no definite fracture. Treat sprain with with rest, ice, compression, elevation, and as needed analgesia. Advance activityas tolerated. Provided crutches from vendor stock. Follow-up with PCP, orthopedics, or here with failure to improve. Derrek Hernandez MD [facility] History of Present illness Narrative* Poonam Neal MD - 07/08/2024 2:40 PM EDT Images from the original note were not included. [facility] - [address] [facility] [address] Dept: [phone] Dept Loc: [phone] Reason for Visit: Follow-up (3-4 month, pt declined flu vaccine today. ) and Back Pain (To right back side, high up ) Assessment and Plan 1. Thoracic back pain, unspecified back pain laterality, unspecified chronicity - External referral to Physical Therapy - Comprehensive metabolic panel - Lipid panel - CBC auto differential 2. Essential hypertension - Comprehensive metabolic panel - Lipid panel - CBC auto differential 3. Elevated LFTs - Comprehensive metabolic panel - Lipid panel - CBC auto differential current treatment plan is effective, no change in therapy, orders and follow up as documented in EMR, lab results reviewed with patient, repeat labs ordered prior to next appointment, reviewed compliance with lifestyle measures, reviewed diet, exercise and weight control, reviewed medications and side effects in detail Return visit in 3 months. Subjective Back Pain Pertinent negatives include no fever or headaches. XT 3-year-old female patient who has a history of high blood pressure but it is well-controlled on her lisinopril she also has noticed some mid back pain. Extending up to her rib area. She had no recent trauma no numbness or tingling no blood in her urine I will loss of bladder bowel control. We have also been following her liver enzymes which have been stable. She GI has also been following these. Review of Systems Constitutional: Negative. Negative for activity change, appetite change and fever. HENT: Negative. Negative for congestion. Eyes: Negative. Negative for discharge. Respiratory: Negative. Negative for chest tightness. Cardiovascular: Negative. Gastrointestinal: Negative. Endocrine: Negative. Negative for cold intolerance. Genitourinary: Negative for difficulty urinating. Musculoskeletal: Positive for back pain. Neurological: Negative. Negative for dizziness, facial asymmetry and headaches. Hematological: Negative. Allergies Allergen Reactions Azithromycin Rash Penicillins Hives and Rash Sulfa Antibiotics Hives and Rash Outpatient Medications Prior to Visit Medication Sig Dispense Refill cholecalciferol (Vitamin D-3) 50 MCG (2000 UT) capsule Take by mouth. lisinopril 10 MG tablet Take 1 tablet (10 mg) by mouth daily. Patient takes with 5 mg tablet also to equal 15 mg 90 tablet 1 lisinopril 5 MG tablet Take 1 tablet (5 mg) by mouth daily. 90 tablet 1 Multiple Vitamin (MULTIVITAMIN ADULT PO) Take by mouth. Opzelura 1.5 % cream Vitamin E 400 units tablet Take by mouth. No facility-administered medications prior to visit. Patient Active Problem List Diagnosis Essential hypertension, benign Fatty liver Other chronic nonalcoholic liver disease Past Medical History: Diagnosis Date Allergic grass tress dust mites Fatty liver Hypertension Social History Tobacco Use Smoking status: Never Smokeless tobacco: Never Substance Use Topics Alcohol use: No Past Surgical History: Procedure Laterality Date SECTION (HISTORICAL) SECTION, LOW TRANSVERSE 04/30/2002 Family History Problem Relation Name Age of Onset Liver disease Mother Janene Asher Heart disease Father Luis Asher Vision loss Father Luis Asher Asthma Daughter rey Health Maintenance Topic Date Due MMR Vaccines (1 of 1 - Standard series) Never done Hepatitis A Vaccines (1 of 2 - Risk 2-dose series) Never done Zoster Vaccines (1 of 2) Never done RSV Immunization for Adults (1 - Risk 60-74 years 1-dose series) Never done Hepatitis B Vaccines (1 of 3 - Risk 3-dose series) Never done Influenza Vaccine (1) 05/09/2024 COVID-19 Vaccine ( season) 2024 Cervical Cancer Screening 12/13/2024 Mammogram 12/31/2024 Depression Screening 07/07/2025 Diabetes Screening 09/22/2026 Lipid Panel 09/22/2028 Colorectal Cancer Screening 08/07/2030 DTaP/Tdap/Td Vaccines (2 - Td or Tdap) 12/08/2032 HIV Screening Completed Hepatitis C Screening Completed RSV Immunization under 20 Months Aged Out HIB Vaccines Aged Out IPV Vaccines Aged Out Meningococcal Vaccine Aged Out Rotavirus Vaccines Aged Out HPV Vaccines Aged Out Pneumococcal Vaccine: Pediatrics (0 to 5 Years) and At-Risk Patients (6 to 64 Years) Aged Out Objective BP 118/78 Pulse 62 Temp 36.9 C (98.4 F) Ht 5' 7 (1.702 m) Wt 190 lb (86.2 kg) SpO2 95% BMI 29.76 kg/m Physical Exam Pulmonary: Effort: Pulmonary effort is normal. Abdominal: General: Abdomen is flat. Musculoskeletal: General: No swelling. Thoracic back: Tenderness and bony tenderness present. Lumbar back: No tenderness or bony tenderness. Negative right straight leg raise test and negative left straight leg raise test. Skin: General: Skin is warm and dry. Neurological: Mental Status: She is alert. Data Reviewed and Summarized Labs: Lab Results Component Value Date WBC 8.7 09/22/2023 HGB 13.3 09/22/2023 HCT 40.3 09/22/2023 PLT 298 09/22/2023 Lab Results Component Value Date NA 139 09/22/2023 K 4.1 09/22/2023 CL 105 09/22/2023 CO2 27 09/22/2023 BUN 16 09/22/2023 CREATININE 0.65 09/22/2023 GLUCOSE 101 (H) 09/22/2023 CALCIUM 9.2 09/22/2023 PROT 8.0 09/22/2023 BILITOT 0.7 09/22/2023 ALKPHOS 59 09/22/2023 AST 26 09/22/2023 ALT 23 09/22/2023 @GLUCOSELAB@ Lab Results Component Value Date CHOL 200 (H) 09/22/2023 CHOL 199 05/23/2022 CHOL 203 (A) 06/06/2020 Lab Results Component Value Date TRIG 98 09/22/2023 TRIG 86 05/23/2022 TRIG 102 06/06/2020 Lab Results Component Value Date HDL 44 09/22/2023 HDL 46 05/23/2022 HDL 48 06/06/2020 Lab Results Component Value Date LDLCALC 136 (H) 09/22/2023 No results found for: VLDL Lab Results Component Value Date CHOLHDLRATIO 5 09/22/2023 CHOLHDLRATIO 4 05/23/2022 CHOLHDLRATIO 4 06/06/2020 Imaging/Testing: COLONOSCOPY Ordered by an unspecified provider. Poonam Neal MD documented in this [facility]10-31-2024 History of Present illness Narrative* Poonam Neal MD - 07/08/2024 2:40 PM EDT Images from the original note were not included. [facility] - [address] [facility] [address] Dept: [phone] Dept Loc: [phone] Reason for Visit: Follow-up (3-4 month, pt declined flu vaccine today. ) and Back Pain (To right back side, high up ) Assessment and Plan 1. Thoracic back pain, unspecified back pain laterality, unspecified chronicity - External referral to Physical Therapy - Comprehensive metabolic panel - Lipid panel - CBC auto differential 2. Essential hypertension - Comprehensive metabolic panel - Lipid panel - CBC auto differential 3. Elevated LFTs - Comprehensive metabolic panel - Lipid panel - CBC auto differential current treatment plan is effective, no change in therapy, orders and follow up as documented in EMR, lab results reviewed with patient, repeat labs ordered prior to next appointment, reviewed compliance with lifestyle measures, reviewed diet, exercise and weight control, reviewed medications and side effects in detail Return visit in 3 months. Subjective Back Pain Pertinent negatives include no fever or headaches. XT 3-year-old female patient who has a history of high blood pressure but it is well-controlled on her lisinopril she also has noticed some mid back pain. Extending up to her rib area. She had no recent trauma no numbness or tingling no blood in her urine I will loss of bladder bowel control. We have also been following her liver enzymes which have been stable. She GI has also been following these. Review of Systems Constitutional: Negative. Negative for activity change, appetite change and fever. HENT: Negative. Negative for congestion. Eyes: Negative. Negative for discharge. Respiratory: Negative. Negative for chest tightness. Cardiovascular: Negative. Gastrointestinal: Negative. Endocrine: Negative. Negative for cold intolerance. Genitourinary: Negative for difficulty urinating. Musculoskeletal: Positive for back pain. Neurological: Negative. Negative for dizziness, facial asymmetry and headaches. Hematological: Negative. Allergies Allergen Reactions Azithromycin Rash Penicillins Hives and Rash Sulfa Antibiotics Hives and Rash Outpatient Medications Prior to Visit Medication Sig Dispense Refill cholecalciferol (Vitamin D-3) 50 MCG (2000 UT) capsule Take by mouth. lisinopril 10 MG tablet Take 1 tablet (10 mg) by mouth daily. Patient takes with 5 mg tablet also to equal 15 mg 90 tablet 1 lisinopril 5 MG tablet Take 1 tablet (5 mg) by mouth daily. 90 tablet 1 Multiple Vitamin (MULTIVITAMIN ADULT PO) Take by mouth. Opzelura 1.5 % cream Vitamin E 400 units tablet Take by mouth. No facility-administered medications prior to visit. Patient Active Problem List Diagnosis Essential hypertension, benign Fatty liver Other chronic nonalcoholic liver disease Past Medical History: Diagnosis Date Allergic grass tress dust mites Fatty liver Hypertension Social History Tobacco Use Smoking status: Never Smokeless tobacco: Never Substance Use Topics Alcohol use: No Past Surgical History: Procedure Laterality Date SECTION (HISTORICAL) SECTION, LOW TRANSVERSE 04/30/2002 Family History Problem Relation Name Age of Onset Liver disease Mother Janene Asher Heart disease Father Luis Asher Vision loss Father Luis Asher Asthma Daughter rey Health Maintenance Topic Date Due MMR Vaccines (1 of 1 - Standard series) Never done Hepatitis A Vaccines (1 of 2 - Risk 2-dose series) Never done Zoster Vaccines (1 of 2) Never done RSV Immunization for Adults (1 - Risk 60-74 years 1-dose series) Never done Hepatitis B Vaccines (1 of 3 - Risk 3-dose series) Never done Influenza Vaccine (1) 05/09/2024 COVID-19 Vaccine ( - season) 2024 Cervical Cancer Screening 12/13/2024 Mammogram 12/31/2024 Depression Screening 07/07/2025 Diabetes Screening 09/22/2026 Lipid Panel 09/22/2028 Colorectal Cancer Screening 08/07/2030 DTaP/Tdap/Td Vaccines (2 - Td or Tdap) 12/08/2032 HIV Screening Completed Hepatitis C Screening Completed RSV Immunization under 20 Months Aged Out HIB Vaccines Aged Out IPV Vaccines Aged Out Meningococcal Vaccine Aged Out Rotavirus Vaccines Aged Out HPV Vaccines Aged Out Pneumococcal Vaccine: Pediatrics (0 to 5 Years) and At-Risk Patients (6 to 64 Years) Aged Out Objective BP 118/78 Pulse 62 Temp 36.9 C (98.4 F) Ht 5' 7 (1.702 m) Wt 190 lb (86.2 kg) SpO2 95% BMI 29.76 kg/m Physical Exam Pulmonary: Effort: Pulmonary effort is normal. Abdominal: General: Abdomen is flat. Musculoskeletal: General: No swelling. Thoracic back: Tenderness and bony tenderness present. Lumbar back: No tenderness or bony tenderness. Negative right straight leg raise test and negative left straight leg raise test. Skin: General: Skin is warm and dry. Neurological: Mental Status: She is alert. Data Reviewed and Summarized Labs: Lab Results Component Value Date WBC 8.7 09/22/2023 HGB 13.3 09/22/2023 HCT 40.3 09/22/2023 PLT 298 09/22/2023 Lab Results Component Value Date NA 139 09/22/2023 K 4.1 09/22/2023 CL 105 09/22/2023 CO2 27 09/22/2023 BUN 16 09/22/2023 CREATININE 0.65 09/22/2023 GLUCOSE 101 (H) 09/22/2023 CALCIUM 9.2 09/22/2023 PROT 8.0 09/22/2023 BILITOT 0.7 09/22/2023 ALKPHOS 59 09/22/2023 AST 26 09/22/2023 ALT 23 09/22/2023 @GLUCOSELAB@ Lab Results Component Value Date CHOL 200 (H) 09/22/2023 CHOL 199 05/23/2022 CHOL 203 (A) 06/06/2020 Lab Results Component Value Date TRIG 98 09/22/2023 TRIG 86 05/23/2022 TRIG 102 06/06/2020 Lab Results Component Value Date HDL 44 09/22/2023 HDL 46 05/23/2022 HDL 48 06/06/2020 Lab Results Component Value Date LDLCALC 136 (H) 09/22/2023 No results found for: VLDL Lab Results Component Value Date CHOLHDLRATIO 5 09/22/2023 CHOLHDLRATIO 4 05/23/2022 CHOLHDLRATIO 4 06/06/2020 Imaging/Testing: HM COLONOSCOPY Ordered by an unspecified provider. Poonam Neal MD documented in this [facility]10-31-2024 Miscellaneous Notes* Addendum Note - Didi Breen - 07/08/2024 2:40 PM EDTAddended by: DIDI BREEN on: 11/03/2024 10:21 AM Modules accepted: Orders documented in this [facility]10-31-2024 Note* Addendum Note - Didi Breen - 07/08/2024 2:40 PM EDTAddended by: DIDI BREEN on: 11/03/2024 10:21 AM Modules accepted: [id number] Tele[facility] encounter Note* Telephone Encounter - Mari Mckeon MA - 03/18/2024 7:59 AM EDT Recent Visits Date Type Provider Dept 02/12/24 Office Visit Poonam Neal MD [facility] 09/25/23 Office Visit Poonam Neal MD [facility] 05/28/23 Office Visit Poonam Neal MD [facility] Showing recent visits within past 365 days and meeting all other requirements Future Appointments No visits were found meeting these conditions. Showing future appointments within next 90 days and meeting all other requirements Requested Prescriptions Pending Prescriptions Disp Refills lisinopril 10 MG tablet 30 tablet 0 Sig: Take 1 tablet (10 mg) by mouth daily. Patient takes with 5 mg tablet also to equal 15 mg Provider: Poonam Neal MD Verified pharmacy: yes Verified day(s) supplied: yes Verified refill(s) needed (previous prescription showing no refills in chart): Yes Have you received any controlled medications from any other provider? N/A Overdue for visit: No If yes - patient scheduled? Yes Most recent labs completed in chart? N/A Hypertension: Lab Results Component Value Date NA 139 09/22/2023 K 4.1 09/22/2023 EGFR >90.0 09/22/2023 BUN 16 09/22/2023 CREATININE 0.65 09/22/2023 [id number] Miscellaneous Notes* Telephone Encounter - Mari Mckeon MA - 03/18/2024 7:59 AM EDT Recent Visits Date Type Provider Dept 02/12/24 Office Visit Poonam Neal MD [facility] 09/25/23 Office Visit Poonam Neal MD [facility] 05/28/23 Office Visit Poonam Neal MD [facility] Showing recent visits within past 365 days and meeting all other requirements Future Appointments No visits were found meeting these conditions. Showing future appointments within next 90 days and meeting all other requirements Requested Prescriptions Pending Prescriptions Disp Refills lisinopril 10 MG tablet 30 tablet 0 Sig: Take 1 tablet (10 mg) by mouth daily. Patient takes with 5 mg tablet also to equal 15 mg Provider: Poonam Neal MD Verified pharmacy: yes Verified day(s) supplied: yes Verified refill(s) needed (previous prescription showing no refills in chart): Yes Have you received any controlled medications from any other provider? N/A Overdue for visit: No If yes - patient scheduled? Yes Most recent labs completed in chart? N/A Hypertension: Lab Results Component Value Date NA 139 09/22/2023 K 4.1 09/22/2023 EGFR >90.0 09/22/2023 BUN 16 09/22/2023 CREATININE 0.65 09/22/2023 documented in this [facility]06-07-2024 Miscellaneous Notes* Telephone Encounter - Mari Mckeon MA - 02/13/2024 7:45 AM EDT Recent Visits Date Type Provider Dept 02/12/24 Office Visit Poonam Neal MD [facility] 09/25/23 Office Visit Poonam Neal MD [facility] 05/28/23 Office Visit Poonam Neal MD [facility] 02/26/23 Office Visit Poonam Neal MD [facility] Showing recent visits within past 365 days and meeting all other requirements Future Appointments No visits were found meeting these conditions. Showing future appointments within next 90 days and meeting all other requirements Requested Prescriptions Pending Prescriptions Disp Refills lisinopril 5 MG tablet 90 tablet 1 Sig: Take 1 tablet (5 mg) by mouth daily. lisinopril 10 MG tablet 30 tablet 0 Sig: Take 1 tablet (10 mg) by mouth daily. Patient takes with 5 mg tablet also to equal 15 mg Provider: Poonam Neal MD Verified pharmacy: yes Verified day(s) supplied: yes Verified refill(s) needed (previous prescription showing no refills in chart): Yes Have you received any controlled medications from any other provider? N/A Overdue for visit: No If yes - patient scheduled? Yes Most recent labs completed in chart? Yes Hypertension: Lab Results Component Value Date NA 139 09/22/2023 K 4.1 09/22/2023 EGFR >90.0 09/22/2023 BUN 16 09/22/2023 CREATININE 0.65 09/22/2023 documented in this [facility]06-07-2024 Telephone encounter Note* Telephone Encounter - Mari Mckeon MA - 02/13/2024 7:45 AM EDT Recent Visits Date Type Provider Dept 02/12/24 Office Visit Poonam Neal MD [facility] 09/25/23 Office Visit Poonam Neal MD [facility] 05/28/23 Office Visit Poonam Neal MD [facility] 02/26/23 Office Visit Poonam Neal MD [facility] Showing recent visits within past 365 days and meeting all other requirements Future Appointments No visits were found meeting these conditions. Showing future appointments within next 90 days and meeting all other requirements Requested Prescriptions Pending Prescriptions Disp Refills lisinopril 5 MG tablet 90 tablet 1 Sig: Take 1 tablet (5 mg) by mouth daily. lisinopril 10 MG tablet 30 tablet 0 Sig: Take 1 tablet (10 mg) by mouth daily. Patient takes with 5 mg tablet also to equal 15 mg Provider: Poonam Neal MD Verified pharmacy: yes Verified day(s) supplied: yes Verified refill(s) needed (previous prescription showing no refills in chart): Yes Have you received any controlled medications from any other provider? N/A Overdue for visit: No If yes - patient scheduled? Yes Most recent labs completed in chart? Yes Hypertension: Lab Results Component Value Date NA 139 09/22/2023 K 4.1 09/22/2023 EGFR >90.0 09/22/2023 BUN 16 09/22/2023 CREATININE 0.65 09/22/2023 [id number] History of Present illness Narrative* Poonam Neal MD - 02/12/2024 11:00 AM EDT Images from the original note were not included. [facility] [address] [facility] [address] Dept: [phone] Dept Loc: [phone] Reason for Visit: Follow-up Assessment and Plan 1. Essential hypertension chronic stable we will do an continue lisinopril check electrolytes checkliver function - Lipid panel - Comprehensive metabolic panel - CBC auto differential 2. Elevated LFTs - Lipid panel - Comprehensive metabolic panel - CBC auto differential current treatment plan is effective, no change in therapy, orders and follow up as documented in EMR, lab results reviewed with patient, repeat labs ordered prior to next appointment, reviewed compliance with lifestyle measures, reviewed diet, exercise and weight control, reviewed medications and side effects in detail Return visit in 3 month. Subjective HPI this is a 63-year-old female patient with a history of hypertension currently she is taking lisinopril and tolerating it well she is otherwise in good health she sees Dr. Yeung who is a instructor substitute cosmetology for her liver enzymes but is due to get them checked she is up-to-date on her Paps. She re cently had her mammogram done. Review of Systems Constitutional: Negative. Negative for activity change, appetite change and fever. HENT: Negative. Negative for congestion. Eyes: Negative. Negative for discharge. Respiratory: Negative. Negative for chest tightness. Cardiovascular: Negative. Gastrointestinal: Negative. Endocrine: Negative. Negative for cold intolerance. Genitourinary: Negative for difficulty urinating. Musculoskeletal: Negative. Neurological: Negative. Negative for dizziness, facial asymmetry and headaches. Hematological: Negative. Allergies Allergen Reactions Azithromycin Rash Penicillins Hives and Rash Sulfa Antibiotics Hives and Rash Outpatient Medications Prior to Visit Medication Sig Dispense Refill cholecalciferol (Vitamin D-3) 50 MCG (1999 UT) capsule Take by mouth. lisinopril 10 MG tablet Take 1 tablet (10 mg) by mouth daily. Patient takes with 5 mg tablet also to equal 15 mg 30 tablet 0 lisinopril 5 MG tablet Take 1 tablet (5 mg) by mouth daily. 90 tablet 1 Multiple Vitamin (MULTIVITAMIN ADULT PO) Take by mouth. Opzelura 1.5 % cream Vitamin E 400 units tablet Take by mouth. No facility-administered medications prior to visit. Patient Active Problem List Diagnosis Essential hypertension, benign Fatty liver Other chronic nonalcoholic liver disease Past Medical History: Diagnosis Date Allergic grass tress dust mites Fatty liver Hypertension Social History Tobacco Use Smoking status: Never Smokeless tobacco: Never Substance Use Topics Alcohol use: No Past Surgical History: Procedure Laterality Date SECTION (HISTORICAL) SECTION, LOW TRANSVERSE 04/30/2002 Family History Problem Relation Name Age of Onset Liver disease Mother Janene Asher Heart disease Father Luis Asher Vision loss Father Luis Asher Asthma Daughter rey Health Maintenance Topic Date Due MMR Vaccines (1 of 1 - Standard series) Never done Depression Screening Never done Hepatitis A Vaccines (1 of 2 - Risk 2-dose series) Never done Zoster Vaccines (1 of 2) Never done RSV Immunization aged 60 or older (1 - 1-dose 60+ series) Never done Hepatitis B Vaccines (1 of 3 - Risk 3-dose series) Never done COVID-19 Vaccine ( - 2022- season) 2023 Cervical Cancer Screening 12/13/2024 Mammogram 12/31/2024 Diabetes Screening 09/22/2026 Lipid Panel 09/22/2028 Colorectal Cancer Screening 08/07/2030 DTaP/Tdap/Td Vaccines (2 - Td or Tdap) 12/08/2032 Influenza Vaccine Completed HIV Screening Completed Hepatitis C Screening Completed RSV Immunization under 20 Months Aged Out HIB Vaccines Aged Out IPV Vaccines Aged Out Meningococcal Vaccine Aged Out Rotavirus Vaccines Aged Out HPV Vaccines Aged Out Pneumococcal Vaccine: Pediatrics (0 to 5 Years) and At-Risk Patients (6 to 64 Years) Aged Out Objective BP 116/82 Pulse 83 Temp 36.6 C (97.9 F) Ht 5' 7 (1.702 m) Wt 193 lb (87.5 kg) SpO2 97% BMI 30.23 kg/m Physical Exam Vitals and nursing note reviewed. Constitutional: Appearance: Normal appearance. HENT: Head: Normocephalic and atraumatic. Nose: No congestion or rhinorrhea. Mouth/Throat: Mouth: Mucous membranes are moist. Pharynx: Oropharynx is clear. No posterior oropharyngeal erythema. Eyes: Extraocular Movements: Extraocular movements intact. Conjunctiva/sclera: Conjunctivae normal. Pupils: Pupils are equal, round, and reactive to light. Cardiovascular: Pulses: Normal pulses. Heart sounds: Normal heart sounds. No murmur heard. Pulmonary: Effort: Pulmonary effort is normal. No respiratory distress. Breath sounds: Normal breath sounds. No wheezing. Abdominal: General: Abdomen is flat. Bowel sounds are normal. Palpations: Abdomen is soft. Tenderness: There is no abdominal tenderness. Musculoskeletal: General: No swelling. Cervical back: Normal range of motion. Skin: General: Skin is warm and dry. Neurological: General: No focal deficit present. Mental Status: She is alert and oriented to person, place, and time. Mental status is at baseline. Psychiatric: Mood and Affect: Mood normal. Data Reviewed and Summarized Labs: Lab Results Component Value Date WBC 8.7 09/22/2023 HGB 13.3 09/22/2023 HCT 40.3 09/22/2023 PLT 298 09/22/2023 Lab Results Component Value Date NA 139 09/22/2023 K 4.1 09/22/2023 CL 105 09/22/2023 CO2 27 09/22/2023 BUN 16 09/22/2023 CREATININE 0.65 09/22/2023 GLUCOSE 101 (H) 09/22/2023 CALCIUM 9.2 09/22/2023 PROT 8.0 09/22/2023 BILITOT 0.7 09/22/2023 ALKPHOS 59 09/22/2023 AST 26 09/22/2023 ALT 23 09/22/2023 @GLUCOSELAB@ Lab Results Component Value Date CHOL 200 (H) 09/22/2023 CHOL 199 05/23/2022 CHOL 203 (A) 06/06/2020 Lab Results Component Value Date TRIG 98 09/22/2023 TRIG 86 05/23/2022 TRIG 102 06/06/2020 Lab Results Component Value Date HDL 44 09/22/2023 HDL 46 05/23/2022 HDL 48 06/06/2020 Lab Results Component Value Date LDLCALC 136 (H) 09/22/2023 No results found for: VLDL Lab Results Component Value Date CHOLHDLRATIO 5 09/22/2023 CHOLHDLRATIO 4 05/23/2022 CHOLHDLRATIO 4 06/06/2020 Imaging/Testing: HM COLONOSCOPY Ordered by an unspecified provider. Poonam Neal MD documented in this [facility]05-22-2024 Telephone encounter Note* Telephone Encounter - Mari Mckeon MA - 01/28/2024 9:14 AM EDT Recent Visits Date Type Provider Dept 09/25/23 Office Visit Poonam Nela MD [facility] 05/28/23 Office Visit Poonam Neal MD [facility] 02/26/23 Office Visit Poonam Neal MD [facility] Showing recent visits within past 365 days and meeting all other requirements Future Appointments Date Type Provider Dept 03/23/24 Appointment Poonam Neal MD [facility] Showing future appointments within next 90 days and meeting all other requirements Requested Prescriptions Pending Prescriptions Disp Refills lisinopril 10 MG tablet 90 tablet 1 Sig: Take 1 tablet (10 mg) by mouth daily. Patient takes with 5 mg tablet also to equal 15 mg Provider: Poonam Neal MD Verified pharmacy: yes Verified day(s) supplied: yes Verified refill(s) needed (previous prescription showing no refills in chart): Yes Have you received any controlled medications from any other provider? N/A Overdue for visit: No If yes - patient scheduled? Yes Most recent labs completed in chart? Yes Hypertension: Lab Results Component Value Date NA 139 09/22/2023 K 4.1 09/22/2023 EGFR >90.0 09/22/2023 BUN 16 09/22/2023 CREATININE 0.65 09/22/2023 [id number] Miscellaneous Notes* Telephone Encounter - Mari Mckeon MA - 01/28/2024 9:14 AM EDT Recent Visits Date Type Provider Dept 09/25/23 Office Visit Poonam Neal MD [facility] 05/28/23 Office Visit Poonam Neal MD [facility] 02/26/23 Office Visit Poonam Neal MD [facility] Showing recent visits within past 365 days and meeting all other requirements Future Appointments Date Type Provider Dept 03/23/24 Appointment Poonam Neal MD [facility] Showing future appointments within next 90 days and meeting all other requirements Requested Prescriptions Pending Prescriptions Disp Refills lisinopril 10 MG tablet 90 tablet 1 Sig: Take 1 tablet (10 mg) by mouth daily. Patient takes with 5 mg tablet also to equal 15 mg Provider: Poonam Neal MD Verified pharmacy: yes Verified day(s) supplied: yes Verified refill(s) needed (previous prescription showing no refills in chart): Yes Have you received any controlled medications from any other provider? N/A Overdue for visit: No If yes - patient scheduled? Yes Most recent labs completed in chart? Yes Hypertension: Lab Results Component Value Date NA 139 09/22/2023 K 4.1 09/22/2023 EGFR >90.0 09/22/2023 BUN 16 09/22/2023 CREATININE 0.65 09/22/2023 documented in this [facility]09-20-2023 History of Present illness Narrative* Poonam Neal MD - 05/28/2023 10:40 AM EDT Images from the original note were not included. [facility] [address] [facility] [address] Dept: [phone] Dept Loc: [phone] Reason for Visit: Follow-up Assessment and Plan 1. Essential hypertension - CBC auto differential Chronic stable we will continue lisinopril also ordered a CMP and CBC to get done low-salt diet current treatment plan is effective, no change in therapy, orders and follow up as documented in EMR, lab results reviewed with patient, repeat labs ordered prior to next appointment, reviewed compliance with lifestyle measures, reviewed diet, exercise and weight control, reviewed medications and side effects in detail Return visit in 4 weeks. Subjective Hypertension This is a chronic problem. The current episode started more than 1 year ago. The problem is unchanged. The problem is controlled. Pertinent negatives include no anxiety, blurred vision, chest pain, headaches, malaise/fatigue, neck pain, orthopnea, palpitations, peripheral edema, PND, shortness of breath or sweats. There are no associated agents to hypertension. Risk factors for coronary artery disease include family history, obesity, post-menopausal state and sedentary lifestyle. There are no compliance problems. this is a 62-year-old female who has a history of high blood pressure it is well controlled on her lisinopril she is not experiencing any problems or side effects on the medication she denies any chest pain or shortness of breath no headache or blurred vision Review of Systems Constitutional: Negative. Negative for activity change, appetite change, fever and malaise/fatigue. HENT: Negative. Negative for congestion. Eyes: Negative. Negative for blurred vision and discharge. Respiratory: Negative. Negative for chest tightness and shortness of breath. Cardiovascular: Negative. Negative for chest pain, palpitations, orthopnea and PND. Gastrointestinal: Negative. Endocrine: Negative. Negative for cold intolerance. Genitourinary: Negative for difficulty urinating. Musculoskeletal: Negative. Negative for neck pain. Neurological: Negative. Negative for dizziness, facial asymmetry and headaches. Hematological: Negative. Allergies Allergen Reactions Azithromycin Rash Penicillins Hives and Rash Sulfa Antibiotics Hives and Rash Outpatient Medications Prior to Visit Medication Sig Dispense Refill cholecalciferol (Vitamin D-3) 50 MCG (2000 UT) capsule Take by mouth. halobetasol (UltraVATE) 0.05 % ointment Apply topically 2 times daily. lisinopril 10 MG tablet Take 1 tablet (10 mg) by mouth daily. Patient takes with 5 mg tablet also to equal 15 mg 90 tablet 1 Multiple Vitamin (MULTIVITAMIN ADULT PO) Take by mouth. omeprazole (PriLOSEC) [address] capsule Take 10 mg by mouth every morning (before breakfast). Do notcrush or chew. Opzelura 1.5 % cream Vitamin E 400 units tablet Take by mouth. lisinopril 5 MG tablet Take 1 tablet (5 mg) by mouth daily. 90 tablet 0 No facility-administered medications prior to visit. Patient Active Problem List Diagnosis Essential hypertension, benign Fatty liver Other chronic nonalcoholic liver disease Past Medical History: Diagnosis Date Allergic grass tress dust mites Fatty liver Hypertension Social History Tobacco Use Smoking status: Never Smokeless tobacco: Never Substance Use Topics Alcohol use: No Past Surgical History: Procedure Laterality Date SECTION (HISTORICAL) SECTION, LOW TRANSVERSE 04/30/2002 Family History Problem Relation Name Age of Onset Liver disease Mother Janene Asher Heart disease Father Luis Asher Vision loss Father Luis [facility] Maintenance Topic Date Due MMR Vaccines (1 of 1 - Standard series) Never done Depression Screening Never done Hepatitis A Vaccines (1 of 2 - Risk 2-dose series) Never done Zoster Vaccines (1 of 2) Never done Hepatitis B Vaccines (1 of 3 - Risk 3-dose series) Never done Influenza Vaccine (1) 05/09/2023 Mammogram 11/29/2023 Diabetes Screening 08/04/2024 Cervical Cancer Screening 12/13/2024 Lipid Panel 05/23/2027 Colorectal Cancer Screening 08/07/2030 DTaP/Tdap/Td Vaccines (2 - Td or Tdap) 12/08/2032 HIV Screening Completed Hepatitis C Screening Completed COVID-19 Vaccine Completed HIB Vaccines Aged Out IPV Vaccines Aged Out Meningococcal Vaccine Aged Out Rotavirus Vaccines Aged Out HPV Vaccines Aged Out Pneumococcal Vaccine: Pediatrics (0 to 5 Years) and At-Risk Patients (6 to 64 Years) Aged Out Objective BP 123/82 Pulse 68 Ht 5' 7 (1.702 m) Wt 197 lb (89.4 kg) BMI 30.85 kg/m Physical Exam Vitals and nursing note reviewed. Constitutional: Appearance: Normal appearance. HENT: Head: Normocephalic and atraumatic. Nose: No congestion or rhinorrhea. Mouth/Throat: Mouth: Mucous membranes are moist. Pharynx: Oropharynx is clear. No posterior oropharyngeal erythema. Eyes: Extraocular Movements: Extraocular movements intact. Conjunctiva/sclera: Conjunctivae normal. Pupils: Pupils are equal, round, and reactive to light. Cardiovascular: Pulses: Normal pulses. Heart sounds: Normal heart sounds. No murmur heard. Pulmonary: Effort: Pulmonary effort is normal. No respiratory distress. Breath sounds: Normal breath sounds. No wheezing. Abdominal: General: Abdomen is flat. Bowel sounds are normal. Palpations: Abdomen is soft. Tenderness: There is no abdominal tenderness. Musculoskeletal: General: No swelling. Cervical back: Normal range of motion. Skin: General: Skin is warm and dry. Neurological: General: No focal deficit present. Mental Status: She is alert and oriented to person, place, and time. Mental status is at baseline. Psychiatric: Mood and Affect: Mood normal. Data Reviewed and Summarized Labs: Lab Results Component Value Date WBC 6.2 05/23/2022 HGB 14.3 05/23/2022 Lab Results Component Value Date NA 140 02/26/2023 K 4.0 02/26/2023 CL 105 02/26/2023 CO2 29 02/26/2023 BUN 14 02/26/2023 CREATININE 0.70 02/26/2023 GLUCOSE 99 02/26/2023 CALCIUM 9.1 02/26/2023 PROT 7.9 05/23/2022 BILITOT 0.5 05/23/2022 ALKPHOS 76 05/23/2022 AST 48 (H) 05/23/2022 @GLUCOSELAB@ Lab Results Component Value Date CHOL 199 05/23/2022 CHOL 203 (A) 06/06/2020 CHOL 185 10/09/2019 Lab Results Component Value Date TRIG 86 05/23/2022 TRIG 102 06/06/2020 TRIG 77 10/09/2019 Lab Results Component Value Date HDL 46 05/23/2022 HDL 48 06/06/2020 HDL 46 10/09/2019 No results found for: LDLCALC No results found for: VLDL Lab Results Component Value Date CHOLHDLRATIO 4 05/23/2022 CHOLHDLRATIO 4 06/06/2020 CHOLHDLRATIO 4 10/09/2019 Imaging/Testing: COLONOSCOPY Ordered by an unspecified provider. Poonam Neal MD documented in this [facility]06-21-2023 History of Present illness Narrative* Poonam Neal MD - 02/26/2023 11:20 AM EDT Images from the original note were not included. [facility] [address] [facility] [address] Dept: [phone] Dept Loc: [phone] Reason for Visit: Follow-up (Labs from [place] in Media section. ) Assessment and Plan 1. Abnormal urine - Basic metabolic panel - Urinalysis with reflex microscopic (clean catch) - Urine culture (clean catch) 2. Essential hypertension chronic stable continue lisinopril diet and exercise 3. Elevated LFTs*urology following patient recently had a ultrasound done at [facility]. current treatment plan is effective, no change in therapy, orders and follow up as documented in EMR, lab results reviewed with patient, repeat labs ordered prior to next appointment, reviewed compliance with lifestyle measures, reviewed diet, exercise and weight control, reviewed medications and side effects in detail Return visit in 3 months. Subjective Hypertension This is a chronic problem. The current episode started more than 1 year ago. The problem is unchanged. The problem is controlled. Pertinent negatives include no anxiety, blurred vision, chest pain, headaches, malaise/fatigue, neck pain, orthopnea, palpitations, peripheral edema, PND, shortness of breath or sweats. There are no associated agents to hypertension. Risk factors for coronary artery disease include family history, obesity, post-menopausal state and sedentary lifestyle. Compliance problems include diet and exercise. Review of Systems Constitutional: Negative. Negative for activity change, appetite change, fever and malaise/fatigue. HENT: Negative. Negative for congestion. Eyes: Negative. Negative for blurred vision and discharge. Respiratory: Negative. Negative for chest tightness and shortness of breath. Cardiovascular: Negative. Negative for chest pain, palpitations, orthopnea and PND. Gastrointestinal: Negative. Endocrine: Negative. Negative for cold intolerance. Genitourinary: Negative for difficulty urinating. Musculoskeletal: Negative. Negative for neck pain. Neurological: Negative. Negative for dizziness, facial asymmetry and headaches. Hematological: Negative. Allergies Allergen Reactions Azithromycin Rash Penicillins Hives and Rash Sulfa Antibiotics Hives and Rash Outpatient Medications Prior to Visit Medication Sig Dispense Refill cholecalciferol (Vitamin D-3) 50 MCG (1999 UT) capsule Take by mouth. halobetasol (UltraVATE) 0.05 % ointment Apply topically 2 times daily. lisinopril 10 MG tablet Take 1 tablet (10 mg) by mouth daily. Patient takes with 5 mg tablet also to equal 15 mg 90 tablet 1 lisinopril 5 MG tablet Take 1 tablet (5 mg) by mouth daily. 90 tablet 0 Multiple Vitamin (MULTIVITAMIN ADULT PO) Take by mouth. omeprazole (PriLOSEC) [address] capsule Take 10 mg by mouth every morning (before breakfast). Do notcrush or chew. Vitamin E 400 units tablet Take by mouth. No facility-administered medications prior to visit. Patient Active Problem List Diagnosis Essential hypertension, benign Fatty liver Other chronic nonalcoholic liver disease Past Medical History: Diagnosis Date Allergic grass tress dust mites Fatty liver Hypertension Social History Tobacco Use Smoking status: Never Smokeless tobacco: Never Substance Use Topics Alcohol use: No Past Surgical History: Procedure Laterality Date SECTION (HISTORICAL) SECTION, LOW TRANSVERSE 04/30/2002 Family History Problem Relation Name Age of Onset Liver disease Mother Janene Asher Heart disease Father Luis Asher Vision loss Father Luis Asher Health Maintenance Topic Date Due MMR Vaccines (1 of 1 - Standard series) Never done Depression Screening Never done Hepatitis A Vaccines (1 of 2 - Risk 2-dose series) Never done Zoster Vaccines (1 of 2) Never done Hepatitis B Vaccines (1 of 3 - Risk 3-dose series) Never done Mammogram 11/29/2023 Cervical Cancer Screening 12/13/2024 Lipid Panel 05/23/2027 Colorectal Cancer Screening 08/07/2030 DTaP/Tdap/Td Vaccines (2 - Td or Tdap) 12/08/2032 Influenza Vaccine Completed HIV Screening Completed Hepatitis C Screening Completed COVID-19 Vaccine Completed HIB Vaccines Aged Out IPV Vaccines Aged Out Meningococcal Vaccine Aged Out Rotavirus Vaccines Aged Out HPV Vaccines Aged Out Pneumococcal Vaccine: Pediatrics (0 to 5 Years) and At-Risk Patients (6 to 64 Years) Aged Out Objective BP 116/74 Pulse 71 Temp 36.7 C (98 F) Ht 5' 7 (1.702 m) Wt 201 lb (91.2 kg) SpO2 97% BMI 31.48 kg/m Physical Exam Vitals and nursing note reviewed. Constitutional: Appearance: Normal appearance. HENT: Head: Normocephalic and atraumatic. Nose: No congestion or rhinorrhea. Mouth/Throat: Mouth: Mucous membranes are moist. Pharynx: Oropharynx is clear. No posterior oropharyngeal erythema. Eyes: Extraocular Movements: Extraocular movements intact. Conjunctiva/sclera: Conjunctivae normal. Pupils: Pupils are equal, round, and reactive to light. Cardiovascular: Pulses: Normal pulses. Heart sounds: Normal heart sounds. No murmur heard. Pulmonary: Effort: Pulmonary effort is normal. No respiratory distress. Breath sounds: Normal breath sounds. No wheezing. Abdominal: General: Abdomen is flat. Bowel sounds are normal. Palpations: Abdomen is soft. Tenderness: There is no abdominal tenderness. Musculoskeletal: General: No swelling. Cervical back: Normal range of motion. Skin: General: Skin is warm and dry. Neurological: General: No focal deficit present. Mental Status: She is alert and oriented to person, place, and time. Mental status is at baseline. Psychiatric: Mood and Affect: Mood normal. Data Reviewed and Summarized Labs: Lab Results Component Value Date WBC 6.2 05/23/2022 HGB 14.3 05/23/2022 Lab Results Component Value Date NA 140 02/26/2023 K 4.0 02/26/2023 CL 105 02/26/2023 CO2 29 02/26/2023 BUN 14 02/26/2023 CREATININE 0.70 02/26/2023 GLUCOSE 99 02/26/2023 CALCIUM 9.1 02/26/2023 PROT 7.9 05/23/2022 BILITOT 0.5 05/23/2022 ALKPHOS 76 05/23/2022 AST 48 (H) 05/23/2022 @GLUCOSELAB@ Lab Results Component Value Date CHOL 199 05/23/2022 CHOL 203 (A) 06/06/2020 CHOL 185 10/09/2019 Lab Results Component Value Date TRIG 86 05/23/2022 TRIG 102 06/06/2020 TRIG 77 10/09/2019 Lab Results Component Value Date HDL 46 05/23/2022 HDL 48 06/06/2020 HDL 46 10/09/2019 No results found for: LDLCALC No results found for: VLDL Lab Results Component Value Date CHOLHDLRATIO 4 05/23/2022 CHOLHDLRATIO 4 06/06/2020 CHOLHDLRATIO 4 10/09/2019 Imaging/Testing: US ABDOMEN COMPLETE Patient Name: CHAD CHAVEZ ---Ultrasound--- Exam Date/Time 06/06/2020 09:29:33 EDT Exam US Abdomen Complete Ordering Physician MD DIANA, CHRISTOPHE Medina Accession Number [id number] CPT4 Codes 65525 () Reason For Exam liver cyst Report Indication: Hepatic cyst. Ultrasound of the abdomen was performed. Comparison was made to the study dated 09/24/2016. The liver is dense consistent with fatty infiltration and/or hepatocellular disease. There is a 6.6 x 6.1 x 4.4 cm simple cyst in the right hepatic lobe. Previously, this measured 4.1 x 3.3 x 4.1 cm. The gallbladder is visualized and is without evidence of cholelithiasis. There is no intra or extrahepatic biliary ductal dilatation. The common bile duct measures 3 mm. The visualized portions of the pancreas are unremarkable. Cursory evaluation of the kidneys shows no evidence of hydronephrosis. There is a 2.2 x 2.1 x 1.5 cm cyst with low-level internal echoes in the lower pole of the right kidney. Previously, this measured 1.7 x 1.5 x 1.6 cm. The spleen is not enlarged. The proximal portions of the aorta and IVC are within normal limits. Impression: 1. Hepatic and right renal cysts which have mildly increased in size when compared to the previous study. 2. Dense liver consistent with fatty infiltration and/or hepatocellular disease. No evidence of cholelithiasis or biliary ductal dilatation. Report Dictated on --- Final --- Dictating Physician: DO NEUMANN ANTHONY Signed Date and Time: 06/06/2020 9:52 am Signed by: DO NEUMANN ANTHONY Transcribed Date and Time: 06/06/2020 9:53 Poonam Neal MD documented in this [facility]06-21-2023 History of Present illness Narrative* Poonam Neal MD - 02/26/2023 11:20 AM EDT Images from the original note were not included. [facility] [address] [address] Dept: [phone] Dept Loc: [phone] Reason for Visit: Follow-up (Labs from [place] in Media section. ) Assessment and Plan 1. Abnormal urine - Basic metabolic panel - Urinalysis with reflex microscopic (clean catch) - Urine culture (clean catch) 2. Essential hypertension chronic stable continue lisinopril diet and exercise 3. Elevated LFTs*urology following patient recently had a ultrasound done at [facility]. current treatment plan is effective, no change in therapy, orders and follow up as documented in EMR, lab results reviewed with patient, repeat labs ordered prior to next appointment, reviewed compliance with lifestyle measures, reviewed diet, exercise and weight control, reviewed medications and side effects in detail Return visit in 3 months. Subjective Hypertension This is a chronic problem. The current episode started more than 1 year ago. The problem is unchanged. The problem is controlled. Pertinent negatives include no anxiety, blurred vision, chest pain, headaches, malaise/fatigue, neck pain, orthopnea, palpitations, peripheral edema, PND, shortness of breath or sweats. There are no associated agents to hypertension. Risk factors for coronary artery disease include family history, obesity, post-menopausal state and sedentary lifestyle. Compliance problems include diet and exercise. Review of Systems Constitutional: Negative. Negative for activity change, appetite change, fever and malaise/fatigue. HENT: Negative. Negative for congestion. Eyes: Negative. Negative for blurred vision and discharge. Respiratory: Negative. Negative for chest tightness and shortness of breath. Cardiovascular: Negative. Negative for chest pain, palpitations, orthopnea and PND. Gastrointestinal: Negative. Endocrine: Negative. Negative for cold intolerance. Genitourinary: Negative for difficulty urinating. Musculoskeletal: Negative. Negative for neck pain. Neurological: Negative. Negative for dizziness, facial asymmetry and headaches. Hematological: Negative. Allergies Allergen Reactions Azithromycin Rash Penicillins Hives and Rash Sulfa Antibiotics Hives and Rash Outpatient Medications Prior to Visit Medication Sig Dispense Refill cholecalciferol (Vitamin D-3) 50 MCG (1999 UT) capsule Take by mouth. halobetasol (UltraVATE) 0.05 % ointment Apply topically 2 times daily. lisinopril 10 MG tablet Take 1 tablet (10 mg) by mouth daily. Patient takes with 5 mg tablet also to equal 15 mg 90 tablet 1 lisinopril 5 MG tablet Take 1 tablet (5 mg) by mouth daily. 90 tablet 0 Multiple Vitamin (MULTIVITAMIN ADULT PO) Take by mouth. omeprazole (PriLOSEC) [address] capsule Take 10 mg by mouth every morning (before breakfast). Do notcrush or chew. Vitamin E 400 units tablet Take by mouth. No facility-administered medications prior to visit. Patient Active Problem List Diagnosis Essential hypertension, benign Fatty liver Other chronic nonalcoholic liver disease Past Medical History: Diagnosis Date Allergic grass tress dust mites Fatty liver Hypertension Social History Tobacco Use Smoking status: Never Smokeless tobacco: Never Substance Use Topics Alcohol use: No Past Surgical History: Procedure Laterality Date SECTION (HISTORICAL) SECTION, LOW TRANSVERSE 04/30/2002 Family History Problem Relation Name Age of Onset Liver disease Mother Janene Asher Heart disease Father Luis Asher Vision loss Father Luis Asher Health Maintenance Topic Date Due MMR Vaccines (1 of 1 - Standard series) Never done Depression Screening Never done Hepatitis A Vaccines (1 of 2 - Risk 2-dose series) Never done Zoster Vaccines (1 of 2) Never done Hepatitis B Vaccines (1 of 3 - Risk 3-dose series) Never done Mammogram 11/29/2023 Cervical Cancer Screening 12/13/2024 Lipid Panel 05/23/2027 Colorectal Cancer Screening 08/07/2030 DTaP/Tdap/Td Vaccines (2 - Td or Tdap) 12/08/2032 Influenza Vaccine Completed HIV Screening Completed Hepatitis C Screening Completed COVID-19 Vaccine Completed HIB Vaccines Aged Out IPV Vaccines Aged Out Meningococcal Vaccine Aged Out Rotavirus Vaccines Aged Out HPV Vaccines Aged Out Pneumococcal Vaccine: Pediatrics (0 to 5 Years) and At-Risk Patients (6 to 64 Years) Aged Out Objective BP 116/74 Pulse 71 Temp 36.7 C (98 F) Ht 5' 7 (1.702 m) Wt 201 lb (91.2 kg) SpO2 97% BMI 31.48 kg/m Physical Exam Vitals and nursing note reviewed. Constitutional: Appearance: Normal appearance. HENT: Head: Normocephalic and atraumatic. Nose: No congestion or rhinorrhea. Mouth/Throat: Mouth: Mucous membranes are moist. Pharynx: Oropharynx is clear. No posterior oropharyngeal erythema. Eyes: Extraocular Movements: Extraocular movements intact. Conjunctiva/sclera: Conjunctivae normal. Pupils: Pupils are equal, round, and reactive to light. Cardiovascular: Pulses: Normal pulses. Heart sounds: Normal heart sounds. No murmur heard. Pulmonary: Effort: Pulmonary effort is normal. No respiratory distress. Breath sounds: Normal breath sounds. No wheezing. Abdominal: General: Abdomen is flat. Bowel sounds are normal. Palpations: Abdomen is soft. Tenderness: There is no abdominal tenderness. Musculoskeletal: General: No swelling. Cervical back: Normal range of motion. Skin: General: Skin is warm and dry. Neurological: General: No focal deficit present. Mental Status: She is alert and oriented to person, place, and time. Mental status is at baseline. Psychiatric: Mood and Affect: Mood normal. Data Reviewed and Summarized Labs: Lab Results Component Value Date WBC 6.2 05/23/2022 HGB 14.3 05/23/2022 Lab Results Component Value Date NA 140 02/26/2023 K 4.0 02/26/2023 CL 105 02/26/2023 CO2 29 02/26/2023 BUN 14 02/26/2023 CREATININE 0.70 02/26/2023 GLUCOSE 99 02/26/2023 CALCIUM 9.1 02/26/2023 PROT 7.9 05/23/2022 BILITOT 0.5 05/23/2022 ALKPHOS 76 05/23/2022 AST 48 (H) 05/23/2022 @GLUCOSELAB@ Lab Results Component Value Date CHOL 199 05/23/2022 CHOL 203 (A) 06/06/2020 CHOL 185 10/09/2019 Lab Results Component Value Date TRIG 86 05/23/2022 TRIG 102 06/06/2020 TRIG 77 10/09/2019 Lab Results Component Value Date HDL 46 05/23/2022 HDL 48 06/06/2020 HDL 46 10/09/2019 No results found for: LDLCALC No results found for: VLDL Lab Results Component Value Date CHOLHDLRATIO 4 05/23/2022 CHOLHDLRATIO 4 06/06/2020 CHOLHDLRATIO 4 10/09/2019 Imaging/Testing: US ABDOMEN COMPLETE Patient Name: CHAD CHAVEZ ---Ultrasound--- Exam Date/Time 06/06/2020 09:29:33 EDT Exam US Abdomen Complete Ordering Physician MD DIANA, CHRISTOPHE Medina Accession Number [id number] CPT4 Codes 82281 () Reason For Exam liver cyst Report Indication: Hepatic cyst. Ultrasound of the abdomen was performed. Comparison was made to the study dated 09/24/2016. The liver is dense consistent with fatty infiltration and/or hepatocellular disease. There is a 6.6 x 6.1 x 4.4 cm simple cyst in the right hepatic lobe. Previously, this measured 4.1 x 3.3 x 4.1 cm. The gallbladder is visualized and is without evidence of cholelithiasis. There is no intra or extrahepatic biliary ductal dilatation. The common bile duct measures 3 mm. The visualized portions of the pancreas are unremarkable. Cursory evaluation of the kidneys shows no evidence of hydronephrosis. There is a 2.2 x 2.1 x 1.5 cm cyst with low-level internal echoes in the lower pole of the right kidney. Previously, this measured 1.7 x 1.5 x 1.6 cm. The spleen is not enlarged. The proximal portions of the aorta and IVC are within normal limits. Impression: 1. Hepatic and right renal cysts which have mildly increased in size when compared to the previous study. 2. Dense liver consistent with fatty infiltration and/or hepatocellular disease. No evidence of cholelithiasis or biliary ductal dilatation. Report Dictated on --- Final --- Dictating Physician: DO NEUMANN ANTHONY Signed Date and Time: 06/06/2020 9:52 am Signed by: DO NEUMANN ANTHONY Transcribed Date and Time: 06/06/2020 9:53 Poonam Neal MD documented in this [facility]06-21-2023 Miscellaneous Notes* Addendum Note - Poonam Neal MD - 02/26/2023 11:20 AM EDTAddended by: POONAM NEAL on: 02/27/2023 08:36 PM Modules accepted: Level of Service documented in this [facility]06-21-2023 Note* Addendum Note - Poonam Neal MD - 02/26/2023 11:20 AM EDTAddended by: POONAM NEAL on: 02/27/2023 08:36 PM Modules accepted: [facility] Service [id number] History of Present illness Narrative* Poonam Neal MD - 10/23/2022 11:20 AM EST Images from the original note were not included. [facility] [address] [facility] [address] Dept: [phone] Dept Loc: [phone] Reason for Visit: Follow-up (3 month ) Assessment and Plan 1. Essential hypertension controlled stable continue lisinopril 15 mg otherwise low-salt diet. - Lipid panel - Hemoglobin A1c - Comprehensive metabolic panel 2. 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 Subjective Hypertension The current episode started more than 1 year ago. The problem has been waxing and waning since onset. The problem is resistant. Pertinent negatives include no anxiety, blurred vision, chest pain, headaches, malaise/fatigue, neck pain, orthopnea, palpitations, peripheral edema, PND, shortness of breath or sweats. There are no associated agents to hypertension. Risk factors for coronary artery disease include family history, obesity, post-menopausal state and sedentary lifestyle. Compliance problems include exercise. Review of Systems Constitutional: Negative for malaise/fatigue. Eyes: Negative for blurred vision. Respiratory: Negative for shortness of breath. Cardiovascular: Negative for chest pain, palpitations, orthopnea and PND. Musculoskeletal: Negative for neck pain. Neurological: Negative for headaches. Allergies Allergen Reactions Azithromycin Rash Penicillins Hives and Rash Sulfa Antibiotics Hives and Rash Outpatient Medications Prior to Visit Medication Sig Dispense Refill cholecalciferol (Vitamin D-3) 50 MCG (1999 UT) capsule Take by mouth. halobetasol (UltraVATE) 0.05 % ointment Apply topically 2 times daily. Multiple Vitamin (MULTIVITAMIN ADULT PO) Take by mouth. lisinopril 10 MG tablet Take 10 mg by mouth in the morning. Patient takes with 5 mg tablet also to equal 15 mg. omeprazole (PriLOSEC) [address] capsule Take 10 mg by mouth every morning (before breakfast). Do notcrush or chew. No facility-administered medications prior to visit. Patient Active Problem List Diagnosis Essential hypertension, benign Fatty liver Other chronic nonalcoholic liver disease Past Medical History: Diagnosis Date Fatty liver Hypertension Social History Tobacco Use Smoking status: Never Smokeless tobacco: Never Substance Use Topics Alcohol use: No Past Surgical History: Procedure Laterality Date SECTION (HISTORICAL) No family history on file. Health Maintenance Topic Date Due Hepatitis A Vaccines (1 of 2 - Risk 2-dose series) Never done MMR Vaccines (1 of 1 - Standard series) Never done DTaP/Tdap/Td Vaccines (1 - Tdap) Never done Zoster Vaccines (1 of 2) Never done Hepatitis B Vaccines (1 of 3 - Risk 3-dose series) Never done Mammogram 11/22/2022 Cervical Cancer Screening 12/13/2024 Lipid Panel 05/23/2027 Colorectal Cancer Screening 08/07/2030 Influenza Vaccine Completed HIV Screening Completed Hepatitis C Screening Completed COVID-19 Vaccine Completed HIB Vaccines Aged Out IPV Vaccines Aged Out Meningococcal Vaccine Aged Out Rotavirus Vaccines Aged Out HPV Vaccines Aged Out Pneumococcal Vaccine: Pediatrics (0 to 5 Years) and At-Risk Patients (6 to 64 Years) Aged Out Objective BP 116/72 Pulse 87 Temp 36.9 C (98.4 F) Ht 5' 7 (1.702 m) Wt 209 lb (94.8 kg) SpO2 96% BMI 32.73 kg/m Physical Exam Vitals and nursing note reviewed. Constitutional: Appearance: Normal appearance. HENT: Head: Normocephalic and atraumatic. Nose: No congestion or rhinorrhea. Mouth/Throat: Mouth: Mucous membranes are moist. Pharynx: Oropharynx is clear. No posterior oropharyngeal erythema. Eyes: Extraocular Movements: Extraocular movements intact. Conjunctiva/sclera: Conjunctivae normal. Pupils: Pupils are equal, round, and reactive to light. Cardiovascular: Pulses: Normal pulses. Heart sounds: Normal heart sounds. No murmur heard. Pulmonary: Effort: Pulmonary effort is normal. No respiratory distress. Breath sounds: Normal breath sounds. No wheezing. Abdominal: General: Abdomen is flat. Bowel sounds are normal. Palpations: Abdomen is soft. Tenderness: There is no abdominal tenderness. Musculoskeletal: General: No swelling. Cervical back: Normal range of motion. Skin: General: Skin is warm and dry. Neurological: General: No focal deficit present. Mental Status: She is alert and oriented to person, place, and time. Mental status is at baseline. Psychiatric: Mood and Affect: Mood normal. Data Reviewed and Summarized Labs: Lab Results Component Value Date WBC 6.2 05/23/2022 HGB 14.3 05/23/2022 Lab Results Component Value Date NA 139 05/23/2022 K 4.9 05/23/2022 CL 107 05/23/2022 CO2 27 05/23/2022 BUN 15 05/23/2022 CREATININE 0.68 05/23/2022 GLUCOSE 89 05/23/2022 CALCIUM 8.8 05/23/2022 PROT 7.9 05/23/2022 BILITOT 0.5 05/23/2022 ALKPHOS 76 05/23/2022 AST 48 (H) 05/23/2022 @GLUCOSELAB@ Lab Results Component Value Date CHOL 199 05/23/2022 CHOL 203 (A) 06/06/2020 CHOL 185 10/09/2019 Lab Results Component Value Date TRIG 86 05/23/2022 TRIG 102 06/06/2020 TRIG 77 10/09/2019 Lab Results Component Value Date HDL 46 05/23/2022 HDL 48 06/06/2020 HDL 46 10/09/2019 No results found for: LDLCALC No results found for: VLDL Lab Results Component Value Date CHOLHDLRATIO 4 05/23/2022 CHOLHDLRATIO 4 06/06/2020 CHOLHDLRATIO 4 10/09/2019 Imaging/Testing: US ABDOMEN COMPLETE Patient Name: CHAD CHAVEZ ---Ultrasound--- Exam Date/Time 06/06/2020 09:29:33 EDT Exam US Abdomen Complete Ordering Physician MD ALVARADO REYNALDO C. Accession Number [id number] CPT4 Codes 43668 () Reason For Exam liver cyst Report Indication: Hepatic cyst. Ultrasound of the abdomen was performed. Comparison was made to the study dated 09/24/2016. The liver is dense consistent with fatty infiltration and/or hepatocellular disease. There is a 6.6 x 6.1 x 4.4 cm simple cyst in the right hepatic lobe. Previously, this measured 4.1 x 3.3 x 4.1 cm. The gallbladder is visualized and is without evidence of cholelithiasis. There is no intra or extrahepatic biliary ductal dilatation. The common bile duct measures 3 mm. The visualized portions of the pancreas are unremarkable. Cursory evaluation of the kidneys shows no evidence of hydronephrosis. There is a 2.2 x 2.1 x 1.5 cm cyst with low-level internal echoes in the lower pole of the right kidney. Previously, this measured 1.7 x 1.5 x 1.6 cm. The spleen is not enlarged. The proximal portions of the aorta and IVC are within normal limits. Impression: 1. Hepatic and right renal cysts which have mildly increased in size when compared to the previous study. 2. Dense liver consistent with fatty infiltration and/or hepatocellular disease. No evidence of cholelithiasis or biliary ductal dilatation. Report Dictated on --- Final --- Dictating Physician: DO NEUMANN ANTHONY Signed Date and Time: 06/06/2020 9:52 am Signed by: DO NEUMANN ANTHONY Transcribed Date and Time: 06/06/2020 9:53 Poonam Neal MD documented in this [facility]02-15-2023 History of Present illness Narrative* Poonam Neal MD - 10/23/2022 11:20 AM EST Images from the original note were not included. [address] [address] Dept: [phone] Dept Loc: [phone] Reason for Visit: Follow-up (3 month ) Assessment and Plan 1. Essential hypertension controlled stable continue lisinopril 15 mg otherwise low-salt diet. - Lipid panel - Hemoglobin A1c - Comprehensive metabolic panel 2. 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 Subjective Hypertension The current episode started more than 1 year ago. The problem has been waxing and waning since onset. The problem is resistant. Pertinent negatives include no anxiety, blurred vision, chest pain, headaches, malaise/fatigue, neck pain, orthopnea, palpitations, peripheral edema, PND, shortness of breath or sweats. There are no associated agents to hypertension. Risk factors for coronary artery disease include family history, obesity, post-menopausal state and sedentary lifestyle. Compliance problems include exercise. Review of Systems Constitutional: Negative for malaise/fatigue. Eyes: Negative for blurred vision. Respiratory: Negative for shortness of breath. Cardiovascular: Negative for chest pain, palpitations, orthopnea and PND. Musculoskeletal: Negative for neck pain. Neurological: Negative for headaches. Allergies Allergen Reactions Azithromycin Rash Penicillins Hives and Rash Sulfa Antibiotics Hives and Rash Outpatient Medications Prior to Visit Medication Sig Dispense Refill cholecalciferol (Vitamin D-3) 50 MCG (1999 UT) capsule Take by mouth. halobetasol (UltraVATE) 0.05 % ointment Apply topically 2 times daily. Multiple Vitamin (MULTIVITAMIN ADULT PO) Take by mouth. lisinopril 10 MG tablet Take 10 mg by mouth in the morning. Patient takes with 5 mg tablet also to equal 15 mg. omeprazole (PriLOSEC) [address] capsule Take 10 mg by mouth every morning (before breakfast). Do notcrush or chew. No facility-administered medications prior to visit. Patient Active Problem List Diagnosis Essential hypertension, benign Fatty liver Other chronic nonalcoholic liver disease Past Medical History: Diagnosis Date Fatty liver Hypertension Social History Tobacco Use Smoking status: Never Smokeless tobacco: Never Substance Use Topics Alcohol use: No Past Surgical History: Procedure Laterality Date SECTION (HISTORICAL) No family history on file. Health Maintenance Topic Date Due Hepatitis A Vaccines (1 of 2 - Risk 2-dose series) Never done MMR Vaccines (1 of 1 - Standard series) Never done DTaP/Tdap/Td Vaccines (1 - Tdap) Never done Zoster Vaccines (1 of 2) Never done Hepatitis B Vaccines (1 of 3 - Risk 3-dose series) Never done Mammogram 11/22/2022 Cervical Cancer Screening 12/13/2024 Lipid Panel 05/23/2027 Colorectal Cancer Screening 08/07/2030 Influenza Vaccine Completed HIV Screening Completed Hepatitis C Screening Completed COVID-19 Vaccine Completed HIB Vaccines Aged Out IPV Vaccines Aged Out Meningococcal Vaccine Aged Out Rotavirus Vaccines Aged Out HPV Vaccines Aged Out Pneumococcal Vaccine: Pediatrics (0 to 5 Years) and At-Risk Patients (6 to 64 Years) Aged Out Objective BP 116/72 Pulse 87 Temp 36.9 C (98.4 F) Ht 5' 7 (1.702 m) Wt 209 lb (94.8 kg) SpO2 96% BMI 32.73 kg/m Physical Exam Vitals and nursing note reviewed. Constitutional: Appearance: Normal appearance. HENT: Head: Normocephalic and atraumatic. Nose: No congestion or rhinorrhea. Mouth/Throat: Mouth: Mucous membranes are moist. Pharynx: Oropharynx is clear. No posterior oropharyngeal erythema. Eyes: Extraocular Movements: Extraocular movements intact. Conjunctiva/sclera: Conjunctivae normal. Pupils: Pupils are equal, round, and reactive to light. Cardiovascular: Pulses: Normal pulses. Heart sounds: Normal heart sounds. No murmur heard. Pulmonary: Effort: Pulmonary effort is normal. No respiratory distress. Breath sounds: Normal breath sounds. No wheezing. Abdominal: General: Abdomen is flat. Bowel sounds are normal. Palpations: Abdomen is soft. Tenderness: There is no abdominal tenderness. Musculoskeletal: General: No swelling. Cervical back: Normal range of motion. Skin: General: Skin is warm and dry. Neurological: General: No focal deficit present. Mental Status: She is alert and oriented to person, place, and time. Mental status is at baseline. Psychiatric: Mood and Affect: Mood normal. Data Reviewed and Summarized Labs: Lab Results Component Value Date WBC 6.2 05/23/2022 HGB 14.3 05/23/2022 Lab Results Component Value Date NA 139 05/23/2022 K 4.9 05/23/2022 CL 107 05/23/2022 CO2 27 05/23/2022 BUN 15 05/23/2022 CREATININE 0.68 05/23/2022 GLUCOSE 89 05/23/2022 CALCIUM 8.8 05/23/2022 PROT 7.9 05/23/2022 BILITOT 0.5 05/23/2022 ALKPHOS 76 05/23/2022 AST 48 (H) 05/23/2022 @GLUCOSELAB@ Lab Results Component Value Date CHOL 199 05/23/2022 CHOL 203 (A) 06/06/2020 CHOL 185 10/09/2019 Lab Results Component Value Date TRIG 86 05/23/2022 TRIG 102 06/06/2020 TRIG 77 10/09/2019 Lab Results Component Value Date HDL 46 05/23/2022 HDL 48 06/06/2020 HDL 46 10/09/2019 No results found for: LDLCALC No results found for: VLDL Lab Results Component Value Date CHOLHDLRATIO 4 05/23/2022 CHOLHDLRATIO 4 06/06/2020 CHOLHDLRATIO 4 10/09/2019 Imaging/Testing: US ABDOMEN COMPLETE Patient Name: CHAD CHAVEZ ---Ultrasound--- Exam Date/Time 06/06/2020 09:29:33 EDT Exam US Abdomen Complete Ordering Physician MD ALVARADO REYNALDO C. Accession Number [id number] CPT4 Codes 52642 () Reason For Exam liver cyst Report Indication: Hepatic cyst. Ultrasound of the abdomen was performed. Comparison was made to the study dated 09/24/2016. The liver is dense consistent with fatty infiltration and/or hepatocellular disease. There is a 6.6 x 6.1 x 4.4 cm simple cyst in the right hepatic lobe. Previously, this measured 4.1 x 3.3 x 4.1 cm. The gallbladder is visualized and is without evidence of cholelithiasis. There is no intra or extrahepatic biliary ductal dilatation. The common bile duct measures 3 mm. The visualized portions of the pancreas are unremarkable. Cursory evaluation of the kidneys shows no evidence of hydronephrosis. There is a 2.2 x 2.1 x 1.5 cm cyst with low-level internal echoes in the lower pole of the right kidney. Previously, this measured 1.7 x 1.5 x 1.6 cm. The spleen is not enlarged. The proximal portions of the aorta and IVC are within normal limits. Impression: 1. Hepatic and right renal cysts which have mildly increased in size when compared to the previous study. 2. Dense liver consistent with fatty infiltration and/or hepatocellular disease. No evidence of cholelithiasis or biliary ductal dilatation. Report Dictated on --- Final --- Dictating Physician: DO NEUMANN ANTHONY Signed Date and Time: 06/06/2020 9:52 am Signed by: DO NEUMANN ANTHONY Transcribed Date and Time: 06/06/2020 9:53 Poonam Neal MD documented in this [facility]02-15-2023 Miscellaneous Notes* Addendum Note - Betina Cho - 10/23/2022 11:20 AM ESTAddended by: BETINA CHO on: 09/22/2023 09:28 AM Modules accepted: Orders documented in this [facility]02-15-2023 Note* Addendum Note - Betina Cho - 10/23/2022 11:20 AM ESTAddended by: BETINA CHO on: 09/22/2023 09:28 AM Modules accepted: [id number] NotePap Smear Specimen AdequacyFebruary 2021 12:00pmCommentSatisfactory for evaluation. Endocervical and/or squamous metaplasticcells (endocervical component)are present.[facility] A#[id number] Work Phone: Comment on above:Satisfactory for evaluation. Endocervical and/or squamous metaplasticcells (endocervical component)are present.10-24-2021 NotePap Smear Specimen AdequacyFebruary 2021 12:00pm CommentSatisfactory for evaluation. Endocervical and/or squamous metaplasticcells (endocervical component)are present.[facility] A#[id number] Health St[facility] Work Phone: Comment on above:Satisfactory for evaluation. Endocervical and/or squamous metaplasticcells (endocervical component)are present.Evaluation + Plan note No data available for this section [facility] Evaluation note* Diagnosis HTN (hypertension), benign Essential hypertension, benign Screening for HIV (human immunodeficiency virus) Special screening examination for other specified viral diseases Encounter for hepatitis C screening test for low risk patient documented in this encounter [facility] Work Phone: Evaluation note* Diagnosis Onset Date Resolution Status Fatty liver acute FH: hepatic cirrhosis acute [facility] Work Phone: Evaluation note* Diagnosis HTN (hypertension), benign Essential hypertension, benign Fatty liver Other chronic nonalcoholic liver disease documented in this encounter [facility] Work Phone: Evaluation noteNo assessment information available [facility] Work Phone: Evaluation note* Diagnosis Onset Date Resolution Status Fatty liver chronic FH: hepatic cirrhosis chroni c Liver cyst chronic [facility] Work Phone: Evaluation note* Diagnosis Abnormal urine- Primary Other nonspecific finding on examination of urine Essential hypertension Unspecified essential hypertension Elevated LFTs Other abnormal blood chemistry [facility]* Diagnosis Abnormal urine- Primary Other nonspecific finding on examination of urine Essential hypertension Unspecified essential hypertension Elevated LFTs Other abnormal blood chemistry [facility]* Diagnosis Unspecified abnormal findings in urine- Primary [facility]* Diagnosis Essential hypertension- Primary Unspecified essential hypertension [facility]* Diagnosis Essential hypertension- Primary Unspecified essential hypertension Elevated LFTs Other abnormal blood chemistry [facility] Diagnosis Essential (primary) hypertension- Primary Unspecified essential hypertension [facility]* Diagnosis Essential hypertension- Primary Unspecified essential hypertension Elevated LFTs Other abnormal blood chemistry [facility] Diagnosis Thoracic back pain, unspecified back pain laterality, unspecified chronicity- Primary Essential hypertension Unspecified essential hypertension Elevated LFTs Other abnormal blood chemistry [facility]* Diagnosis Sprain of left ankle, unspecified ligament, initial encounter- Primary Acute left ankle pain Acute left ankle pain [facility] Diagnosis Essential hypertension- Primary Unspecified essential hypertension Elevated LFTs Other abnormal blood chemistry [facility] Diagnosis Thoracic back pain, unspecified back pain laterality, unspecified chronicity- Primary Essential hypertension Unspecified essential hypertension Elevated LFTs Other abnormal blood chemistry [facility]* Diagnosis Essential hypertension- Primary Unspecified essential hypertension Mild sprain of left ankle, sequela Elevated LFTs Other abnormal blood chemistry [facility]* Diagnosis Onset Date Resolution Status Admit Date Metabolic dysfunction-associ ated steatotic liver disease (MASLD) acute January 18, 2025 10:46am Liver cyst chronic January 18, 2025 10:46am [facility] Work Phone: Evaluation note* Diagnosis Dark urine- Primary Other nonspecific finding on examination of urine Essential hypertension Unspecified essential hypertension Elevated LFTs Other abnormal blood chemistry documented [facility]* Diagnosis Essential hypertension- Primary Unspecified essential hypertension Fatty liver Other chronic nonalcoholic liver disease [facility]* Diagnosis Essential hypertension- Primary Unspecified essential hypertension Mild sprain of left ankle, sequela Elevated LFTs Other abnormal blood chemistry Essential hypertension- Primary Unspecified essential hypertension Fatty liver Other chronic nonalcoholic liver disease [facility] No data available for this section [facility] Hospital Discharge instructionsAmbulatory Orders* Nutrition Referral Location: None Selected [facility] Work Phone: Progress note No data available for this section [facility] Reason for referral (narrative)* Diagnostic Procedure Only (Urgent) - Closed Specialty Diagnoses / Procedures Referred By Contac t Referred To Contact XR IMAGING Diagnoses Acute left ankle pain Procedures XR ANKLE GENERAL 3V AP/LAT/OBL LEFT RADEX ANKLE COMPLETE MINIMUM 3 VIEWS Derrek Hernandez MD [address] [place] [address] [place] [address] Referral ID Status Reason Start Date Expiration Date V isits Requested Visits Authorized [id number] Closed Auto-Generate d Referral 08/12/2024 09/11/2025 1 1 [facility] for referral (narrative)No reason for referral [facility] Work Phone: Advance Directives No Advanced Directives Records FoundDocuments on File Type Date Recorded Patient Medical Clerical Assistant Expl anation ACP-Advance Directive ACP-Power of Concrete Gun Operator Documents on File Type Date Recorded Patient Medical Clerical Assistant Expl anation Advance Directives and Living Will Power of Concrete Gun Operator Assessments Diagnosis HTN (hypertension), benign Essential hypertension, benign Summary Purpose Family History No Family History Records FoundUnknown Family Member Name Dates Details : Mother, Father Status:Active Relationship Condition Age at Onset Recorded Date/T carlos mother Hepatic cirrhosis Unknown Chief Complaint and Reason for Visit Chief Complaint SCREENING ELEVATED LIVER ENZYMES E ORDERS Reason for Visit Fatty liver FH: hepatic cirrhosis Chief Complaint SCREENING ELEVATED LIVER ENZYMES E ORDERS FATTY LIVER Reason for Visit Fatty liver FH: hepatic cirrhosis Chief Complaint SCREENING Chief Complaint SCREENING 1 Y FU INT LABS FATTY LIVER, LIVER CYST Reason for Visit Fatty liver FH: hepatic cirrhosis Liver cyst Chief Complaint Admit Date SCREENING January 06, 2025 11:00a m FU LIVER ENZYMES January 18, 2025 10:46 am Reason for Visit Admit Date Metabolic dysfunction-associ ated steatotic liver disease (MASLD) January 18, 2025 10:46am Liver cyst January 18, 2025 10:46 am Chief Complaint Admit Date SCREENING January 06, 2025 11:00a m FU LIVER ENZYMES January 18, 2025 10:46 am INT LAB ORDERS January 18, 2025 11:48 am Chief Complaint Admit Date SCREENING January 06, 2025 11:00a m FU LIVER ENZYMES January 18, 2025 10:46 am INT LAB ORDERS January 18, 2025 11:48 am LIVER STEATOSIS, LIVER CYST January 27 8:11am Chief Complaint Admit Date SCREENING January 06, 2025 11:00a m FU LIVER ENZYMES January 18, 2025 10:46 am INT LAB ORDERS January 18, 2025 11:48 am LIVER STEATOSIS, LIVER CYST January 27 8:11am 1 M FU February 16, 2025 10:2 4am Reason for Visit Admit Date Metabolic dysfunction-associ ated steatotic liver disease (MASLD) January 18, 2025 10:46am Liver cyst January 18, 2025 10:46 am THAO (nonalcoholic steatohepatitis) February 16, 2025 10:24am Fatty liver February 16, 2025 10:2 4am Chief Complaint Admit Date SCREENING January 06, 2025 11:00a m FU LIVER ENZYMES January 18, 2025 10:46 am INT LAB ORDERS January 18, 2025 11:48 am LIVER STEATOSIS, LIVER CYST January 27, 20 25 8:11am 1 M FU February 16, 2025 10:2 4am FU March 18, 2025 10:2 4am Chief Complaint Admit Date SCREENING January 06, 2025 11:00a m FU LIVER ENZYMES January 18, 2025 10:46 am INT LAB ORDERS January 18, 2025 11:48 am LIVER STEATOSIS, LIVER CYST January 27 8:11am 1 M FU February 16, 2025 10:2 4am FU March 18, 2025 10:2 4am MNT March 30, 2025 9:24 am Reason for Visit Admit Date Liver cyst January 18, 2025 10:46 am Metabolic dysfunction-associ ated steatotic liver disease (MASLD) January 18, 2025 10:46am Fatty liver February 16, 2025 10:2 4am THAO (nonalcoholic steatohepatitis) February 16, 2025 10:24am Metabolic dysfunction-associated steatoh epatitis (MASH) March 18, 2025 10:24am Liver cyst March 18, 2025 10:2 4am Metabolic dysfunction-associ ated steatotic liver disease (MASLD) March 18, 2025 10:24am Chief Complaint Admit Date SCREENING January 06, 2025 11:00a m FU LIVER ENZYMES January 18, 2025 10:46 am INT LAB ORDERS January 18, 2025 11:48 am LIVER STEATOSIS, LIVER CYST January 27 8:11am 1 M FU February 16, 2025 10:2 4am FU March 18, 2025 10:2 4am MNT March 30, 2025 9:24 am Annual (FIRE TECHNICIAN) April 27, 2025 11 :16am Reason for Visit Admit Date Liver cyst January 18, 2025 10:46 am Metabolic dysfunction-associ ated steatotic liver disease (MASLD) January 18, 2025 10:46am Fatty liver February 16, 2025 10:2 4am THAO (nonalcoholic steatohepatitis) Maria Del Rosario 11th, 2025 10:24am Metabolic dysfunction-associated steatoh epatitis (MASH) March 18, 2025 10:24am Liver cyst March 18, 2025 10:2 4am Metabolic dysfunction-associ ated steatotic liver disease (MASLD) March 18, 2025 10:24am Encounter for routine gynecological exam ination April 27, 2025 11:16am Chief Complaint Admit Date FU LIVER ENZYMES January 18, 2025 10:46 am INT LAB ORDERS January 18, 2025 11:48 am LIVER STEATOSIS, LIVER CYST January 27 8:11am 1 M FU February 16, 2025 10:2 4am FU March 18, 2025 10:2 4am MNT March 30, 2025 9:24 am Annual (FIRE TECHNICIAN) April 27, 2025 11 :16am MNT May 03, 2025 10 :27am Chief Complaint Admit Date 1 M FU February 16, 2025 10:2 4am FU March 18, 2025 10:2 4am MNT March 30, 2025 9:24 am Annual (FIRE TECHNICIAN) April 27, 2025 11 :16am MNT May 03, 2025 10 :27am MNT June 02, 2025 11:30am Reason for Visit Admit Date Fatty liver February 16, 2025 10:2 4am THAO (nonalcoholic steatohepatitis) February 16, 2025 10:24am Metabolic dysfunction-associated steatoh epatitis (MASH) March 18, 2025 10:24am Liver cyst March 18, 2025 10:2 4am Metabolic dysfunction-associ ated steatotic liver disease (MASLD) March 18, 2025 10:24am Encounter for routine gynecological exam ination April 27, 2025 11:16am Additional Source Comments INFORMATION SOURCE (unrecogn ized section and content) DATE CREATED AUTHOR 07/07/2020 [facility] DATE CREATED AUTHOR AUTHOR'S ORGANIZ ATION 07/07/2020 [facility] DATE CREATED AUTHOR AUTHOR'S ORGANIZ ATION 07/12/2020 [employer] DATE CREATED AUTHOR AUTHOR'S ORGANIZ ATION 06/07/2022 [facility] DATE CREATED AUTHOR AUTHOR'S ORGANIZ ATION 04/18/2024 [facility] ([place]) DATE CREATED AUTHOR AUTHOR'S ORGANIZ ATION 05/30/2025 [facility] DATE CREATED AUTHOR AUTHOR'S ORGANIZ ATION 07/15/2025 [facility] Goals (unrecognized section and content) Goals may be documented in a n alternate sectionGoals may be documented in an alternate sectionGoals may be documented in an alternate sectionGoals may be documented in an alternate sectionGoals may be documented in an alternate section No data available for this sectionGoals may be documented in an alternate sectionGoals may be documented in an alternate sectionGoals may be documented in an alternate sectionGoals may be documented in an alternate sectionGoals may be documented in an alternate sectionGoals may be documented in an alternate sectionGoals may be documented in an alternate sectionGoals may be documented in an alternate sectionGoals may be documented in an alternate section Care Teams (unrecognized sec tion and content) Director Of Retail Merchandising Relationship Specialty Start Date End Date Poonam Neal MD PCP - General Family Medicine 04/21/15 Team Status: Active Member Role Status Dates Dr. Poonam Neal MD Family Provider Active Dr. Poonam Neal MD Primary Care Provider Active Team Status: Inactive Member Role Status Dates Dr. Poonam Neal MD Primary Care Provider Active Dr. Gabriel Bassett MD Attending Provider, Referring Pr ovider Active Team Status: Inactive Member Role Status Dates Dr. Poonam Neal MD Primary Care Provider, Refer ring Provider Active Connie Santos DREDGE OPERATOR SUPERVISOR, DREDGE OPERATOR SUPERVISOR-C Attending Provider Active Team Status: Inactive Member Role Status Dates Dr. Poonam Neal MD Primary Care Provider Active Connie Santos DREDGE OPERATOR SUPERVISOR, DREDGE OPERATOR SUPERVISOR-C Attending Provider, Referrin g Provider Active Director Of Retail Merchandising Relationship Specialty Start Date End Date Poonam Neal MD [address] [place] [address] PCP - General 04/21/15 Director Of Retail Merchandising Relationship Specialty Start Date End Date Poonam Neal MD [address] [place] [address] PCP - General 04/21/15 Director Of Retail Merchandising Relationship Specialty Start Date End Date Poonam Neal MD [address] [place] [id number] PCP - General 04/21/15 Director Of Retail Merchandising Relationship Specialty Start Date End Date Poonam Neal MD [address] [place] [id number] PCP - General 04/21/15 Director Of Retail Merchandising Relationship Specialty Start Date End Date Poonam Neal MD [address] [place] [address] PCP - General 04/21/15 Director Of Retail Merchandising Relationship Specialty Start Date End Date [facility] [address] [place] [address] PCP - General 04/21/15 Team Status: Inactive Member Role Status Dates Dr. Poonam Neal MD Primary Care P flo, Attending Provider, Referring Provider Active Director Of Retail Merchandising Relationship Specialty Start Date End Date Poonam [facility] [address] [place] [address] PCP - General 04/21/15 Director Of Retail Merchandising Relationship Specialty Start Date End Date Poonam Neal MD [address] [place] [address] PCP - General 04/21/15 Director Of Retail Merchandising Relationship Specialty Start Date End Date Poonam Neal MD [address] [place] [address] PCP - General 04/21/15 Director Of Retail Merchandising Relationship Specialty Start Date End Date Poonam [facility] [address] [place] [address] PCP - General 04/21/15 Director Of Retail Merchandising Relationship Specialty Start Date End Date Poonam [facility] [address] [place] [address] PCP - General 04/21/15 Director Of Retail Merchandising Relationship Specialty Start Date End Date Poonam Neal MD [address] [place] [address] PCP - General Family Medicine 06/13/20 Director Of Retail Merchandising Relationship Specialty Start Date End Date Poonam Neal MD [address] [place] [address] PCP - General 04/21/15 Director Of Retail Merchandising Relationship Specialty Start Date End Date Poonam [facility] [address] [place] [address] PCP - General 04/21/15 Director Of Retail Merchandising Relationship Specialty Start Date End Date Poonam Neal MD [address] [place] [address] PCP - General 04/21/15 Team Status: Active Member Role Status Dates Dr. Poonam Neal MD Primary Care Provider Active Team Status: Inactive Member Role Status Dates Dr. Poonam Neal MD Primary Care Provider Active Start: January 06, 2025 End: January 06, 2025 Bharati Lopez DREDGE OPERATOR SUPERVISOR, DREDGE OPERATOR SUPERVISOR-C Attending Provider Active Start: January 06, 2025 End: January 06, 2025 Bharati Lopez DREDGE OPERATOR SUPERVISOR, DREDGE OPERATOR SUPERVISOR-C Referring Provider Active Start: January 06, 2025 End: January 06, 2025 Team Status: Inactive Member Role Status Dates Dr. Poonam Neal MD Primary Care Provider Active Start: January 18, 2025 End: January 18, 2025 Dr. Poonam Neal MD Referring Provider Active Start: January 18, 2025 End: January 18, 2025 Telma Mcintosh DREDGE OPERATOR SUPERVISOR-C Attending Provider Active Start: January 18, 2025 End: January 18, 2025 Team Status: Inactive Member Role Status Dates Dr. Poonam Neal MD Primary Care Provider Active Start: January 18, 2025 End: January 18, 2025 Telma Mcintosh DREDGE OPERATOR SUPERVISOR-C Attending Provider Active Start: January 18, 2025 End: January 18, 2025 Telma Mcintosh DREDGE OPERATOR SUPERVISOR-C Referring Provider Active Start: January 18, 2025 End: January 18, 2025 Team Status: Inactive Member Role Status Dates Dr. Poonam Neal MD Primary Care Provider Active Start: January 27, 2025 End: January 27, 2025 Telma Mcintosh DREDGE OPERATOR SUPERVISOR-C Attending Provider Active Start: January 27, 2025 End: January 27, 2025 Telma Mcintosh DREDGE OPERATOR SUPERVISOR-C Referring Provider Active Start: January 27, 2025 End: January 27, 2025 Team Status: Inactive Member Role Status Dates Dr. Poonam Neal MD Primary Care Provider Active Start: February 16, 2025 End: February 16, 2025 Dr. Poonam Neal MD Referring Provider Active Start: February 16, 2025 End: February 16, 2025 Telma Mcintosh NP-C Attending Provider Active Start: February 16, 2025 End: February 16, 2025 Team Status: Active Member Role/Relationship Status Dates Dr. Poonam Neal MD Primary Care Provider Active Team Status: Inactive Member Role/Relationship Status Dates Dr. Poonam Neal MD Primary Care Provider Active Start: January 06, 2025 End: January 06, 2025 Bharati Lopez DREDGE OPERATOR SUPERVISOR, DREDGE OPERATOR SUPERVISOR-C Attending Provider Active Start: January 06, 2025 End: January 06, 2025 Bharati Lopez NP, DREDGE OPERATOR SUPERVISOR-C Referring Provider Active Start: January 06, 2025 End: January 06, 2025 Team Status: Inactive Member Role/Relationship Status Dates Dr. Poonam Neal MD Primary Care Provider Active Start: January 18, 2025 End: January 18, 2025 Dr. Poonam Neal MD Referring Provider Active Start: January 18, 2025 End: January 18, 2025 Telma Mcintosh DREDGE OPERATOR SUPERVISOR-C Attending Provider Active Start: January 18, 2025 End: January 18, 2025 Team Status: Inactive Member Role/Relationship Status Dates Dr. Poonam Neal MD Primary Care Provider Active Start: January 18, 2025 End: January 18, 2025 Telma Mcintosh DREDGE OPERATOR SUPERVISOR-C Attending Provider Active Start: January 18, 2025 End: January 18, 2025 Telma Mcintosh DREDGE OPERATOR SUPERVISOR-C Referring Provider Active Start: January 18, 2025 End: January 18, 2025 Team Status: Inactive Member Role/Relationship Status Dates Dr. Poonam Neal MD Primary Care Provider Active Start: January 27, 2025 End: January 27, 2025 Telma Mcintosh DREDGE OPERATOR SUPERVISOR-C Attending Provider Active Start: January 27, 2025 End: January 27, 2025 Telma Mcintosh DREDGE OPERATOR SUPERVISOR-C Referring Provider Active Start: January 27, 2025 End: January 27, 2025 Team Status: Inactive Member Role/Relationship Status Dates Dr. Poonam Neal MD Primary Care Provider Active Start: February 16, 2025 End: February 16, 2025 Dr. Poonam Neal MD Referring Provider Active Start: February 16, 2025 End: February 16, 2025 Telma Mcintosh DREDGE OPERATOR SUPERVISOR-C Attending Provider Active Start: February 16, 2025 End: February 16, 2025 Team Status: Inactive Member Role/Relationship Status Dates Dr. Poonam Neal MD Primary Care Provider Active Start: March 18, 2025 End: March 18, 2025 Dr. Poonam Neal MD Referring Provider Active Start: March 18, 2025 End: March 18, 2025 Dr. Alberto Leroy MD Attending Provider Active Start: March 18, 2025 End: March 18, 2025 Team Status: Inactive Member Role/Relationship Status Dates Dr. Poonam Neal MD Primary Care Provider Active Start: March 30, 2025 End: April 07, 2025 SINAN Samano Attending Provider Active Start: March 30, 2025 End: April 07, 2025 SINAN Samano Referring Provider Active Start: March 30, 2025 End: April 07, 2025 Director Of Retail Merchandising Relationship Specialty Start Date End Date Poonam Nela MD [address] [facility] [address] [place] [address] PCP - General 04/21/15 Team Status: Inactive Member Role/Relationship Status Dates Dr. Poonam Neal MD Primary Care Provider Active Start: April 27, 2025 End: April 27, 2025 Dr. Poonam Neal MD Referring Provider Active Start: April 27, 2025 End: April 27, 2025 Bharati Lopez NP DREDGE OPERATOR SUPERVISOR-C Attending Provider Active Start: April 27, 2025 End: April 27, 2025 Team Status: Inactive Member Role/Relationship Status Dates Dr. Poonam Neal MD Primary Care Provider Active Start: January 18, 2025 End: January 18, 2025 Dr. Poonam Neal MD Referring Provider Active Start: January 18, 2025 End: January 18, 2025 BABS SamanoC Attending Provider Active Start: January 18, 2025 End: January 18, 2025 Team Status: Inactive Member Role/Relationship Status Dates Dr. Poonam Neal MD Primary Care Provider Active Start: January 18, 2025 End: January 18, 2025 BABS SamanoC Attending Provider Active Start: January 18, 2025 End: January 18, 2025 Telma Mcintosh NP-C Referring Provider Active Start: January 18, 2025 End: January 18, 2025 Team Status: Inactive Member Role/Relationship Status Dates Dr. Poonam Neal MD Primary Care Provider Active Start: January 27, 2025 End: January 27, 2025 Telma Mcintosh DREDGE OPERATOR SUPERVISOR-C Attending Provider Active Start: January 27, 2025 End: January 27, 2025 Telma Mcintosh DREDGE OPERATOR SUPERVISOR-C Referring Provider Active Start: January 27, 2025 End: January 27, 2025 Team Status: Inactive Member Role/Relationship Status Dates Dr. Poonam Neal MD Primary Care Provider Active Start: February 16, 2025 End: February 16, 2025 Dr. Poonam Neal MD Referring Provider Active Start: February 16, 2025 End: February 16, 2025 Telma Mcintosh DREDGE OPERATOR SUPERVISOR-C Attending Provider Active Start: February 16, 2025 End: February 16, 2025 Team Status: Inactive Member Role/Relationship Status Dates Dr. Poonam Neal MD Primary Care Provider Active Start: March 18, 2025 End: March 18, 2025 Dr. Poonam Neal MD Referring Provider Active Start: March 18, 2025 End: March 18, 2025 Dr. Alberto Leroy MD Attending Provider Active Start: March 18, 2025 End: March 18, 2025 Team Status: Inactive Member Role/Relationship Status Dates Dr. Poonam Neal MD Primary Care Provider Active Start: March 30, 2025 End: April 07, 2025 Telma Mcintosh DREDGE OPERATOR SUPERVISOR-C Attending Provider Active Start: March 30, 2025 End: April 07, 2025 Telma Mcintosh DREDGE OPERATOR SUPERVISOR-C Referring Provider Active Start: March 30, 2025 End: April 07, 2025 Team Status: Inactive Member Role/Relationship Status Dates Dr. Poonam Neal MD Primary Care Provider Active Start: April 27, 2025 End: April 27, 2025 Dr. Poonam Neal MD Referring Provider Active Start: April 27, 2025 End: April 27, 2025 Bharati Lopez NP DREDGE OPERATOR SUPERVISOR-C Attending Provider Active Start: April 27, 2025 End: April 27, 2025 Team Status: Inactive Member Role/Relationship Status Dates Dr. Poonam Neal MD Primary Care Provider Active Start: May 03, 2025 End: May 08, 2025 SINAN Samano Attending Provider Active Start: May 03, 2025 End: May 08, 2025 SINAN Samano Referring Provider Active Start: May 03, 2025 End: May 08, 2025 Director Of Retail Merchandising Relationship Specialty Start Date End Date Poonam Neal MD [address] [place] [address] PCP - General 04/21/15 Director Of Retail Merchandising Relationship Specialty Start Date End Date Poonam Neal MD [address] [place], [place] [address] PCP - General 04/21/15 Team Status: Active Member Role/Relationship Status Dates Dr. Poonam Neal MD Primary care physician Activ e Team Status: Inactive Member Role/Relationship Status Dates Dr. Poonam Neal MD Primary care physician Activ e Start: February 16, 2025 End: February 16, 2025 Dr. Poonam Neal MD Referring Provider Active Start: February 16, 2025 End: February 16, 2025 SINAN Samano Attending physician Active Start: February 16, 2025 End: February 16, 2025 Team Status: Inactive Member Role/Relationship Status Dates Dr. Poonam Neal MD Primary care physician Activ e Start: March 18, 2025 End: March 18, 2025 Dr. Poonam Neal MD Referring Provider Active Start: March 18, 2025 End: March 18, 2025 Dr. Alberto Leroy MD Attending physician Active Start: March 18, 2025 End: March 18, 2025 Team Status: Inactive Member Role/Relationship Status Dates Dr. Poonam Neal MD Primary care physician Activ e Start: March 30, 2025 End: April 07, 2025 SINAN Samano Attending physician Active Start: March 30, 2025 End: April 07, 2025 SINAN Samano Referring Provider Active Start: March 30, 2025 End: April 07, 2025 Team Status: Inactive Member Role/Relationship Status Dates Dr. Poonam Neal MD Primary care physician Activ e Start: April 27, 2025 End: April 27, 2025 Dr. Poonam Neal MD Referring Provider Active Start: April 27, 2025 End: April 27, 2025 Bharati Lopez NP DREDGE OPERATOR SUPERVISOR-C Attending physician Active Start: April 27, 2025 End: April 27, 2025 Team Status: Inactive Member Role/Relationship Status Dates Dr. Poonam Neal MD Primary care physician Activ e Start: May 03, 2025 End: May 08, 2025 SINAN Samano Attending physician Active Start: May 03, 2025 End: May 08, 2025 SINAN Samano Referring Provider Active Start: May 03, 2025 End: May 08, 2025 Team Status: Inactive Member Role/Relationship Status Dates Dr. Poonam Neal MD Primary care physician Activ e Start: June 02, 2025 End: June 07, 2025 SINAN Samano Attending physician Active Start: June 02, 2025 End: June 07, 2025 SINAN Samano Referring Provider Active Start: June 02, 2025 End: June 07, 2025 Reason for Visit (unrecogniz ed section and content) Reason Comments Follow-up Labs from [facility] in Media section. Reason Comments Follow-up Reason Comments Follow-up 3 month Reason Onset Date Comments Med Refill 01/27/2024 Reason Onset Date Comments Med Refill 02/12/2024 Reason Onset Date Comments Med Refill 03/17/2024 Reason Comments Follow-up 3-4 month, pt declin ed flu vaccine today. Back Pain To right back side, high up Reason Comments Ankle Injury LEFT ankle x 2 HR Reason Comments Med Refill Reason Comments Follow-up Ankle Injury LEFT ankle, Back in August, but still bothering her Reason Comments Follow-up Dark urine no other symptoms/ patient says she did home test on urine and had high leuk but nothing else Reason Comments Follow-up 3 month, and discuss [facility] Insurance Source Comments (unrecognize d section and content) In the event this informatio n is protected by the Federal Confidentiality of Alcohol and Drug Abuse Patient Records regulations: The Federal rules restrict any use of the information to criminally investigate or prosecute any alcohol or drug abuse patient.[facility] FOR RECORDS PERTAINING TO PATIENTS WHO ARE OR HAVE BEEN ENROLLED IN A CHEMICAL DEPENDENCY/SUBSTANCEABUSE PROGRAM, SOME INFORMATION MAY BE OMITTED. This clinical summary was aggregated from multiple sources. Caution should be exercised in using it in the provision of clinical care. This summary normalizes information from multiple sources, and as a consequence, information in this document may materially change the coding, format and clinical context of patient data. In addition, data may be omitted in some cases. CLINICAL DECISIONS SHOULD BE BASED ON THE PRIMARY CLINICAL RECORDS. [facility]. provides no warranty or guarantee of the accuracy or completeness of information in this document.
[2025-08-13 08:24] LABS: Hematocrit 42.0 % (37-47); Hemoglobin 13.6 g/dL (12.0-15.0); Immature Granulocytes Count 0.020 X10^3/uL (0.0-0.0); Mean Corp Hgb Conc 32.4 g/dL (32-36); Mean Corpuscular Volume 97.7 fL (81-99); Mean Platelet Vol. 10.9 fl (6.2-12.0); NRBC Flagged by Analyzer 0 % (0-5); Platelet Count 297 K/mm3 (150-450); RBC Distribution Width CV 12.5 % (11.6-14.6); RBC Distribution Width SD 44.5 fl (35.1-43.9); Red Blood Count 4.30 M/mm3 (4.2-5.4); White Blood Count 6.8 K/mm3 (4.4-11.0)
[2025-08-13 09:06] LABS: AST(SGOT) 21 U/L (<=31); Alanine Aminotransfer ALT/SGPT 23 U/L (<=34); Albumin, Serum 4.5 g/dL (3.4-4.8); Alkaline Phosphatase 67 U/L (35-104); Anion Gap 11 (5-15); BUN 17 mg/dL (4-19); BUN/Creat Ratio 22.8 RATIO (10-20); Calcium,Total 9.7 mg/dL (7.6-11.0); Carbon Dioxide 25.5 mmol/L (21.0-32.0); Chloride 104 mmol/L (98-108); Cholesterol 184 mg/dL (<=200); Ferritin 342 ng/mL (22-378); Globulin 3.4 g/dL (2.2-4.2); Glucose 98 mg/dL (70-99); Low Density Lipoprotein Calc. 119 mg/dL; Potassium 4.1 mmol/L (3.3-5.1); Triglycerides 89 mg/dL; Very Low Density Lipoprotein 18 mg/dL (5-40); cholesterol:hdl ratio screen 3.77
[2025-08-13 09:15] LABS: Vitamin D,25 Hydroxy 44.4 ng/mL (30-100)
[2025-08-13 09:54] LABS: Iron Binding Capacity,Total 290 ug/dL (250-450)
[2025-08-13 09:57] LABS: CRP < 3.00 mg/L (0.0-3.0); Iron 96 ug/dL (50-170); Iron Binding Capacity,Unsat 194 ug/dL (228-428)
[2025-08-15 13:08] LABS: ANTINUCLEAR ANTIBODIES DIRECT Negative (Negative)
[2025-08-16 14:09] LABS: Immunoglobulin A 233 mg/dL (87-352); Immunoglobulin G 1327 mg/dL (586-1602); Immunoglobulin M 95 mg/dL (26-217)
== END | disposition home or self-care (01) ==
PROVIDERS: Nurse Practitioner Acute Care; PCP Family Medicine; Referring Provider Internal Medicine; Visit Provider Internal Medicine
DX: E78.2 Mixed hyperlipidemia (principal); I10 Essential (primary) hypertension; K75.81 Nonalcoholic steatohepatitis (NASH); E55.9 Vitamin D deficiency, unspecified; R74.8 Abnormal levels of other serum enzymes
CPT/HCPCS: 80053; 80061; 82306; 82728; 82784; 83036; 83540; 83550; 85025; 86038; 86140; 86225; 86235; 86334

== ENCOUNTER 2025-08-23 10:52 | Outpatient (RCR) | payer OTHER, SELFPAY | END 2025-09-07 23:59 | LOC: NS 10:52 | PROVIDERS: PCP Family Medicine; Referring Provider Nurse Practitioner Acute Care; Visit Provider Nurse Practitioner Acute Care | DX: Z71.3 Dietary counseling and surveillance (principal); K75.81 Nonalcoholic steatohepatitis (NASH); K76.0 Fatty (change of) liver, not elsewhere classified | CPT/HCPCS: 97803 ==